=== PATIENT | female | born 1960 | race Caucasian/White ===

== ENCOUNTER 2016-07-03 13:55 | Emergency (ER) | payer MEDICARE, MEDICAID ==
--- NOTE | 2016-07-03 14:46 | ED Physician Documentation ---
History of Present Illness - Stated complaint Stated Complaint: WEAKNESS/EXHAUSTED - Chief complaint Chief Complaint: General - History obtained from History obtained from: Patient - History of Present Illness Timing: Other (This is a 55-year-old woman who for the last 2 weeks has had unexplained fatigue. She is sleeping 7 or half hours a night and wakes up tired with slight heaviness. She has associated nausea but that is a chronic issue. She has nocturia but that is also not new. She denies pedal edema, chest pain, shortness of breath, abdominal pain, or headache. She doesn't know if she snores. She is not taking any prescription medication. She has a history of alcohol abuse but has been sober for 18 months or so.) Review of Systems Constitutional: reports: Fatigue. 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 - Present Medications Home Medications: Ambulatory Orders Medication Instructions Recorded Confirmed Promethazine [Phenergan] 25 mg PO Q6H PRN 12/27/12 07/03/16 - Allergies Allergies/Adverse Reactions: Allergies Allergy/AdvReac Type Severity Reaction Status Date / Time aspirin Allergy Nausea Verified 07/03/16 14:12 doxycycline Allergy unknown Verified 07/03/16 14:12 hydrocodone bitartrate * Allergy unknown Verified 07/03/16 14:12 [From Vicodin] oxycodone Allergy Hives Verified 07/03/16 14:12 - Social History Does the pt smoke?: Yes Smoking Status: Current every day smoker Does the pt drink ETOH?: Yes Does the pt have substance abuse?: No - Immunizations Immunizations are current?: Yes - POLST Patient has POLST: No PD ED PE NORMAL - Vitals Vital signs reviewed: Yes - General General: Alert and oriented X 3, No acute distress - HEENT HEENT: PERRL, EOMI, Ears normal, Moist mucous membranes - Neck Neck: Supple, no meningeal sign, No bony TTP - Cardiac Cardiac: RRR, No murmur - Respiratory Respiratory: No respiratory distress, Clear bilaterally - Abdomen Abdomen: Soft, Non tender - Extremities Extremities: No deformity, No tenderness to palpate, No edema, Other (nl patellar reflexes) - Neuro Neuro: Alert and oriented X 3, Normal speech - Psych Psych: Normal mood, Normal affect Results - Vitals Vitals: Vital Signs - 24 hr 07/03/16 07/03/16 14:08 15:42 Temperature 36 C L 36.5 C Heart Rate 74 60 Respiratory 14 18 Rate Blood Pressure 143/85 H 137/73 H O2 Saturation 100 99 Oxygen O2 Source Room air - EKG (time done) 1456 Rate: Rate (enter#) (59) Rhythm: NSR [place]: Normal Intervals: Normal NV QRS: Normal Ischemia: Normal ST segments Computer interpretation: Agree with computer - Labs Labs: Laboratory Tests 07/03/16 07/03/16 07/03/16 14:47 15:50 15:50 WBC 7.5 RBC 4.37 Hgb 13.7 Hct 41.2 MCV 94.1 MCH 31.4 H MCHC 33.3 RDW 13.5 Plt Count 292 MPV 8.5 Neut # 3.9 Lymph # 3.0 [place] # 0.4 Eos # 0.1 Baso # 0.1 Absolute Nucleated RBC 0.00 Nucleated RBCs 0.0 Sodium 140 Potassium 4.1 Chloride 105 Carbon Dioxide 27 Anion Gap 8.0 BUN 15 Creatinine 0.5 Estimated GFR (MDRD) 129 Glucose 93 Calcium 9.5 Total Bilirubin 0.4 AST 19 ALT 20 Alkaline Phosphatase 91 Total Protein 7.7 Albumin 4.4 Globulin 3.3 Albumin/Globulin Ratio 1.3 Lipase 24 TSH Urine Color YELLOW Urine Clarity CLEAR Urine pH 6.0 Ur Specific [place] 1.020 Urine Protein NEGATIVE Urine Glucose (UA) NEGATIVE Urine Ketones NEGATIVE Urine Occult Blood MODERATE H Urine Nitrite NEGATIVE Urine Bilirubin NEGATIVE Urine Urobilinogen 0.2 (NORMAL) Ur Leukocyte Esterase NEGATIVE Urine RBC 0-5 Urine WBC 0-3 Ur Squamous Epith Cells FEW Squamous Urine Bacteria Rare Ur Microscopic Review INDICATED Urine Culture Comments NOT INDICATED Urine HCG, Qual NEGATIVE 07/03/16 15:50 WBC RBC Hgb Hct MCV MCH MCHC RDW Plt Count MPV Neut # Lymph # [place] # Eos # Baso # Absolute Nucleated RBC Nucleated RBCs Sodium Potassium Chloride Carbon Dioxide Anion Gap BUN Creatinine Estimated GFR (MDRD) Glucose Calcium Total Bilirubin AST ALT Alkaline Phosphatase Total Protein Albumin Globulin Albumin/Globulin Ratio Lipase TSH 1.74 Urine Color Urine Clarity Urine pH Ur Specific [place] Urine Protein Urine Glucose (UA) Urine Ketones Urine Occult Blood Urine Nitrite Urine Bilirubin Urine Urobilinogen Ur Leukocyte Esterase Urine RBC Urine WBC Ur Squamous Epith Cells Urine Bacteria Ur Microscopic Review Urine Culture Comments Urine HCG, Qual PD MEDICAL DECISION MAKING - ED course ED course: 2 weeks of fatigue, may be related to stress at work. No medical emergency identified. Departure - Departure Disposition: Home, Self Care Clinical Impression: Fatigue Qualifiers: Fatigue type: unspecified Qualified Code(s): R53.83 - Other fatigue Condition: Good Record reviewed to determine appropriate education?: Yes Comments: Call your doctor to arrange a follow up appointment. Make the next available appointment. In the interim return anytime if worse or if new symptoms develop. Your blood pressure was elevated today on check in to the emergency department. This does not mean that you have hypertension, it is a common phenomenon to check into the emergency department and have elevated blood pressure. I recommend that you see your primary care physician within the week to have it rechecked when you're feeling better. Discharge Date/Time: 07/03/16 16:26
[2016-07-03 14:55] LABS: BILIRUBIN,URINE NEGATIVE (NEGATIVE)
[2016-07-03 14:59] LABS: HCG UR QUAL NEGATIVE; UA w/ MICROSCOPIC CHARGE YES
[2016-07-03 15:07] LABS: UR CULTURE IF IND NOT INDICATED; WBC,URINE 0-3 /HPF (0-5)
[2016-07-03 15:43] VITALS: BP 137/73
[2016-07-03 15:56] LABS: BASOPHILS # (AUTO) 0.1 10^3/uL (0.0-0.1); BASOPHILS % (AUTO) 1.1 %; EOSINOPHILS # (AUTO) 0.1 10^3/uL (0.0-0.7); HCT - HEMATOCRIT 41.2 % (37.0-47.0); HGB - HEMOGLOBIN 13.7 g/dL (12.0-16.0); LYMPHOCYTES % (AUTO) 40.4 %; MEAN CORPUSCULAR HEMOGLOBIN 31.4 pg (27.0-31.0); MEAN CORPUSCULAR HGB CONC 33.3 g/dL (32.0-36.0); MEAN CORPUSCULAR VOLUME 94.1 fL (81.0-99.0); MEAN PLATELET VOLUME 8.5 fL (7.9-10.8); MONOCYTES # (AUTO) 0.4 10^3/uL (0.0-1.0); MONOCYTES % (AUTO) 5.1 %; NEUTROPHILS # (AUTO) 3.9 10^3/uL (1.5-6.6); NEUTROPHILS % (AUTO) 52.4 %; RED BLOOD COUNT 4.37 10^6/uL (4.20-5.40); RED CELL DISTRIBUTION WIDTH 13.5 % (12.0-15.0); UNCORRECTED WHITE BLOOD COUNT 7.5 x10^3/uL; WHITE BLOOD COUNT 7.5 x10^3/uL (4.8-10.8)
[2016-07-03 16:12] LABS: ALBUMIN/GLOBULIN RATIO 1.3 (1.0-2.2); BILIRUBIN,TOTAL 0.4 mg/dL (0.2-1.0); CALCIUM 9.5 mg/dL (8.5-10.3); CREATININE 0.5 mg/dL (0.4-1.0); POTASSIUM 4.1 mmol/L (3.5-5.0); TOTAL PROTEIN 7.7 g/dL (6.7-8.2)
== END 2016-07-03 16:26 | disposition home or self-care (01) ==
LOC: ED 13:55
DX: R53.83 Other fatigue (principal); R03.0 Elevated blood-pressure reading, without diagnosis of hypertension; F17.200 Nicotine dependence, unspecified, uncomplicated
CPT/HCPCS: 36415; 80053; 81001; 81003; 81025; 83690; 84443; 85025; 87086; 93005; 93010; 99283

== ENCOUNTER 2016-08-16 14:59 | Outpatient (CLI) | payer MEDICARE, MEDICAID ==
--- NOTE | 2016-08-17 11:10 | XRAY Report ---
COMPLETE CERVICAL SPINE: 08/16/2016 CLINICAL INDICATION: Left arm numbness. FINDINGS: AP, lateral, oblique and odontoid views of the cervical spine demonstrate postoperative ch anges at C5-6 and C6-7. There is bilateral osseous neural foraminal narrowing at C5-6. There is no ev idence of acute fracture. No prevertebral soft tissue swelling is seen. IMPRESSION: BILATERAL OSSEOUS NEURAL FORAMINAL NARROWING AT C5-6. JOB #: [id number] EXT JOB #:[id number]
== END 2016-08-16 15:00 | disposition home or self-care (01) ==
LOC: DI 14:59
PROVIDERS: ATTEND Internal Medicine
DX: R20.0 Anesthesia of skin (principal)
CPT/HCPCS: 72050

== ENCOUNTER 2016-09-15 09:28 | Outpatient (CLI) | payer MEDICARE, MEDICAID ==
--- NOTE | 2016-09-15 11:07 | CT Report ---
CT OF THE CERVICAL SPINE WITHOUT CONTRAST: 09/15/2016 CLINICAL INDICATION: Radiculopathy. TECHNIQUE: Axial CT images of the cervical spine were obtained without contrast. Comparison is made to plain films of 08/16/2016. FINDINGS: The cervical vertebral bodies demonstrate normal height and alignment. There is metallic artifact from disk prostheses at C5-6 and C6-7, limiting evaluation at these levels. There is no evidence of acute fracture. The C2-3, C3-4, C4-5 disks appear unremarkable. At C5-6, changes of discectomy and disk prosthesis are noted. No spinal or foraminal narrowing is appreciated. At C6-7, changes of discectomy and disk prosthesis are noted. No spinal or foraminal narrowing is appreciated. The C7-T1 disk is unremarkable. Limited evaluation of the lung apices is unremarkable. The paraspinal soft tissues appear unremarkable. IMPRESSION: POSTOPERATIVE CHANGES AT C5-6 AND C6-7. NO EVIDENT SPINAL OR FORAMINAL STENOSIS. In accordance with CT protocol optimization, one or more of the following dose reduction techniques were utilized for this exam: automated exposure control, adjustment of mA and/or KV based on patient size, or use of iterative reconstructive technique. JOB #: [id number] EXT JOB #: [id number] LUCY
== END 2016-09-15 09:29 | disposition home or self-care (01) ==
LOC: DI 09:28
PROVIDERS: ATTEND Orthopaedic Surgery
DX: M54.12 Radiculopathy, cervical region (principal)
CPT/HCPCS: 72125

== ENCOUNTER 2016-10-19 16:35 | Outpatient (CLI) | payer MEDICARE, MEDICAID ==
[2016-10-20 15:56] LABS: HEPATITIS A AB TOTAL(IMMUNITY) NON-REACTIVE (NON-REACTIVE)
== END 2016-10-19 16:36 | disposition home or self-care (01) ==
LOC: LAB 16:35
PROVIDERS: ATTEND Internal Medicine
DX: Z20.5 Contact with and (suspected) exposure to viral hepatitis (principal)
CPT/HCPCS: 36415; 86708; 86709

== ENCOUNTER 2017-08-07 13:47 | Emergency (ER) | payer MEDICARE, MEDICAID ==
[2017-08-07 14:02] VITALS: BP 108/61
== END 2017-08-07 14:26 | disposition left against medical advice (07) ==
LOC: ED 13:47
DX: Z53.21 Procedure and treatment not carried out due to patient leaving prior to being seen by health care provider (principal)
CPT/HCPCS: 99281

== ENCOUNTER 2017-10-03 16:28 | Emergency (ER) | payer MEDICARE, MEDICAID ==
--- NOTE | 2017-10-03 17:25 | XRAY Report ---
Procedure Date: 10/03/2017 Accession Number: [id number] / [id number] Procedure: XR - Elbow 3 View LT CPT Code: FULL RESULT: EXAM: LEFT ELBOW RADIOGRAPHY EXAM DATE: 10/03/2017 05:12 PM. CLINICAL HISTORY: Ground-level fall. Left elbow pain and swelling. COMPARISON: None. TECHNIQUE: 3 views. FINDINGS: Bones: Normal. No fractures or bone lesions. Joints: Normal. No effusion. No subluxation. Soft Tissues: Normal. No soft tissue swelling. IMPRESSION: Normal elbow radiography. RADIA
--- NOTE | 2017-10-03 18:17 | ED Physician Documentation ---
PD HPI UPPER EXT INJURY - Stated complaint Stated Complaint: LT ARM INJURY/NECK PX - Chief complaint Chief Complaint: Ext Problem - History obtained from History obtained from: Patient - History of Present Illness Location: Left (57-year-old woman [place] the shopping [place] today and someone else dropped a jar of pickles and she kind of jumped backwards and then fell backwards hitting her elbow and she also has some neck pain. No other injuries. No head injury. No loss of consciousness. 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 - Present Medications Home Medications: Ambulatory Orders Medication Instructions Recorded Confirmed Promethazine [Phenergan] 25 mg PO Q6H PRN 12/27/12 07/03/16 - Allergies Allergies/Adverse Reactions: Allergies Allergy/AdvReac Type Severity Reaction Status Date / Time aspirin Allergy Nausea Verified 08/07/17 14:02 doxycycline Allergy unknown Verified 08/07/17 14:02 hydrocodone bitartrate * Allergy unknown Verified 08/07/17 14:02 [From Vicodin] oxycodone Allergy Hives Verified 08/07/17 14:02 - Social History Does the pt smoke?: Yes Smoking Status: Current every day smoker Does the pt drink ETOH?: Yes Does the pt have substance abuse?: No - Immunizations Immunizations are current?: Yes - POLST Patient has POLST: No PD ED PE NORMAL - Vitals Vital signs reviewed: Yes - General General: Alert and oriented X 3, No acute distress - HEENT HEENT: PERRL, EOMI - Neck Neck: Supple, no meningeal sign, No bony TTP (She is a little tender over the right low sternocleidomastoid but there is absolutely no midline tenderness or limited range of motion) - Extremities Extremities: Other (Mild tenderness over the medial epicondyle of the left elbow with full range of motion.) - Neuro Neuro: Alert and oriented X 3, 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 The nexus criteria were applied. The patient has no focal neurologic deficit on examination. The patient has no midline spinal tenderness. The patient has a normal level of consciousness. The patient has no evidence of intoxication. There is no distracting injury presents. Given that these were all negative, per the Nexus criteria the cervical spine was cleared without imaging. - Sepsis Event Vital Signs: Vital Signs - 24 hr 10/03/17 16:55 Temperature 36.5 C Heart Rate 79 Respiratory 18 Rate Blood Pressure 149/97 H O2 Saturation 95 Oxygen O2 Source Room air Departure - Departure Disposition: 01 Home, Self Care Clinical Impression: Fall from ground level Neck sprain Qualifiers: Encounter type: initial encounter Qualified Code(s): S13.9XXA - Sprain of joints and ligaments of unspecified parts of neck, initial encounter Left elbow contusion Qualifiers: Encounter type: initial encounter Qualified Code(s): S50.02XA - Contusion of left elbow, initial encounter Condition: Good Record reviewed to determine appropriate education?: Yes Instructions: ED Sprain Strain Neck Comments: Your blood pressure was elevated today on check into the emergency department. This does not mean that you have hypertension, it is a common phenomenon to come to the emergency department and have elevated blood pressure. I recommend that you see your primary care physician within the week to have it rechecked when you are feeling better.
[2017-10-03 18:32] VITALS: BP 138/88
== END 2017-10-03 18:31 | disposition home or self-care (01) ==
LOC: ED 16:28
DX: S13.9XXA Sprain of joints and ligaments of unspecified parts of neck, initial encounter (principal); S50.02XA Contusion of left elbow, initial encounter; F17.200 Nicotine dependence, unspecified, uncomplicated; W01.10XA Fall on same level from slipping, tripping and stumbling with subsequent striking against unspecified object, initial encounter; Y92.512 Supermarket, store or market as the place of occurrence of the external cause
CPT/HCPCS: 99283

== ENCOUNTER 2019-02-09 17:04 | Emergency (ER) | payer MEDICARE, MEDICAID ==
[2019-02-09] MEDS ORDERED: KETOROLAC 60 MG/2 ML VIAL IM STA (17:25)
[2019-02-09] MEDS ORDERED: DEXAMETHASONE 10 MG/ML VIAL PO STA (17:25)
[2019-02-09] MEDS ORDERED: CHERRY SYRUP 10 ML UDC PO ONE (17:25)
--- NOTE | 2019-02-09 17:30 | ED Physician Documentation ---
PD HPI BACK PAIN - Stated complaint Stated Complaint: BACK PX - Chief complaint Chief Complaint: Back Pain - History obtained from History obtained from: Patient - History of Present Illness Timing - onset: Enter time (399), Today Timing - duration: Hours Timing - details: Abrupt onset, Still present Location: Lower, Left Quality: Pain, Spasm, Sharp, Similar to prior episodes Associated symptoms: No: Fever, Weakness, Numbness, Incontinent of urine, Unable to urinate, Hematuria, Incontinent of stool Improves with: Rest, Position Worsened by: Movement Similar symptoms before: Diagnosis (sciatica) Recently seen: Clinic - Additional information Additional information: 58-year-old female with a history of degenerative disc disease in her neck and back has developed acute sciatic symptoms in the left side at 4:00 this morning. She states that she has been sick over the past week with diarrhea and that illness is improving. She states that she has been hydrating adequately.She denies any numbness or tingling to the perineum denies any trouble with her bladder she does have diarrhea she has not incontinent. Review of Systems Constitutional: denies: Fever Eyes: denies: Decreased vision Ears: denies: Ear pain Nose: reports: Congestion. denies: Rhinorrhea / runny nose Throat: denies: Sore throat Cardiac: denies: Chest pain / pressure, Palpitations Respiratory: denies: Dyspnea, Cough GI: reports: Diarrhea : denies: Dysuria, Frequency Skin: denies: Rash Musculoskeletal: reports: Back pain. 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 - Present Medications Home Medications: Ambulatory Orders Medication Instructions Recorded Confirmed Promethazine [Phenergan] 25 mg PO Q6H PRN 12/27/12 07/03/16 Cyclobenzaprine [Flexeril] 10 mg PO TID PRN #20 tablet 02/09/19 Hydrocodone/Acetaminophen 1 - 2 each PO Q6H PRN #14 tablet 02/09/19 [Hydrocodon-Acetaminophen 5-325] - Allergies Allergies/Adverse Reactions: Allergies Allergy/AdvReac Type Severity Reaction Status Date / Time aspirin Allergy Nausea Verified 02/09/19 17:10 doxycycline Allergy unknown Verified 02/09/19 17:10 hydrocodone bitartrate * Allergy unknown Verified 02/09/19 17:10 [From Vicodin] oxycodone Allergy Hives Verified 02/09/19 17:10 - Social History Does the pt smoke?: Yes Smoking Status: Current every day smoker Does the pt drink ETOH?: Yes Does the pt have substance abuse?: No - Immunizations Immunizations are current?: Yes - POLST Patient has POLST: No PD ED PE NORMAL - Vitals Vital signs reviewed: Yes (hypertensive ) - General General: Other (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 ) - HEENT HEENT: Atraumatic, PERRL, EOMI - Respiratory Respiratory: No respiratory distress - Back Back: No CVA TTP, No spinal TTP, Other (There is tenderness to the lower lumbar paraspinous muscles extending into the sciatic notch on the left side.) - Derm Derm: Normal color, Warm and dry, No rash - Extremities Extremities: No deformity, No edema - Neuro Neuro: Alert and oriented X 3, building certifier 2-12 intact, No motor deficit, No sensory deficit, Normal speech Eye Opening: Spontaneous Motor: Obeys Commands Verbal: Oriented GCS Score: 15 - Psych Psych: Normal mood, Other (Affect is flattened) Results - Vitals Vitals: Vital Signs - 24 hr 02/09/19 17:10 Temperature 36.5 C Heart Rate 76 Respiratory 16 Rate Blood Pressure 181/94 H O2 Saturation 100 Oxygen O2 Source Room air PD MEDICAL DECISION MAKING - ED course Complexity details: reviewed old records, re-evaluated patient, considered differential, d/w patient, d/w family ED course: 58-year-old female with a history of sciatica is in pain with her lower back. She has been into see her primary care doctor this week and last week regarding other issues. She has had some diarrhea she claims that she feels she is well- hydrated as she has been drinking lots of fluids and she is in a broth diet. 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 Calabrese for this and is on a broth diet.Here in the emergency department the patient is administered dexamethasone 10 mg orally and Toradol 60 mg IM. The patient's chart is flagged for allergy to aspirin which the patient states his vomiting as well as doxycycline which patient states is hives and it is also flagged for hydrocodone and oxycodone. The patient states that she was at one time allergic to hydrocodone with hives and she has subsequently been given hydrocodone without difficulty. She states that she is okay with either hydrocodone oxycodone or tramadol. Departure - Departure Disposition: 01 Home, Self Care Clinical Impression: Sciatica Qualifiers: Laterality: left Qualified Code(s): M54.32 - Sciatica, left side Condition: Stable Instructions: ED Sciatica Follow-Up: Mackenzie Bloom MD [Primary Care Provider] - Prescriptions: Cyclobenzaprine [Flexeril] 10 mg PO TID PRN #20 tablet PRN Reason: Spasms Hydrocodone/Acetaminophen [Hydrocodon-Acetaminophen 5-325] 1 - 2 each PO Q6H PRN #14 tablet PRN Reason: pain
[2019-02-09] MEDS ORDERED: HYDROcod/ACET 5/325 Prepack 4 PO STA (17:36)
[2019-02-09] MEDS ORDERED: CYCLOBENZAPRINE 10 MG Prepack 2 PO PRN (17:36)
[2019-02-09] MEDS ORDERED: HYDROmorphone 1 MG/ML CARPUJECT IM STA (18:18)
[2019-02-09 18:48] VITALS: BP 150/78
== END 2019-02-09 18:48 | disposition home or self-care (01) ==
LOC: ED 17:04
DX: M54.42 Lumbago with sciatica, left side (principal); R19.7 Diarrhea, unspecified; M50.30 Other cervical disc degeneration, unspecified cervical region; F17.200 Nicotine dependence, unspecified, uncomplicated
CPT/HCPCS: 96374; 96375; 99283; 99284; A9270; J1170

== ENCOUNTER 2019-02-20 10:42 | Day surgery (SDC) | payer MEDICARE, MEDICAID ==
[~2019-02-20 10:42] MED LIST: SODIUM/POTASSIUM/MAG SULFATES 354 ML PREP KIT PO SCH
[2019-02-20] MEDS ORDERED: LACTATED RINGERS 1,000 ML IV ONE (10:46)
[2019-02-20] MEDS ORDERED: LIDO GARGLE 30 ML BOTTLE ONE (11:03)
[2019-02-20] MEDS ORDERED: fentaNYL 250 MCG/5 ML VIAL IVP ONE (11:15)
[2019-02-20] MEDS ORDERED: fentaNYL 100 MCG/2 ML VIAL IVP ONE (11:15)
[2019-02-20] MEDS ORDERED: MIDAZOLAM 2 MG/2 ML VIAL IVP ONE (11:15)
[2019-02-20] MEDS ORDERED: LIDO GARGLE 30 ML BOTTLE PO ONE (11:20)
[2019-02-20 13:05] VITALS: BP 123/54
== END 2019-02-20 10:43 | disposition home or self-care (01) ==
LOC: SDS 10:42
PROVIDERS: ATTEND Surgery
PROC: 0DB68ZX Excision of Stomach, Via Natural or Artificial Opening Endoscopic, Diagnostic (ICD-10-PCS; 2019-02-20)
PROC: 0DB48ZX Excision of Esophagogastric Junction, Via Natural or Artificial Opening Endoscopic, Diagnostic (ICD-10-PCS; 2019-02-20)
PROC: 0DJD8ZZ Inspection of Lower Intestinal Tract, Via Natural or Artificial Opening Endoscopic (ICD-10-PCS; principal; 2019-02-20 11:30)
PROC: 0DB98ZX Excision of Duodenum, Via Natural or Artificial Opening Endoscopic, Diagnostic (ICD-10-PCS; 2019-02-20 11:30)
DX: K29.70 Gastritis, unspecified, without bleeding (principal); K20.9 Esophagitis, unspecified; K31.9 Disease of stomach and duodenum, unspecified; K62.4 Stenosis of anus and rectum; R19.7 Diarrhea, unspecified; R10.11 Right upper quadrant pain; R11.2 Nausea with vomiting, unspecified; R15.9 Full incontinence of feces; K59.00 Constipation, unspecified; F17.210 Nicotine dependence, cigarettes, uncomplicated
CPT/HCPCS: 43239; 45378; A9270; J3010; J7120

== ENCOUNTER 2019-03-07 10:38 | Outpatient (CLI) | payer MEDICARE, MEDICAID ==
[2019-03-07] MEDS ORDERED: SINCALIDE 5 MCG VIAL ONE (11:50)
[2019-03-07] MEDS ORDERED: SODIUM CHLORIDE 0.9% IV ONE (13:36)
[2019-03-07] MEDS ORDERED: SINCALIDE IV ONE (13:36)
[2019-03-07] MEDS ORDERED: IOVERSOL 320 100 ML VIAL IVP ONE (13:41)
--- NOTE | 2019-03-09 09:14 | Nuclear Medicine Report ---
Reason: NAUSEA, DIARREHEA, ABD PAIN Procedure Date: 03/07/2019 Accession Number: [id number] / [id number] Procedure: NM - Hepatobiliary HIDA w/ Rx CPT Code: Final Report FULL RESULT: EXAM: HEPATOBILIARY SCAN WITH CCK/KINEVAC ADMINISTRATION EXAM DATE: 03/07/2019 01:33 PM. CLINICAL HISTORY: NAUSEA, DIARRHEA, ABD PAIN. COMPARISON: IVP 03/07/2019 1:35 PM. TECHNIQUE: Following the intravenous administration of 5.1 mCi of Tc99m Mebrofenin, a hepatobiliary scan was done centered on the liver and gallbladder in multiple sequential images and projections. Following the intravenous administration of 1.4 mcg of CCK/ Kinevac over the course of approximately 60 minutes, dynamic imaging was done and the gallbladder ejection fraction was calculated. FINDINGS: Normal extraction of tracer from the blood pool indicating normal hepatocellular function. The liver size and shape is grossly within normal limits. There is activity visualized within the bile ducts, gallbladder, and small bowel during the first hour. With CCK administration, the gallbladder demonstrates an effective contraction. The gallbladder ejection fraction is calculated to be 58%, well above the lower limit of normal of 38% for a 60-minute injection. The patient did report symptoms after CCK administration. No evidence of enteric reflux into the stomach. No significant collection of tracer remaining in the common bile duct by the end of the study. IMPRESSION: 1. Patent cystic duct. 2. Patent common bile duct. 3. Negative for acute or chronic cholecystitis. 4. No enterogastric bile reflux. 5. Gallbladder ejection fraction of 58%. RADIA
== END 2019-03-07 10:39 | disposition home or self-care (01) ==
LOC: DI 10:38
PROVIDERS: ATTEND Surgery
DX: R11.0 Nausea (principal); R19.7 Diarrhea, unspecified; R10.9 Unspecified abdominal pain; R31.21 Asymptomatic microscopic hematuria
CPT/HCPCS: 74178; 78227; J7040; Q9967

== ENCOUNTER 2019-03-07 13:17 | Outpatient (CLI) | payer MEDICARE, MEDICAID ==
--- NOTE | 2019-03-08 17:06 | CT Report ---
Reason: ASYMPTOMATIC MICROSCOPIC HEMATURIA Procedure Date: 03/07/2019 Accession Number: [id number] / [id number] Procedure: CT - IVP CPT Code: Final Report FULL RESULT: EXAM: CT ABDOMEN AND PELVIS WITHOUT AND WITH CONTRAST (CT IVP) EXAM DATE: 03/07/2019 01:35 PM. CLINICAL HISTORY: ASYMPTOMATIC MICROSCOPIC HEMATURIA. COMPARISONS: ABDOMEN/PELVIS W/ 06/10/2014 2:10 PM. TECHNIQUE: Routine helical imaging was performed through the kidneys, ureters and bladder in the precontrast, postcontrast and delayed phase with split bolus. IV Contrast: 100 mL Optiray 320. Reconstructions: Coronal and sagittal. In accordance with CT protocol optimization, one or more of the following dose reduction techniques were utilized for this exam: automated exposure control, adjustment of mA and/or KV based on patient size, or use of iterative reconstructive technique. FINDINGS: Lung Bases: Unremarkable. Liver: Normal. No masses. Gallbladder/Bile Ducts: Unremarkable. Spleen: Normal. Pancreas: Normal. Adrenal Glands: Normal. Kidneys/Bladder: Right Kidney/Ureter: No renal or ureteral stones. No hydronephrosis or hydroureter. No masses. Left Kidney/Ureter: No renal or ureteral stones. No hydronephrosis or hydroureter. No masses. Bladder: No stones. No wall thickening or mass. Peritoneal Cavity/Bowel: Normal. No free fluid, free air or adenopathy. No masses or acute inflammatory process. Pelvis: No lymphadenopathy. No free fluid. No mass lesions. Vasculature: No aneurysms or other significant abnormality. Bones: No significant abnormality. Other: None. IMPRESSION: 1. Normal CT IVP. No urinary tract masses, stones or obstruction. 2. Normal CT of the abdomen and pelvis. RAD[facility]
== END 2019-03-07 13:18 | disposition home or self-care (01) ==
LOC: DI 13:17
PROVIDERS: ATTEND Internal Medicine
DX: R31.21 Asymptomatic microscopic hematuria (principal)
CPT/HCPCS: 74178

== ENCOUNTER 2019-03-24 11:49 | Day surgery (SDC) | payer MEDICARE, MEDICAID ==
[~2019-03-24 11:49] MED LIST changes: +BUPIVACAINE 0.5% PF 30 ML VIAL ONE; +LIDOCAINE 1%-EPI 1:100000 20 ML MDV ONE; -SODIUM/POTASSIUM/MAG SULFATES 354 ML PREP KIT PO SCH
[2019-03-24] MEDS ORDERED: LACTATED RINGERS 1,000 ML IV ONE (11:57)
--- NOTE | 2019-03-24 12:31 | ANESTHESIA ---
Pre-Anesthesia VS, & Labs - Diagnosis cholecystitis - Procedure laparoscopic cholecystectomy Vital Signs: Temp Pulse Resp BP Pulse Ox 36.4 C L 82 15 146/84 H 100 03/24/19 12:08 03/24/19 12:08 03/24/19 12:08 03/24/19 12:08 03/24/19 12:08 Height 5 ft Weight (kg) 72 kg Body Mass Index 30.6 - NPO >8 hours - Is Patient ?: No Home Medications and Allergies Promethazine [Phenergan] 25 mg PO Q6H PRN 12/27/12 Allergies/Adverse Reactions: Allergies Allergy/AdvReac Type Severity Reaction Status Date / Time doxycycline Allergy Hives Verified 03/18/19 12:57 aspirin AdvReac Nausea Verified 03/18/19 12:57 Anes History & Medical History - Anesthetic History Anesthesia Complications: reports: No previous complications - Medical History Cardiovascular: reports: None Pulmonary: reports: None Gastrointestinal: reports: Chronic diarrhea, Other Urinary: reports: Other Musculoskeletal: reports: Osteoarthritis, Chronic back pain Endocrine/Autoimmune: reports: None Skin: reports: Rosacea Smoking Status: Current every day smoker - Surgical History General: Colonoscopy Gynecologic: section, 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, 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 Orthopedic: Spine surgery Exam General: Alert Dental: WNL Mouth Opening: Greater than 4 Fingerbreadths Neck Mobility: Reduced Mallampati classification: II Thyromental Distance: greater than 6 cm Respiratory: Lungs clear Cardiovascular: Regular rate, Normal S1, Normal S2 Plan Anesthesia Type: General Consent for Procedure(s) Verified and Reviewed: Yes Code Status: Attempt Resuscitation ASA classification: 2-Mild systemic disease Is this case an emergency?: No
[2019-03-24] MEDS ORDERED: SCOPOLAMINE PATCH TOP ONE (12:48)
[2019-03-24] MEDS ORDERED: DEXAMETHASONE 4 MG/ML VIAL IVP ONE (13:22)
[2019-03-24] MEDS ORDERED: ROCURONIUM 50 MG/5 ML VIAL IVP ONE (13:22)
[2019-03-24] MEDS ORDERED: MIDAZOLAM 2 MG/2 ML VIAL IVP ONE (13:22)
[2019-03-24] MEDS ORDERED: ACETAMINOPHEN 1,000 MG/100 ML 100 ML IV ONE (13:22)
[2019-03-24] MEDS ORDERED: METOCLOPRAMIDE 10 MG/2 ML VIAL IVP ONE (13:22)
[2019-03-24] MEDS ORDERED: fentaNYL 100 MCG/2 ML VIAL IVP ONE (13:22)
[2019-03-24] MEDS ORDERED: SUGAMMADEX 200 MG/2 ML VIAL IVP ONE ×2 (13:22→14:00)
[2019-03-24] MEDS ORDERED: PROPOFOL 200 MG/20 ML VIAL IVP ONE (13:22)
[2019-03-24] MEDS ORDERED: ONDANSETRON 4 MG/2 ML VIAL IVP ONE (13:22)
[2019-03-24] MEDS ORDERED: LIDOCAINE-MPF 2% 5 ML VIAL IM ONE (13:22)
[2019-03-24] MEDS ORDERED: LIDOCAINE 1%-EPI 1:100000 20 ML MDV SUBQ ONE (13:41)
[2019-03-24] MEDS ORDERED: BUPIVACAINE 0.5% PF 30 ML VIAL INFIL ONE (13:42)
[2019-03-24] MEDS ORDERED: oxyCODONE 5 MG TABLET PO PRN (14:12)
[2019-03-24] MEDS ORDERED: ACETAMINOPHEN 325 MG TABLET PO PRN (14:12)
[2019-03-24] MEDS ORDERED: ONDANSETRON 4 MG/2 ML VIAL IVP PRN (14:12)
[2019-03-24] MEDS ORDERED: IBUPROFEN 600 MG TABLET PO PRN (14:12)
--- NOTE | 2019-03-24 14:17 | OPERATIVE REPORT ---
Operative Report - General Procedure Date: 03/24/19 Planned Procedure: Laparoscopic cholecystectomy Pre-Op Diagnosis: Chronic abdominal pain and biliary dyskinesia Procedure Performed: Laparoscopic cholecystectomy Post Op Diagnosis: Same - Procedure Note Primary Surgeon: Bharati Anesthesia Provider: HOSEA Ly Anesthesia Technique: General ET tube, Local Pathology: Gall bladder in formalin to pathology Findings: 1. Dense intra-abdominal adhesions. 2. Thickened and contracted gall bladder with circumferential adhesions to surrounding structures. Complications: None apparent - Other Other Information/Narrative: After obtaining informed consent the patient is brought to the operating room and placed in the supine position on the operating table. Following successful induction of general endotracheal anesthesia, appropriate padding of all bony prominences, and placement of appropriate monitors, the abdomen was prepped and draped in the standard surgical fashion. A timeout was held per scope protocol. All elements of the surgical safety checklist were followed before, during, and after the procedure. Following infiltration with local anesthetic to create a field block, an incision was created inferior to the umbilicus and carried down through the skin and subcutaneous tissue to reveal the fascia below. 2-0 Vicryl retention sutures were placed on either side of the midline and the abdomen was entered under direct vision using a 15 blade scalpel. A 10 mm blunt Contreras balloon trocar was placed in the abdominal cavity and it was insufflated to 15 mmHg pressure. The patient was placed in reverse Trendelenburg position with the left side rotated toward the floor. A second trocar, 5 mm, was placed in the midepigastrium under direct vision and after anesthetization of the surrounding skin.A third trocar, also 5 mm was placed in the right upper quadrant for retraction of the gallbladder and a fourth 1 just medial to that as a working port as well. The gallbladder was examined. It was adherent to the surrounding structures including the omentum and the right colon. These structures were carefully dissected free from the surface of the gallbladder using a mixture of blunt and sharp dissection. The fundus of the gallbladder was then grasped and elevated up over the liver revealing the cholecysto hepatoduodenal ligament. The neck of the gallbladder was retracted laterally and the cystic duct and artery were carefully identified. The common duct was visualized but not skeletonized. The cystic duct was clipped 3 times proximally and once distally and divided, the cystic artery was clipped twice proximally, once distally, and divided. The gallbladder was then liberated from its bed in the liver using cautery. It was placed in an Endo Catch bag and removed via the umbilical port with a camera in the epigastric position. The camera was replaced in the umbilical position and the abdomen was checked for hemostasis. It was irrigated with warm saline solution and aspirated free of all fluid and particulate matter. The trochars were then removed under direct vision and the abdomen desufflated. The umbilical incision was closed with interrupted Vicryl suture and Monocryl was placed in all of the skin incisions. All sponge, needle, and instrument counts were correct at the conclusion of the case. The patient was allowed awaken from anesthesia without difficulty and taken to the postanesthesia care unit in good condition.
[2019-03-24] MEDS: HYDROmorphone 1 MG/ML CARPUJECT ONE ×2 (14:31→14:40)
[2019-03-24 16:01] VITALS: BP 138/72
== END 2019-03-24 11:50 | disposition home or self-care (01) ==
LOC: SDS 11:49
PROVIDERS: ATTEND Surgery
PROC: 0FT44ZZ Resection of Gallbladder, Percutaneous Endoscopic Approach (ICD-10-PCS; principal; 2019-03-24 13:30)
DX: K81.1 Chronic cholecystitis (principal); K82.8 Other specified diseases of gallbladder; K52.9 Noninfective gastroenteritis and colitis, unspecified; F17.200 Nicotine dependence, unspecified, uncomplicated; F41.9 Anxiety disorder, unspecified; M79.7 Fibromyalgia; G89.29 Other chronic pain; M54.9 Dorsalgia, unspecified
CPT/HCPCS: 47562; A9270; J0131; J1170; J2765; J3490; J7120

== ENCOUNTER 2019-08-29 12:35 | Outpatient (CLI) | payer MEDICARE, MEDICAID | END 2019-08-29 12:36 | disposition home or self-care (01) | LOC: LAB 12:35 | PROVIDERS: ATTEND Internal Medicine | DX: B34.9 Viral infection, unspecified (principal); Z20.828 Contact with and (suspected) exposure to other viral communicable diseases ==

== ENCOUNTER 2019-12-16 12:24 | Emergency (ER) | payer MEDICARE, MEDICAID ==
[2019-12-16] MEDS ORDERED: KETOROLAC 60 MG/2 ML VIAL IM STA (13:08)
--- NOTE | 2019-12-16 13:23 | ED Physician Documentation ---
History of Present Illness - Stated complaint Stated Complaint: BACK PX - Chief complaint Chief Complaint: Back Pain - Additonal information Additional information: 59-year-old female presents to the emergency department with 3 to 4 days of left sided back pain that radiates all the way down the leg. She reports to me prior history of sciatica. Over the last 3 days she reports that the pain has been constant. She is applied BenGay without relief. She has not taken any [id number] oral medications. She denies any falls or trauma. She has no saddle anesthesia. She denies any dysuria. 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 She did recently have a Choley in April of this last year. Review of Systems Constitutional: reports: Reviewed and negative Nose: reports: Reviewed and negative Throat: reports: Dental pain / toothache Cardiac: reports: Reviewed and negative Respiratory: reports: Reviewed and negative GI: reports: Reviewed and negative Skin: reports: Reviewed and negative Musculoskeletal: reports: Back pain Neurologic: reports: Reviewed and negative Psychiatric: reports: Reviewed and negative Endocrine: reports: Reviewed and negative PD PAST MEDICAL HISTORY - Past Medical History Cardiovascular: None Respiratory: None Endocrine/Autoimmune: None GI: Chronic diarrhea, Other : Other HEENT: Chronic vision loss Psych: Depression, Anxiety Musculoskeletal: Osteoarthritis, Chronic back pain Derm: Rosacea - Past Surgical History Past Surgical History: Yes General: Colonoscopy 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, 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, 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 - Present Medications Home Medications: Ambulatory Orders Medication Instructions Recorded Confirmed Promethazine [Phenergan] 25 mg PO Q6H PRN 12/27/12 03/24/19 Ondansetron Odt [Zofran] 4 mg TL Q6H PRN #10 tablet 03/24/19 oxyCODONE [Roxicodone] 5 mg PO Q4-6H PRN #30 tablet 03/24/19 Ibuprofen [Motrin] 600 mg PO Q6H PRN #30 tab 12/16/19 Methocarbamol [Robaxin-750] 750 mg PO TID PRN #30 tablet 12/16/19 - Allergies Allergies/Adverse Reactions: Allergies Allergy/AdvReac Type Severity Reaction Status Date / Time doxycycline Allergy Hives Verified 12/16/19 12:40 aspirin AdvReac Nausea Verified 12/16/19 12:40 - Social History Does the pt smoke?: Yes Smoking Status: Current every day smoker Does the pt drink ETOH?: Yes ETOH Use: Liquor Does the pt have substance abuse?: No - Immunizations Immunizations are current?: Yes - POLST Patient has POLST: No PD ED PE EXPANDED - General General: Alert, In Pain - Cardiac Cardiac: Regular Rate, Regular Rhythm, Radial strong equal, Cap refill < 2 sec - Respiratory Respiratory: Clear to ausultation loree. No: Distress, Labored - Abdomen Abdomen: Normal Bowel sounds. No: Tender to palpation - Back Back: Soft tissue tenderness, Straight leg raise + L (Left lower paraspinous tenderness to palpation. No midline pain elicited. Patient does have a positive straight leg exam on the left. Motor strength 5 of 5 without paresthesias bilateral lower extremities) Results - Vitals Vitals: Vital Signs - 24 hr 12/16/19 12/16/19 12:30 14:18 Temperature 36.9 C 36.9 C Heart Rate 88 62 Respiratory 20 18 Rate Blood Pressure 142/76 H 127/76 O2 Saturation 99 99 Oxygen O2 Source Room air PD MEDICAL DECISION MAKING - ED course Complexity details: reviewed results, re-evaluated patient, considered differential, d/w patient ED course: 59-year-old female presents the emergency department for evaluation of 3 days left low sided back pain that radiates down the left leg. She does report a history of sciatica and this episode is similar to others in the past. no red flags. Here in the emergency department she was given 60 mg of Toradol injection and then reevaluated. After about 45 minutes she had a nearly normal gait and was nearly pain-free. At this time I will plan to discharge her with a short course of NSAID medication plus a muscle relaxer. I have encouraged her to have very close follow-up with her primary care provider. Emergent return precautions were discussed. Departure - Departure Disposition: 01 Home, Self Care Clinical Impression: Low back pain Qualifiers: Chronicity: acute Back pain laterality: left Sciatica presence: with sciatica Sciatica laterality: sciatica of left side Qualified Code(s): M54.42 - Lumbago with sciatica, left side Condition: Stable Record reviewed to determine appropriate education?: Yes Instructions: ED Sciatica Follow-Up: Mackenzie Bloom MD [Primary Care Provider] - Prescriptions: Ibuprofen [Motrin] 600 mg PO Q6H PRN #30 tab PRN Reason: Pain Methocarbamol [Robaxin-750] 750 mg PO TID PRN #30 tablet PRN Reason: Spasms Comments: It looks like you are having an exacerbation of your sciatica. Please continue with warm compresses and walking as often as possible. Walking will help reduce back spasm. I would like you to take the ibuprofen with food 2-3 times a day for the next 4 to 5 days. I have also prescribed a muscle relaxer. Please use caution when taking a muscle relaxer. They may make you sleepy and unsafe to drive. Please schedule a follow-up appointment with your primary care provider as soon as possible.
[2019-12-16 14:19] VITALS: BP 127/76
== END 2019-12-16 14:34 | disposition home or self-care (01) ==
LOC: ED 12:24
DX: M54.42 Lumbago with sciatica, left side (principal); F17.200 Nicotine dependence, unspecified, uncomplicated
CPT/HCPCS: 96372; 99283; 99284

== ENCOUNTER 2020-08-24 19:30 | Emergency (ER) | payer MEDICARE, MEDICAID ==
[2020-08-24 22:12] LABS: GLUCOSE, URINE (UA) NEGATIVE (NEGATIVE); KETONES,URINE (UA) >=80 mg/dL (NEGATIVE); LEUKOCYTE ESTERASE, URINE NEGATIVE (NEGATIVE); NITRITE,URINE NEGATIVE (NEGATIVE); OCCULT BLOOD,URINE MODERATE (NEGATIVE); PROTEIN,URINE 30 mg/dL (NEGATIVE); UROBILINOGEN,URINE 1 (NORMAL) E.U./dL (NORMAL)
[2020-08-24 22:15] LABS: BILIRUBIN,URINE NEGATIVE (NEGATIVE); CLARITY,URINE HAZY (CLEAR); ICTOTEST,URINE NEGATIVE
[2020-08-24 22:28] LABS: BACTERIA,URINE Moderate /HPF (None Seen); MUCUS,URINE Marked Strands; SQUAMOUS EPITHELIAL CELL,UR MOD Squamous (<= Few)
--- NOTE | 2020-08-24 22:58 | ED Physician Documentation ---
PD HPI NVD - Stated complaint Stated Complaint: VOMITING - Chief complaint Chief Complaint: Abd Pain - History obtained from History obtained from: Patient - History of Present Illness Timing - onset: Last night Timing - details: Abrupt onset Pain level max: 8 Pain level now: 1 Associated symptoms: Abdominal pain. No: Fever Improved by: Other (no ameliorating factors, although symptoms have improved while awaiting evaluation) Worsened by: Eating Similar symptoms before: Has not had sx before Recently seen: Not recently seen - Additonal information Additional information: c/o sudden onset nausea, vomiting, diarrhea and generalized abdominal cramping immediately after eating a burrito from a local restaurant. she has promethazine previously prescribed but no improvement, came to ED tonight when she was no longer able to tolerate any PO. Symptoms have improved while awaiting ED evaluation Review of Systems Constitutional: denies: Fever, Chills, Sweats Cardiac: reports: Reviewed and negative Respiratory: reports: Reviewed and negative GI: reports: Abdominal Pain, Nausea, Vomiting, Diarrhea. 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, 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 - Present Medications Home Medications: Ambulatory Orders Medication Instructions Recorded Confirmed Promethazine [Phenergan] 25 mg PO Q6H PRN 12/27/12 03/24/19 Ondansetron Odt [Zofran] 4 mg TL Q6H PRN #10 tablet 03/24/19 oxyCODONE [Roxicodone] 5 mg PO Q4-6H PRN #30 tablet 03/24/19 Ibuprofen [Motrin] 600 mg PO Q6H PRN #30 tab 12/16/19 methocarbamoL [Robaxin-750] 750 mg PO TID PRN #30 tablet 12/16/19 Diphenoxylate/Atropine [Lomotil] 1 tab PO QID PRN #10 tablet 08/25/20 - Allergies Allergies/Adverse Reactions: Allergies Allergy/AdvReac Type Severity Reaction Status Date / Time doxycycline Allergy Hives Verified 08/24/20 19:50 aspirin AdvReac Nausea Verified 08/24/20 19:50 - Social History Does the pt smoke?: Yes Smoking Status: Current every day smoker Does the pt drink ETOH?: Yes Does the pt have substance abuse?: No - Immunizations Immunizations are current?: Yes - POLST Patient has POLST: No PD ED PE NORMAL - Vitals Vital signs reviewed: Yes - General General: Alert and oriented X 3, No acute distress, Well developed/nourished - HEENT HEENT: Moist mucous membranes - Neck Neck: Supple, no meningeal sign - Cardiac Cardiac: RRR, No murmur - Respiratory Respiratory: No respiratory distress, Clear bilaterally - Abdomen Abdomen: Normal bowel sounds, Soft, Non tender, Non distended - Back Back: No CVA TTP Results - Vitals Vitals: Oxygen O2 Source Room air - Labs Labs: Laboratory Tests 08/24/20 08/24/20 08/24/20 19:55 23:02 23:02 WBC 13.0 H RBC 4.42 Hgb 15.2 Hct 43.9 MCV 99.3 H MCH 34.4 H MCHC 34.6 RDW 12.7 Plt Count 290 MPV 10.0 Neut # (Auto) 11.3 H Lymph # (Auto) 1.2 L [place] # (Auto) 0.4 Eos # (Auto) 0.0 Baso # (Auto) 0.0 Absolute Nucleated RBC 0.00 Nucleated RBC % 0.0 Sodium 137 Potassium 3.1 L Chloride 101 Carbon Dioxide 24 Anion Gap 12.0 BUN 16 Creatinine 0.6 Estimated GFR (MDRD) 103 Glucose 128 H Calcium 9.2 Total Bilirubin 1.0 AST 21 ALT 29 Alkaline Phosphatase 72 Total Protein 7.3 Albumin 4.0 Globulin 3.3 Albumin/Globulin Ratio 1.2 Lipase 20 L Urine Color DARK YELLOW Urine Clarity HAZY Urine pH 6.0 Ur Specific [place] >=1.030 H Urine Protein 30 H Urine Glucose (UA) NEGATIVE Urine Ketones >=80 H Urine Occult Blood MODERATE H Urine Nitrite NEGATIVE Urine Bilirubin NEGATIVE Urine Urobilinogen 1 (NORMAL) Ur Leukocyte Esterase NEGATIVE Urine RBC 6-10 H Urine WBC 4-5 Ur Squamous Epith Cells MOD Squamous H Urine Crystals 3-5 Calcium Oxalate Urine Bacteria Moderate H Urine Mucus Marked Strands Ur Microscopic Review INDICATED Urine Culture Comments NOT INDICATED PD MEDICAL DECISION MAKING - ED course Complexity details: reviewed results, re-evaluated patient, considered differential, d/w patient ED course: mild leukocytosis, hypokalemia, but otherwise unremarkable blood tests. she is nontender on abdominal exam and says she was already experiencing significant improvement while awaiting ED evaluation. She reports further improvement after IV phenergan and 1 liter NS IV, is able to tolerate PO medications (lomotil, potassium), and is discharged. Gastroenteritis, possibly food-borne illness, is suspected Departure - Departure Disposition: 01 Home, Self Care Clinical Impression: Nausea vomiting and diarrhea, Hypokalemia Condition: Good Instructions: ED Diet Vomiting Diarrhea, ED Potassium Deficiency, ED Vomiting Diarrhea Nonspecific Ad Follow-Up: Mackenzie Bloom MD [Primary Care Provider] - Within 1 week Prescriptions: Diphenoxylate/Atropine [Lomotil] 1 tab PO QID PRN #10 tablet PRN Reason: Diarrhea Discharge Date/Time: 08/25/20 01:00
[2020-08-24 23:11] LABS: BASOPHILS % (AUTO) 0.2 %; HCT - HEMATOCRIT 43.9 % (37.0-47.0); HGB - HEMOGLOBIN 15.2 g/dL (12.0-16.0); LYMPHOCYTES # (AUTO) 1.2 10^3/uL (1.5-3.5); LYMPHOCYTES % (AUTO) 9.1 %; MEAN CORPUSCULAR HEMOGLOBIN 34.4 pg (27.0-31.0); MEAN CORPUSCULAR HGB CONC 34.6 g/dL (32.0-36.0); MEAN CORPUSCULAR VOLUME 99.3 fL (81.0-99.0); MONOCYTES # (AUTO) 0.4 10^3/uL (0.0-1.0); MONOCYTES % (AUTO) 3.3 %; NEUTROPHILS # (AUTO) 11.3 10^3/uL (1.5-6.6); NEUTROPHILS % (AUTO) 87.1 %; PLT - PLATELET COUNT 290 10^3/uL (130-450); RED BLOOD COUNT 4.42 10^6/uL (4.20-5.40); RED CELL DISTRIBUTION WIDTH 12.7 % (12.0-15.0)
[2020-08-24] MEDS ORDERED: PROMETHAZINE INJ 25 MG in SODIUM CHLORIDE 0.9% 50 ML IV STA (23:19)
[2020-08-24] MEDS ORDERED: SODIUM CHLORIDE 0.9% 1,000 ML IV STA (23:19)
[2020-08-24 23:26] LABS: ALBUMIN/GLOBULIN RATIO 1.2 (1.0-2.2); CALCIUM 9.2 mg/dL (8.5-10.3); CREATININE 0.6 mg/dL (0.4-1.0); POTASSIUM 3.1 mmol/L (3.5-5.0); TOTAL PROTEIN 7.3 g/dL (6.7-8.2)
[2020-08-24] MEDS ORDERED: PROMETHAZINE 25 MG/1 ML VIAL ONE (23:33)
[2020-08-25] MEDS ORDERED: POTASSIUM CHLORIDE 20 MEQ TABLET PO STA (00:42)
[2020-08-25] MEDS ORDERED: DIPHENOX/ATROPINE 2.5/0.025 MG TABLET PO STA (00:42)
[2020-08-25 00:55] VITALS: BP 143/71
== END 2020-08-25 01:00 | disposition home or self-care (01) ==
LOC: ED 19:30
DX: R11.2 Nausea with vomiting, unspecified (principal); R19.7 Diarrhea, unspecified; E87.6 Hypokalemia; F17.200 Nicotine dependence, unspecified, uncomplicated
CPT/HCPCS: 36415; 80053; 81001; 83690; 85025; 96374; 99283; 99284; A9270; J7040; 81003; 87086

== ENCOUNTER 2020-11-15 11:43 | Outpatient (CLI) | payer MEDICARE, MEDICAID ==
[2020-11-15 17:11] LABS: B. PARAPERTUSSIS- RESP PCR PAN NOT DETECTED; B. PERTUSSIS- RESP PCR PANEL NOT DETECTED; C. PNEUMONIAE- RESP PCR PANEL NOT DETECTED; CORONAVIRUS 229E-RESP PCR NOT DETECTED; CORONAVIRUS HKU1-RESP PCR NOT DETECTED; CORONAVIRUS NL63-RESP PCR NOT DETECTED; CORONAVIRUS OC43-RESP PCR NOT DETECTED; HUMAN METAPNEUMOVIRUS NOT DETECTED; INFLUENZA A- RESP PCR PANEL NOT DETECTED; INFLUENZA B - RESP PCR PANEL NOT DETECTED; M. PNEUMONIAE- RESP PCR PANEL NOT DETECTED; PARAINFLUENZA VIRUS 1 NOT DETECTED; PARAINFLUENZA VIRUS 2 NOT DETECTED; PARAINFLUENZA VIRUS 3 NOT DETECTED; PARAINFLUENZA VIRUS 4 NOT DETECTED; RHINOVIRUS/ENTEROVIRUS NOT DETECTED; RSV- RESP PCR PANEL NOT DETECTED; SARS-CoV-2 -RESP PCR PANEL NOT DETECTED
== END 2020-11-15 23:59 | disposition home or self-care (01) ==
LOC: LAB.R 11:43
PROVIDERS: ATTEND Internal Medicine
DX: B34.9 Viral infection, unspecified (principal); Z20.822 Contact with and (suspected) exposure to COVID-19
CPT/HCPCS: 0202U

== ENCOUNTER 2020-11-16 21:00 | Observation (INO) | payer MEDICARE, MEDICAID ==
[2020-11-16 21:23] LABS: BASOPHILS # (AUTO) 0.1 10^3/uL (0.0-0.1); BASOPHILS % (AUTO) 0.3 %; EOSINOPHILS # (AUTO) 0.1 10^3/uL (0.0-0.7); EOSINOPHILS % (AUTO) 0.6 %; HCT - HEMATOCRIT 46.8 % (37.0-47.0); HGB - HEMOGLOBIN 16.2 g/dL (12.0-16.0); LYMPHOCYTES # (AUTO) 3.3 10^3/uL (1.5-3.5); MEAN CORPUSCULAR HEMOGLOBIN 34.5 pg (27.0-31.0); MEAN CORPUSCULAR HGB CONC 34.6 g/dL (32.0-36.0); MEAN CORPUSCULAR VOLUME 99.6 fL (81.0-99.0); MEAN PLATELET VOLUME 10.2 fL (7.9-10.8); MONOCYTES # (AUTO) 0.7 10^3/uL (0.0-1.0); MONOCYTES % (AUTO) 4.3 %; NEUTROPHILS # (AUTO) 11.7 10^3/uL (1.5-6.6); NEUTROPHILS % (AUTO) 73.4 %; PLT - PLATELET COUNT 311 10^3/uL (130-450); RED CELL DISTRIBUTION WIDTH 12.6 % (12.0-15.0); WHITE BLOOD COUNT 15.9 x10^3/uL (4.8-10.8)
[2020-11-16] MEDS ORDERED: FAMOTIDINE 20 MG/2 ML VIAL IVP STA (21:28)
[2020-11-16] MEDS ORDERED: PROMETHAZINE INJ 25 MG in SODIUM CHLORIDE 0.9% 50 ML IV STA (21:28)
[2020-11-16] MEDS ORDERED: LORazepam 2 MG/ML VIAL IVP STA (21:29)
[2020-11-16] MEDS ORDERED: SODIUM CHLORIDE 0.9% 1,000 ML IV STA (21:32)
--- NOTE | 2020-11-16 21:34 | ED Physician Documentation ---
History of Present Illness - Stated complaint Stated Complaint: ABD CRAMPING,VOMITING - Chief complaint Chief Complaint: Abd Pain - History obtained from History obtained from: Patient - Additonal information Additional information: 60-year-old woman with history of chronic vomiting and diarrhea of unknown origin, status post endoscopy and colonoscopy a year and a half ago that was unremarkable, primary Dr. Bloom, presents with nausea, vomiting, and diarrhea is all nonbloody X 3 days. Endorses subjective chills but no fever. Denies urinary symptoms. Abdominal pain is epigastric, worse after eating a cheeseburger today. Contraction-like, constant but intermittently getting worse, associated with nonbloody nonbilious nausea and vomiting X 5 today. note she also had sore throat and ear pain that has been improving. had covid and strep testing done yesterday. Review of Systems Ten Systems: 10 systems reviewed and negative Constitutional: reports: Chills. 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, 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, 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 - Present Medications Home Medications: Ambulatory Orders Medication Instructions Recorded Confirmed Promethazine [Phenergan] 25 mg PO Q6H PRN 12/27/12 11/16/20 Ondansetron Odt [Zofran] 4 mg TL Q6H PRN #10 tablet 03/24/19 11/16/20 oxyCODONE [Roxicodone] 5 mg PO Q4-6H PRN #30 tablet 03/24/19 Ibuprofen [Motrin] 600 mg PO Q6H PRN #30 tab 12/16/19 11/16/20 methocarbamoL [Robaxin-750] 750 mg PO TID PRN #30 tablet 12/16/19 11/16/20 Diphenoxylate/Atropine [Lomotil] 1 tab PO QID PRN #10 tablet 08/25/20 11/16/20 - Allergies Allergies/Adverse Reactions: Allergies Allergy/AdvReac Type Severity Reaction Status Date / Time doxycycline Allergy Hives Verified 11/16/20 21:03 aspirin AdvReac Nausea Verified 11/16/20 21:03 - Social History Does the pt smoke?: Yes Smoking Status: Current every day smoker Does the pt drink ETOH?: Yes Does the pt have substance abuse?: No - Immunizations Immunizations are current?: Yes - POLST Patient has POLST: No PD ED PE NORMAL - Vitals Vital signs reviewed: Yes - General General: Alert and oriented X 3, Other (moaning, leaning over the bed, spitting into emesis bag) - HEENT HEENT: Atraumatic, PERRL, EOMI, Ears normal - Neck Neck: Supple, no meningeal sign, Other (R anterior cervical tender LAD) - Cardiac Cardiac: RRR - Respiratory Respiratory: No respiratory distress, Clear bilaterally - Abdomen Abdomen: Non tender, Non distended, Other (discomfort to epigastric palpation) - Back Back: No CVA TTP - Derm Derm: Normal color, Warm and dry - Extremities Extremities: No deformity - Neuro Neuro: Alert and oriented X 3 - Psych Psych: Other (agitated, uncomfortable appearing on initial evaluation with anxious affect) Results - Vitals Vitals: Vital Signs - 24 hr 11/16/20 11/16/20 11/16/20 21:03 21:04 23:01 Temperature 36 C L 36.2 C L 36.3 C L Heart Rate 86 86 72 Respiratory 24 24 17 Rate Blood Pressure 148/78 H 148/78 H 150/71 H O2 Saturation 100 100 99 11/17/20 00:24 Temperature Heart Rate 67 Respiratory 15 Rate Blood Pressure 155/75 H O2 Saturation 95 Oxygen O2 Source Room air - Labs Labs: Laboratory Tests 11/16/20 11/16/20 11/16/20 21:18 21:18 23:02 WBC 15.9 H RBC 4.70 Hgb 16.2 H Hct 46.8 MCV 99.6 H MCH 34.5 H MCHC 34.6 RDW 12.6 Plt Count 311 MPV 10.2 Neut # (Auto) 11.7 H Lymph # (Auto) 3.3 [place] # (Auto) 0.7 Eos # (Auto) 0.1 Baso # (Auto) 0.1 Absolute Nucleated RBC 0.00 Nucleated RBC % 0.0 Sodium 136 Potassium 3.9 Chloride 98 L Carbon Dioxide 24 Anion Gap 14.0 H BUN 16 Creatinine 0.6 Estimated GFR (MDRD) 103 Glucose 130 H Calcium 9.9 Total Bilirubin 0.8 AST 25 ALT 25 Alkaline Phosphatase 87 Total Protein 8.8 H Albumin 4.6 Globulin 4.2 Albumin/Globulin Ratio 1.1 Lipase 31 Urine Color YELLOW Urine Clarity CLEAR Urine pH 6.0 Ur Specific [place] 1.010 Urine Protein NEGATIVE Urine Glucose (UA) NEGATIVE Urine Ketones TRACE Urine Occult Blood SMALL H Urine Nitrite NEGATIVE Urine Bilirubin NEGATIVE Urine Urobilinogen 0.2 (NORMAL) Ur Leukocyte Esterase NEGATIVE Urine RBC 0-5 Urine WBC 0-3 Ur Squamous Epith Cells FEW Squamous Urine Bacteria Rare Ur Microscopic Review INDICATED Urine Culture Comments NOT INDICATED PD MEDICAL DECISION MAKING - ED course ED course: 60yF with hx of chronic vomiting and diarrhea presents with worsening symptoms over the past three days. patient was seen here in August for similar symptoms with improvement with fluids and phenergan therefore we will administer again today along with ativan for agitation/anxiety. Upon reevaluation of the patient she is feeling better with only mild nausea s/p phenergan. abd pain reduced but then came back upon reexamination of abdomen. given significant leukocytosis, will obtain ct ap to eval for emergent pathology. Patient still feeling significant pain s/p CT, which shows enteritis, periappendiceal stranding with normal appearance of appendix. also with persistent nausea. diffuse discomfort to palpation, more prominent in epigastric region, not localized to RLQ. d/w Dr. Calabrese in regards to periappendiceal stranding and she recommends trial medical therapy/antibiotics. will d/w our hospitalist. Departure - Departure Clinical Impression: Nausea and vomiting, Diarrhea, Abdominal pain
[2020-11-16 21:37] LABS: ALBUMIN 4.6 g/dL (3.2-5.5); ALBUMIN/GLOBULIN RATIO 1.1 (1.0-2.2); BILIRUBIN,TOTAL 0.8 mg/dL (0.2-1.0); CALCIUM 9.9 mg/dL (8.5-10.3); CREATININE 0.6 mg/dL (0.4-1.0); POTASSIUM 3.9 mmol/L (3.5-5.0); TOTAL PROTEIN 8.8 g/dL (6.7-8.2)
[2020-11-16] MEDS ORDERED: PROMETHAZINE 25 MG/1 ML VIAL ONE (21:37)
[2020-11-16] MEDS ORDERED: MORPHINE 2 MG/ML CARPUJECT IVP STA (22:22)
[2020-11-16] MEDS ORDERED: ONDANSETRON 4 MG/2 ML VIAL IVP STA (22:23)
[2020-11-16] MEDS ORDERED: IOVERSOL 320 100 ML VIAL IVP ONE ×2 (22:42→23:02)
[2020-11-16 23:08] LABS: BILIRUBIN,URINE NEGATIVE (NEGATIVE); GLUCOSE, URINE (UA) NEGATIVE (NEGATIVE); KETONES,URINE (UA) TRACE mg/dL (NEGATIVE); LEUKOCYTE ESTERASE, URINE NEGATIVE (NEGATIVE); NITRITE,URINE NEGATIVE (NEGATIVE); OCCULT BLOOD,URINE SMALL (NEGATIVE); PROTEIN,URINE NEGATIVE (NEGATIVE); UROBILINOGEN,URINE 0.2 (NORMAL) E.U./dL (NORMAL)
[2020-11-16 23:12] LABS: CLARITY,URINE CLEAR (CLEAR)
[2020-11-16 23:16] LABS: BACTERIA,URINE Rare /HPF (None Seen); RBC,URINE 0-5 /HPF (0-5); SQUAMOUS EPITHELIAL CELL,UR FEW Squamous (<= Few); WBC,URINE 0-3 /HPF (0-5)
--- NOTE | 2020-11-16 23:41 | CT Report ---
PROCEDURE: Abdomen/Pelvis W INDICATIONS: WBC 16, BL UQ pain, n/v/d CONTRAST: IV CONTRAST: Optiray 320 ml: 100 PO CONTRAST: *NO PO CONTRAST TECHNIQUE: After the administration of weight appropriate dose of intravenous contrast, 5 mm thick sections acqu ired from the diaphragms to the symphysis. 5 mm thick coronal and sagittal reformats were acquired. For radiation dose reduction, the following was used: automated exposure control, adjustment of mA and/or kV according to patient size. COMPARISON: 06/10/2014 FINDINGS: Image quality: Excellent. ABDOMEN: Lung bases: Lung bases are clear. Heart size is normal. Solid organs: Liver and spleen are normal in size and enhancement. Hepatic steatosis. Gallbladder is surgically absent. Biliary system is non dilated. Pancreas enhances normally. No adrenal nodules. Kidneys demonstrate normal size and enhancement, without hydronephrosis. Peritoneum and bowel: Stomach and colon appear unremarkable. Colon is decompressed. There is a long segment of fluid filled, minimally distended small bowel involving the upper and midabdomen with mild surrounding/adjacent inflammatory stranding. There is no wall thickening. No transition point. The d istal small bowel appears to be relatively decompressed with mild surrounding stranding. No free flui d or air. Nodes and vessels: No retroperitoneal or mesenteric adenopathy by size criteria. Aorta and inferior vena cava are normal in size. Miscellaneous: No ventral hernias. PELVIS: Genitourinary: Bladder wall thickness is normal. Miscellaneous: No inguinal hernias or adenopathy. Bones: No suspicious bony lesions. No vertebral body compression fractures. IMPRESSION: Long segment of fluid-filled, mildly distended small bowel with associated inflammatory stranding lik isac representing enteritis either inflammatory or infectious in etiology. No wall thickening. Partial small bowel obstruction is conceivable but thought much less likely. Recommend continued clinical baker rveillance with follow-up imaging as needed. Status post cholecystectomy. Appendix is normal in size but demonstrates mild surrounding stranding. This is thought to be seconda ry to adjacent inflammatory changes of the small bowel. Reviewed by: Jermaine Rosado MD on 11/16/2020 11:40 PM PDT Approved by: Jermaine Rosado MD on 11/16/2020 11:40 PM PDT Station ID: [id number]
[2020-11-17] MEDS ORDERED: ONDANSETRON 4 MG/2 ML VIAL IVP STA (00:14)
[2020-11-17] MEDS ORDERED: HYDROmorphone 1 MG/ML CARPUJECT IVP STA (00:14)
[2020-11-17] MEDS ORDERED: PIPERACILLIN/TAZOBACTAM 3.375 GM in SODIUM CHLORIDE 0.9% MINIBAG 100 ML IV STA (00:42)
[2020-11-17] MEDS ORDERED: KETOROLAC 30 MG/ML VIAL IVP STA (00:44)
[2020-11-17] MEDS ORDERED: DEXAMETHASONE 10 MG/ML VIAL IVP STA (00:45)
[2020-11-17] MEDS ORDERED: ONDANSETRON ODT 4 MG TABLET TL PRN (00:53)
[2020-11-17] MEDS ORDERED: SODIUM CHLORIDE FLUSH 0.9% 10 ML SYRINGE IVP PRN (00:53)
[2020-11-17] MEDS ORDERED: PROCHLORPERAZINE 10 MG/2 ML VIAL IVP PRN (00:53)
[2020-11-17] MEDS: LACTATED RINGERS 1,000 ML IV SCH ×3 (01:53→21:33)
[2020-11-17] MEDS: SODIUM CHLORIDE FLUSH 0.9% 10 ML SYRINGE IVP SCH ×3 (02:04→17:02)
[2020-11-17 02:14] LABS: B. PARAPERTUSSIS- RESP PCR PAN NOT DETECTED; B. PERTUSSIS- RESP PCR PANEL NOT DETECTED; C. PNEUMONIAE- RESP PCR PANEL NOT DETECTED; CORONAVIRUS 229E-RESP PCR NOT DETECTED; CORONAVIRUS HKU1-RESP PCR NOT DETECTED; CORONAVIRUS NL63-RESP PCR NOT DETECTED; CORONAVIRUS OC43-RESP PCR NOT DETECTED; HUMAN METAPNEUMOVIRUS NOT DETECTED; INFLUENZA A- RESP PCR PANEL NOT DETECTED; INFLUENZA B - RESP PCR PANEL NOT DETECTED; M. PNEUMONIAE- RESP PCR PANEL NOT DETECTED; PARAINFLUENZA VIRUS 1 NOT DETECTED; PARAINFLUENZA VIRUS 2 NOT DETECTED; PARAINFLUENZA VIRUS 3 NOT DETECTED; PARAINFLUENZA VIRUS 4 NOT DETECTED; RHINOVIRUS/ENTEROVIRUS NOT DETECTED; RSV- RESP PCR PANEL NOT DETECTED; SARS-CoV-2 -RESP PCR PANEL NOT DETECTED
--- NOTE | 2020-11-17 02:28 | HISTORY & PHYSICAL EXAMINATION ---
Chief Complaint - Chief Complaint Chief Complaint: Abd pain History of Present Illness - Admitted From Admitted From:: Emergency Department - History Obtained From Records Reviewed: [facility] History obtained from: Patient - History of Present Illness HPI Comment/Other: Coral Chung is a 60yo anxious female with a long standing hx of GI complaints and anorectal fistula who presented to ED abdominal pain accompanied by vomiting and non-bloody diarrhea for 3 days. She had her gallbladder out in 2015. She had an unremarkable colonoscopy and endoscopy a year ago. She was given phenergran and fluids along with ativan for anxiety/agitation. CT showed small bowel enteritis. Upon admission patient continues to have nausea and diffuse abdominal pain, but has improved since ED stay. Is not currently vomiting or having diarrhea. She wants sleep and has no additional needs at this time. RN at bedside. History - Past Medical History Cardiovascular: reports: None Respiratory: reports: None Neuro: reports: Peripheral neuropathy (Bilateral hand numbness, pain, and tingling. Worse on right. Nerve conduction study in 2014 showed findings consistent with bilateral median nerve lesions at the wrists.) Endocrine/Autoimmune: reports: None GI: reports: Chronic diarrhea, Other (Anal fistula that is resolved. Anal stenosis. ) : reports: Other HEENT: reports: Chronic vision loss Psych: reports: Depression (previous suicide attempt 1988.), Anxiety Musculoskeletal: reports: Osteoarthritis, Chronic back pain Derm: reports: Rosacea MRSA Hx?: No - Past Surgical History General: reports: Cholecystectomy, Colonoscopy, Other (EUA and [id number], I&D of randi-anal abcess 2002) Ortho: reports: Spine surgery /CHANGE MANAGEMENT LEAD: reports: section, 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, 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 - Family & Social History Family History: Mother: Alcoholism (sibling), Mental Illness, Father: Mental Illness Family History Comment/Other: Sibling with Thyroid disorder Living arrangement: At home Living Situation: Unknown - Substance History Use: Uses substance without health or social issues: Tobacco (Every day smoker since age 18) Abuse: Recurrent use of substance despite neg consequences: NONE - POLST Patient has POLST: No POLST Status: Full Code Meds/Allgy - Home Medications Home Medications: Ambulatory Orders Medication Instructions Recorded Confirmed Promethazine [Phenergan] 25 mg PO Q6H PRN 12/27/12 11/16/20 Ondansetron Odt [Zofran] 4 mg TL Q6H PRN #10 tablet 03/24/19 11/16/20 oxyCODONE [Roxicodone] 5 mg PO Q4-6H PRN #30 tablet 03/24/19 Ibuprofen [Motrin] 600 mg PO Q6H PRN #30 tab 12/16/19 11/16/20 methocarbamoL [Robaxin-750] 750 mg PO TID PRN #30 tablet 12/16/19 11/16/20 Diphenoxylate/Atropine [Lomotil] 1 tab PO QID PRN #10 tablet 08/25/20 11/16/20 - Allergies Allergies/Adverse Reactions: Allergies Allergy/AdvReac Type Severity Reaction Status Date / Time doxycycline Allergy Hives Verified 11/16/20 21:03 aspirin AdvReac Nausea Verified 11/16/20 21:03 Review of Systems - Constitutional Constitutional: reports: Fatigue, Chills. denies: Fever, Weakness - Ears, Nose & Throat Ears, Nose & Throat: reports: Ear pain (Seen by PCP and is improving), Sore thr oat (Seen by PCP and is improving) - Cardiovascular Cariovascular: denies: Irregular heart rate, Palpitations, Chest pain, Edema, Lightheadedness, Syncope - Respiratory Respiratory: denies: Cough, Wheezing - Gastrointestinal Gastrointestinal: reports: Abdominal pain (Diffuse abdominal pain more localized in epigastric region and umbilicus. Worse with eating.), Abdominal distention, Diarrhea (Non bloody. Getting better since this afternoon.), Nausea, Vomiting (Reports approximately 7 episodes today.). denies: Rectal bleeding, Bloody stools, Jayden blood emesis, Coffee grounds emesis - Genitourinary Genitourinary: reports: Hematuria (Reports blood in urine for "a long time.") - Musculoskeletal Musculoskeletal: reports: Muscle pain (Wrist pain.), Back pain (Intermittent) - Neurological Neurological: reports: Numbness (Primarily right wrist). denies: General weakness, Focal weakness, Headache, Dizziness - Psychiatric Psychiatric: reports: Depression, Anxiety Prior Level of Functionality: Lives at home, feeds self, relatively independent Exam - Vital Signs Vital Signs: Vital Signs x48h Temp Pulse Pulse Resp BP BP Pulse Ox 11/17/20 01:50 36.6 C 66 16 101/49 L 100 11/17/20 00:24 67 15 120/75 95 11/16/20 23:01 36.3 C L 72 17 150/71 H 99 11/16/20 21:04 36.2 C L 86 24 148/78 H 100 11/16/20 21:03 36 C L 86 24 148/78 H 100 - Physical Exam General Appearance: positive: Alert, Mild distress (Anxious and uncomfortable.), Anxious Eyes Bilateral: positive: PERRL, EOMI Neck: positive: No JVD, Trachea midline, Lymphadenopathy (R) (Mildy swollen.) Respiratory: positive: Chest non-tender, Breath sounds nml Cardiovascular: positive: Regular rate & rhythm, No murmur, No gallop Peripheral Pulses: positive: 1+ Abdomen: positive: Nml bowel sounds, Tenderness (Diffuse. Primarily epigastric and umbilical.). negative: Guarding, Rebound, Mass Skin: positive: Color nml, Warm, Dry Extremities: positive: Non-tender, Nml appearance, No pedal edema Neurologic/Psychiatric: positive: Oriented x3, CN's nml (2-12), Motor nml, Sensation nml Conclusion/Plan - Problem List (1) Regional enteritis Conclusion/Plan: CT scan confirmed small bowel enteritis. Pt currently getting IV fluids, odansetron for nausea, and morphine for pain. She is feeling relief from this treatment. While her WBC is elevated, this is probably due to demargination from vomiting. Will await stool cultures before resuming any abx therapy.Will continue therapy and reevaluate in the morning. Qualifiers: Gastrointestinal tract location: small intestine (2) Nausea and vomiting Conclusion/Plan: Patient currently not vomiting, but still feeling a bit nauseas. Currently receiving Odansetron and IV fluids. Will continue this management. Qualifiers: Vomiting Intractability: intractable (3) Anxiety Conclusion/Plan: Pt appeared agitated and anxious during ED stay. She received ativan which he lped ease her symptoms. Will continue implement ativan as needed. Pt is currently resting in bed. Evaluation and continued treatment of anxiety by PCP is indicated. (4) Hematuria Conclusion/Plan: Pt reports having hematuria for many years. She has been seen for this in primary care with no clear cause. Her urinalysis showed slight occult blood with no RBCs. Do to her age and hx of smoking will refer to urology for follow. Qualifiers: Hematuria type: unspecified type Qualified Code(s): R31.9 - Hematuria, unspecified - Lab Results Lab results reviewed: Yes Fish Bones: 11/16/20 21:18 11/16/20 21:18 Other Lab Results: WBC 15.9 x10^3/uL (4.8-10.8) H 11/16/20 21:18 RBC 4.70 10^6/uL (4.20-5.40) 11/16/20 21:18 Hgb 16.2 g/dL (12.0-16.0) H 11/16/20 21:18 Hct 46.8 % (37.0-47.0) 11/16/20 21:18 MCV 99.6 fL (81.0-99.0) H 11/16/20 21:18 MCH 34.5 pg (27.0-31.0) H 11/16/20 21:18 MCHC 34.6 g/dL (32.0-36.0) 11/16/20 21:18 RDW 12.6 % (12.0-15.0) 11/16/20 21:18 Plt Count 311 10^3/uL (130-450) 11/16/20 21:18 MPV 10.2 fL (7.9-10.8) 11/16/20 21:18 Neut # (Auto) 11.7 10^3/uL (1.5-6.6) H 11/16/20 21:18 Lymph # (Auto) 3.3 10^3/uL (1.5-3.5) 11/16/20 21:18 [place] # (Auto) 0.7 10^3/uL (0.0-1.0) 11/16/20 21:18 Eos # (Auto) 0.1 10^3/uL (0.0-0.7) 11/16/20 21:18 Baso # (Auto) 0.1 10^3/uL (0.0-0.1) 11/16/20 21:18 Absolute Nucleated RBC 0.00 x10^3/uL 11/16/20 21:18 Nucleated RBC % 0.0 /100WBC 11/16/20 21:18 Sodium 136 mmol/L (135-145) 11/16/20 21:18 Potassium 3.9 mmol/L (3.5-5.0) 11/16/20 21:18 Chloride 98 mmol/L (101-111) L 11/16/20 21:18 Carbon Dioxide 24 mmol/L (21-32) 11/16/20 21:18 Anion Gap 14.0 (6-13) H 11/16/20 21:18 BUN 16 mg/dL (6-20) 11/16/20 21:18 Creatinine 0.6 mg/dL (0.4-1.0) 11/16/20 21:18 Estimated GFR (MDRD) 103 (>89) 11/16/20 21:18 Glucose 130 mg/dL (70-100) H 11/16/20 21:18 Calcium 9.9 mg/dL (8.5-10.3) 11/16/20 21:18 Total Bilirubin 0.8 mg/dL (0.2-1.0) 11/16/20 21:18 AST 25 IU/L (10-42) 11/16/20 21:18 ALT 25 IU/L (10-60) 11/16/20 21:18 Alkaline Phosphatase 87 IU/L (42-121) 11/16/20 21:18 Total Protein 8.8 g/dL (6.7-8.2) H 11/16/20 21:18 Albumin 4.6 g/dL (3.2-5.5) 11/16/20 21:18 Globulin 4.2 g/dL (2.1-4.2) 11/16/20 21:18 Albumin/Globulin Ratio 1.1 (1.0-2.2) 11/16/20 21:18 Lipase 31 U/L (22-51) 11/16/20 21:18 Urine Color YELLOW 11/16/20 23:02 Urine Clarity CLEAR (CLEAR) 11/16/20 23:02 Urine pH 6.0 PH (5.0-7.5) 11/16/20 23:02 Ur Specific [place] 1.010 (1.002-1.030) 11/16/20 23:02 Urine Protein NEGATIVE mg/dL (NEGATIVE) 11/16/20 23:02 Urine Glucose (UA) NEGATIVE mg/dL (NEGATIVE) 11/16/20 23:02 Urine Ketones TRACE mg/dL (NEGATIVE) 11/16/20 23:02 Urine Occult Blood SMALL (NEGATIVE) H 11/16/20 23:02 Urine Nitrite NEGATIVE (NEGATIVE) 11/16/20 23:02 Urine Bilirubin NEGATIVE (NEGATIVE) 11/16/20 23:02 Urine Urobilinogen 0.2 (NORMAL) E.U./dL (NORMAL) 11/16/20 23:02 Ur Leukocyte Esterase NEGATIVE (NEGATIVE) 11/16/20 23:02 Urine RBC 0-5 /HPF (0-5) 11/16/20 23:02 Urine WBC 0-3 /HPF (0-5) 11/16/20 23:02 Ur Squamous Epith Cells FEW Squamous (<= Few) 11/16/20 23:02 Urine Bacteria Rare /HPF (None Seen) 11/16/20 23:02 Ur Microscopic Review INDICATED 11/16/20 23:02 Urine Culture Comments NOT INDICATED 11/16/20 23:02 Nasal Adenovirus (PCR) NOT DETECTED 11/17/20 01:05 Nasal B. parapertussis DNA (PCR) NOT DETECTED 11/17/20 01:05 Nasal Coronavir 229E PCR NOT DETECTED 11/17/20 01:05 Nasal Coronavir HKU1 PCR NOT DETECTED 11/17/20 01:05 Nasal Coronavir NL63 PCR NOT DETECTED 11/17/20 01:05 Nasal Coronavir OC43 PCR NOT DETECTED 11/17/20 01:05 Nasal Enterovir/Rhinovir PCR NOT DETECTED 11/17/20 01:05 Nasal Influenza B PCR NOT DETECTED 11/17/20 01:05 Nasal Influenza A PCR NOT DETECTED 11/17/20 01:05 Nasal Parainfluen 1 PCR NOT DETECTED 11/17/20 01:05 Nasal Parainfluen 2 PCR NOT DETECTED 11/17/20 01:05 Nasal Parainfluen 3 PCR NOT DETECTED 11/17/20 01:05 Nasal Parainfluen 4 PCR NOT DETECTED 11/17/20 01:05 Nasal RSV (PCR) NOT DETECTED 11/17/20 01:05 Nasal B.pertussis DNA PCR NOT DETECTED 11/17/20 01:05 Nasal C.pneumoniae (PCR) NOT DETECTED 11/17/20 01:05 Sameer Human Metapneumo PCR NOT DETECTED 11/17/20 01:05 Nasal M.pneumoniae (PCR) NOT DETECTED 11/17/20 01:05 Nasal SARS-CoV-2 (PCR) NOT DETECTED 11/17/20 01:05 - Diagnostic Imaging Results Diagnostic Imaging Results: positive: Final report reviewed Core Measures - Anticipated LOS I expect patient to be DC'd or transferred within 96 hours.: Yes - DVT/VTE - Prophylaxis VTE/DVT Device ordered at admit?: Yes VTE/DVT Prophylaxis med ordered at admit?: Yes
[2020-11-17] MEDS: MORPHINE 2 MG/ML CARPUJECT IVP PRN ×5 (03:01→17:21)
[2020-11-17] MEDS: ONDANSETRON 4 MG/2 ML VIAL IVP PRN ×3 (05:34→17:16)
[2020-11-17 07:08] LABS: CREATININE 0.7 mg/dL (0.4-1.0); MAGNESIUM 1.9 mg/dL (1.7-2.8)
[2020-11-17 07:14] LABS: BASOPHILS % (AUTO) 0.2 %; HCT - HEMATOCRIT 42.9 % (37.0-47.0); HGB - HEMOGLOBIN 14.8 g/dL (12.0-16.0); LYMPHOCYTES % (AUTO) 5.2 %; MEAN CORPUSCULAR HEMOGLOBIN 35.6 pg (27.0-31.0); MEAN CORPUSCULAR HGB CONC 34.5 g/dL (32.0-36.0); MEAN CORPUSCULAR VOLUME 103.1 fL (81.0-99.0); MEAN PLATELET VOLUME 11.8 fL (7.9-10.8); MONOCYTES % (AUTO) 0.7 %; NEUTROPHILS % (AUTO) 93.5 %; PLT - PLATELET COUNT 260 10^3/uL (130-450); RED BLOOD COUNT 4.16 10^6/uL (4.20-5.40); RED CELL DISTRIBUTION WIDTH 12.6 % (12.0-15.0); WHITE BLOOD COUNT 13.4 x10^3/uL (4.8-10.8)
[2020-11-17 07:16] LABS: SLIDE REVIEW? Indicated
[2020-11-17 07:18] LABS: ABNORMAL LYMPHS % (MANUAL) 0 %
[2020-11-17 07:46] LABS: BAND NEUTROPHILS % (MANUAL) 1 %; DIFFERENTIAL COMMENT MANUAL DIFFERENTIAL; LYMPHOCYTES # (MANUAL) 1.5 10^3/uL (1.5-3.5); LYMPHOCYTES % (MANUAL) 8 %; NEUTROPHILS # (MANUAL) 11.9 10^3/uL (1.5-6.6); REACTIVE LYMPHS % (MANUAL) 3 %
[2020-11-17] MEDS: FAMOTIDINE 20 MG/2 ML VIAL IVP SCH ×2 (08:58→20:27)
[2020-11-17] MEDS: ENOXAPARIN 40 MG/0.4 ML SYRINGE SUBQ SCH (08:58)
--- NOTE | 2020-11-17 10:05 | PHARMACY PROGRESS NOTE ---
- Best Possible Medication History Admit Date and Time: 11/17/20 0053 Processed by: Nursing Medication History completed: Yes (MED REC COMPLETED BY NURSING) As the person ultimately responsible for medication therapy, providers are able to order a medication from an existing home medication list in [facility] via the "Reconcile Routine" prior to Confirmation of that medication by cryptologic support specialist. Such practice is discouraged except when the physician, in their clinical judgment, deems that a medical need exists for a medication without regard to previous use.
[2020-11-17] MEDS: oxyCODONE 5 MG TABLET PO PRN ×2 (13:43→21:39)
[2020-11-17] MEDS: PROMETHAZINE 25 MG/1 ML VIAL IM PRN (20:26)
[2020-11-18] MEDS: MORPHINE 2 MG/ML CARPUJECT IVP PRN ×2 (01:51→06:36)
[2020-11-18] MEDS: SODIUM CHLORIDE FLUSH 0.9% 10 ML SYRINGE IVP SCH ×2 (01:55→08:30)
[2020-11-18] MEDS: PROMETHAZINE 25 MG/1 ML VIAL IM PRN (02:18)
[2020-11-18 06:20] LABS: BASOPHILS % (AUTO) 0.4 %; EOSINOPHILS # (AUTO) 0.1 10^3/uL (0.0-0.7); EOSINOPHILS % (AUTO) 0.6 %; HCT - HEMATOCRIT 38.1 % (37.0-47.0); HGB - HEMOGLOBIN 12.9 g/dL (12.0-16.0); LYMPHOCYTES # (AUTO) 3.4 10^3/uL (1.5-3.5); LYMPHOCYTES % (AUTO) 31.5 %; MEAN CORPUSCULAR HEMOGLOBIN 34.1 pg (27.0-31.0); MEAN CORPUSCULAR HGB CONC 33.9 g/dL (32.0-36.0); MEAN CORPUSCULAR VOLUME 100.8 fL (81.0-99.0); MEAN PLATELET VOLUME 10.8 fL (7.9-10.8); MONOCYTES # (AUTO) 0.7 10^3/uL (0.0-1.0); MONOCYTES % (AUTO) 6.1 %; NEUTROPHILS # (AUTO) 6.5 10^3/uL (1.5-6.6); NEUTROPHILS % (AUTO) 61.2 %; PLT - PLATELET COUNT 253 10^3/uL (130-450); RED BLOOD COUNT 3.78 10^6/uL (4.20-5.40); RED CELL DISTRIBUTION WIDTH 12.6 % (12.0-15.0); WHITE BLOOD COUNT 10.7 x10^3/uL (4.8-10.8)
[2020-11-18 06:32] LABS: CALCIUM 8.6 mg/dL (8.5-10.3); CREATININE 0.6 mg/dL (0.4-1.0); MAGNESIUM 1.7 mg/dL (1.7-2.8); POTASSIUM 3.3 mmol/L (3.5-5.0)
[2020-11-18] MEDS: ONDANSETRON 4 MG/2 ML VIAL IVP PRN (06:36)
[2020-11-18 07:41] VITALS: BP 134/63
[2020-11-18] MEDS: LACTATED RINGERS 1,000 ML IV SCH (07:46)
[2020-11-18] MEDS ORDERED: ACETAMINOPHEN 325 MG TABLET PO PRN (07:46)
[2020-11-18] MEDS ORDERED: POTASSIUM CHLORIDE 20 MEQ/15 ML UDC PO ONE (08:00)
[2020-11-18] MEDS: ENOXAPARIN 40 MG/0.4 ML SYRINGE SUBQ SCH (08:30)
[2020-11-18] MEDS: FAMOTIDINE 20 MG/2 ML VIAL IVP SCH (08:30)
--- NOTE | 2020-11-18 08:45 | DISCHARGE SUMMARY ---
Discharge Summary Admit Date: 11/17/20 Discharge Date: 11/18/20 Discharging Provider: Guilherme Shaw Primary Care Provider: Mackenzie Bloom Code Status: Attempt Resuscitation Condition at Discharge: Stable Discharge Disposition: 01 Home, Self Care - DIAGNOSES Admission Diagnoses: Regional enteritis of small bowel Nausea vomiting Anxiety Hematuria Discharge Diagnoses with Status of Each Condition: Small bowel enteritis - improved. Nausea/vomiting - resolved. Anxiety - stable. Hematuria - stable. - HPI History of Present Illness: Coral Chung is a 60yo anxious female with a long standing hx of GI complaints and anorectal fistula who presented to ED abdominal pain accompanied by vomiting and non-bloody diarrhea for 3 days. She had her gallbladder out in 2014. She had an unremarkable colonoscopy and endoscopy a year ago. She was given phenergran and fluids along with ativan for anxiety/agitation. CT showed small bowel enteritis. Upon admission patient continues to have nausea and diffuse abdominal pain, but has improved since ED stay. Is not currently vomiting or having diarrhea. She wants sleep and has no additional needs at this time. RN at bedside. - HOSPITAL COURSE Hospital Course: She was placed in observation for nausea and vomitings with abdominal pain secondary to small bowel enteritis. It was felt this was likely viral in natur e. We did order stool cultures but her diarrhea had resolved and we were unable to obtain a stool sample. She treated with IV morphine and IV hydration as well as Phenergan and Zofran for her nausea. She had improvement over 24 hours and was able tolerate a diet. She was discharged home with a prescription for Zofran as well as 8 tablets of oxycodone for pain. COMMERCIAL LOAN MANAGER was checked. She was asked to follow-up with her primary care physician. - ALLERGIES Allergies/Adverse Reactions: Allergies Allergy/AdvReac Type Severity Reaction Status Date / Time doxycycline Allergy Hives Verified 11/16/20 21:03 aspirin AdvReac Nausea Verified 11/16/20 21:03 - MEDICATIONS Home Medications: Ambulatory Orders Medication Instructions Recorded Confirmed Promethazine [Phenergan] 25 mg PO Q6H PRN 12/27/12 11/16/20 Ibuprofen [Motrin] 600 mg PO Q6H PRN #30 tab 12/16/19 11/16/20 methocarbamoL [Robaxin-750] 750 mg PO TID PRN #30 tablet 12/16/19 11/16/20 Diphenoxylate/Atropine [Lomotil] 1 tab PO QID PRN #10 tablet 08/25/20 11/16/20 Ondansetron Odt [Zofran Odt] 4 mg TL Q6HR PRN #12 tablet 11/18/20 oxyCODONE [Roxicodone] 5 mg PO Q8HR PRN #8 tablet 11/18/20 - PHYSICAL EXAM AT DISCHARGE General Appearance: positive: No acute distress, Alert Eyes Bilateral: positive: Conjunctivae nml ENT: positive: ENT inspection nml Neck: positive: Nml inspection Respiratory: positive: No respiratory distress. negative: Wheezes, Rales Cardiovascular: positive: Regular rate & rhythm, No murmur. negative: Tachycardia Abdomen: positive: No distention, Tenderness (Mild diffuse tenderness.). negative: Non-tender, Guarding, Rebound Skin: positive: Warm, Dry Extremities: positive: No pedal edema Neurologic/Psychiatric: positive: Oriented x3. negative: Disoriented to person, Disoriented to place, Disoriented to time Physical Exam Other/Comments: Vital Signs - 24 hr 11/17/20 11/18/20 11/18/20 20:19 00:29 06:14 Temperature 36.7 C 36.7 C 36.6 C Heart Rate [ 59 L 53 L 52 L Brachial] Respiratory 16 16 18 Rate Blood Pressure 172/65 H 119/50 L [Left Brachial artery] Blood Pressure 141/68 H [Right Brachial artery] O2 Saturation 99 97 99 11/18/20 07:39 Temperature 36.7 C Heart Rate [ 51 L Brachial] Respiratory 18 Rate Blood Pressure [Left Brachial artery] Blood Pressure 134/63 H [Right Brachial artery] O2 Saturation 99 Oxygen O2 Source Room air - LABS Result Diagrams: 11/18/20 05:54 11/18/20 05:54 - FOLLOW UP Follow Up: She was asked to follow-up with her primary care physician in 1 week. It is recommended that she have follow-up for hematuria such as urology referral. - TIME SPENT Time Spent in Discharge (Minutes): 31
--- NOTE | 2020-11-18 08:45 | Discharge Plan ---
Discharge Plan Problem Reviewed?: Yes Disposition: Home, Self Care Condition: Stable Prescriptions: Ondansetron Odt [Zofran Odt] 4 mg TL Q6HR PRN #12 tablet PRN Reason: Nausea / Vomiting oxyCODONE [Roxicodone] 5 mg PO Q8HR PRN #8 tablet PRN Reason: Pain Diet: Regular Activity Restrictions: Activity as Tolerated Shower Restrictions: No Driving Restrictions: Yes (Please do not drive while taking narcotics such as oxycodone.) Health Concerns: You were seen in the hospital because of abdominal pain which was likely due to a viral gastroenteritis. A CT scan of your abdomen showed some mild edema which is not specific for anything. He has improved with IV hydration and nausea medications. You are now stable for discharge home. Plan of Treatment: I have sent you a prescription for Zofran and a few tablets of oxycodone to take as needed for pain. You may continue taking your prior medications as prescribed. Assessment: Patient expressed understanding of the treatment plan. Additional Instructions or Follow Up instructions: Please follow-up with your primary care physician in 1 week. No Smoking: If you smoke, Please STOP! Call for help. Follow-up with: Mackenzie Bloom MD [Primary Care Provider] -
[2020-11-18] MEDS: oxyCODONE 5 MG TABLET PO PRN (09:27)
== END 2020-11-18 13:37 | disposition home or self-care (01) ==
LOC: ED 21:00 → MS2 11-17 00:53
PROVIDERS: ADMIT Specialist; ATTEND Internal Medicine
DX: K52.9 Noninfective gastroenteritis and colitis, unspecified (principal); F41.9 Anxiety disorder, unspecified; R45.1 Restlessness and agitation; R31.9 Hematuria, unspecified; G62.9 Polyneuropathy, unspecified; G89.29 Other chronic pain; M54.9 Dorsalgia, unspecified; F17.200 Nicotine dependence, unspecified, uncomplicated; F32.9 Major depressive disorder, single episode, unspecified; Z91.5 Personal history of self-harm; H54.7 Unspecified visual loss; Z20.822 Contact with and (suspected) exposure to COVID-19; Z87.19 Personal history of other diseases of the digestive system; Z79.899 Other long term (current) drug therapy
CPT/HCPCS: 36415; 74177; 80048; 80053; 81001; 83690; 83735; 85025; 87040; 87631; 96365; 96367; 96372; 96375; 96376; 99285; A9270; G0378; J1170; J1650; J2060; J7040; J7120; Q9967; 0202U; 81003; 87086

== ENCOUNTER 2021-02-10 18:58 | Emergency (ER) | payer MEDICARE, MEDICAID ==
[2021-02-10] MEDS ORDERED: SODIUM CHLORIDE 0.9% 1,000 ML IV STA (19:17)
[2021-02-10] MEDS ORDERED: KETOROLAC 30 MG/ML VIAL IVP STA (19:17)
[2021-02-10] MEDS ORDERED: ONDANSETRON 4 MG/2 ML VIAL IVP STA (19:17)
--- NOTE | 2021-02-10 19:18 | ED Physician Documentation ---
PD HPI ABD PAIN - Stated complaint Stated Complaint: ABD PX,NAUSEA - Chief complaint Chief Complaint: Abd Pain - History obtained from History obtained from: Patient - Additional information Additional information: Couple of months ago she had C. difficile and completed treatment. Last week she had a UTI and was on a 3-day course of an antibiotic that was twice a day, so I presume ciprofloxacin. Over last couple days she has had a progressive illness marked by abdominal cramps nausea and diarrhea without blood. Feels like prior C. difficile. She denies urinary complaints or fevers. She tried taking Phenergan at home which was not too effective. She has no other health problems other than frequent UTIs. Review of Systems Constitutional: reports: Chills, Myalgias Cardiac: denies: Chest pain / pressure, Palpitations Respiratory: denies: Dyspnea, Cough GI: reports: Abdominal Pain, Nausea, Diarrhea. 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: section, 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, 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 - Present Medications Home Medications: Ambulatory Orders Medication Instructions Recorded Confirmed Promethazine [Phenergan] 25 mg PO Q6H PRN 12/27/12 02/10/21 - Allergies Allergies/Adverse Reactions: Allergies Allergy/AdvReac Type Severity Reaction Status Date / Time doxycycline Allergy Hives Verified 02/10/21 19:04 aspirin AdvReac Nausea Verified 02/10/21 19:04 - Social History Does the pt smoke?: Yes Smoking Status: Current every day smoker Does the pt drink ETOH?: Yes Does the pt have substance abuse?: No - Immunizations Immunizations are current?: Yes - POLST Patient has POLST: No POLST Status: Full Code PD ED PE NORMAL - Vitals Vital signs reviewed: Yes - General General: Alert and oriented X 3 (She appears uncomfortable) - Cardiac Cardiac: RRR, No murmur - Respiratory Respiratory: No respiratory distress, Clear bilaterally - Abdomen Abdomen: Normal bowel sounds, Soft, Non tender - Neuro Neuro: Alert and oriented X 3, Normal speech Results - Vitals Vitals: Vital Signs - 24 hr 02/10/21 02/10/21 19:04 19:44 Temperature 36.5 C Heart Rate 77 61 Respiratory 18 16 Rate Blood Pressure 150/88 H 162/73 H O2 Saturation 99 99 Oxygen O2 Source Room air - Labs Labs: Laboratory Tests 02/10/21 02/10/21 19:30 19:30 WBC 10.7 RBC 4.24 Hgb 14.5 Hct 42.5 MCV 100.2 H MCH 34.2 H MCHC 34.1 RDW 12.7 Plt Count 275 MPV 10.7 Neut # (Auto) 7.4 H Lymph # (Auto) 2.5 King # (Auto) 0.8 Eos # (Auto) 0.0 Baso # (Auto) 0.1 Absolute Nucleated RBC 0.00 Nucleated RBC % 0.0 Sodium 134 L Potassium 3.3 L Chloride 97 L Carbon Dioxide 28 Anion Gap 9.0 BUN 20 Creatinine 0.6 Estimated GFR (MDRD) 103 Glucose 119 H Calcium 9.2 Total Bilirubin 0.4 AST 18 ALT 20 Alkaline Phosphatase 80 Total Protein 7.8 Albumin 4.4 Globulin 3.4 Albumin/Globulin Ratio 1.3 Lipase 34 PD MEDICAL DECISION MAKING - ED course ED course: 60-year-old woman presents for what she thinks is probably a recurrence of C. difficile colitis after a course of antibiotics last week for UTI. She is a very benign examination and blood work is relatively unremarkable except for borderline leukocytosis. She was feeling better here after Toradol and IV fluids. She was unable to produce a stool sample. She does have an order in a collection kit for C. difficile at home and plans to return it to the lab tomorrow. Departure - Departure Disposition: Home, Self Care Clinical Impression: Stomach cramps Diarrhea Qualifiers: Diarrhea type: presumed infectious Qualified Code(s): R19.7 - Diarrhea, unspecified Condition: Good Record reviewed to determine appropriate education?: Yes Instructions: ED Diarrhea Viral Comments: You were seen here tonight for diarrhea and stomach cramps, clearly there is a concern for recurrent C. difficile colitis given your history of same. You are unable to produce a stool sample tonight, but that is okay as long as you can produce one tomorrow and bring it to the lab with the order that Dr. Bloom gave you. Return for new or worsening symptoms.
[2021-02-10 19:58] LABS: BASOPHILS # (AUTO) 0.1 10^3/uL (0.0-0.1); BASOPHILS % (AUTO) 0.5 %; EOSINOPHILS % (AUTO) 0.2 %; HCT - HEMATOCRIT 42.5 % (37.0-47.0); HGB - HEMOGLOBIN 14.5 g/dL (12.0-16.0); LYMPHOCYTES # (AUTO) 2.5 10^3/uL (1.5-3.5); LYMPHOCYTES % (AUTO) 22.8 %; MEAN CORPUSCULAR HEMOGLOBIN 34.2 pg (27.0-31.0); MEAN CORPUSCULAR HGB CONC 34.1 g/dL (32.0-36.0); MEAN CORPUSCULAR VOLUME 100.2 fL (81.0-99.0); MEAN PLATELET VOLUME 10.7 fL (7.9-10.8); MONOCYTES # (AUTO) 0.8 10^3/uL (0.0-1.0); MONOCYTES % (AUTO) 7.2 %; NEUTROPHILS # (AUTO) 7.4 10^3/uL (1.5-6.6); PLT - PLATELET COUNT 275 10^3/uL (130-450); RED BLOOD COUNT 4.24 10^6/uL (4.20-5.40); RED CELL DISTRIBUTION WIDTH 12.7 % (12.0-15.0); WHITE BLOOD COUNT 10.7 x10^3/uL (4.8-10.8)
[2021-02-10 20:11] LABS: ALBUMIN 4.4 g/dL (3.2-5.5); ALBUMIN/GLOBULIN RATIO 1.3 (1.0-2.2); BILIRUBIN,TOTAL 0.4 mg/dL (0.2-1.0); CALCIUM 9.2 mg/dL (8.5-10.3); CREATININE 0.6 mg/dL (0.4-1.0); POTASSIUM 3.3 mmol/L (3.5-5.0); TOTAL PROTEIN 7.8 g/dL (6.7-8.2)
[2021-02-10] MEDS ORDERED: HYDROcod/ACET 5/325 Prepack 4 PO STA (20:22)
[2021-02-10 20:41] VITALS: BP 150/80
== END 2021-02-10 20:37 | disposition home or self-care (01) ==
LOC: ED 18:58
DX: R10.9 Unspecified abdominal pain (principal); R19.7 Diarrhea, unspecified; F17.200 Nicotine dependence, unspecified, uncomplicated
CPT/HCPCS: 36415; 80053; 83690; 85025; 96361; 96374; 96375; 99283

== ENCOUNTER 2021-02-11 06:58 | Outpatient (CLI) | payer MEDICARE, MEDICAID | END 2021-02-11 06:59 | disposition critical access hospital (66) | LOC: EMS 06:58 | DX: R10.9 Unspecified abdominal pain (principal); R11.2 Nausea with vomiting, unspecified; R19.7 Diarrhea, unspecified | CPT/HCPCS: A0425; A0429 ==

== ENCOUNTER 2021-02-11 07:15 | Inpatient (IN) | payer MEDICARE, MEDICAID ==
[2021-02-11] MEDS ORDERED: PROMETHAZINE INJ 25 MG in SODIUM CHLORIDE 0.9% 50 ML IV STA ×2 (07:45→11:28)
[2021-02-11] MEDS ORDERED: HYDROmorphone 1 MG/ML CARPUJECT IVP STA ×2 (07:45→11:28)
[2021-02-11] MEDS ORDERED: SODIUM CHLORIDE 0.9% 1,000 ML IV STA (07:45)
--- NOTE | 2021-02-11 07:50 | ED Physician Documentation ---
PD HPI ABD PAIN - Stated complaint Stated Complaint: N/V/D - Chief complaint Chief Complaint: Abd Pain - History obtained from History obtained from: Patient - History of Present Illness Timing - onset: Enter time (0200), Today Timing - duration: Hours Timing - details: Gradual onset, Still present Quality: Cramping, Sharp, Fullness/distended, Pain Location: All over / everywhere Improved by: Laying still, Vomiting Worsened by: Moving, Breathing, Position, Palpation Associated symptoms: Nausea, Vomiting, Other (had diarrhea yesterday and no output since) Similar symptoms before: Diagnosis (C. Diff) Recently seen: Emergency Dept - Additional information Additional information: 60 y/o female with a recent history of C. Diff that was treated more than a month ago has had another UTI another course of antibiotic(9th course this year for UTI) and has developed symptoms again of diarrhea, vomiting and abdominal pain. She has had her gallbladder out previously. She reports that she had illness begin 4 days ago and was seen in the ED yesterday with relief with toradal & phenergan and she was able to go home and get to sleep only to awaken at 2am with severe pain and cramping, nausea and vomiting. She has had no stool output since yesterday. She feels bloated, nauseated and has severe cramping in a cyclical fashion. Review of Systems Constitutional: denies: Fever Eyes: denies: Decreased vision Ears: denies: Ear pain Nose: denies: Congestion Throat: denies: Sore throat Cardiac: denies: Chest pain / pressure, Palpitations Respiratory: denies: Dyspnea, Cough GI: reports: Abdominal Pain, Abdominal Swelling, Nausea, Vomiting, Diarrhea : denies: Dysuria, Frequency Skin: denies: Rash Musculoskeletal: denies: Neck pain, Back pain, Extremity pain Neurologic: denies: Generalized weakness, Focal weakness, Numbness PD PAST MEDICAL HISTORY - Past Medical History Cardiovascular: None Respiratory: None Neuro: Peripheral neuropathy Endocrine/Autoimmune: None GI: C.difficile, Chronic diarrhea, Other : Other HEENT: Chronic vision loss Psych: Depression, Anxiety Musculoskeletal: Osteoarthritis, Chronic back pain Derm: Rosacea - Past Surgical History Past Surgical History: Yes General: Cholecystectomy, Colonoscopy, Other Ortho: 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, 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, 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 - Present Medications Home Medications: Ambulatory Orders Medication Instructions Recorded Confirmed Meloxicam [Mobic] 7.5 mg PO BID 02/11/21 02/11/21 Promethazine [Phenergan] 25 mg PO BID PRN 02/11/21 02/11/21 - Allergies Allergies/Adverse Reactions: Allergies Allergy/AdvReac Type Severity Reaction Status Date / Time doxycycline Allergy Hives Verified 02/11/21 07:44 aspirin AdvReac Nausea Verified 02/11/21 07:44 - Social History Does the pt smoke?: Yes Smoking Status: Current every day smoker Does the pt drink ETOH?: Yes Does the pt have substance abuse?: No - Immunizations Immunizations are current?: Yes - POLST Patient has POLST: No POLST Status: Full Code PD ED PE NORMAL - Vitals Vital signs reviewed: Yes (hypertension) - General General: Alert and oriented X 3, Well developed/nourished, Other (laying in the position with abdomen clutched and an emesis bag with vomiting acutely. The patient appears miserable. ) - HEENT HEENT: Atraumatic, PERRL, EOMI - Neck Neck: Supple, no meningeal sign, No bony TTP - Cardiac Cardiac: RRR, No murmur - Respiratory Respiratory: No respiratory distress, Clear bilaterally - Abdomen Abdomen: Soft, Other (mild distention with generalized tenderness. 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 2-12 intact, No motor deficit, No sensory deficit, Normal speech Eye Opening: Spontaneous Motor: Obeys Commands Verbal: Oriented GCS Score: 15 - Psych Psych: Other (mood is misery and the affect is sour) Results - Vitals Vitals: Vital Signs - 24 hr 02/11/21 02/11/21 02/11/21 07:16 08:03 08:21 Temperature 36.7 C Heart Rate 67 82 59 L Respiratory 16 20 16 Rate Blood Pressure 155/89 H 155/70 H 128/69 O2 Saturation 99 92 97 02/11/21 10:00 Temperature Heart Rate 62 Respiratory 17 Rate Blood Pressure 121/66 O2 Saturation 97 Oxygen O2 Source Room air - Labs Labs: Laboratory Tests 02/11/21 02/11/21 02/11/21 07:33 07:33 09:25 WBC 17.2 H RBC 4.70 Hgb 16.2 H Hct 46.3 MCV 98.5 MCH 34.5 H MCHC 35.0 RDW 12.5 Plt Count 308 MPV 10.7 Neut # (Auto) 15.3 H Lymph # (Auto) 1.1 L [place] # (Auto) 0.6 Eos # (Auto) 0.2 Baso # (Auto) 0.1 Absolute Nucleated RBC 0.00 Nucleated RBC % 0.0 Sodium 134 L Potassium 3.5 Chloride 97 L Carbon Dioxide 22 Anion Gap 15.0 H BUN 21 H Creatinine 0.7 Estimated GFR (MDRD) 86 L Glucose 169 H Calcium 9.6 Total Bilirubin 1.1 H AST 22 ALT 20 Alkaline Phosphatase 76 Total Protein 8.2 Albumin 4.4 Globulin 3.8 Albumin/Globulin Ratio 1.2 Lipase 31 Urine Color Urine Clarity Urine pH Ur Specific [place] Urine Protein Urine Glucose (UA) Urine Ketones Urine Occult Blood Urine Nitrite Urine Bilirubin Urine Urobilinogen Ur Leukocyte Esterase Urine RBC Urine WBC Ur Squamous Epith Cells Urine Bacteria Ur Microscopic Review Urine Culture Comments Nasal Adenovirus (PCR) NOT DETECTED Nasal B. parapertussis DNA (PCR) NOT DETECTED Nasal Coronavir 229E PCR NOT DETECTED Nasal Coronavir HKU1 PCR NOT DETECTED Nasal Coronavir NL63 PCR NOT DETECTED Nasal Coronavir OC43 PCR NOT DETECTED Nasal Enterovir/Rhinovir PCR NOT DETECTED Nasal Influenza B PCR NOT DETECTED Nasal Influenza A PCR NOT DETECTED Nasal Parainfluen 1 PCR NOT DETECTED Nasal Parainfluen 2 PCR NOT DETECTED Nasal Parainfluen 3 PCR NOT DETECTED Nasal Parainfluen 4 PCR NOT DETECTED Nasal RSV (PCR) NOT DETECTED Nasal B.pertussis DNA PCR NOT DETECTED Nasal C.pneumoniae (PCR) NOT DETECTED Sameer Human Metapneumo PCR NOT DETECTED Nasal M.pneumoniae (PCR) NOT DETECTED Nasal SARS-CoV-2 (PCR) NOT DETECTED Urine Opiates Screen Ur Oxycodone Screen Urine Methadone Screen Ur Propoxyphene Screen Ur Barbiturates Screen Ur Tricyclics Screen Ur Phencyclidine Scrn Ur Amphetamine Screen U Methamphetamines Scrn U Benzodiazepines Scrn Urine Cocaine Screen U Cannabinoids Screen 02/11/21 09:32 WBC RBC Hgb Hct MCV MCH MCHC RDW Plt Count MPV Neut # (Auto) Lymph # (Auto) [place] # (Auto) Eos # (Auto) Baso # (Auto) Absolute Nucleated RBC Nucleated RBC % Sodium Potassium Chloride Carbon Dioxide Anion Gap BUN Creatinine Estimated GFR (MDRD) Glucose Calcium Total Bilirubin AST ALT Alkaline Phosphatase Total Protein Albumin Globulin Albumin/Globulin Ratio Lipase Urine Color YELLOW Urine Clarity CLEAR Urine pH 6.5 Ur Specific [place] 1.025 Urine Protein NEGATIVE Urine Glucose (UA) NEGATIVE Urine Ketones 40 H Urine Occult Blood MODERATE H Urine Nitrite NEGATIVE Urine Bilirubin NEGATIVE Urine Urobilinogen 0.2 (NORMAL) Ur Leukocyte Esterase NEGATIVE Urine RBC 0-5 Urine WBC 0-3 Ur Squamous Epith Cells RARE Squamous Urine Bacteria Rare Ur Microscopic Review INDICATED Urine Culture Comments NOT INDICATED Nasal Adenovirus (PCR) Nasal B. parapertussis DNA (PCR) Nasal Coronavir 229E PCR Nasal Coronavir HKU1 PCR Nasal Coronavir NL63 PCR Nasal Coronavir OC43 PCR Nasal Enterovir/Rhinovir PCR Nasal Influenza B PCR Nasal Influenza A PCR Nasal Parainfluen 1 PCR Nasal Parainfluen 2 PCR Nasal Parainfluen 3 PCR Nasal Parainfluen 4 PCR Nasal RSV (PCR) Nasal B.pertussis DNA PCR Nasal C.pneumoniae (PCR) Sameer Human Metapneumo PCR Nasal M.pneumoniae (PCR) Nasal SARS-CoV-2 (PCR) Urine Opiates Screen POSITIVE H Ur Oxycodone Screen NEGATIVE Urine Methadone Screen NEGATIVE Ur Propoxyphene Screen NEGATIVE Ur Barbiturates Screen NEGATIVE Ur Tricyclics Screen NEGATIVE Ur Phencyclidine Scrn NEGATIVE Ur Amphetamine Screen NEGATIVE U Methamphetamines Scrn NEGATIVE U Benzodiazepines Scrn NEGATIVE Urine Cocaine Screen NEGATIVE U Cannabinoids Screen NEGATIVE - Rads (name of study) CT ab/pel without Radiology: Prelim report reviewed (Impression: 1. Small bowel obstruction with a transition point in the mid to distal small bowel 2.8 mm nodule in the right lower lobe is new compared to remote imaging. Recommend nonemergent CT of the chest for complete evaluation.), EMP read indepedently, See rad report PD MEDICAL DECISION MAKING - ED course Complexity details: reviewed old records, reviewed results, re-evaluated patient, considered differential, d/w patient, d/w senior microsoft consultant ([place], surgery here recommends addmission to medicine with NG. He will consult ) ED course: 60-year-old female with a history of recurrent nausea vomiting and diarrhea has had exacerbation of her symptoms again and this started with some vomiting and diarrhea and she subsequently has had no stool output and has a picture consistent with small bowel obstruction today on CAT scan. She has had prior surgery to the abdomen including a cholecystectomy hysterectomy and tubal ligation. Adhesions are described in the operative report from the patient's cholecystectomy. No evidence of cannabis hyperemesis. Here in the emerge department an IV is begun the patient is administered Dilaudid and Zofran with marked improvement in her pain. She has had similar incident in October of this year was admitted to the hospital for 4 days. Tod ay her imaging looks like a bowel obstruction and she recalls eating an excess of a single food prior to onset. Something about the shrimp. Departure - Departure Disposition: [facility] DC/Leta Clinical Impression: Small bowel obstruction Discharge Date/Time: 02/11/21 12:46
[2021-02-11 07:54] LABS: BASOPHILS # (AUTO) 0.1 10^3/uL (0.0-0.1); BASOPHILS % (AUTO) 0.3 %; EOSINOPHILS # (AUTO) 0.2 10^3/uL (0.0-0.7); HCT - HEMATOCRIT 46.3 % (37.0-47.0); HGB - HEMOGLOBIN 16.2 g/dL (12.0-16.0); LYMPHOCYTES # (AUTO) 1.1 10^3/uL (1.5-3.5); LYMPHOCYTES % (AUTO) 6.1 %; MEAN CORPUSCULAR HEMOGLOBIN 34.5 pg (27.0-31.0); MEAN CORPUSCULAR VOLUME 98.5 fL (81.0-99.0); MEAN PLATELET VOLUME 10.7 fL (7.9-10.8); MONOCYTES # (AUTO) 0.6 10^3/uL (0.0-1.0); MONOCYTES % (AUTO) 3.7 %; NEUTROPHILS # (AUTO) 15.3 10^3/uL (1.5-6.6); NEUTROPHILS % (AUTO) 88.6 %; PLT - PLATELET COUNT 308 10^3/uL (130-450); RED CELL DISTRIBUTION WIDTH 12.5 % (12.0-15.0); WHITE BLOOD COUNT 17.2 x10^3/uL (4.8-10.8)
[2021-02-11 08:00] LABS: ALBUMIN 4.4 g/dL (3.2-5.5); ALBUMIN/GLOBULIN RATIO 1.2 (1.0-2.2); BILIRUBIN,TOTAL 1.1 mg/dL (0.2-1.0); CALCIUM 9.6 mg/dL (8.5-10.3); CREATININE 0.7 mg/dL (0.4-1.0); POTASSIUM 3.5 mmol/L (3.5-5.0); TOTAL PROTEIN 8.2 g/dL (6.7-8.2)
[2021-02-11 09:40] LABS: MUDS CUTOFF CONCENTRATIONS CUTOFF CONC BELOW:
[2021-02-11 09:43] LABS: BILIRUBIN,URINE NEGATIVE (NEGATIVE); GLUCOSE, URINE (UA) NEGATIVE (NEGATIVE); KETONES,URINE (UA) 40 mg/dL (NEGATIVE); LEUKOCYTE ESTERASE, URINE NEGATIVE (NEGATIVE); NITRITE,URINE NEGATIVE (NEGATIVE); OCCULT BLOOD,URINE MODERATE (NEGATIVE); PH,URINE 6.5 PH (5.0-7.5); PROTEIN,URINE NEGATIVE (NEGATIVE); UROBILINOGEN,URINE 0.2 (NORMAL) E.U./dL (NORMAL)
[2021-02-11 10:05] LABS: CLARITY,URINE CLEAR (CLEAR); RBC,URINE 0-5 /HPF (0-5); SQUAMOUS EPITHELIAL CELL,UR RARE Squamous (<= Few); WBC,URINE 0-3 /HPF (0-5)
[2021-02-11 10:06] LABS: BACTERIA,URINE Rare /HPF (None Seen)
[2021-02-11 10:07] LABS: AMPHETAMINE SCREEN,URINE NEGATIVE (NEGATIVE); BARBITURATE SCREEN,UR NEGATIVE (NEGATIVE); BENZODIAZEPINES SCREEN, URINE NEGATIVE (NEGATIVE); COCAINE SCREEN URINE NEGATIVE (NEGATIVE); METHADONE SCREEN, URINE NEGATIVE (NEGATIVE); METHAMPHETAMINES SCREEN, URINE NEGATIVE (NEGATIVE); OPIATE SCREEN, URINE POSITIVE (NEGATIVE); OXYCODONE SCREEN, URINE NEGATIVE (NEGATIVE); PROPOXYPHENE SCREEN, URINE NEGATIVE (NEGATIVE); THC CANNABINOID SCREEN, URINE NEGATIVE (NEGATIVE); TRICYCLIC ANTIDEPRESSANT,URINE NEGATIVE (NEGATIVE)
--- NOTE | 2021-02-11 10:14 | CT Report ---
PROCEDURE: Abdomen/Pelvis WO INDICATIONS: pain vomiting ?obstruction TECHNIQUE: Noncontrast 5 mm thick sections acquired from the diaphragms to the symphysis. 5 mm coronal and sagi ttal reformats were then performed. For radiation dose reduction, the following was used: automated exposure control, adjustment of mA and/or kV according to patient size. COMPARISON: 11/16/2020 FINDINGS: Image quality: Excellent. ABDOMEN: Lung bases: Lung bases are clear. Heart size is normal. The right lower lobe has a 8 mm nodule whi ch is unchanged compared to the prior CT on 11/16/2020 Solid organs: Liver and spleen are normal in size. Gallbladder is normal Pancreas is normal in con tours. No adrenal nodules. Kidneys are normal in size, without hydronephrosis or nephrolithiasis. Peritoneum and bowel: The distal esophagus and stomach are normal. There is fluid distention of the s mall bowel measuring up to 3 cm in diameter with multiple air-fluid levels. Transition point is in th e distal small bowel with normal caliber small bowel and the terminal ileum. Nodes and vessels: No retroperitoneal or mesenteric adenopathy by size criteria. Aorta and inferior vena cava are normal in caliber. Miscellaneous: No ventral hernias. PELVIS: Genitourinary: Bladder wall thickness is normal. Miscellaneous: No inguinal hernias or adenopathy. Bones: No suspicious bony lesions. No vertebral body compression fractures. IMPRESSION: 1. Small bowel obstruction with a transition point in the mid to distal small bowel. 2. 8 mm nodule in the right lower lobe is new compared to remote imaging. Recommend nonemergent CT of the chest for complete evaluation. Reviewed by: Cheko Wu on 02/11/2021 9:13 AM [facility] Approved by: Cheko Wu on 02/11/2021 9:13 AM [facility] Station ID: [id number]
[2021-02-11 10:32] LABS: B. PARAPERTUSSIS- RESP PCR PAN NOT DETECTED; B. PERTUSSIS- RESP PCR PANEL NOT DETECTED; C. PNEUMONIAE- RESP PCR PANEL NOT DETECTED; CORONAVIRUS 229E-RESP PCR NOT DETECTED; CORONAVIRUS HKU1-RESP PCR NOT DETECTED; CORONAVIRUS NL63-RESP PCR NOT DETECTED; CORONAVIRUS OC43-RESP PCR NOT DETECTED; HUMAN METAPNEUMOVIRUS NOT DETECTED; INFLUENZA A- RESP PCR PANEL NOT DETECTED; INFLUENZA B - RESP PCR PANEL NOT DETECTED; M. PNEUMONIAE- RESP PCR PANEL NOT DETECTED; PARAINFLUENZA VIRUS 1 NOT DETECTED; PARAINFLUENZA VIRUS 2 NOT DETECTED; PARAINFLUENZA VIRUS 3 NOT DETECTED; PARAINFLUENZA VIRUS 4 NOT DETECTED; RHINOVIRUS/ENTEROVIRUS NOT DETECTED; RSV- RESP PCR PANEL NOT DETECTED; SARS-CoV-2 -RESP PCR PANEL NOT DETECTED
--- NOTE | 2021-02-11 11:19 | CONSULTATION NOTE ---
Referring Provider Name of Referring Provider:: Marcie Consult Date: 02/11/21 Chief Complaint - Chief Complaint Chief Complaint: abdominal pain History of Present Illness - Admitted From Admitted From:: ER - History Obtained From Records Reviewed: Yes History obtained from: Patient - History of Present Illness HPI Comment/Other: 60 yo female with complicated history of episodes of N/V/D and abdominal pain over the past few months. She had C diff diagnosed during this period. Currently denies diarrhea, unable to give sample for C diff testing. She has had multiple episodes of UTI over the past year. She has also had multiple complaints of N/V, seen eyaterday in the Er and sent out on compazine. Nausea is persistent and also c/o abdominal pain and bloating so she returned to the ER. CT scan of the abdomen done which shows probable SBO with transition point in distal small bowel. WBC also elevated to 17. Patient has past history of hysterectomy and cholecystectomy. Colonoscopy done last year was unremarkable. 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, 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 - Family & Social History Family History: Mother: Alcoholism, Mental Illness, Father: Mental Illness Family History Comment/Other: Sibling with Thyroid disorder Living Situation: Unknown - Substance History Use: Uses substance without health or social issues: Tobacco - POLST Patient has POLST: No POLST Status: Full Code Meds/Allgy - Home Medications Home Medications: Ambulatory Orders Medication Instructions Recorded Confirmed Promethazine [Phenergan] 25 mg PO Q6H PRN 12/27/12 02/10/21 - Allergies Allergies/Adverse Reactions: Allergies Allergy/AdvReac Type Severity Reaction Status Date / Time doxycycline Allergy Hives Verified 02/11/21 07:44 aspirin AdvReac Nausea Verified 02/11/21 07:44 Review of Systems - Constitutional Constitutional: denies: Fever - Gastrointestinal Gastrointestinal: reports: Abdominal pain, Abdominal distention, Nausea, V omiting. denies: Diarrhea, Rectal bleeding, Coffee grounds emesis Exam - Vital Signs Reviewed Vital Signs: Yes Vital Signs: Vital Signs x48h Temp Pulse Resp BP Pulse Ox 02/11/21 10:00 62 17 121/66 97 02/11/21 08:21 59 L 16 128/69 97 02/11/21 08:03 82 20 155/70 H 92 02/11/21 07:16 36.7 C 67 16 155/89 H 99 - Physical Exam General Appearance: positive: Mild distress Eyes Bilateral: positive: Normal inspection ENT: positive: ENT inspection nml Neck: positive: Nml inspection Respiratory: positive: No respiratory distress Cardiovascular: positive: Regular rate & rhythm Abdomen: positive: Non-tender. negative: No distention (Mild distention) Conclusion/Plan - Problem List (1) Small bowel obstruction Conclusion/Plan: Abdominal exam is benign, but CT abdomen shows dilated loops of SB with probable transition point in distal small bowel. Stomach is distended with fluid. I advised the patient to have an NG tube placed to relieve the obstruction, but she was very reluctant, asking for general anesthesia for placement. I informed her this was not possible. The emergency room staff will try to convince her to have NG placed. Patient should be admitted and kept NPO with NG to low intermittent suction. Repeat CBC and electrolytes tomorrow. Check C diff if patient has diarrhea. Plain flat and upright abdominal films tomorrow morning. - Lab Results Fish Bones: 02/11/21 07:33 02/11/21 07:33
[2021-02-11] MEDS ORDERED: ACETAMINOPHEN 325 MG TABLET PO PRN (11:47)
--- NOTE | 2021-02-11 11:56 | HISTORY & PHYSICAL EXAMINATION ---
Chief Complaint - Chief Complaint Chief Complaint: N/V/D and abdominal pain History of Present Illness - Admitted From Admitted From:: ER - History Obtained From Records Reviewed: [facility], ER notes History obtained from: pt and [facility] Exam Limitations: no - History of Present Illness HPI Comment/Other: This is a 60 y/o female with a medical history significant for recently C. Diff with chronic diarrhea, recurrent UTI, Chronic vision loss, chronic pain pain, osteoarthritis, Who presented ER complaining nausea, vomiting, abdominal pain and diarrhea. Pt was seen at ER with similar complaints. after she Was treated in the ER, his symptoms was released and patient was discharged to home. She reports at around today morning 2am she had severe abdominal pain and cramping again with nausea and vomiting. She had no bowel movement since yesterday. Her drug screening was negative for marijuana. Patient denies fever, chill, chest pain, shortness breathing. CT scan on abdomen on today show small bowel obstruction with a transition point in the middle to distal small bowel. Routine laboratory tests that show elevated WBC 17, slight elevated BUN and anion gap. GI surgeon was called by the ER and consulted for patient. Medical team was consulted for admission this patient for small bowel obstruction. Discussed care goal with the patient, patient hope to have full code. 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 Patient was unknow her father medical history, patient reported her mother was , and had colonostomy bag with similar medical problems of small bowel obstruction Living Situation: Unknown Social History Notes: Patient report he smoke half of a pack cigarettes per day, No alcohol or drug issue. - Substance History Use: Uses substance without health or social issues: Tobacco - POLST Patient has POLST: No POLST Status: Full Code Meds/Allgy - Home Medications Home Medications: Ambulatory Orders Medication Instructions Recorded Confirmed Meloxicam [Mobic] 7.5 mg PO BID 02/11/21 02/11/21 Promethazine [Phenergan] 25 mg PO BID PRN 02/11/21 02/11/21 - Allergies Allergies/Adverse Reactions: Allergies Allergy/AdvReac Type Severity Reaction Status Date / Time doxycycline Allergy Hives Verified 02/11/21 07:44 aspirin AdvReac Nausea Verified 02/11/21 07:44 Review of Systems - Constitutional Constitutional: denies: Fever, Chills - Eyes Eyes: denies: Pain - Ears, Nose & Throat Ears, Nose & Throat: denies: Ear pain - Cardiovascular Cariovascular: denies: Palpitations, Chest pain, Exertional dyspnea, Decr. exercise tolerance - Respiratory Respiratory: denies: Cough, Wheezing, SOB at rest, SOB with exertion - Gastrointestinal Gastrointestinal: reports: Abdominal pain, Diarrhea, Nausea, Vomiting. denies: Constipation - Genitourinary Genitourinary: denies: Dysuria - Musculoskeletal Musculoskeletal: denies: Muscle pain - Neurological Neurological: denies: General weakness, Headache, Dizziness, Numbness, Abnormal gait, Seizures, Incoordination, Slurred speech Exam - Vital Signs Vital Signs: Vital Signs x48h Temp Pulse Resp BP Pulse Ox 02/11/21 10:00 62 17 121/66 97 02/11/21 08:21 59 L 16 128/69 97 02/11/21 08:03 82 20 155/70 H 92 02/11/21 07:16 36.7 C 67 16 155/89 H 99 - Physical Exam General Appearance: positive: No acute distress, Alert. negative: Lethargic Eyes Bilateral: positive: Normal inspection, No lid inflammation ENT: positive: ENT inspection nml, No signs of dehydration. negative: Purulent nasal drainage, Dry mucous membranes Neck: positive: Nml inspection, Trachea midline. negative: Tracheal deviation Respiratory: positive: Chest non-tender, No respiratory distress, Breath sounds nml. negative: Wheezes Cardiovascular: positive: Regular rate & rhythm, No murmur. negative: Tachycardia, Bradycardia, Systolic murmur, Diastolic murmur Peripheral Pulses: positive: 2+ Abdomen: positive: Non-tender, No distention, Abnml bowel sounds (hyperactive bowel sound). negative: Tenderness Back: positive: Nml inspection Skin: positive: Color nml, Warm, Dry. negative: Cyanosis Extremities: positive: Non-tender, Full ROM, Nml appearance Neurologic/Psychiatric: positive: Oriented x3, Motor nml, Sensation nml. negative: Weakness, Sensory loss, Facial droop, Slurred/abnml speech, Depressed mood/affect Sepsis Event Note (H) - Evaluation Current Stage of Sepsis: Ruled out Conclusion/Plan - Problem List (1) Small bowel obstruction Conclusion/Plan: Patient had nausea, vomiting, abdominal pain, patient had no bowel movement since today morning. CT scan show small bowel obstruction at middle to distal small bowel. plan: Consult with GI surgeon, n.p.o. with IV fluids, NG tube, pain control, encourage patient safely ambulate. Antiemesis as needed, continue vital signs and clinical laboratory scientist. (2) Dehydration Conclusion/Plan: Laboratory tests that show patient had slightly elevated BUN, anion Gap, Clin ically patient present dry mouth. We will continue for patient intravenous IV fluids, continue clinical laboratory scientist. (3) Pulmonary nodule Conclusion/Plan: His CT scan of the abdomen show patient right lower lobe has a 8 mm nodule which is unchanged compared to previous CT on November 16, 2020, No lymphadenopathy reported in the CAT scan. Patient is a cigarette smoker, He still smoke half of a pack per day. Patient may need follow-up imaging study to monitor as out pt, Quit cigarette smoking. - Lab Results Fish Bones: 02/11/21 07:33 02/11/21 07:33 Core Measures - Anticipated LOS I expect patient to be DC'd or transferred within 96 hours.: Yes - DVT/VTE - Prophylaxis VTE/DVT Device ordered at admit?: Yes VTE/DVT Prophylaxis med ordered at admit?: Yes
[2021-02-11 12:17] LABS: PT - PROTHROMBIN TIME 11.2 secs (9.9-12.6)
[2021-02-11] MEDS: SODIUM CHLORIDE 0.9% 1,000 ML IV SCH (13:17)
[2021-02-11] MEDS: PROCHLORPERAZINE 10 MG/2 ML VIAL IVP PRN (15:50)
[2021-02-11] MEDS: HYDROmorphone 1 MG/ML CARPUJECT IVP PRN ×2 (15:51→20:23)
[2021-02-11] MEDS: SODIUM CHLORIDE FLUSH 0.9% 10 ML SYRINGE IVP SCH (15:52)
--- NOTE | 2021-02-11 18:01 | PROVIDER PROGRESS NOTE ---
Assessment/Plan - Problem List (1) Small bowel obstruction Assessment/Plan: Patient admitted to floor and feels slightly improved. She continues to refuse NG placement, saying she will consider NG tomorrow if not better. Plan: NPO, recheck abdominal films in AM tomorrow. - Current Meds Current Meds: Current Medications Generic Name Dose Route Start Last Admin Trade Name Freq PRN Reason Stop Dose Admin Hydromorphone HCl 1 mg 02/11/21 12:24 02/11/21 15:51 Hydromorphone 1 Mg/Ml Carpuject IVP 1 mg Q4H PRN Administration Pain 8 to 10 Sodium Chloride 1,000 mls @ 100 mls/hr 02/11/21 12:00 02/11/21 13:17 Normal Saline 0.9% IV 100 mls/hr .Q10H ALONDRA Administration Prochlorperazine Edisylate 10 mg 02/11/21 11:47 02/11/21 15:50 Prochlorperazine 10 Mg/2 Ml Vial IVP 10 mg Q6HR PRN Administration Nausea / Vomiting Sodium Chloride 10 ml 02/11/21 17:00 02/11/21 15:52 Sodium Chloride Flush 0.9% 10 Ml Syringe IVP 10 ml 0100,0900,1700 ALONDRA Administration - Lab Result Fish Bone Diagrams: 02/11/21 07:33 02/11/21 07:33 - Additional Planning My Orders: My Active Orders 02/12/21 09:00 Abdomen 2 View X-Ray [XR] DAILY Subjective - Subjective Patient Reports: Resting Comfortably Objective Vital Signs: Vital Signs - 24 hr 02/11/21 02/11/21 02/11/21 07:16 08:03 08:21 Temperature 36.7 C Heart Rate 67 82 59 L Heart Rate [ Radial] Respiratory 16 20 16 Rate Blood Pressure 155/89 H 155/70 H 128/69 Blood Pressure [Left Brachial artery] O2 Saturation 99 92 97 02/11/21 02/11/21 02/11/21 10:00 12:00 13:10 Temperature 36.4 C L Heart Rate 62 60 Heart Rate [ 89 Radial] Respiratory 17 19 18 Rate Blood Pressure 121/66 132/68 H Blood Pressure 135/80 H [Left Brachial artery] O2 Saturation 97 98 99 02/11/21 15:32 Temperature 36.7 C Heart Rate Heart Rate [ 72 Radial] Respiratory 20 Rate Blood Pressure Blood Pressure 154/72 H [Left Brachial artery] O2 Saturation 98 Oxygen O2 Source Room air I&O (Last 24 Hrs): Intake and Output Totals x24h 02/09/21 02/10/21 02/11/21 23:59 23:59 23:59 Intake Total 1102 Balance 1102 Abdomen: No tenderness - Results Results: Laboratory Results WBC 17.2 x10^3/uL (4.8-10.8) H 02/11/21 07:33 RBC 4.70 10^6/uL (4.20-5.40) 02/11/21 07:33 Hgb 16.2 g/dL (12.0-16.0) H 02/11/21 07:33 Hct 46.3 % (37.0-47.0) 02/11/21 07:33 MCV 98.5 fL (81.0-99.0) 02/11/21 07:33 MCH 34.5 pg (27.0-31.0) H 02/11/21 07:33 MCHC 35.0 g/dL (32.0-36.0) 02/11/21 07:33 RDW 12.5 % (12.0-15.0) 02/11/21 07:33 Plt Count 308 10^3/uL (130-450) 02/11/21 07:33 MPV 10.7 fL (7.9-10.8) 02/11/21 07:33 Neut # (Auto) 15.3 10^3/uL (1.5-6.6) H 02/11/21 07:33 Lymph # (Auto) 1.1 10^3/uL (1.5-3.5) L 02/11/21 07:33 [place] # (Auto) 0.6 10^3/uL (0.0-1.0) 02/11/21 07:33 Eos # (Auto) 0.2 10^3/uL (0.0-0.7) 02/11/21 07:33 Baso # (Auto) 0.1 10^3/uL (0.0-0.1) 02/11/21 07:33 Absolute Nucleated RBC 0.00 x10^3/uL 02/11/21 07:33 Nucleated RBC % 0.0 /100WBC 02/11/21 07:33 PT 11.2 secs (9.9-12.6) 02/11/21 12:04 INR 1.0 (0.8-1.2) 02/11/21 12:04 Sodium 134 mmol/L (135-145) L 02/11/21 07:33 Potassium 3.5 mmol/L (3.5-5.0) 02/11/21 07:33 Chloride 97 mmol/L (101-111) L 02/11/21 07:33 Carbon Dioxide 22 mmol/L (21-32) 02/11/21 07:33 Anion Gap 15.0 (6-13) H 02/11/21 07:33 BUN 21 mg/dL (6-20) H 02/11/21 07:33 Creatinine 0.7 mg/dL (0.4-1.0) 02/11/21 07:33 Estimated GFR (MDRD) 86 (>89) L 02/11/21 07:33 Glucose 169 mg/dL (70-100) H 02/11/21 07:33 Calcium 9.6 mg/dL (8.5-10.3) 02/11/21 07:33 Total Bilirubin 1.1 mg/dL (0.2-1.0) H 02/11/21 07:33 AST 22 IU/L (10-42) 02/11/21 07:33 ALT 20 IU/L (10-60) 02/11/21 07:33 Alkaline Phosphatase 76 IU/L (42-121) 02/11/21 07:33 Total Protein 8.2 g/dL (6.7-8.2) 02/11/21 07:33 Albumin 4.4 g/dL (3.2-5.5) 02/11/21 07:33 Globulin 3.8 g/dL (2.1-4.2) 02/11/21 07:33 Albumin/Globulin Ratio 1.2 (1.0-2.2) 02/11/21 07:33 Lipase 31 U/L (22-51) 02/11/21 07:33 Urine Color YELLOW 02/11/21 09:32 Urine Clarity CLEAR (CLEAR) 02/11/21 09:32 Urine pH 6.5 PH (5.0-7.5) 02/11/21 09:32 Ur Specific [place] 1.025 (1.002-1.030) 02/11/21 09:32 Urine Protein NEGATIVE mg/dL (NEGATIVE) 02/11/21 09:32 Urine Glucose (UA) NEGATIVE mg/dL (NEGATIVE) 02/11/21 09:32 Urine Ketones 40 mg/dL (NEGATIVE) H 02/11/21 09:32 Urine Occult Blood MODERATE (NEGATIVE) H 02/11/21 09:32 Urine Nitrite NEGATIVE (NEGATIVE) 02/11/21 09:32 Urine Bilirubin NEGATIVE (NEGATIVE) 02/11/21 09:32 Urine Urobilinogen 0.2 (NORMAL) E.U./dL (NORMAL) 02/11/21 09:32 Ur Leukocyte Esterase NEGATIVE (NEGATIVE) 02/11/21 09:32 Urine RBC 0-5 /HPF (0-5) 02/11/21 09:32 Urine WBC 0-3 /HPF (0-5) 02/11/21 09:32 Ur Squamous Epith Cells RARE Squamous (<= Few) 02/11/21 09:32 Urine Bacteria Rare /HPF (None Seen) 02/11/21 09:32 Ur Microscopic Review INDICATED 02/11/21 09:32 Urine Culture Comments NOT INDICATED 02/11/21 09:32 Nasal Adenovirus (PCR) NOT DETECTED 02/11/21 09:25 Nasal B. parapertussis DNA (PCR) NOT DETECTED 02/11/21 09:25 Nasal Coronavir 229E PCR NOT DETECTED 02/11/21 09:25 Nasal Coronavir HKU1 PCR NOT DETECTED 02/11/21 09:25 Nasal Coronavir NL63 PCR NOT DETECTED 02/11/21 09:25 Nasal Coronavir OC43 PCR NOT DETECTED 02/11/21 09:25 Nasal Enterovir/Rhinovir PCR NOT DETECTED 02/11/21 09:25 Nasal Influenza B PCR NOT DETECTED 02/11/21 09:25 Nasal Influenza A PCR NOT DETECTED 02/11/21 09:25 Nasal Parainfluen 1 PCR NOT DETECTED 02/11/21 09:25 Nasal Parainfluen 2 PCR NOT DETECTED 02/11/21 09:25 Nasal Parainfluen 3 PCR NOT DETECTED 02/11/21 09:25 Nasal Parainfluen 4 PCR NOT DETECTED 02/11/21 09:25 Nasal RSV (PCR) NOT DETECTED 02/11/21 09:25 Nasal B.pertussis DNA PCR NOT DETECTED 02/11/21 09:25 Nasal C.pneumoniae (PCR) NOT DETECTED 02/11/21 09:25 Sameer Human Metapneumo PCR NOT DETECTED 02/11/21 09:25 Nasal M.pneumoniae (PCR) NOT DETECTED 02/11/21 09:25 Nasal SARS-CoV-2 (PCR) NOT DETECTED 02/11/21 09:25 Urine Opiates Screen POSITIVE (NEGATIVE) H 02/11/21 09:32 Ur Oxycodone Screen NEGATIVE (NEGATIVE) 02/11/21 09:32 Urine Methadone Screen NEGATIVE (NEGATIVE) 02/11/21 09:32 Ur Propoxyphene Screen NEGATIVE (NEGATIVE) 02/11/21 09:32 Ur Barbiturates Screen NEGATIVE (NEGATIVE) 02/11/21 09:32 Ur Tricyclics Screen NEGATIVE (NEGATIVE) 02/11/21 09:32 Ur Phencyclidine Scrn NEGATIVE (NEGATIVE) 02/11/21 09:32 Ur Amphetamine Screen NEGATIVE (NEGATIVE) 02/11/21 09:32 U Methamphetamines Scrn NEGATIVE (NEGATIVE) 02/11/21 09:32 U Benzodiazepines Scrn NEGATIVE (NEGATIVE) 02/11/21 09:32 Urine Cocaine Screen NEGATIVE (NEGATIVE) 02/11/21 09:32 U Cannabinoids Screen NEGATIVE (NEGATIVE) 02/11/21 09:32 - Procedures Procedures: Procedures EXCISION OF DUODENUM, ENDO, DIAGN (02/20/19) EXCISION OF ESOPHAGOGASTRIC JUNCTION, ENDO, DIAGN (02/20/19) EXCISION OF STOMACH, ENDO, DIAGN (02/20/19) INSPECTION OF LOWER INTESTINAL TRACT, ENDO (02/20/19) RESECTION OF GALLBLADDER, PERCUTANEOUS ENDOSCOPIC APPROACH (03/24/19) Sepsis Event Note (H) - Evaluation Current Stage of Sepsis: Ruled out ABX Reporting Has patient been on IV antibiotics over the past 48 hours?: No
[2021-02-11] MEDS: ONDANSETRON 4 MG/2 ML VIAL IVP PRN (20:24)
[2021-02-12] MEDS: SODIUM CHLORIDE 0.9% 1,000 ML IV SCH ×2 (00:24→11:00)
[2021-02-12] MEDS: PROCHLORPERAZINE 10 MG/2 ML VIAL IVP PRN ×2 (00:25→10:15)
[2021-02-12] MEDS: HYDROmorphone 1 MG/ML CARPUJECT IVP PRN ×6 (00:25→22:03)
[2021-02-12] MEDS: SODIUM CHLORIDE FLUSH 0.9% 10 ML SYRINGE IVP SCH ×4 (00:25→20:59)
[2021-02-12] MEDS: ONDANSETRON 4 MG/2 ML VIAL IVP PRN ×2 (05:03→20:59)
[2021-02-12 05:05] LABS: BASOPHILS % (AUTO) 0.6 %; EOSINOPHILS % (AUTO) 0.6 %; HCT - HEMATOCRIT 36.7 % (37.0-47.0); HGB - HEMOGLOBIN 12.3 g/dL (12.0-16.0); LYMPHOCYTES # (AUTO) 2.1 10^3/uL (1.5-3.5); MEAN CORPUSCULAR HGB CONC 33.5 g/dL (32.0-36.0); MEAN CORPUSCULAR VOLUME 101.4 fL (81.0-99.0); MEAN PLATELET VOLUME 10.6 fL (7.9-10.8); MONOCYTES # (AUTO) 0.7 10^3/uL (0.0-1.0); MONOCYTES % (AUTO) 13.6 %; NEUTROPHILS # (AUTO) 2.3 10^3/uL (1.5-6.6); PLT - PLATELET COUNT 209 10^3/uL (130-450); RED BLOOD COUNT 3.62 10^6/uL (4.20-5.40); RED CELL DISTRIBUTION WIDTH 12.9 % (12.0-15.0); WHITE BLOOD COUNT 5.2 x10^3/uL (4.8-10.8)
[2021-02-12 05:08] LABS: CALCIUM 7.9 mg/dL (8.5-10.3); CREATININE 0.5 mg/dL (0.4-1.0); POTASSIUM 3.4 mmol/L (3.5-5.0)
--- NOTE | 2021-02-12 08:53 | XRAY Report ---
PROCEDURE: Abdomen 2 View X-Ray INDICATIONS: follow up SBO TECHNIQUE: 2 views of the abdomen were acquired. COMPARISON: CT dated 02/11/2021 FINDINGS: Surgical changes and devices: None. Bowel: Air-filled loops of small bowel are unchanged compared to CT yesterday, however there is now a ir within the large bowel. No free air, pneumatosis, or portal venous gas. Soft tissues: No masses; visualized solid organ contours appear normal in size. No suspicious abdom inal calcifications. Bones: No suspicious bony abnormalities. IMPRESSION: Persistent air-filled loops of distended small bowel with air now seen in the large kam l consistent with interval improvement. Reviewed by: Cheko Wu on 02/12/2021 7:51 AM PIETER Approved by: Cheko Wu on 02/12/2021 7:51 AM PA Station ID: [id number]
--- NOTE | 2021-02-12 09:09 | PROVIDER PROGRESS NOTE ---
Assessment/Plan - Problem List (1) Small bowel obstruction Assessment/Plan: Patient reports feeling better, passed flatus. Abdomen soft without peritoneal signs. WBC normal. Additional history from the patient is that she ate a large amount of shrimp (including the tails) a few days ago. Plan: Continue NPO with IV fluids. Patient still refuses NG tube, saying that she is scared. Repeat abdominal films tomorrow. - Current Meds Current Meds: Current Medications Generic Name Dose Route Start Last Admin Trade Name Freq PRN Reason Stop Dose Admin Hydromorphone HCl 1 mg 02/11/21 12:24 02/12/21 05:03 Hydromorphone 1 Mg/Ml Carpuject IVP 1 mg Q4H PRN Administration Pain 8 to 10 Sodium Chloride 1,000 mls @ 100 mls/hr 02/11/21 12:00 02/12/21 00:24 Normal Saline 0.9% IV 100 mls/hr .Q10H ALONDRA Administration Ondansetron HCl 4 mg 02/11/21 11:47 02/12/21 05:03 Ondansetron 4 Mg/2 Ml Vial IVP 4 mg Q6HR PRN Administration Nausea / Vomiting Prochlorperazine Edisylate 10 mg 02/11/21 11:47 02/12/21 00:25 Prochlorperazine 10 Mg/2 Ml Vial IVP 10 mg Q6HR PRN Administration Nausea / Vomiting Sodium Chloride 10 ml 02/11/21 17:00 02/12/21 00:25 Sodium Chloride Flush 0.9% 10 Ml Syringe IVP 10 ml 0100,0900,1700 ALONDRA Administration - Lab Result Fish Bone Diagrams: 02/12/21 04:47 02/12/21 04:47 Subjective - Subjective Patient Reports: Feeling Better Objective Vital Signs: Vital Signs - 24 hr 02/11/21 02/11/21 02/11/21 10:00 12:00 13:10 Temperature 36.4 C L Heart Rate 62 60 Heart Rate [ Brachial] Heart Rate [ 89 Radial] Respiratory 17 19 18 Rate Blood Pressure 121/66 132/68 H Blood Pressure 135/80 H [Left Brachial artery] O2 Saturation 97 98 99 02/11/21 02/11/21 02/12/21 15:32 23:48 07:43 Temperature 36.7 C 36.7 C 36.7 C Heart Rate Heart Rate [ 62 Brachial] Heart Rate [ 72 65 Radial] Respiratory 20 18 16 Rate Blood Pressure Blood Pressure 154/72 H 120/63 111/60 [Left Brachial artery] O2 Saturation 98 97 96 Oxygen O2 Source Room air I&O (Last 24 Hrs): Intake and Output Totals x24h 02/10/21 02/11/21 02/12/21 23:59 23:59 23:59 Intake Total 2101 Output Total 10 Balance 2091 Abdomen: Soft, No tenderness - Results Results: Laboratory Results WBC 5.2 x10^3/uL (4.8-10.8) 02/12/21 04:47 RBC 3.62 10^6/uL (4.20-5.40) L 02/12/21 04:47 Hgb 12.3 g/dL (12.0-16.0) 02/12/21 04:47 Hct 36.7 % (37.0-47.0) L 02/12/21 04:47 MCV 101.4 fL (81.0-99.0) H 02/12/21 04:47 MCH 34.0 pg (27.0-31.0) H 02/12/21 04:47 MCHC 33.5 g/dL (32.0-36.0) 02/12/21 04:47 RDW 12.9 % (12.0-15.0) 02/12/21 04:47 Plt Count 209 10^3/uL (130-450) 02/12/21 04:47 MPV 10.6 fL (7.9-10.8) 02/12/21 04:47 Neut # (Auto) 2.3 10^3/uL (1.5-6.6) 02/12/21 04:47 Lymph # (Auto) 2.1 10^3/uL (1.5-3.5) 02/12/21 04:47 [place] # (Auto) 0.7 10^3/uL (0.0-1.0) 02/12/21 04:47 Eos # (Auto) 0.0 10^3/uL (0.0-0.7) 02/12/21 04:47 Baso # (Auto) 0.0 10^3/uL (0.0-0.1) 02/12/21 04:47 Absolute Nucleated RBC 0.00 x10^3/uL 02/12/21 04:47 Nucleated RBC % 0.0 /100WBC 02/12/21 04:47 PT 11.2 secs (9.9-12.6) 02/11/21 12:04 INR 1.0 (0.8-1.2) 02/11/21 12:04 Sodium 134 mmol/L (135-145) L 02/12/21 04:47 Potassium 3.4 mmol/L (3.5-5.0) L 02/12/21 04:47 Chloride 102 mmol/L (101-111) 02/12/21 04:47 Carbon Dioxide 25 mmol/L (21-32) 02/12/21 04:47 Anion Gap 7.0 (6-13) 02/12/21 04:47 BUN 17 mg/dL (6-20) 02/12/21 04:47 Creatinine 0.5 mg/dL (0.4-1.0) 02/12/21 04:47 Estimated GFR (MDRD) 127 (>89) 02/12/21 04:47 Glucose 94 mg/dL (70-100) 02/12/21 04:47 Calcium 7.9 mg/dL (8.5-10.3) L 02/12/21 04:47 Total Bilirubin 1.1 mg/dL (0.2-1.0) H 02/11/21 07:33 AST 22 IU/L (10-42) 02/11/21 07:33 ALT 20 IU/L (10-60) 02/11/21 07:33 Alkaline Phosphatase 76 IU/L (42-121) 02/11/21 07:33 Total Protein 8.2 g/dL (6.7-8.2) 02/11/21 07:33 Albumin 4.4 g/dL (3.2-5.5) 02/11/21 07:33 Globulin 3.8 g/dL (2.1-4.2) 02/11/21 07:33 Albumin/Globulin Ratio 1.2 (1.0-2.2) 02/11/21 07:33 Lipase 31 U/L (22-51) 02/11/21 07:33 Urine Color YELLOW 02/11/21 09:32 Urine Clarity CLEAR (CLEAR) 02/11/21 09:32 Urine pH 6.5 PH (5.0-7.5) 02/11/21 09:32 Ur Specific [place] 1.025 (1.002-1.030) 02/11/21 09:32 Urine Protein NEGATIVE mg/dL (NEGATIVE) 02/11/21 09:32 Urine Glucose (UA) NEGATIVE mg/dL (NEGATIVE) 02/11/21 09:32 Urine Ketones 40 mg/dL (NEGATIVE) H 02/11/21 09:32 Urine Occult Blood MODERATE (NEGATIVE) H 02/11/21 09:32 Urine Nitrite NEGATIVE (NEGATIVE) 02/11/21 09:32 Urine Bilirubin NEGATIVE (NEGATIVE) 02/11/21 09:32 Urine Urobilinogen 0.2 (NORMAL) E.U./dL (NORMAL) 02/11/21 09:32 Ur Leukocyte Esterase NEGATIVE (NEGATIVE) 02/11/21 09:32 Urine RBC 0-5 /HPF (0-5) 02/11/21 09:32 Urine WBC 0-3 /HPF (0-5) 02/11/21 09:32 Ur Squamous Epith Cells RARE Squamous (<= Few) 02/11/21 09:32 Urine Bacteria Rare /HPF (None Seen) 02/11/21 09:32 Ur Microscopic Review INDICATED 02/11/21 09:32 Urine Culture Comments NOT INDICATED 02/11/21 09:32 Nasal Adenovirus (PCR) NOT DETECTED 02/11/21 09:25 Nasal B. parapertussis DNA (PCR) NOT DETECTED 02/11/21 09:25 Nasal Coronavir 229E PCR NOT DETECTED 02/11/21 09:25 Nasal Coronavir HKU1 PCR NOT DETECTED 02/11/21 09:25 Nasal Coronavir NL63 PCR NOT DETECTED 02/11/21 09:25 Nasal Coronavir OC43 PCR NOT DETECTED 02/11/21 09:25 Nasal Enterovir/Rhinovir PCR NOT DETECTED 02/11/21 09:25 Nasal Influenza B PCR NOT DETECTED 02/11/21 09:25 Nasal Influenza A PCR NOT DETECTED 02/11/21 09:25 Nasal Parainfluen 1 PCR NOT DETECTED 02/11/21 09:25 Nasal Parainfluen 2 PCR NOT DETECTED 02/11/21 09:25 Nasal Parainfluen 3 PCR NOT DETECTED 02/11/21 09:25 Nasal Parainfluen 4 PCR NOT DETECTED 02/11/21 09:25 Nasal RSV (PCR) NOT DETECTED 02/11/21 09:25 Nasal B.pertussis DNA PCR NOT DETECTED 02/11/21 09:25 Nasal C.pneumoniae (PCR) NOT DETECTED 02/11/21 09:25 Sameer Human Metapneumo PCR NOT DETECTED 02/11/21 09:25 Nasal M.pneumoniae (PCR) NOT DETECTED 02/11/21 09:25 Nasal SARS-CoV-2 (PCR) NOT DETECTED 02/11/21 09:25 Urine Opiates Screen POSITIVE (NEGATIVE) H 02/11/21 09:32 Ur Oxycodone Screen NEGATIVE (NEGATIVE) 02/11/21 09:32 Urine Methadone Screen NEGATIVE (NEGATIVE) 02/11/21 09:32 Ur Propoxyphene Screen NEGATIVE (NEGATIVE) 02/11/21 09:32 Ur Barbiturates Screen NEGATIVE (NEGATIVE) 02/11/21 09:32 Ur Tricyclics Screen NEGATIVE (NEGATIVE) 02/11/21 09:32 Ur Phencyclidine Scrn NEGATIVE (NEGATIVE) 02/11/21 09:32 Ur Amphetamine Screen NEGATIVE (NEGATIVE) 02/11/21 09:32 U Methamphetamines Scrn NEGATIVE (NEGATIVE) 02/11/21 09:32 U Benzodiazepines Scrn NEGATIVE (NEGATIVE) 02/11/21 09:32 Urine Cocaine Screen NEGATIVE (NEGATIVE) 02/11/21 09:32 U Cannabinoids Screen NEGATIVE (NEGATIVE) 02/11/21 09:32 - Procedures Procedures: Procedures EXCISION OF DUODENUM, ENDO, DIAGN (02/20/19) EXCISION OF ESOPHAGOGASTRIC JUNCTION, ENDO, DIAGN (02/20/19) EXCISION OF STOMACH, ENDO, DIAGN (02/20/19) INSPECTION OF LOWER INTESTINAL TRACT, ENDO (02/20/19) RESECTION OF GALLBLADDER, PERCUTANEOUS ENDOSCOPIC APPROACH (03/24/19) Sepsis Event Note (H) - Evaluation Current Stage of Sepsis: Ruled out ABX Reporting Has patient been on IV antibiotics over the past 48 hours?: No
--- NOTE | 2021-02-12 09:52 | PHARMACY PROGRESS NOTE ---
- Best Possible Medication History Admit Date and Time: 02/11/21 1147 As the person ultimately responsible for medication therapy, providers are able to order a medication from an existing home medication list in [facility] via the "Reconcile Routine" prior to Confirmation of that medication by call center support consultant. Such practice is discouraged except when the physician, in their clinical judgment, deems that a medical need exists for a medication without regard to previous use.
[2021-02-12] MEDS: ENOXAPARIN 40 MG/0.4 ML SYRINGE SUBQ SCH (10:16)
--- NOTE | 2021-02-12 10:34 | PROVIDER PROGRESS NOTE ---
Subjective - Prog Note Date Prog Note Date: 02/12/21 - Subjective Subjective: She feels a little better but still nauseous. No vomiting. She is passing flatus but has not had a bowel movement. She still feels distended. Current Medications - Current Medications Current Medications: Active Medications Acetaminophen (Acetaminophen 325 Mg Tablet) 650 mg PO Q4HR PRN PRN Reason: Pain 1 to 4 Enoxaparin Sodium (Enoxaparin 40 Mg/0.4 Ml Syringe) 40 mg SUBQ DAILY [facility] Last Admin: 02/12/21 10:16 Dose: 40 mg Documented by: Hydromorphone HCl (Hydromorphone 1 Mg/Ml Carpuject) 1 mg IVP Q4H PRN PRN Reason: Pain 8 to 10 Last Admin: 02/12/21 10:16 Dose: 1 mg Documented by: Sodium Chloride (Normal Saline 0.9%) 1,000 mls @ 100 mls/hr IV .Q10H [facility] Last Admin: 02/12/21 00:24 Dose: 100 mls/hr Documented by: Ondansetron HCl (Ondansetron 4 Mg/2 Ml Vial) 4 mg IVP Q6HR PRN PRN Reason: Nausea / Vomiting Last Admin: 02/12/21 05:03 Dose: 4 mg Documented by: Prochlorperazine Edisylate (Prochlorperazine 10 Mg/2 Ml Vial) 10 mg IVP Q6HR PRN PRN Reason: Nausea / Vomiting Last Admin: 02/12/21 10:15 Dose: 10 mg Documented by: Sodium Chloride (Sodium Chloride Flush 0.9% 10 Ml Syringe) 10 ml IVP PRN PRN PRN Reason: NEEDED PER PROVIDER ORDERS Sodium Chloride (Sodium Chloride Flush 0.9% 10 Ml Syringe) 10 ml IVP 0100,0900,1700 [facility] Last Admin: 02/12/21 10:16 Dose: 10 ml Documented by: Meloxicam [Mobic] 7.5 mg PO BID 02/11/21 Promethazine [Phenergan] 25 mg PO BID PRN 02/11/21 Objective - Vital Signs/Intake & Output Reviewed Vital Signs: Yes Vital Signs: Vital Signs x48h Temp Pulse Resp BP Pulse Ox 02/12/21 07:43 36.7 C 62 16 111/60 96 Intake & Output: Intake & Output 02/09/21 02/10/21 02/11/21 02/12/21 23:59 23:59 23:59 23:59 Intake Total 2101 Output Total Balance 2091 - Objective General Appearance: positive: No acute distress, Alert Eyes Bilateral: positive: Normal inspection, Conjunctivae nml ENT: positive: ENT inspection nml Neck: positive: Nml inspection Respiratory: positive: No respiratory distress. negative: Wheezes, Rales Cardiovascular: positive: Regular rate & rhythm. negative: Tachycardia Abdomen: positive: Tenderness (Mild diffuse tenderness), Abnml bowel sounds (Hypoactive). negative: Non-tender, No distention, Guarding, Rebound Skin: positive: Warm, Dry Neurologic/Psychiatric: positive: Motor nml. negative: Disoriented to person, Disoriented to place, Disoriented to time - Lab Results Fish Bones: 02/12/21 04:47 02/12/21 04:47 Other Labs: Lab Results x24hrs 02/12/21 02/12/21 02/11/21 Range/Units 04:47 04:47 12:04 WBC 5.2 (4.8-10.8) x10^3/uL RBC 3.62 L (4.20-5.40) 10^6/uL Hgb 12.3 (12.0-16.0) g/dL Hct 36.7 L (37.0-47.0) % MCV 101.4 H (81.0-99.0) fL MCH 34.0 H (27.0-31.0) pg MCHC 33.5 (32.0-36.0) g/dL RDW 12.9 (12.0-15.0) % Plt Count 209 (130-450) 10^3/uL MPV 10.6 (7.9-10.8) fL Neut # (Auto) 2.3 (1.5-6.6) 10^3/uL Lymph # (Auto) 2.1 (1.5-3.5) 10^3/uL [place] # (Auto) 0.7 (0.0-1.0) 10^3/uL Eos # (Auto) 0.0 (0.0-0.7) 10^3/uL Baso # (Auto) 0.0 (0.0-0.1) 10^3/uL Absolute Nucleated RBC 0.00 x10^3/uL Nucleated RBC % 0.0 /100WBC PT 11.2 (9.9-12.6) secs INR 1.0 (0.8-1.2) Sodium 134 L (135-145) mmol/L Potassium 3.4 L (3.5-5.0) mmol/L Chloride 102 (101-111) mmol/L Carbon Dioxide 25 (21-32) mmol/L Anion Gap 7.0 (6-13) BUN 17 (6-20) mg/dL Creatinine 0.5 (0.4-1.0) mg/dL Estimated GFR (MDRD) 127 (>89) Glucose 94 (70-100) mg/dL Calcium 7.9 L (8.5-10.3) mg/dL Nasal Adenovirus (PCR) Nasal B. parapertussis DNA (PCR) Nasal Coronavir 229E PCR Nasal Coronavir HKU1 PCR Nasal Coronavir NL63 PCR Nasal Coronavir OC43 PCR Nasal Enterovir/Rhinovir PCR Nasal Influenza B PCR Nasal Influenza A PCR Nasal Parainfluen 1 PCR Nasal Parainfluen 2 PCR Nasal Parainfluen 3 PCR Nasal Parainfluen 4 PCR Nasal RSV (PCR) Nasal B.pertussis DNA PCR Nasal C.pneumoniae (PCR) Sameer Human Metapneumo PCR Nasal M.pneumoniae (PCR) Nasal SARS-CoV-2 (PCR) 02/11/21 Range/Units 09:25 WBC (4.8-10.8) x10^3/uL RBC (4.20-5.40) 10^6/uL Hgb (12.0-16.0) g/dL Hct (37.0-47.0) % MCV (81.0-99.0) fL MCH (27.0-31.0) pg MCHC (32.0-36.0) g/dL RDW (12.0-15.0) % Plt Count (130-450) 10^3/uL MPV (7.9-10.8) fL Neut # (Auto) (1.5-6.6) 10^3/uL Lymph # (Auto) (1.5-3.5) 10^3/uL [place] # (Auto) (0.0-1.0) 10^3/uL Eos # (Auto) (0.0-0.7) 10^3/uL Baso # (Auto) (0.0-0.1) 10^3/uL Absolute Nucleated RBC x10^3/uL Nucleated RBC % /100WBC PT (9.9-12.6) secs INR (0.8-1.2) Sodium (135-145) mmol/L Potassium (3.5-5.0) mmol/L Chloride (101-111) mmol/L Carbon Dioxide (21-32) mmol/L Anion Gap (6-13) BUN (6-20) mg/dL Creatinine (0.4-1.0) mg/dL Estimated GFR (MDRD) (>89) Glucose (70-100) mg/dL Calcium (8.5-10.3) mg/dL Nasal Adenovirus (PCR) NOT DETECTED Nasal B. parapertussis DNA (PCR) NOT DETECTED Nasal Coronavir 229E PCR NOT DETECTED Nasal Coronavir HKU1 PCR NOT DETECTED Nasal Coronavir NL63 PCR NOT DETECTED Nasal Coronavir OC43 PCR NOT DETECTED Nasal Enterovir/Rhinovir PCR NOT DETECTED Nasal Influenza B PCR NOT DETECTED Nasal Influenza A PCR NOT DETECTED Nasal Parainfluen 1 PCR NOT DETECTED Nasal Parainfluen 2 PCR NOT DETECTED Nasal Parainfluen 3 PCR NOT DETECTED Nasal Parainfluen 4 PCR NOT DETECTED Nasal RSV (PCR) NOT DETECTED Nasal B.pertussis DNA PCR NOT DETECTED Nasal C.pneumoniae (PCR) NOT DETECTED Sameer Human Metapneumo PCR NOT DETECTED Nasal M.pneumoniae (PCR) NOT DETECTED Nasal SARS-CoV-2 (PCR) NOT DETECTED Sepsis Event Note (H) - Evaluation Current Stage of Sepsis: Ruled out Assessment/Plan - Problem List (1) Small bowel obstruction Impression: Ongoing but she is improved. Abdominal x-ray still reveals distended small bowel although there is air in the large bowel that is now present. She not had a bowel movement but did have flatus. She continues to decline NG tube. We will continue with n.p.o. status and IV hydration. Pain control with Dilaudid and Zofran as needed for nausea. We will repeat abdominal film the morning as recommended by general surgery. We can also consider a Gastrografin challenge if there is no improvement. Appreciated no surgery input. (2) Pulmonary nodule Impression: CT revealed an 8 mm nodule in the right lower lobe which is new compared to prior imaging. She will need a CT of the chest once she is improved from a bowel obstruction perspective. This can be done while she is hospitalized or on outpatient basis.
[2021-02-12] MEDS: SODIUM CHLORIDE FLUSH 0.9% 10 ML SYRINGE IVP PRN (22:03)
[2021-02-13] MEDS: SODIUM CHLORIDE 0.9% 1,000 ML IV SCH ×3 (00:13→22:24)
[2021-02-13] MEDS: SODIUM CHLORIDE FLUSH 0.9% 10 ML SYRINGE IVP SCH ×2 (00:22→07:24)
[2021-02-13] MEDS: PROCHLORPERAZINE 10 MG/2 ML VIAL IVP PRN ×4 (00:22→22:25)
[2021-02-13] MEDS: SODIUM CHLORIDE FLUSH 0.9% 10 ML SYRINGE IVP PRN ×3 (02:31→20:18)
[2021-02-13] MEDS: HYDROmorphone 1 MG/ML CARPUJECT IVP PRN ×4 (02:31→20:18)
[2021-02-13] MEDS: ONDANSETRON 4 MG/2 ML VIAL IVP PRN (02:54)
[2021-02-13 05:09] LABS: BASOPHILS % (AUTO) 0.5 %; EOSINOPHILS # (AUTO) 0.1 10^3/uL (0.0-0.7); HCT - HEMATOCRIT 35.2 % (37.0-47.0); LYMPHOCYTES % (AUTO) 33.4 %; MEAN CORPUSCULAR HEMOGLOBIN 34.3 pg (27.0-31.0); MEAN CORPUSCULAR HGB CONC 34.1 g/dL (32.0-36.0); MEAN CORPUSCULAR VOLUME 100.6 fL (81.0-99.0); MEAN PLATELET VOLUME 11.5 fL (7.9-10.8); MONOCYTES # (AUTO) 0.6 10^3/uL (0.0-1.0); MONOCYTES % (AUTO) 10.1 %; NEUTROPHILS # (AUTO) 3.4 10^3/uL (1.5-6.6); NEUTROPHILS % (AUTO) 54.8 %; PLT - PLATELET COUNT 187 10^3/uL (130-450); RED CELL DISTRIBUTION WIDTH 12.4 % (12.0-15.0); WHITE BLOOD COUNT 6.1 x10^3/uL (4.8-10.8)
[2021-02-13 05:11] LABS: CALCIUM 7.8 mg/dL (8.5-10.3); CREATININE 0.5 mg/dL (0.4-1.0)
[2021-02-13] MEDS ORDERED: POTASSIUM CHLORIDE 20 MEQ TABLET PO ONE (07:41)
--- NOTE | 2021-02-13 07:42 | PROVIDER PROGRESS NOTE ---
Subjective - Prog Note Date Prog Note Date: 02/13/21 - Subjective Subjective: She feels better. She had 4 or 5 bowel movements since yesterday. Still feels nauseous but no vomiting. She still feels distended. She would like some crackers. Current Medications - Current Medications Current Medications: Active Medications Acetaminophen (Acetaminophen 325 Mg Tablet) 650 mg PO Q4HR PRN PRN Reason: Pain 1 to 4 Enoxaparin Sodium (Enoxaparin 40 Mg/0.4 Ml Syringe) 40 mg SUBQ DAILY [facility] Last Admin: 02/13/21 08:23 Dose: 40 mg Documented by: Hydromorphone HCl (Hydromorphone 1 Mg/Ml Carpuject) 1 mg IVP Q4H PRN PRN Reason: Pain 8 to 10 Last Admin: 02/13/21 07:24 Dose: 1 mg Documented by: Sodium Chloride (Normal Saline 0.9%) 1,000 mls @ 100 mls/hr IV .Q10H [facility] Last Admin: 02/13/21 11:11 Dose: 100 mls/hr Documented by: Ondansetron HCl (Ondansetron 4 Mg/2 Ml Vial) 4 mg IVP Q6HR PRN PRN Reason: Nausea / Vomiting Last Admin: 02/13/21 02:54 Dose: 4 mg Documented by: Prochlorperazine Edisylate (Prochlorperazine 10 Mg/2 Ml Vial) 10 mg IVP Q6HR PRN PRN Reason: Nausea / Vomiting Last Admin: 02/13/21 08:23 Dose: 10 mg Documented by: Sodium Chloride (Sodium Chloride Flush 0.9% 10 Ml Syringe) 10 ml IVP PRN PRN PRN Reason: NEEDED PER PROVIDER ORDERS Last Admin: 02/13/21 02:54 Dose: 10 ml Documented by: Sodium Chloride (Sodium Chloride Flush 0.9% 10 Ml Syringe) 10 ml IVP 0100,0900,1700 [facility] Last Admin: 02/13/21 07:24 Dose: 10 ml Documented by: Meloxicam [Mobic] 7.5 mg PO BID 02/11/21 Promethazine [Phenergan] 25 mg PO BID PRN 02/11/21 Objective - Vital Signs/Intake & Output Reviewed Vital Signs: Yes Intake & Output: Intake & Output 02/10/21 02/11/21 02/12/21 02/13/21 23:59 23:59 23:59 23:59 Intake Total 2101 2499 Output Total 10 999 Balance 2091 2500 -1000 - Objective General Appearance: positive: No acute distress, Alert Eyes Bilateral: positive: Normal inspection, Conjunctivae nml ENT: positive: ENT inspection nml Neck: positive: Nml inspection Respiratory: positive: No respiratory distress. negative: Wheezes, Rales Cardiovascular: positive: Regular rate & rhythm, No murmur. negative: Tachycardia Abdomen: positive: Nml bowel sounds, No distention, Tenderness (Diffuse tenderness). negative: Non-tender, Guarding, Rebound - Lab Results Fish Bones: 02/13/21 04:27 02/13/21 04:27 Other Labs: Lab Results x24hrs 02/13/21 02/13/21 Range/Units 04:27 04:27 WBC 6.1 (4.8-10.8) x10^3/uL RBC 3.50 L (4.20-5.40) 10^6/uL Hgb 12.0 (12.0-16.0) g/dL Hct 35.2 L (37.0-47.0) % MCV 100.6 H (81.0-99.0) fL MCH 34.3 H (27.0-31.0) pg MCHC 34.1 (32.0-36.0) g/dL RDW 12.4 (12.0-15.0) % Plt Count 187 (130-450) 10^3/uL MPV 11.5 H (7.9-10.8) fL Neut # (Auto) 3.4 (1.5-6.6) 10^3/uL Lymph # (Auto) 2.0 (1.5-3.5) 10^3/uL [place] # (Auto) 0.6 (0.0-1.0) 10^3/uL Eos # (Auto) 0.1 (0.0-0.7) 10^3/uL Baso # (Auto) 0.0 (0.0-0.1) 10^3/uL Absolute Nucleated RBC 0.00 x10^3/uL Nucleated RBC % 0.0 /100WBC Sodium 136 (135-145) mmol/L Potassium 3.0 L (3.5-5.0) mmol/L Chloride 103 (101-111) mmol/L Carbon Dioxide 24 (21-32) mmol/L Anion Gap 9.0 (6-13) BUN 9 (6-20) mg/dL Creatinine 0.5 (0.4-1.0) mg/dL Estimated GFR (MDRD) 127 (>89) Glucose 69 L (70-100) mg/dL Calcium 7.8 L (8.5-10.3) mg/dL Sepsis Event Note (H) - Evaluation Current Stage of Sepsis: Ruled out Assessment/Plan - Problem List (1) Small bowel obstruction Impression: She is improved. She is now having bowel movements and so we will advance her diet to a full liquid. Continue Zofran as needed. Continue with current pain control. Abdominal film today looks much improved so we will hold off on furt her imaging. If she has significant diarrhea we will check for C. difficile. (2) Pulmonary nodule Impression: We will obtain a CT of the chest during his hospitalization to better evaluate the pulmonary nodule.
[2021-02-13] MEDS: ENOXAPARIN 40 MG/0.4 ML SYRINGE SUBQ SCH (08:23)
--- NOTE | 2021-02-13 10:04 | XRAY Report ---
PROCEDURE: Abdomen 1 View X-Ray INDICATIONS: Follow up SBO. TECHNIQUE: 1 view of the abdomen were acquired. COMPARISON: Abdominal radiographs 02/12/2021. CT abdomen/pelvis 02/11/2021 FINDINGS: Surgical changes and devices: None. Bowel: No pneumoperitoneum. A few minimally dilated loops of small bowel are seen, which have decrea sed when compared to the prior exam. Air is again seen throughout the colon. Soft tissues: No masses; visualized solid organ contours appear normal in size. No suspicious abdom inal calcifications. Surgical clips are seen in the right upper quadrant. Bones: No suspicious bony abnormalities. IMPRESSION: Improving small bowel obstruction. Reviewed by: Estevan Vega MD on 02/13/2021 10:03 AM [facility] Approved by: Estevan Vega MD on 02/13/2021 10:03 AM [facility] Station ID: [id number]
--- NOTE | 2021-02-13 10:34 | PROVIDER PROGRESS NOTE ---
Assessment/Plan - Problem List (1) Small bowel obstruction Assessment/Plan: Started clears this morning and tolerated well. Has had 3 small BMs. No c/o abd pain. K+ 3.0. Abdomen soft. Abdominal xrays OK. Plan: Check stool for C diff if diarrhea recurs Replace K+ - Current Meds Current Meds: Current Medications Generic Name Dose Route Start Last Admin Trade Name Freq PRN Reason Stop Dose Admin Enoxaparin Sodium 40 mg 02/12/21 09:00 02/13/21 08:23 Enoxaparin 40 Mg/0.4 Ml Syringe SUBQ 40 mg DAILY [facility] Administration Hydromorphone HCl 1 mg 02/11/21 12:24 02/13/21 07:24 Hydromorphone 1 Mg/Ml Carpuject IVP 1 mg Q4H PRN Administration Pain 8 to 10 Sodium Chloride 1,000 mls @ 100 mls/hr 02/11/21 12:00 02/13/21 00:13 Normal Saline 0.9% IV 100 mls/hr .Q10H [facility] Administration Ondansetron HCl 4 mg 02/11/21 11:47 02/13/21 02:54 Ondansetron 4 Mg/2 Ml Vial IVP 4 mg Q6HR PRN Administration Nausea / Vomiting Prochlorperazine Edisylate 10 mg 02/11/21 11:47 02/13/21 08:23 Prochlorperazine 10 Mg/2 Ml Vial IVP 10 mg Q6HR PRN Administration Nausea / Vomiting Sodium Chloride 10 ml 02/11/21 11:47 02/13/21 02:54 Sodium Chloride Flush 0.9% 10 Ml Syringe IVP 10 ml PRN PRN Administration NEEDED PER PROVIDER ORDERS Sodium Chloride 10 ml 02/11/21 17:00 02/13/21 07:24 Sodium Chloride Flush 0.9% 10 Ml Syringe IVP 10 ml 0100,0900,1700 [facility] Administration - Lab Result Fish Bone Diagrams: 02/13/21 04:27 02/13/21 04:27 Objective Vital Signs: Vital Signs - 24 hr 02/12/21 02/12/21 02/13/21 16:00 23:40 08:00 Temperature 36.7 C 36.9 C 36.7 C Heart Rate [ 64 88 67 Brachial] Respiratory 98 H 20 18 Rate Blood Pressure 120/58 L 124/67 132/62 H [Left Brachial artery] O2 Saturation 99 95 95 Oxygen O2 Source Room air I&O (Last 24 Hrs): Intake and Output Totals x24h 02/11/21 02/12/21 02/13/21 23:59 23:59 23:59 Intake Total 2101 2500 Output Total 10 1000 Balance 2091 2500 -1000 - Results Results: Laboratory Results WBC 6.1 x10^3/uL (4.8-10.8) 02/13/21 04:27 RBC 3.50 10^6/uL (4.20-5.40) L 02/13/21 04:27 Hgb 12.0 g/dL (12.0-16.0) 02/13/21 04:27 Hct 35.2 % (37.0-47.0) L 02/13/21 04:27 MCV 100.6 fL (81.0-99.0) H 02/13/21 04:27 MCH 34.3 pg (27.0-31.0) H 02/13/21 04:27 MCHC 34.1 g/dL (32.0-36.0) 02/13/21 04:27 RDW 12.4 % (12.0-15.0) 02/13/21 04:27 Plt Count 187 10^3/uL (130-450) 02/13/21 04:27 MPV 11.5 fL (7.9-10.8) H 02/13/21 04:27 Neut # (Auto) 3.4 10^3/uL (1.5-6.6) 02/13/21 04:27 Lymph # (Auto) 2.0 10^3/uL (1.5-3.5) 02/13/21 04:27 [place] # (Auto) 0.6 10^3/uL (0.0-1.0) 02/13/21 04:27 Eos # (Auto) 0.1 10^3/uL (0.0-0.7) 02/13/21 04:27 Baso # (Auto) 0.0 10^3/uL (0.0-0.1) 02/13/21 04:27 Absolute Nucleated RBC 0.00 x10^3/uL 02/13/21 04:27 Nucleated RBC % 0.0 /100WBC 02/13/21 04:27 PT 11.2 secs (9.9-12.6) 02/11/21 12:04 INR 1.0 (0.8-1.2) 02/11/21 12:04 Sodium 136 mmol/L (135-145) 02/13/21 04:27 Potassium 3.0 mmol/L (3.5-5.0) L 02/13/21 04:27 Chloride 103 mmol/L (101-111) 02/13/21 04:27 Carbon Dioxide 24 mmol/L (21-32) 02/13/21 04:27 Anion Gap 9.0 (6-13) 02/13/21 04:27 BUN 9 mg/dL (6-20) 02/13/21 04:27 Creatinine 0.5 mg/dL (0.4-1.0) 02/13/21 04:27 Estimated GFR (MDRD) 127 (>89) 02/13/21 04:27 Glucose 69 mg/dL (70-100) L 02/13/21 04:27 Calcium 7.8 mg/dL (8.5-10.3) L 02/13/21 04:27 Magnesium 1.8 mg/dL (1.7-2.8) 02/13/21 04:27 Total Bilirubin 1.1 mg/dL (0.2-1.0) H 02/11/21 07:33 AST 22 IU/L (10-42) 02/11/21 07:33 ALT 20 IU/L (10-60) 02/11/21 07:33 Alkaline Phosphatase 76 IU/L (42-121) 02/11/21 07:33 Total Protein 8.2 g/dL (6.7-8.2) 02/11/21 07:33 Albumin 4.4 g/dL (3.2-5.5) 02/11/21 07:33 Globulin 3.8 g/dL (2.1-4.2) 02/11/21 07:33 Albumin/Globulin Ratio 1.2 (1.0-2.2) 02/11/21 07:33 Lipase 31 U/L (22-51) 02/11/21 07:33 Urine Color YELLOW 02/11/21 09:32 Urine Clarity CLEAR (CLEAR) 02/11/21 09:32 Urine pH 6.5 PH (5.0-7.5) 02/11/21 09:32 Ur Specific [place] 1.025 (1.002-1.030) 02/11/21 09:32 Urine Protein NEGATIVE mg/dL (NEGATIVE) 02/11/21 09:32 Urine Glucose (UA) NEGATIVE mg/dL (NEGATIVE) 02/11/21 09:32 Urine Ketones 40 mg/dL (NEGATIVE) H 02/11/21 09:32 Urine Occult Blood MODERATE (NEGATIVE) H 02/11/21 09:32 Urine Nitrite NEGATIVE (NEGATIVE) 02/11/21 09:32 Urine Bilirubin NEGATIVE (NEGATIVE) 02/11/21 09:32 Urine Urobilinogen 0.2 (NORMAL) E.U./dL (NORMAL) 02/11/21 09:32 Ur Leukocyte Esterase NEGATIVE (NEGATIVE) 02/11/21 09:32 Urine RBC 0-5 /HPF (0-5) 02/11/21 09:32 Urine WBC 0-3 /HPF (0-5) 02/11/21 09:32 Ur Squamous Epith Cells RARE Squamous (<= Few) 02/11/21 09:32 Urine Bacteria Rare /HPF (None Seen) 02/11/21 09:32 Ur Microscopic Review INDICATED 02/11/21 09:32 Urine Culture Comments NOT INDICATED 02/11/21 09:32 Nasal Adenovirus (PCR) NOT DETECTED 02/11/21 09:25 Nasal B. parapertussis DNA (PCR) NOT DETECTED 02/11/21 09:25 Nasal Coronavir 229E PCR NOT DETECTED 02/11/21 09:25 Nasal Coronavir HKU1 PCR NOT DETECTED 02/11/21 09:25 Nasal Coronavir NL63 PCR NOT DETECTED 02/11/21 09:25 Nasal Coronavir OC43 PCR NOT DETECTED 02/11/21 09:25 Nasal Enterovir/Rhinovir PCR NOT DETECTED 02/11/21 09:25 Nasal Influenza B PCR NOT DETECTED 02/11/21 09:25 Nasal Influenza A PCR NOT DETECTED 02/11/21 09:25 Nasal Parainfluen 1 PCR NOT DETECTED 02/11/21 09:25 Nasal Parainfluen 2 PCR NOT DETECTED 02/11/21 09:25 Nasal Parainfluen 3 PCR NOT DETECTED 02/11/21 09:25 Nasal Parainfluen 4 PCR NOT DETECTED 02/11/21 09:25 Nasal RSV (PCR) NOT DETECTED 02/11/21 09:25 Nasal B.pertussis DNA PCR NOT DETECTED 02/11/21 09:25 Nasal C.pneumoniae (PCR) NOT DETECTED 02/11/21 09:25 [place]er Human Metapneumo PCR NOT DETECTED 02/11/21 09:25 Nasal M.pneumoniae (PCR) NOT DETECTED 02/11/21 09:25 Nasal SARS-CoV-2 (PCR) NOT DETECTED 02/11/21 09:25 Urine Opiates Screen POSITIVE (NEGATIVE) H 02/11/21 09:32 Ur Oxycodone Screen NEGATIVE (NEGATIVE) 02/11/21 09:32 Urine Methadone Screen NEGATIVE (NEGATIVE) 02/11/21 09:32 Ur Propoxyphene Screen NEGATIVE (NEGATIVE) 02/11/21 09:32 Ur Barbiturates Screen NEGATIVE (NEGATIVE) 02/11/21 09:32 Ur Tricyclics Screen NEGATIVE (NEGATIVE) 02/11/21 09:32 Ur Phencyclidine Scrn NEGATIVE (NEGATIVE) 02/11/21 09:32 Ur Amphetamine Screen NEGATIVE (NEGATIVE) 02/11/21 09:32 U Methamphetamines Scrn NEGATIVE (NEGATIVE) 02/11/21 09:32 U Benzodiazepines Scrn NEGATIVE (NEGATIVE) 02/11/21 09:32 Urine Cocaine Screen NEGATIVE (NEGATIVE) 02/11/21 09:32 U Cannabinoids Screen NEGATIVE (NEGATIVE) 02/11/21 09:32 - Procedures Procedures: Procedures EXCISION OF DUODENUM, ENDO, DIAGN (02/20/19) EXCISION OF ESOPHAGOGASTRIC JUNCTION, ENDO, DIAGN (02/20/19) EXCISION OF STOMACH, ENDO, DIAGN (02/20/19) INSPECTION OF LOWER INTESTINAL TRACT, ENDO (02/20/19) RESECTION OF GALLBLADDER, PERCUTANEOUS ENDOSCOPIC APPROACH (03/24/19) Sepsis Event Note (H) - Evaluation Current Stage of Sepsis: Ruled out
[2021-02-13] MEDS ORDERED: ZINC OXIDE 20% OINT 30 GM TUBE TOP PRN (13:41)
[2021-02-14] MEDS: SODIUM CHLORIDE FLUSH 0.9% 10 ML SYRINGE IVP SCH ×2 (01:00→08:37)
[2021-02-14] MEDS: SODIUM CHLORIDE 0.9% 1,000 ML IV SCH ×2 (02:43→08:36)
[2021-02-14] MEDS: ONDANSETRON 4 MG/2 ML VIAL IVP PRN ×2 (02:44→08:38)
[2021-02-14] MEDS: HYDROmorphone 1 MG/ML CARPUJECT IVP PRN ×2 (02:44→08:38)
[2021-02-14] MEDS: PROCHLORPERAZINE 10 MG/2 ML VIAL IVP PRN (05:30)
[2021-02-14 05:31] LABS: BASOPHILS % (AUTO) 0.4 %; EOSINOPHILS # (AUTO) 0.1 10^3/uL (0.0-0.7); EOSINOPHILS % (AUTO) 1.4 %; HCT - HEMATOCRIT 35.9 % (37.0-47.0); HGB - HEMOGLOBIN 12.6 g/dL (12.0-16.0); LYMPHOCYTES # (AUTO) 1.9 10^3/uL (1.5-3.5); LYMPHOCYTES % (AUTO) 24.3 %; MEAN CORPUSCULAR HGB CONC 35.1 g/dL (32.0-36.0); MEAN CORPUSCULAR VOLUME 99.7 fL (81.0-99.0); MEAN PLATELET VOLUME 10.5 fL (7.9-10.8); MONOCYTES # (AUTO) 0.7 10^3/uL (0.0-1.0); MONOCYTES % (AUTO) 8.5 %; NEUTROPHILS # (AUTO) 5.1 10^3/uL (1.5-6.6); NEUTROPHILS % (AUTO) 65.1 %; PLT - PLATELET COUNT 235 10^3/uL (130-450); WHITE BLOOD COUNT 7.8 x10^3/uL (4.8-10.8)
[2021-02-14 05:41] LABS: CREATININE 0.4 mg/dL (0.4-1.0); POTASSIUM 3.1 mmol/L (3.5-5.0)
[2021-02-14] MEDS ORDERED: POTASSIUM CHLORIDE 20 MEQ TABLET PO ONE (07:39)
[2021-02-14] MEDS ORDERED: POTASSIUM CHLORIDE 20 MEQ TABLET PO SCH (08:00)
[2021-02-14 08:11] VITALS: BP 127/57
[2021-02-14] MEDS ORDERED: oxyCODONE 5 MG TABLET PO PRN (08:35)
[2021-02-14] MEDS: ENOXAPARIN 40 MG/0.4 ML SYRINGE SUBQ SCH (08:36)
--- NOTE | 2021-02-14 10:30 | DISCHARGE SUMMARY ---
"Discharge Summary Admit Date: 02/11/21 Discharge Date: 02/14/21 Discharging Provider: Guilherme Shaw Primary Care Provider: Mackenzie Bloom Code Status: Attempt Resuscitation Condition at Discharge: Stable Discharge Disposition: 01 Home, Self Care - DIAGNOSES Admission Diagnoses: Small bowel obstruction Dehydration Pulmonary nodule Discharge Diagnoses with Status of Each Condition: Small bowel obstruction Pulmonary nodule - HPI History of Present Illness: H&P per Ja Dangelo MARINE REPORTER: This is a 60 y/o female with a medical history significant for recently C. Diff with chronic diarrhea, recurrent UTI, Chronic vision loss, chronic pain pain, osteoarthritis, Who presented ER complaining nausea, vomiting, abdominal pain and diarrhea. Pt was seen at ER with similar complaints. after she Was treated in the ER, his symptoms was released and patient was discharged to home. She reports at around today morning 2am she had severe abdominal pain and cramping again with nausea and vomiting. She had no bowel movement since yesterday. Her drug screening was negative for marijuana. Patient denies fever, chill, chest pain, shortness breathing. CT scan on abdomen on today show small bowel obstruction with a transition point in the middle to distal small bowel. Routine laboratory tests that show elevated WBC 17, slight elevated BUN and anion gap. GI surgeon was called by the ER and consulted for patient. Medical team was consulted for admission this patient for small bowel obstruction. Discussed care goal with the patient, patient hope to have full code. - CONSULTS | PROCEDURES Consultations: General Surgery - HOSPITAL COURSE Hospital Course: She was admitted for small bowel obstruction. She was treated with IV fluids, pain control with Dilaudid, antiemetics. General surgery was consulted and recommended NG tube which the patient adamantly declined. Fortunately she improved with supportive measures. Repeat abdominal film revealed improvement of the obstruction. She is advanced on a clear liquid diet was able to have bowel movements again. Her diet was advanced to a low residue diet which she tolerated well. She was discharged home with Zofran as needed as well as 8 tablets of oxycodone. BREAKER BOSS was checked prior to prescription being sent. She is also prescribed potassium as she was hypokalemic during her stay. She was informed of a pulmonary nodule and of this will need a dedicated CT of the chest. - ALLERGIES Allergies/Adverse Reactions: Allergies Allergy/AdvReac Type Severity Reaction Status Date / Time doxycycline Allergy Hives Verified 02/11/21 07:44 aspirin AdvReac Nausea Verified 02/11/21 07:44 - MEDICATIONS Home Medications: Ambulatory Orders Medication Instructions Recorded Confirmed Meloxicam [Mobic] 7.5 mg PO BID 02/11/21 02/11/21 Ondansetron Odt [Zofran Odt] 4 mg TL Q6H PRN #10 tablet 02/14/21 Potassium Chloride [K-Dur] 20 meq PO DAILYWM #30 tablet 02/14/21 oxyCODONE [Roxicodone] 5 mg PO Q6HR PRN #8 tablet 02/14/21 - PHYSICAL EXAM AT DISCHARGE General Appearance: positive: No acute distress, Alert Eyes Bilateral: positive: Normal inspection, Conjunctivae nml ENT: positive: ENT inspection nml Neck: positive: Nml inspection Respiratory: positive: No respiratory distress. negative: Wheezes, Rales Cardiovascular: positive: Regular rate & rhythm, No murmur. negative: Tachycardia Abdomen: positive: Non-tender, No distention. negative: Tenderness Skin: positive: Warm, Dry Extremities: positive: No pedal edema Neurologic/Psychiatric: positive: Motor nml. negative: Disoriented to person, Disoriented to place, Disoriented to time Physical Exam Other/Comments: Vital Signs - 24 hr 02/14/21 02/14/21 00:00 08:00 Temperature 36.6 C 36.7 C Heart Rate [ 58 L Brachial] Heart Rate [ 61 Radial] Respiratory 18 18 Rate Blood Pressure 125/65 127/57 L [Left Brachial artery] O2 Saturation 99 97 Oxygen O2 Source Room air - LABS Result Diagrams: 02/14/21 05:00 02/14/21 05:00 - DIAGNOSTIC IMAGING Diagnostic Imaging Results: Final report reviewed - SEPSIS Current Stage of Sepsis: Ruled out - FOLLOW UP Follow Up: She was instructed to follow-up with her primary care physician and to have a CT of the chest to better evaluate the pulmonary nodule that was found on the CT of the abdomen and pelvis. - TIME SPENT Time Spent in Discharge (Minutes): 32"
--- NOTE | 2021-02-14 10:30 | Discharge Plan ---
Discharge Plan Problem Reviewed?: Yes Disposition: Home, Self Care Condition: Stable Prescriptions: oxyCODONE [Roxicodone] 5 mg PO Q6HR PRN #8 tablet PRN Reason: Pain Potassium Chloride [K-Dur] 20 meq PO DAILYWM #30 tablet Ondansetron Odt [Zofran Odt] 4 mg TL Q6H PRN #10 tablet PRN Reason: Nausea / Vomiting Diet: Regular (Low residue diet) Activity Restrictions: Activity as Tolerated Shower Restrictions: No Driving Restrictions: No Instruction Topics: Diet Low Residue Health Concerns: You were seen in the hospital because of a small bowel obstruction. We treated you with IV fluids, pain medication and nausea medications. The obstruction resolved on its own. You are now stable for discharge home. Plan of Treatment: Please be compliant with a low residue diet for the next 1 to 2 weeks. I have sent a prescription for Zofran which you can take as needed for nausea. I have also sent a few tablets of oxycodone for pain. Your potassium was also noted to be low and absent a prescription for potassium tablets to take daily. Assessment: Patient expressed understanding of the treatment plan. Additional Instructions or Follow Up instructions: Please follow-up with your primary care physician in 1 to 2 weeks. No Smoking: If you smoke, Please STOP! Call for help. Follow-up with: Mackenzie Bloom MD [Primary Care Provider] -
== END 2021-02-14 12:30 | disposition home or self-care (01) | DRG 390 ==
LOC: EDUNIT# → ED 07:15 → MS3 11:47
PROVIDERS: ADMIT Nurse Practitioner Gerontology; ATTEND Internal Medicine
DX: K56.609 Unspecified intestinal obstruction, unspecified as to partial versus complete obstruction (principal); I10 Essential (primary) hypertension; F17.200 Nicotine dependence, unspecified, uncomplicated; Z20.822 Contact with and (suspected) exposure to COVID-19; E86.0 Dehydration; E87.6 Hypokalemia; K52.9 Noninfective gastroenteritis and colitis, unspecified; F17.210 Nicotine dependence, cigarettes, uncomplicated; G89.29 Other chronic pain; M54.9 Dorsalgia, unspecified; R91.1 Solitary pulmonary nodule; Z53.29 Procedure and treatment not carried out because of patient's decision for other reasons; Z83.79 Family history of other diseases of the digestive system; Z86.19 Personal history of other infectious and parasitic diseases; Z87.440 Personal history of urinary (tract) infections; Z90.49 Acquired absence of other specified parts of digestive tract; Z90.710 Acquired absence of both cervix and uterus; Z98.51 Tubal ligation status
CPT/HCPCS: 36415; 74018; 74019; 74176; 80048; 80053; 80306; 81001; 83690; 83735; 85025; 85610; 87631; 96365; 96375; 99284; 99285; A9270; J1170; J1650; J7040; 0202U; 81003; 87086

== ENCOUNTER 2021-04-15 13:04 | Outpatient (CLI) | payer MEDICARE, MEDICAID ==
[2021-04-15 13:29] LABS: CREATININE 0.5 mg/dL (0.4-1.0)
[2021-04-15] MEDS ORDERED: IOVERSOL 320 100 ML VIAL IVP ONE (14:08)
--- NOTE | 2021-04-15 16:17 | CT Report ---
PROCEDURE: CHEST W INDICATIONS: PULMONARY NODULE CONTRAST: IV CONTRAST: Optiray 320 ml: 100 PO CONTRAST: *NO PO CONTRAST TECHNIQUE: After the administration of intravenous contrast, 1 mm axial images were acquired from the pulmonary apices through the posterior costophrenic angles. Axial 5 mm soft tissue kernel reconstructions were performed as well as 8 mm axial MIP and coronal and sagittal 5 mm reformations. For radiation dose reduction, the following was used: automated exposure control, adjustment of mA and/or kV according to patient size. COMPARISON: Reference is made to the CT abdomen dated January 22, 2021 FINDINGS: CT CHEST: Thyroid: Homogeneous. Vasculature: The thoracic aorta and arch vasculature have a normal contrasted appearance and are norm al size and contour. No evidence for dissection. Heart: No cardiomegaly or significant pericardial effusion. Mediastinum: No pathologic lymph node enlargement by size criteria. Lung/pleura: No pleural effusion, consolidation, or pneumothorax. 8.8 mm noncalcified nodule in the right lower lobe (4-167). Tracheobronchial tree: Patent. Upper abdomen: No significant abnormality. Hepatic steatosis. Cholecystectomy change. Bones: No significant abnormality. Chest wall: The chest wall and axilla are within normal limits. IMPRESSION: 1.8.8 mm noncalcified nodule in the right lower lobe. Consider PET/CT or biopsy. Reviewed by: Anupam Forrest MD on 04/15/2021 4:15 PM PST Approved by: Anupam Forrest MD on 04/15/2021 4:15 PM PST Station ID: [id number]
== END 2021-04-15 13:05 | disposition home or self-care (01) ==
LOC: DI 13:04
PROVIDERS: ATTEND Internal Medicine
DX: R91.1 Solitary pulmonary nodule (principal); Z79.899 Other long term (current) drug therapy
CPT/HCPCS: 36415; 71260; 82565; Q9967

== ENCOUNTER 2021-07-08 15:30 | Outpatient (CLI) | payer MEDICARE, MEDICAID ==
[2021-07-08] MEDS ORDERED: IOVERSOL 320 100 ML VIAL IVP ONE ×2 (15:52→16:35)
[2021-07-08 16:01] LABS: CREATININE 0.6 mg/dL (0.4-1.0)
--- NOTE | 2021-07-08 16:55 | CT Report ---
PROCEDURE: CHEST W INDICATIONS: PULMONARY NODULE CONTRAST: IV CONTRAST: Optiray 320 ml: 100 PO CONTRAST: *NO PO CONTRAST TECHNIQUE: After the administration of intravenous contrast, 1 mm axial images were acquired from the pulmonary apices through the posterior costophrenic angles. Axial 5 mm soft tissue kernel reconstructions were performed as well as 8 mm axial MIP and coronal and sagittal 5 mm reformations. For radiation dose reduction, the following was used: automated exposure control, adjustment of mA and/or kV according to patient size. COMPARISON: CT chest 04/15/2021, 06/11/2013. CT abdomen and pelvis 02/11/2021. FINDINGS: Image quality: Excellent. Lungs and pleura: Right lower lobe pulmonary nodule measuring 0.9 x 0.8 cm, (), previously 0.9 x 0.7 cm on 04/15/2021, more remotely 0.9 x 0.8 cm on 02/11/2021. This may be partially visualized in retrospect on CT IVP 03/07/2019. This is not present on the CT chest from 2013. No acute air space opa cities. No pleural effusions or pneumothorax. Central and peripheral airways are patent and normal in caliber. Mediastinum: Heart size is normal. No pericardial effusion. No mediastinal or hilar adenopathy by size criteria. Thoracic aorta and central pulmonary arteries are normal in size. Esophagus is quinn l in caliber. No hiatal hernia. Bones and chest wall: No suspicious bony lesions. No vertebral body compression fractures. No axil abena or supraclavicular adenopathy by size criteria. The thyroid is normal in size and there are no incidental findings. Abdomen: Visualized upper abdominal solid organs appear normal. Upper abdominal bowel loops are nor mal in caliber. Postcholecystectomy. No adrenal nodule. Hepatic steatosis. IMPRESSION: 1. Right lower lobe pulmonary nodule measuring 0.9 cm is not significantly changed compared to [facility] 2020. Recommend follow-up CT chest in 6-12 months. Consider further evaluation with PET/CT. 2. No adenopathy. 3. Hepatic steatosis. Reviewed by: Gordon Morgan MD on 07/08/2021 4:53 PM PDT Approved by: Gordon Morgan MD on 07/08/2021 4:53 PM PDT Station ID: [id number]
== END 2021-07-08 15:31 | disposition home or self-care (01) ==
LOC: DI 15:30
PROVIDERS: ATTEND Internal Medicine
DX: R91.1 Solitary pulmonary nodule (principal); Z79.899 Other long term (current) drug therapy; K76.0 Fatty (change of) liver, not elsewhere classified
CPT/HCPCS: 36415; 71260; 82565; Q9967

== ENCOUNTER 2021-12-12 08:00 | Outpatient (CLI) | payer MEDICARE, MEDICAID ==
[2021-12-12 18:16] LABS: BILIRUBIN,URINE NEGATIVE (NEGATIVE); GLUCOSE, URINE (UA) NEGATIVE (NEGATIVE); KETONES,URINE (UA) NEGATIVE (NEGATIVE); LEUKOCYTE ESTERASE, URINE NEGATIVE (NEGATIVE); NITRITE,URINE NEGATIVE (NEGATIVE); OCCULT BLOOD,URINE MODERATE (NEGATIVE); PH,URINE 7.5 PH (5.0-7.5); PROTEIN,URINE NEGATIVE (NEGATIVE); UROBILINOGEN,URINE 0.2 (NORMAL) E.U./dL (NORMAL)
[2021-12-12 18:22] LABS: BACTERIA,URINE Rare /HPF (None Seen); CLARITY,URINE CLEAR (CLEAR); SQUAMOUS EPITHELIAL CELL,UR FEW Squamous (<= Few)
== END 2021-12-12 23:59 | disposition home or self-care (01) ==
LOC: LAB.R 08:00
PROVIDERS: ATTEND Internal Medicine
DX: R39.9 Unspecified symptoms and signs involving the genitourinary system (principal)
CPT/HCPCS: 81001; 87086; 87181

== ENCOUNTER 2021-12-17 16:12 | Emergency (ER) | payer MEDICARE, MEDICAID ==
[2021-12-17 16:25] VITALS: BP 164/77
[2021-12-17 16:42] LABS: BILIRUBIN,URINE NEGATIVE (NEGATIVE); GLUCOSE, URINE (UA) NEGATIVE (NEGATIVE); KETONES,URINE (UA) NEGATIVE (NEGATIVE); LEUKOCYTE ESTERASE, URINE SMALL (NEGATIVE); NITRITE,URINE NEGATIVE (NEGATIVE); OCCULT BLOOD,URINE MODERATE (NEGATIVE); PROTEIN,URINE NEGATIVE (NEGATIVE); UROBILINOGEN,URINE 0.2 (NORMAL) E.U./dL (NORMAL)
--- NOTE | 2021-12-17 16:44 | ED Physician Documentation ---
History of Present Illness - Stated complaint Stated Complaint: FEMALE /ABD PX - Chief complaint Chief Complaint: Abd Pain - Additonal information Additional information: 61-year-old female presents emergency department for evaluation of dysuria urgency and frequency. The symptoms began 5 days ago. She did go to her primary care provider the same day symptoms started but because patient has a history of C. difficile she was told that they wanted to wait on antibiotics. Despite increased hydration her symptoms persist. Urine culture 4 days ago grew a pansensitive E. coli She also reports that about 4 days ago she developed a red rash in the skin folds under her pannus and has since developed some burning and some surrounding erythema. No history of similar. She states though that she has gained about 10 pounds over the last few months. Due to this she has excessive sweating and redness under many of her skin folds. Review of Systems Constitutional: reports: Fever. denies: Myalgias Eyes: reports: Reviewed and negative Nose: reports: Reviewed and negative Throat: reports: Reviewed and negative Cardiac: reports: Reviewed and negative Respiratory: reports: Reviewed and negative GI: reports: Reviewed and negative : reports: Dysuria, Frequency, Hesitancy Skin: reports: Rash Musculoskeletal: reports: Reviewed and negative Neurologic: reports: Reviewed and negative PD PAST MEDICAL HISTORY - Past Medical History Cardiovascular: None Respiratory: None Neuro: Peripheral neuropathy Endocrine/Autoimmune: None GI: C.difficile, Chronic diarrhea, Other : Other HEENT: Chronic vision loss Psych: Depression, Anxiety Musculoskeletal: Osteoarthritis, Chronic back pain Derm: Rosacea - Past Surgical History Past Surgical History: Yes General: Cholecystectomy, Colonoscopy, Other Ortho: 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, 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, 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 - Present Medications Home Medications: Ambulatory Orders Medication Instructions Recorded Confirmed Cefpodoxime Proxetil [Vantin] 100 mg PO Q12H #14 tablet 12/17/21 Nystatin [Nystop] 1 applic TOP BID #15 gm 12/17/21 Promethazine [Phenergan] 25 mg PO HS 12/17/21 12/17/21 - Allergies Allergies/Adverse Reactions: Allergies Allergy/AdvReac Type Severity Reaction Status Date / Time doxycycline Allergy Hives Verified 12/17/21 16:25 aspirin AdvReac Nausea Verified 12/17/21 16:25 - Social History Does the pt smoke?: Yes Smoking Status: Current every day smoker Does the pt drink ETOH?: Yes Does the pt have substance abuse?: No - Immunizations Immunizations are current?: Yes - POLST Patient has POLST: No POLST Status: Full Code PD ED PE NORMAL - General General: Alert and oriented X 3, No acute distress, Well developed/nourished - HEENT HEENT: Atraumatic, Moist mucous membranes - Neck Neck: Supple, no meningeal sign, No adenopathy - Cardiac Cardiac: RRR, No murmur - Respiratory Respiratory: No respiratory distress, Clear bilaterally - Abdomen Abdomen: Normal bowel sounds, Soft, Non tender (Tenderness in the suprapubic region. No flank or CVA tenderness.) - Derm Derm: Normal color, Warm and dry. 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9 Chloride 103 Carbon Dioxide 27 Anion Gap 9.0 BUN 12 Creatinine 0.6 Estimated GFR (MDRD) 102 Glucose 103 H Calcium 9.1 Total Bilirubin 0.4 AST 22 ALT 21 Alkaline Phosphatase 82 Total Protein 7.7 Albumin 4.3 Globulin 3.4 Albumin/Globulin Ratio 1.3 Lipase 40 Urine Color YELLOW Urine Clarity CLOUDY Urine pH 6.0 Ur Specific [place] 1.025 Urine Protein NEGATIVE Urine Glucose (UA) NEGATIVE Urine Ketones NEGATIVE Urine Occult Blood MODERATE H Urine Nitrite NEGATIVE Urine Bilirubin NEGATIVE Urine Urobilinogen 0.2 (NORMAL) Ur Leukocyte Esterase SMALL H Urine RBC 6-10 H Urine WBC >25 H Ur Squamous Epith Cells FEW Squamous Urine Bacteria Moderate H Ur Microscopic Review INDICATED Urine Culture Comments INDICATED PD MEDICAL DECISION MAKING - ED course Complexity details: reviewed old records, reviewed results, re-evaluated patient, considered differential, d/w patient ED course: 61-year-old female presents emergency department for evaluation of dysuria that began about 1 week ago. Culture obtained at primary care office on the grew a pansensitive E. coli. However as the patient has a history of C. difficile they elected to delay antibiotics. Patient's had persistent dysuria urgency and frequency. Urine today is consistent with acute cystitis and she will be started on cefpodoxime. Patient has no fevers here or leukocytosis. No CVA tenderness was elicited. I have lower suspicion for acute pyelonephritis. patient had also reported that she developed some redness under her pannicular fold. She has subsequently developed a secondary cellulitis associated with this. I would expect the cefpodoxime to adequately treat this associated skin and structure infection. I am advising the patient to gently wash with warm soap and water below her pannus pat dry and then apply Nystatin Powder. Patient will follow closely with Dr. Bloom. Emergent return precautions were discussed for signs of worsening infection. Departure - Departure Disposition: Home, Self Care Clinical Impression: Abdominal wall cellulitis Acute cystitis Qualifiers: Hematuria presence: without hematuria Qualified Code(s): N30.00 - Acute cystitis without hematuria Condition: Stable Record reviewed to determine appropriate education?: Yes Prescriptions: Nystatin [Nystop] 1 applic TOP BID #15 gm Cefpodoxime Proxetil [Vantin] 100 mg PO Q12H #14 tablet Comments: Fany you are seen today in the emergency department for symptoms of urinary tract infection. Your urine is consistent with infection. I have sent a pre scription for cefpodoxime also known as Vantin to the [facility] in [place]. You take this twice daily for the next week. Any antibiotic can put you at risk to develop C. difficile. I do recommend that you take lactobacillus or eat a cup of yogurt each day to help replenish healthy bacteria. You also reported some redness under the skin fold on your lower abdomen. You did develop what is called pannicular dermatitis. You have subsequently developed a secondary bacterial infection called cellulitis. I would expect that the cefpodoxime would also adequately treat this. Important that you gently wash this area with warm soap and water and dry thoroughly. Then apply the nystatin powder. This will help her check from any yeast infection on the oral antibiotics will help treat the skin infection. Return to the emergency department for fevers, uncontrolled pain, any vomiting or other worrisome symptoms. Follow closely with Dr. Bloom.
[2021-12-17 16:49] LABS: BACTERIA,URINE Moderate /HPF (None Seen); CLARITY,URINE CLOUDY (CLEAR); SQUAMOUS EPITHELIAL CELL,UR FEW Squamous (<= Few); WBC,URINE >25 /HPF (0-5)
[2021-12-17 17:04] LABS: BASOPHILS # (AUTO) 0.1 10^3/uL (0.0-0.1); BASOPHILS % (AUTO) 0.7 %; EOSINOPHILS # (AUTO) 0.1 10^3/uL (0.0-0.7); EOSINOPHILS % (AUTO) 0.5 %; HCT - HEMATOCRIT 42.4 % (37.0-47.0); HGB - HEMOGLOBIN 14.1 g/dL (12.0-16.0); LYMPHOCYTES # (AUTO) 2.7 10^3/uL (1.5-3.5); LYMPHOCYTES % (AUTO) 26.9 %; MEAN CORPUSCULAR HEMOGLOBIN 33.1 pg (27.0-31.0); MEAN CORPUSCULAR HGB CONC 33.3 g/dL (32.0-36.0); MEAN CORPUSCULAR VOLUME 99.5 fL (81.0-99.0); MEAN PLATELET VOLUME 9.7 fL (7.9-10.8); MONOCYTES # (AUTO) 0.7 10^3/uL (0.0-1.0); MONOCYTES % (AUTO) 7.3 %; NEUTROPHILS # (AUTO) 6.6 10^3/uL (1.5-6.6); NEUTROPHILS % (AUTO) 64.4 %; PLT - PLATELET COUNT 305 10^3/uL (130-450); RED BLOOD COUNT 4.26 10^6/uL (4.20-5.40); RED CELL DISTRIBUTION WIDTH 12.4 % (12.0-15.0); WHITE BLOOD COUNT 10.2 x10^3/uL (4.8-10.8)
[2021-12-17 17:17] LABS: ALBUMIN 4.3 g/dL (3.2-5.5); ALBUMIN/GLOBULIN RATIO 1.3 (1.0-2.2); BILIRUBIN,TOTAL 0.4 mg/dL (0.2-1.0); CALCIUM 9.1 mg/dL (8.5-10.3); CREATININE 0.6 mg/dL (0.4-1.0); POTASSIUM 3.9 mmol/L (3.5-5.0); TOTAL PROTEIN 7.7 g/dL (6.7-8.2)
[2021-12-17] MEDS ORDERED: CEFPODOXIME PROXETIL 100 MG TABLET PO STA (17:55)
[2021-12-17] MEDS ORDERED: CEFPODOXIME PROXETIL 100 MG TABLET PO SCH (18:00)
== END 2021-12-17 18:05 | disposition home or self-care (01) ==
LOC: ED 16:12
DX: L03.311 Cellulitis of abdominal wall (principal); N30.00 Acute cystitis without hematuria; F17.200 Nicotine dependence, unspecified, uncomplicated; Z86.19 Personal history of other infectious and parasitic diseases
CPT/HCPCS: 36415; 80053; 81001; 83690; 85025; 87086; 87181; 99283; 99284; A9270; 81003

== ENCOUNTER 2022-02-03 08:00 | Outpatient (CLI) | payer MEDICARE, MEDICAID ==
[2022-02-03 18:13] LABS: ALBUMIN/GLOBULIN RATIO 1.1 (1.0-2.2); BASOPHILS % (AUTO) 0.2 %; BILIRUBIN,TOTAL 0.5 mg/dL (0.2-1.0); CREATININE 0.6 mg/dL (0.4-1.0); EOSINOPHILS % (AUTO) 0.9 %; HCT - HEMATOCRIT 44.3 % (37.0-47.0); HGB - HEMOGLOBIN 15.2 g/dL (12.0-16.0); LYMPHOCYTES % (AUTO) 44.2 %; MEAN CORPUSCULAR HEMOGLOBIN 33.7 pg (27.0-31.0); MEAN CORPUSCULAR HGB CONC 34.3 g/dL (32.0-36.0); MEAN CORPUSCULAR VOLUME 98.2 fL (81.0-99.0); MEAN PLATELET VOLUME 12.3 fL (7.9-10.8); MONOCYTES # (AUTO) 0.5 10^3/uL (0.0-1.0); MONOCYTES % (AUTO) 11.8 %; NEUTROPHILS # (AUTO) 1.9 10^3/uL (1.5-6.6); NEUTROPHILS % (AUTO) 42.7 %; PLT - PLATELET COUNT 228 10^3/uL (130-450); POTASSIUM 3.8 mmol/L (3.5-5.0); RED BLOOD COUNT 4.51 10^6/uL (4.20-5.40); RED CELL DISTRIBUTION WIDTH 12.3 % (12.0-15.0); TOTAL PROTEIN 7.8 g/dL (6.7-8.2); WHITE BLOOD COUNT 4.5 x10^3/uL (4.8-10.8)
== END 2022-02-03 23:59 | disposition home or self-care (01) ==
LOC: LAB.N 08:00
PROVIDERS: ATTEND Nurse Practitioner
DX: R19.7 Diarrhea, unspecified (principal)
CPT/HCPCS: 36415; 80053; 82150; 83690; 85025

== ENCOUNTER 2022-10-29 12:41 | Emergency (ER) | payer MEDICARE, MEDICAID ==
[2022-10-29 12:51] VITALS: BP 140/88; O2SAT 99
[2022-10-29 13:11] LABS: BILIRUBIN,URINE NEGATIVE (NEGATIVE); CLARITY,URINE CLEAR (CLEAR); GLUCOSE, URINE (UA) NEGATIVE (NEGATIVE); KETONES,URINE (UA) NEGATIVE (NEGATIVE); LEUKOCYTE ESTERASE, URINE SMALL (NEGATIVE); NITRITE,URINE NEGATIVE (NEGATIVE); OCCULT BLOOD,URINE MODERATE (NEGATIVE); PROTEIN,URINE NEGATIVE (NEGATIVE); UROBILINOGEN,URINE 0.2 (NORMAL) E.U./dL (NORMAL)
--- NOTE | 2022-10-29 13:12 | ED Physician Documentation ---
History of Present Illness - Stated complaint Stated Complaint: FEMALE - Chief complaint Chief Complaint: General - History obtained from History obtained from: Patient - History of Present Illness Timing: How many days ago (3) Pain level max: 4 Pain level now: 3 - Additonal information Additional information: 62-year-old female presents to the emergency department with dysuria, urinary frequency and burning for the past 3 days. She thought it may "go away, but did not, so came in for evaluation. Worse with urination, nothing makes it better. Review of Systems Constitutional: denies: Fever, Chills Respiratory: denies: Cough GI: denies: Abdominal Pain, Nausea, Vomiting : reports: Dysuria, Frequency, Hesitancy. denies: Incontinent, Hematuria Skin: denies: Rash Musculoskeletal: reports: Back pain (mild low back pain). 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, 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, 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 - Present Medications Home Medications: Ambulatory Orders Medication Instructions Recorded Confirmed Cefpodoxime Proxetil [Vantin] 100 mg PO Q12H #14 tablet 12/17/21 Nystatin [Nystop] 1 applic TOP BID #15 gm 12/17/21 Promethazine [Phenergan] 25 mg PO HS 12/17/21 12/17/21 Nitrofurantoin [Macrobid] 100 mg PO BID #10 cap 10/29/22 Phenazopyridine HCl [Pyridium] 200 mg PO TID PRN #6 tablet 10/29/22 - Allergies Allergies/Adverse Reactions: Allergies Allergy/AdvReac Type Severity Reaction Status Date / Time doxycycline Allergy Hives Verified 10/29/22 12:48 aspirin AdvReac Nausea Verified 10/29/22 12:48 - Social History Does the pt smoke?: Yes Smoking Status: Current every day smoker Does the pt drink ETOH?: Yes Does the pt have substance abuse?: No - Immunizations Immunizations are current?: Yes - POLST Patient has POLST: No POLST Status: Full Code PD ED PE NORMAL - Vitals Vital signs reviewed: Yes - General General: Alert and oriented X 3, No acute distress - HEENT HEENT: Moist mucous membranes - Neck Neck: Supple, no meningeal sign - Cardiac Cardiac: RRR - Respiratory Respiratory: No respiratory distress, Clear bilaterally - Abdomen Abdomen: Soft, Non tender, Non distended - Back Back: No CVA TTP, No spinal TTP - Derm Derm: Warm and dry - Neuro Neuro: Alert and oriented X 3 Results - Vitals Vitals: Vital Signs - 24 hr 10/29/22 12:48 Temperature 36.8 C Heart Rate 80 Respiratory 16 Rate Blood Pressure 140/88 H O2 Saturation 99 Oxygen O2 Source Room air PD Medical Decision Making - ED course Complexity details: reviewed results, re-evaluated patient, considered differential, d/w patient ED course: 62-year-old female with signs and symptoms consistent with UTI. Her urinalysis is consistent with UTI as well. Will place on Macrobid and Pyridium. No evidence of pyelonephritis or sepsis. Patient counseled regarding signs and symptoms for which I believe and urgent re-evaluation would be necessary. Patient with good understanding of and agreement to plan and is comfortable going home at this time This document was made in part using voice recognition software. While efforts are made to proofread this document, sound alike and grammatical errors may occur. Departure - Departure Disposition: 01 Home, Self Care Clinical Impression: UTI (urinary tract infection) Qualifiers: Urinary tract infection type: acute cystitis Hematuria presence: without hematuria Qualified Code(s): N30.00 - Acute cystitis without hematuria Condition: Good Instructions: ED UTI Cystitis Female Follow-Up: your,doctor in 1 week [Other] Prescriptions: Nitrofurantoin [Macrobid] 100 mg PO BID #10 cap Phenazopyridine HCl [Pyridium] 200 mg PO TID PRN #6 tablet PRN Reason: dysuria Comments: Your prescriptions were sent to [facility] in [place]. Please take all antibiotics until gone. Please return if you worsen, if an antibiotic change is needed, we will call you when your urine culture returns in approximately 2 days.
[2022-10-29] MEDS: NITROFURANTOIN MACRO 100 MG CAPSULE PO STA (13:14)
[2022-10-29] MEDS: PHENAZOPYRIDINE 100 MG TABLET PO STA (13:14)
[2022-10-29 13:24] LABS: BACTERIA,URINE Few /HPF (None Seen); SQUAMOUS EPITHELIAL CELL,UR MOD Squamous (<= Few)
== END 2022-10-29 13:17 | disposition home or self-care (01) ==
LOC: ED 12:41
DX: N30.00 Acute cystitis without hematuria (principal); F17.200 Nicotine dependence, unspecified, uncomplicated
CPT/HCPCS: 81001; 81003; 87086; 99282; 99283

== ENCOUNTER 2023-07-17 18:31 | Emergency (ER) | payer MEDICARE, MEDICAID ==
[2023-07-17 18:47] VITALS: O2SAT 98
--- NOTE | 2023-07-17 19:19 | XRAY Report ---
PROCEDURE: Chest 2V INDICATIONS: cough x2 weeks TECHNIQUE: 2 views of the chest were acquired. COMPARISON: CT chest 07/08/2021. FINDINGS: Surgical changes and devices: Cervical spinal hardware is present. Lungs and pleura: No pleural effusions or pneumothorax. No acute consolidation. 13 mm nodule is seen projecting over the right lower lobe, corresponding in location to the area previously seen 9 mm nod ule on CT from 07/08/2021. Mediastinum: Mediastinal contours appear normal. Heart size is normal. Bones and chest wall: No suspicious bony lesions. Overlying soft tissues appear unremarkable. IMPRESSION: No acute cardiopulmonary abnormality. Right lower lobe nodule may have increased in size compared to CT from 07/08/2021. Consider follow-up outpatient chest CT for further evaluation. Reviewed by: Estevan Vega MD on 07/17/2023 7:17 PM PDT Approved by: Estevan Vega MD on 07/17/2023 7:17 PM PDT Station ID: [id number]
[2023-07-17 19:41] LABS: B. PARAPERTUSSIS- RESP PCR PAN NOT DETECTED; B. PERTUSSIS- RESP PCR PANEL NOT DETECTED; C. PNEUMONIAE- RESP PCR PANEL NOT DETECTED; CORONAVIRUS 229E-RESP PCR NOT DETECTED; CORONAVIRUS HKU1-RESP PCR NOT DETECTED; CORONAVIRUS NL63-RESP PCR NOT DETECTED; CORONAVIRUS OC43-RESP PCR NOT DETECTED; HUMAN METAPNEUMOVIRUS NOT DETECTED; INFLUENZA A- RESP PCR PANEL NOT DETECTED; INFLUENZA B - RESP PCR PANEL NOT DETECTED; M. PNEUMONIAE- RESP PCR PANEL NOT DETECTED; PARAINFLUENZA VIRUS 1 NOT DETECTED; PARAINFLUENZA VIRUS 2 NOT DETECTED; PARAINFLUENZA VIRUS 3 NOT DETECTED; PARAINFLUENZA VIRUS 4 NOT DETECTED; RHINOVIRUS/ENTEROVIRUS NOT DETECTED; RSV- RESP PCR PANEL NOT DETECTED; SARS-CoV-2 -RESP PCR PANEL NOT DETECTED
--- NOTE | 2023-07-17 20:19 | ED Physician Documentation ---
History of Present Illness - Stated complaint Stated Complaint: COUGH/R EAR PX - Chief complaint Chief Complaint: General - Additonal information Additional information: 63-year-old female with history of peripheral neuropathy, C. difficile, endometriosis, depression, anxiety, osteoarthritis presents emergency department for generalized malaise and unwell feeling. Patient says that she has been feeling unwell since Mother's Day has been coming and going she has been having on and off right ear pain but given that she feels like she has enlarged lymph nodes along her right neck now as well as some pain to her ear with opening closing her jaw she wanted to come into the emergency department for further evaluation. She is unsure if she has had any recent fevers or chills. 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, 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 - Present Medications Home Medications: Ambulatory Orders Medication Instructions Recorded Confirmed Promethazine [Phenergan] 25 mg PO HS 12/17/21 07/17/23 Amox/Clav 875/125 [Augmentin 1 tablet PO Q12H 7 Days #14 tablet 07/17/23 875/125 Tab] - Allergies Allergies/Adverse Reactions: Allergies Allergy/AdvReac Type Severity Reaction Status Date / Time doxycycline Allergy Hives Verified 07/17/23 18:35 aspirin AdvReac Nausea Verified 07/17/23 18:35 - Social History Does the pt smoke?: Yes Smoking Status: Current every day smoker Does the pt drink ETOH?: Yes Does the pt have substance abuse?: No - Immunizations Immunizations are current?: Yes - POLST Patient has POLST: No POLST Status: Full Code PD ED PE NORMAL - Vitals Vital signs reviewed: Yes - General General: Alert and oriented X 3, No acute distress, Well developed/nourished - HEENT HEENT: Moist mucous membranes, Other (right TM dull, bulging, erythema, TM intact, no drainage, normal external ear canal, no mastoid tenderness no trismus) - Neck Neck: Other (right neck adenopothy) - Cardiac Cardiac: RRR - Respiratory Respiratory: No respiratory distress, Clear bilaterally - Abdomen Abdomen: Normal bowel sounds Results - Vitals Vitals: Vital Signs - 24 hr 07/17/23 07/17/23 18:35 21:41 Temperature 36.4 C L 36.9 C Heart Rate 78 80 Respiratory 20 16 Rate Blood Pressure 187/95 H 131/100 H O2 Saturation 98 98 Oxygen O2 Source Room air - Labs Labs: Laboratory Tests 07/17/23 18:45 Nasal Adenovirus (PCR) NOT DETECTED Nasal B. parapertussis DNA (PCR) NOT DETECTED Nasal Coronavir 229E PCR NOT DETECTED Nasal Coronavir HKU1 PCR NOT DETECTED Nasal Coronavir NL63 PCR NOT DETECTED Nasal Coronavir OC43 PCR NOT DETECTED Nasal Enterovir/Rhinovir PCR NOT DETECTED Nasal Influenza B PCR NOT DETECTED Nasal Influenza A PCR NOT DETECTED Nasal Parainfluen 1 PCR NOT DETECTED Nasal Parainfluen 2 PCR NOT DETECTED Nasal Parainfluen 3 PCR NOT DETECTED Nasal Parainfluen 4 PCR NOT DETECTED Nasal RSV (PCR) NOT DETECTED Nasal B.pertussis DNA PCR NOT DETECTED Nasal C.pneumoniae (PCR) NOT DETECTED Sameer Human Metapneumo PCR NOT DETECTED Nasal M.pneumoniae (PCR) NOT DETECTED Nasal SARS-CoV-2 (PCR) NOT DETECTED PD Medical Decision Making - ED course ED course: Exam and history most consistent with AOM. I have a low suspicion at this time for mastoiditis, malignant otitis externa, herpes or thacker gonsalves syndrome, or retained foreign body. Given how long pt has been feeling will I went ahead and started pt on Augmentin. If symptoms worsen or persist after being on antibiotics she was told to come back to ER. All questions answered. Pt safe for discharge and told to follow up with PCP about growing lung nodules. No signs of penumonia or acute cardiopulmonary abnomalities on X-rays. Departure - Departure Disposition: 01 Home, Self Care Clinical Impression: Acute otitis media Instructions: ED Otitis Media Acute Adult Prescriptions: Amox/Clav 875/125 [Augmentin 875/125 Tab] 1 tablet PO Q12H 7 Days #14 tablet Comments: Thank you for trusting us with your care. Your chest x-ray does not show any acute cardiopulmonary abnormalities no pneumonia. Just you know that chest x-ray does show right lower lobe nodule may have increased in size and so they are recommending you follow-up to do a CT outpatient with your primary care provider. You do appear to have an ear infection on your right ear so we will go ahead and alternate between Tylenol ibuprofen for pain continue with warm compresses and I have started you on an antibiotic called Augmentin you will take this twice a day for the next 7 days. If after 2 days your pain has not improved or as gotten worse please come back to the emergency department for further evaluation. EXAM: [id number] ([id number]) PROCEDURE: Chest 2V INDICATIONS: cough x2 weeks TECHNIQUE: 2 views of the chest were acquired. COMPARISON: CT chest 07/08/2021. FINDINGS: Surgical changes and devices: Cervical spinal hardware is present. Lungs and pleura: No pleural effusions or pneumothorax. No acute consolidation. 13 mm nodule is seen projecting over the right lower lobe, corresponding in location to the area previously seen [address] from 07/08/2021. Mediastinum: Mediastinal contours appear normal. Heart size is normal. Bones and chest wall: No suspicious bony lesions. Overlying soft tissues appear unremarkable. IMPRESSION: No acute cardiopulmonary abnormality. Right lower lobe nodule may have increased in size compared to CT from 07/08/2021. Consider follow-up outpatient chest CT for further evaluation. Reviewed by: Estevan Vega MD on 07/17/2023 7:17 PM PDT Approved by: Estevan Vega MD on 07/17/2023 7:17 PM PDT Forms: PCP List Discharge Date/Time: 07/17/23 21:42
[2023-07-17] MEDS: AMOX/CLAV 875 MG/125 MG TABLET PO STA (21:33)
[2023-07-17] MEDS: ACETAMINOPHEN 325 MG TABLET PO STA (21:33)
[2023-07-17 21:45] VITALS: BP 131/100
== END 2023-07-17 21:42 | disposition home or self-care (01) ==
LOC: ED 18:31
DX: H66.91 Otitis media, unspecified, right ear (principal); R05.9 Cough, unspecified; R91.1 Solitary pulmonary nodule; F17.200 Nicotine dependence, unspecified, uncomplicated; Z20.822 Contact with and (suspected) exposure to COVID-19
CPT/HCPCS: 71046; 87633; 99283; 99284; A9270

== ENCOUNTER 2023-08-29 13:51 | Outpatient (CLI) | payer MEDICARE, MEDICAID ==
[2023-08-29 14:09] LABS: BASOPHILS # (AUTO) 0.1 10^3/uL (0.0-0.1); BASOPHILS % (AUTO) 0.6 %; EOSINOPHILS # (AUTO) 0.1 10^3/uL (0.0-0.7); EOSINOPHILS % (AUTO) 0.7 %; HCT - HEMATOCRIT 40.3 % (37.0-47.0); HGB - HEMOGLOBIN 13.6 g/dL (12.0-16.0); LYMPHOCYTES # (AUTO) 2.6 10^3/uL (1.5-3.5); LYMPHOCYTES % (AUTO) 30.7 %; MEAN CORPUSCULAR HEMOGLOBIN 33.2 pg (27.0-31.0); MEAN CORPUSCULAR HGB CONC 33.7 g/dL (32.0-36.0); MEAN CORPUSCULAR VOLUME 98.3 fL (81.0-99.0); MEAN PLATELET VOLUME 9.9 fL (7.9-10.8); MONOCYTES # (AUTO) 0.5 10^3/uL (0.0-1.0); MONOCYTES % (AUTO) 5.2 %; NEUTROPHILS # (AUTO) 5.4 10^3/uL (1.5-6.6); NEUTROPHILS % (AUTO) 62.6 %; PLT - PLATELET COUNT 280 10^3/uL (130-450); RED CELL DISTRIBUTION WIDTH 12.7 % (12.0-15.0); WHITE BLOOD COUNT 8.6 x10^3/uL (4.8-10.8)
[2023-08-29 14:24] LABS: ALBUMIN 4.3 g/dL (3.2-5.5); ALBUMIN/GLOBULIN RATIO 1.3 (1.0-2.2); ALKALINE PHOSPHATASE 87 IU/L (42-121); ALT ALANINE AMINOTRANSFERASE 29 IU/L (10-60); AST ASPARTATE AMINOTRANSFERASE 22 IU/L (10-42); BILIRUBIN,TOTAL 0.5 mg/dL (0.2-1.0); BUN - BLOOD UREA NITROGEN 21 mg/dL (6-20); CALCIUM 9.6 mg/dL (8.5-10.3); CARBON DIOXIDE - CO2 27 mmol/L (21-32); CHLORIDE 106 mmol/L (101-111); CHOL/HDL RATIO 3.6 (<4.4); CHOLESTEROL 247 mg/dL; CREATININE 0.6 mg/dL (0.6-1.3); GFR - MDRD 102 (>89); GLUCOSE 133 mg/dL (74-104); HDL CHOLESTEROL 68 mg/dL; LDL CHOLESTEROL,CALCULATED 137 mg/dL; POTASSIUM 3.5 mmol/L (3.5-4.5); SODIUM 141 mmol/L (135-145); TOTAL PROTEIN 7.6 g/dL (6.4-8.9); TRIGLYCERIDES 209 mg/dL; VLDL CHOLESTEROL 42 mg/dL
[2023-08-29 14:37] LABS: THYROID STIMULATING HORMONE 3.62 uIU/mL (0.34-5.60)
[2023-08-29 22:51] LABS: ESTIMATED AVERAGE GLUCOSE 114 mg/dL (70-100); HEMOGLOBIN A1c% 5.6 % (4.27-6.07)
== END 2023-08-29 13:52 | disposition home or self-care (01) ==
LOC: LAB 13:51
PROVIDERS: ATTEND Internal Medicine
DX: R05.1 Acute cough (principal); R06.00 Dyspnea, unspecified; R49.8 Other voice and resonance disorders; R21 Rash and other nonspecific skin eruption; R91.1 Solitary pulmonary nodule; Z11.59 Encounter for screening for other viral diseases; Z79.899 Other long term (current) drug therapy; R63.5 Abnormal weight gain
CPT/HCPCS: 36415; 80053; 80061; 83036; 83721; 84443; 85025; 86803

== ENCOUNTER 2023-08-29 14:15 | Outpatient (CLI) | payer MEDICARE, MEDICAID ==
[2023-08-29] MEDS ORDERED: iohexoL-300 100 ML VIAL ONE (14:33)
[2023-08-29] MEDS: iohexoL-300 100 ML VIAL IVP ONE (16:40)
--- NOTE | 2023-08-30 16:02 | CT Report ---
PROCEDURE: Chest W INDICATIONS: PULMONARY NODULE, DYSPNEA CONTRAST: Omni 300 100ml TECHNIQUE: After the administration of intravenous contrast, a CT scan of the chest was performed. Images were recorded and evaluated at appropriate window settings. Reformats: axial MIP of the chest, coronal and sagittal. For radiation dose reduction, the following was used: automated exposure control, adjustme nt of mA and/or kV according to patient size. COMPARISON: CT chest on July 08, 2021 and April 15, 2021. FINDINGS: Image quality: Diagnostic. Chest wall and lower neck: No thyroid nodule which requires sonographic follow up. No breast mass. No axillary or supraclavicular adenopathy by size. Lungs and pleura: No consolidation. No pleural effusions. No pneumothorax. Compared to CT chest date d July 08, 2021, right lower lobe solid, noncalcified pulmonary nodule has increased in size measuring 2.1 x 1.6 cm, previously 0.9 x 0.8 cm. No new pulmonary nodules. Patent central airways. Mediastinum: Heart size is normal. No pericardial effusion. No large vessel abnormality. No mediastin al adenopathy by size criteria. No coronary vessel calcifications. Bones: No aggressive osseous abnormality. Upper Abdomen: Diffuse hypoattenuation of the liver. Cholecystectomy. IMPRESSION: 1.Compared to CT chest dated July 08, 2021, right lower lobe solid, noncalcified pulmonary nodule has increased in size measuring 2.1 x 1.6 cm, previously 0.9 x 0.8 cm. Findings are suspicious for malign lazara. Consider a PET/CT and/or tissue sampling for further evaluation. 2.No new pulmonary nodule. 3.No adenopathy by size criteria. 4.Diffuse hypoattenuation of the liver which may be seen in the setting of parenchymal disease such a s steatosis. Reviewed by: Leonard Zambrano MD on 08/30/2023 4:01 PM PDT Approved by: Leonard Zambrano MD on 08/30/2023 4:01 PM PDT Station ID: [id number]
== END 2023-08-29 14:16 | disposition home or self-care (01) ==
LOC: DI 14:15
PROVIDERS: ATTEND Internal Medicine
DX: R91.1 Solitary pulmonary nodule (principal)
CPT/HCPCS: 71260; Q9967; 36415; 80053; 80061; 83036; 83721; 84443; 85025; 86803

== ENCOUNTER 2023-10-24 11:30 | Outpatient (CLI) | payer MEDICARE, MEDICAID ==
--- NOTE | 2023-10-24 13:30 | XRAY Report ---
PROCEDURE: Ribs w/PA Chest 3+V RT INDICATIONS: UPPER BACK PAIN TECHNIQUE: 2 views of the ribs were acquired, along with a single view chest. COMPARISON: CT chest 08/29/2023 FINDINGS: Surgical changes and devices: Partially visualized cervical prosthetic disc. Bones and chest wall: No fractures or dislocations. No suspicious bony lesions. Overlying soft tis sues appear unremarkable. Lungs and pleura: No pleural effusions or pneumothorax. Right lower lobe nodular opacity is present corresponding to CT abnormality. Mediastinum: Mediastinal contours appear normal. Heart size is normal. IMPRESSION: No visualized acute fracture or dislocation. However, occult injury cannot be excluded. Recommend tabitha rt interval imaging follow-up in 7-10 days as clinically indicated for additional evaluation. Right lower lobe pulmonary opacities corresponding to nodular mass identified on CT. Reviewed by: Mary Aguilar MD on 10/24/2023 1:29 PM PDT Approved by: Mary Aguilar MD on 10/24/2023 1:29 PM PDT Station ID: [id number]
== END 2023-10-24 11:45 | disposition home or self-care (01) ==
LOC: DI.N 11:30
PROVIDERS: ATTEND Nurse Practitioner
DX: M54.6 Pain in thoracic spine (principal); R91.8 Other nonspecific abnormal finding of lung field

== ENCOUNTER 2025-01-23 13:09 | Observation (INO) ==
--- NOTE | 2025-01-23 13:10 | ED Physician Documentation ---
PD HPI MHE Stated complaint Stated Complaint: ANXIETY/MED REFILL History obtained from History obtained from: Patient and EMS Meds/Allgy Home Medications Ambulatory Orders Medication Instructions Recorded Confirmed nebulizers (Aeroneb Go Nebulizer) #1 ea 08/16/2412/08 polyethylene glycol 3350 17 17 g PO QDAY PRN constipat ion 10/27/24 01/12/25 gram/dose oral powder sennosides 8.6 mg tablet (Senna 17.2 mg PO QDAY PRN co nstipation 10/27/24 01/12/25 Laxative) albuterol sulfate 90 mcg/actuation 2 puff inhalation Q 6H PRN 12/05/24 01/12/25 aerosol inhaler (Ventolin HFA) shortness of breath or wheezing #8.5 grams calcium citrate 250 mg PO TID 01/09/2501/09 ergocalciferol (vitamin D2) 1,250 1,250 mcg PO QWEEK 1 03/11/24 01/12/25 mcg (50,000 unit) capsule acyclovir 400 mg tablet 400 mg PO TID PRN herpes #30 tabs 01/12/25 01/12/25 arformoterol 15 mcg/2 mL solution 2 ml inhalation BID COPD #60 mL 01/12/25 01/12/25 for nebulization budesonide 0.5 mg/2 mL suspension 0.5 mg (2 mL) inhala tion BID #60 mL 01/12/25 01/12/25 for nebulization budesonide 180 mcg/actuation 1 inh inhalation BID [employer] jose 01/12/25 01/12/25 breath activated powder inhaler cough, Bronchitis #1 e a fluticasone 232 mcg-salmeterol 14 1 inh inhalation BID COPD #1 ea 01/12/25 01/12/25 mcg/actuation breath activated powdr inhalational spacing device (Migel #1 ea 01/12/25 Aerosol Trinity Enhancer spacer) ipratropium 0.5 mg-albuterol 3 mg 3 ml inhalation QID PRN shortness 01/12/25 01/12/25 (2.5 mg base)/3 mL nebulization of breath or wheezing, excessive soln cough #90 mL ketoconazole 2 % topical cream 1 applic topical BID Sk in 01/12/25 01/12/25 infection-fungal #15 grams lorazepam 0.5 mg tablet 0.5 mg PO TID PRN anxiety #3 0 tabs 01/12/25 01/12/25 losartan 25 mg tablet 25 mg PO BID HIGH BLOOD PRES SURE 01/12/25 01/12/25 #180 tabs magnesium 200 mg tablet 200 mg PO DAILY #30 tabs 01/12/25 montelukast 10 mg tablet 10 mg PO QDAY Allergy #90 ta bs 01/12/25 01/12/25 olanzapine 5 mg tablet 5 mg PO QPM PSY #30 tabs 01/12/25 promethazine 25 mg tablet 25 mg PO BID PRN nausea and 01/12/25 01/12/25 vomiting #60 tabs tramadol 50 mg tablet 50 mg PO TID PRN pain #30 ta bs 01/12/25 01/12/25 Allergies Allergies Allergy/AdvReac Type Severity Reaction Status Date / Time doxycycline Allergy Severe Hives Verified 01/12/25 11:23 acetaminophen (From [facility]) Allergy Mild Hives Verified 01/12/25 11:23 aspirin AdvReac Severe Nausea Verified 01/12/25 12:17 PFS Active Problems All Active Problems (Updated 01/20/25 @ 07:54 by Irene Ferrell, LITHOGRAPHIC STRIPPER, MSN, PLATING DEPARTMENT HELPER) Chronic pain after cancer treatment (Acute) Shortness of breath at rest (Acute) Oral candidiasis (Acute) Mood changes (Acute) COPD (chronic obstructive pulmonary disease) (Chronic) Anxiety about treatment (Acute) Hypomagnesemia (Acute) Fatigue (Acute) Weakness (Acute) Nausea & vomiting (Acute) Lung cancer (Acute) Dyspnea (Acute) Pleural effusion (Acute) Pleural effusion on right (Acute) Adenocarcinoma of lower lobe of right lung (Acute) Cough (Chronic) Nasal congestion (Acute) Fever (Acute) Pleural effusion (Acute) Elevated heart rate with elevated blood pressure without diagnosis of hypertension (Acute) SOB (shortness of breath) on exertion (Acute) Metastatic adenocarcinoma involving right lung with unknown primary site (Acute) Lung mass (Acute) Acute cough (Acute) Acute bronchitis (Acute) Right lower lobe pulmonary nodule (Acute) Tear of meniscus of left knee (Acute) Dental infection (Acute) Impaired weight bearing (Acute) Instability of left knee joint (Acute) Left knee pain (Acute) Alcohol dependence (Acute) Tobacco dependence (Acute) Genital herpes (Acute) Colon cancer screening (Acute) Tabby infection of flexural skin (Acute) Carpal tunnel syndrome, bilateral (Acute) Carpal tunnel syndrome, left upper limb (Acute) Chronic abdominal pain (Acute) Nausea (Acute) Acute UTI (Chronic) High blood pressure (Acute) Elevated blood pressure reading (Acute) Upper back pain (Acute) Medication refill (Acute) Coccygeal pain, acute (Acute) Knee pain (Acute) Elbow pain (Acute) Fall (Acute) Pulmonary nodule (Acute) Dehydration (Acute) Small bowel obstruction (Acute) Hematuria (Acute) Regional enteritis (Acute) Enteritis (Acute) Leukocytosis (Acute) Abdominal pain (Acute) Diarrhea (Acute) Nausea and vomiting (Acute) Low back pain (Acute) Left elbow contusion (Acute) Neck sprain (Acute) Fall from ground level (Acute) Fatigue (Acute) Sinus infection (Acute) URI (upper respiratory infection) (Acute) Back pain (Acute) Sciatica (Acute) Depression (Acute) Anxiety (Acute) Chest wall contusion (Acute) Sebaceous cyst (Acute) Blurred vision, right eye (Acute) Rib pain on right side (Acute) Medical History Medical History (Updated 01/20/25 @ 07:54 by MARTHA Stone, MSN, PLATING DEPARTMENT HELPER) Hx of pleural effusion Anal fistula, complex, persistent Social History Social History (Updated 01/12/25 @ 11:30 by Rachele Carter RN) Smoking Status: Former smoker If you are a former smoker, when did you quit? (Date/Year): 09/2024 Number of Years Smoked: 30 How many cigarettes a day do you smoke? (20 cigarettes=1 Pk): 10 Do you dip or chew tobacco?: No Do you vape?: No Patient requests smoking cessation consult: No Initiate information on smoking cessation: No Living arrangement: At home Marital Status: Single Living Condition: With spouse/s.o. Support Person: Yes Physical Activity: Walking Level: Independent Do you feel safe in your home environment?: Yes (having problems with her landlord ) History of physical, verbal, emotional, or financial abuse?: No ETOH Use: None and Liquor Frequency: Weekly Substance Use: denies use Are you sexually active?: No POLST Patient has POLST: No POLST on file?: Yes POLST CPR Status: Do Not Attempt Resuscitation (DNAR) / Allow Natural Level of Medical Intervention: Comfort Focused Treatment Results Vitals Vitals: Oxygen O2 Source Room air Discharge Plan Discharge Print Language: Scottish
--- OUTSIDE RECORDS SUMMARY | 2025-01-23 13:16 | EXTERNAL MEDICAL SUMMARY RPT | Continuity of Care Document ---
Author Organization [facility] Address [address] [place] [id number] Phone Problems date description facility 2024-10-29 00:04 Dysuria [facility] 2024-10-29 15:18 Dysuria [facility] 2024-11-25 13:37 Otalgia, right ear [facility] 2024-11-25 13:37 Pneumonia, unspecified organism [facility] 2024-11-25 13:37 Periapical abscess without sinu s [facility] 2024-11-25 13:37 Other specified diso rders of teeth and supporting structures [facility] 2024-11-25 13:37 Cough, unspecified [facility] 2024-11-25 13:37 Dyspnea, unspecified [facility] 2024-11-25 13:37 Shortness of breath [facility] 2024-11-25 13:37 Chest pain, unspecified [facility] 2024-11-25 13:37 Dysuria [facility] 2024-11-26 17:28 Malignant neoplasm o f unspecified part of unspecified bronchus or lung [facility] 2024-11-28 09:12 Malignant neoplasm o f unspecified part of unspecified bronchus or lung [facility] 2024-11-28 09:12 Dorsalgia, unspecified [facility] 2024-11-28 09:12 Nausea with vomiting, unspecifi ed [facility] 2024-12-01 18:14 Nausea with vomiting, unspecifi ed [facility] 2024-12-01 18:18 Hypomagnesemia [facility] 2024-12-01 18:18 Nausea with vomiting, unspecifi ed [facility] 2024-12-03 10:11 Hypomagnesemia [facility] 2024-12-03 10:11 [facility]ness of breath [facility] 2024-12-03 10:11 Nausea with vomiting, unspecifi ed [facility] 2024-12-03 10:11 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, implants and grafts, initial encounter [facility] 2024-12-05 17:37 Cough, unspecified [facility] 2024-12-05 17:37 Shortness of breath [facility] 2024-12-08 13:38 Acute pharyngitis, unspecified [facility] 2025-01-12 12:28 Herpesviral infectio n of urogenital system, unspecified [facility] 2025-01-12 12:28 [facility]asis [facility] 2025-01-12 12:28 Malignant neoplasm o f unspecified part of unspecified bronchus or lung [facility] 2025-01-12 12:28 Malignant neoplasm o f unspecified part of right bronchus or lung [facility] 2025-01-12 12:28 Hypomagnesemia [facility] 2025-01-12 12:28 Anxiety disorder, unspecified [facility] 2025-01-12 12:28 Essential (primary) hypertensio n [facility] 2025-01-12 12:28 Pneumonia, unspecified organism [facility] 2025-01-12 12:28 Acute bronchitis, unspecified [facility] 2025-01-12 12:28 Chronic obstructive pulmonary d isease, unspecified [facility] 2025-01-12 12:28 Cough, unspecified [facility] 2025-01-12 12:28 Shortness of breath [facility] 2025-01-12 12:28 Nausea [facility] 2025-01-12 12:28 Emotional lability [facility] Results/Labs test date facility value unit notes Result panel 1 CUL, URINE 2024-10-28 15:00 [facility] CXPCULTUR E IN PROGRESS. RESULTS TO FOLLOW. (missing) (missing) CUL, URINE 2024-10-28 15:00 [facility] LPOLYLESS THAN 10,000 COLONIES/ML polymicrobial growth including (missing) (missing) CUL, URINE 2024-10-28 15:00 [facility] LPOLYcontaminatio n. (missing) (missing) CUL, URINE 2024-10-28 15:00 [facility] LPOLYpote ntial pathogens. This is suggestive of skin or other (missing) (missing) Result panel 2 LIPASE 2024-11-26 14:23 [facility] < 10 u/l As of August 2022 testing method has changed, this may include reference ranges. NUCLEATED RED BLOOD CELLS AUTO 2024-11-26 14:23 [facility] 0.0 /100wbc (missing) BASOPHILS # (AUTO) 2024-11-26 14:23 [facility] 0.0 10 3/ul (missing) NRBC ABSOLUTE COUNT (AUTO) 2024-11-26 14:23 [facility] 0.00 x10 3/ul (missing) BILIRUBIN,TOTAL 2024-11-26 14:23 [facility] 0.2 mg /dl As of August 2022 testing method has changed, this may include reference ranges. EOSINOPHILS # (AUTO) 2024-11-26 14:23 [facility] 0.3 10 3/ul (missing) ALBUMIN/GLOBULIN RATIO 2024-11-26 14:23 [facility] 0.7 (missing) (missing) CREATININE 2024-11-26 14:23 [facility] 0.9 mg/dl As of August 2022 testing method has changed, this may include reference ranges. MONOCYTES # (AUTO) 2024-11-26 14:23 [facility] 1.2 10 3/ul (missing) MAGNESIUM 2024-11-26 14:23 [facility] 1.3 mg/dl As of August 2022 testing method has changed, this may include reference ranges. BUN - BLOOD UREA NITROGEN 2024-11-26 14:23 [facility] 10 mg/dl As of Aug testing method has changed, this may include reference ranges. CHLORIDE 2024-11-26 14:23 [facility] 101 mmol/l As of August 2022 testing method has changed, this may include reference ranges. RED CELL DISTRIBUTION WIDTH 2024-11-26 14:23 [facility] 13.7 % (missing) SODIUM 2024-11-26 14:23 [facility] 137 mmol/l (missing) AST ASPARTATE AMINOTRANSFERASE 2024-11-26 14:23 [facility] 16 iu/l As of August 2022 testing method has changed, this may include reference ranges. ALT ALANINE AMINOTRANSFERASE 2024-11-26 14:23 [facility] 18 iu/l As of August 2022 testing method has changed, this may include reference ranges. RED BLOOD COUNT 2024-11-26 14: [facility] 2.79 10 6/ul (missing) LYMPHOCYTES # (AUTO) 2024-11-26 14:23 [facility] 2.9 10 3/ul (missing) HCT - HEMATOCRIT 2024-11-26: [facility] 27.8 % (missing) CARBON DIOXIDE - CO2 2024-11-26:23 [facility] 29 mmol/l As of August 2022 testing method has changed, this may include reference ranges. ALBUMIN 2024-11-26: [facility] 3.2 g/dl As of August 2022 testing method has changed, this may include reference ranges. POTASSIUM 2024-11-26: [facility] 3.6 mmol/l As of August 2022 testing method has changed, this may include reference ranges. MEAN CORPUSCULAR HEMOGLOBIN 2024-11-26 14:23 [facility] 31.9 pg (missing) MEAN CORPUSCULAR HGB CONC 2024-11-26 14:23 [facility] 32.0 g/dl (missing) NEUTROPHILS # (AUTO) 2024-11-26:23 [facility] 4.3 10 3/ul (missing) GLOBULIN 2024-11-26 14:23 [facility] 4.6 g/dl (missing) PLT - PLATELET COUNT 2024-11-26: [facility] 585 10 3/ul (missing) GFR - MDRD 2024-11-26: [facility] 63 (missin g) The IDMS-traceable MDRD Study Equation has been validated extensively in and populations between the ages of 18 and 70 with impaired kidney function (eGFR < 60 mL/min/1.73m2) and has shown good performance for patients with all common causes of kidney disease. Although this equation has not been validated for patients older than 70, an MDRD-derived eGFR may still be a useful tool for providers caring for patients older than 70. References: http://www.nkdep. nih.gov/lab-evalu ation/gfr/creatin ine-stand ardization, last updated April 2011. ANION GAP 2024-11-26 14:23 [facility] 7.0 (missing ) (missing) TOTAL PROTEIN 2024-11-26 14:23 [facility] 7.8 g/dl As of August 2022 testing method has changed, this may include reference ranges. ALKALINE PHOSPHATASE 2024-11-26 14:23 [facility] 78 iu/l As of August 2022 testing method has changed, this may include reference ranges. CALCIUM 2024-11-26 14: [facility] 8.1 mg/dl As of August 2022 testing method has changed, this may include reference ranges. MEAN PLATELET VOLUME 2024-11-26 14:23 [facility] 8.7 fl (missing) WHITE BLOOD COUNT 2024-11-26 14:23 [facility] 8.8 x10 3/ul (missing) HGB - HEMOGLOBIN 2024-11-26 14:23 [facility] 8.9 g /dl (missing) GLUCOSE 2024-11-26 14:23 [facility] 87 mg/dl As of August 2022 testing method has changed, this may include reference ranges. MEAN CORPUSCULAR VOLUME 2024-11-26 14:23 [facility] 99.6 fl (missing) Result panel 3 LIPASE 2024-12-01 11:55 [facility] < 10 u/l As of August 2022 testing method has changed, this may include reference ranges. NUCLEATED RED BLOOD CELLS AUTO 2024-12-01 11:55 [facility] 0.0 /100wbc (missing) EOSINOPHILS # (AUTO) 2024-12-01 11:55 [facility] 0.0 10 3/ul (missing) NRBC ABSOLUTE COUNT (AUTO) 2024-12-01 11:55 [facility] 0.00 x10 3/ul (missing) BASOPHILS # (AUTO) 2024-12-01 11:55 [facility] 0.1 10 3/ul (missing) BILIRUBIN,TOTAL 2024-12-01 11:55 [facility] 0.4 mg /dl As of August 2022 testing method has changed, this may include reference ranges. ALBUMIN/GLOBULIN RATIO 2024-12-01 11:55 [facility] 0.7 (missing) (missing) CREATININE 2024-12-01 11:55 [facility] 0.9 mg/dl As of August 2022 testing method has changed, this may include reference ranges. MONOCYTES # (AUTO) 2024-12-01 11:55 [facility] 1.1 10 3/ul (missing) MAGNESIUM 2024-12-01 11:55 [facility] 1.2 mg/dl As of August 2022 testing method has changed, this may include reference ranges. HGB - HEMOGLOBIN 2024-12-01 11:55 [facility] 10.2 g /dl (missing) CHLORIDE 2024-12-01 11:55 [facility] 103 mmol/l As of August 2022 testing method has changed, this may include reference ranges. ANION GAP 2024-12-01 11:55 [facility] 11.0 (missing ) (missing) GLUCOSE 2024-12-01 11:55 [facility] 112 mg/dl As of August 2022 testing method has changed, this may include reference ranges. BUN - BLOOD UREA NITROGEN 2024-12-01 11:55 [facility] 12 mg/dl As of Aug testing method has changed, this may include reference ranges. WHITE BLOOD COUNT 2024-12-01 11:55 [facility] 12.5 x10 3/ul (missing) RED CELL DISTRIBUTION WIDTH 2024-12-01 11:55 [facility] 14.4 % (missing) SODIUM 2024-12-01 11:55 [facility] 141 mmol/l (missing) LYMPHOCYTES # (AUTO) 2024-12-01 11:55 [facility] 2.5 10 3/ul (missing) AST ASPARTATE AMINOTRANSFERASE 2024-12-01 11:55 [facility] 26 iu/l As of August 2022 testing method has changed, this may include reference ranges. ALT ALANINE AMINOTRANSFERASE 2024-12-01 11:55 [facility] 26 iu/l As of August 2022 testing method has changed, this may include reference ranges. CARBON DIOXIDE - CO2 2024-12-01 11:55 [facility] 27 mmol/l As of August 2022 testing method has changed, this may include reference ranges. RED BLOOD COUNT 2024-12-01 11:55 [facility] 3.22 10 6/ul (missing) POTASSIUM 2024-12-01 11:55 [facility] 3.3 mmol/l As of August 2022 testing method has changed, this may include reference ranges. ALBUMIN 2024-12-01 11:55 [facility] 3.4 g/dl As of August 2022 testing method has changed, this may include reference ranges. MEAN CORPUSCULAR HEMOGLOBIN 2024-12-01 11:55 [facility] 31.7 pg (missing) HCT - HEMATOCRIT 2024-12-01 11:55 [facility] 31.8 % (missing) MEAN CORPUSCULAR HGB CONC 2024-12-01 11:55 [facility] 32.1 g/dl (missing) GLOBULIN 2024-12-01 11:55 [facility] 4.8 g/dl (missing) PLT - PLATELET COUNT 2024-12-01 11:55 [facility] 623 10 3/ul (missing) GFR - MDRD 2024-12-01 11:55 [facility] 63 (in g) The IDMS-traceable MDRD Study Equation has been validated extensively in and populations between the ages of 18 and 70 with impaired kidney function (eGFR < 60 mL/min/1.73m2) and has shown good performance for patients with all common causes of kidney disease. Although this equation has not been validated for patients older than 70, an MDRD-derived eGFR may still be a useful tool for providers caring for patients older than 70. References: http://www.nkdep. nih.gov/lab-evalu ation/gfr/creatin ine-stand ardization, last updated April 2011. TOTAL PROTEIN 2024-12-01 11:55 [facility] 8.2 g/dl As of August 2022 testing method has changed, this may include reference ranges. NEUTROPHILS # (AUTO) 2024-12-01 11:55 [facility] 8.7 10 3/ul (missing) MEAN PLATELET VOLUME 2024-12-01 11:55 [facility] 8.8 fl (missing) CALCIUM 2024-12-01 11:55 [facility] 8.8 mg/dl As of August 2022 testing method has changed, this may include reference ranges. ALKALINE PHOSPHATASE 2024-12-01 11:55 [facility] 88 iu/l As of August 2022 testing method has changed, this may include reference ranges. MEAN CORPUSCULAR VOLUME 2024-12-01 11:55 [facility] 98.8 fl (missing) Result panel 4 WBC,URINE 2024-12-01 12:10 [facility] 0-3 /hpf (missing) RBC,URINE 2024-12-01 12:10 [facility] 0-5 /hpf (missing) UROBILINOGEN,URI NE 2024-12-01 12:10 [facility] 0.2 (NORMAL) e.u./dl (missing) SPECIFIC GRAVITY,URINE 2024-12-01 12:10 [facility] 1.005 (missing ) (missing) PH,URINE 2024-12-01 12:10 [facility] 6.5 ph (missing) CLARITY,URINE 2024-12-01 12:10 [facility] CLEAR (missing ) (missing) SQUAMOUS EPITHELIAL CELL,UR 2024-12-01 12:10 [facility] FEW Squamous (missing ) (missing) BACTERIA,URINE 2024-12-01 12:10 [facility] Few /hpf (missing) UR CULTURE IF IND 2024-12-01 12:10 [facility] INDICATED (missing ) (missing) URINE MICROSCOPIC INDICATED? 2024-12-01 12:10 [facility] INDICATED (missing ) (missing) CUL, URINE 2024-12-01 12:10 [facility] LPOLYLESS THAN 10,000 COLONIES/ML polymicrobial growth including (missing ) (missing) CUL, URINE 2024-12-01 12:10 [facility] LPOLYcontamination . (missing ) (missing) CUL, URINE 2024-12-01 12:10 [facility] LPOLYpotential pathogens. This is suggestive of skin or other (missing ) (missing) COLOR,URINE 2024-12-01 12:10 [facility] LT. YELLOW (missing ) URINE CLEAN CATCH OCCULT BLOOD,URINE 2024-12-01 12:10 [facility] MODERATE (missing ) (missing) NITRITE,URINE 2024-12-01 12:10 [facility] NEGATIVE (missing ) (missing) BILIRUBIN,URINE 2024-12-01 12:10 [facility] NEGATIVE (missing ) Bilirubin can be influenced by color interference. Please correlate positive results with clinical presentation GLUCOSE, URINE (UA) 2024-12-01 12:10 [facility] NEGATIVE mg/dl (missing) KETONES,URINE (UA) 2024-12-01 12:10 [facility] NEGATIVE mg/dl (missing) LEUKOCYTE ESTERASE, URINE 2024-12-01 12:10 [facility] TRACE (missing ) (missing) PROTEIN,URINE 2024-12-01 12:10 [facility] TRACE mg/dl (missing) Result panel 5 LACTIC ACID, VENOUS 2024-12-01 13:39 [facility] 0.8 mmol/l N As of August 2022 testing method has changed, this may include reference ranges. Result panel 6 TROPONIN I HIGH SENSITIVITY 2024-12-01 17:06 [facility] 5.2 ng/l A HIGH SE NSITIVITY TROPONIN result of >= 14.9 ng/L for females is considered POSITIVE. A HIGH SENSITIVITY TROPONIN result of >= 19.8 ng/L for males is considered POSITIVE. A HIGH SENSITIVITY TROPONIN result of >= 17.9 ng/L for unspecified is considered POSITIVE. Social History date description facility
--- NOTE | 2025-01-23 13:31 | ED Physician Documentation ---
PD HPI NVD Stated complaint Stated Complaint: ANXIETY/MED REFILL Chief complaint Chief Complaint: Resp History obtained from History obtained from: Patient, Family and EMS History of Present Illness Timing - onset: Yesterday (she states onset of nausea and vomiting with watery stools as well, which continued overnight and has her feeling weak. Feeling anxious as well with recent Rx for Ativan TID 12 days ago, #30 tabs. ) Recently seen: Clinic (seen for chemo 3 weeks ago for her lung CA (initial chemo was in september) and had blood trasnfusion 2 weeks ago, per pt. Gets Chemo at [facility].) Meds/Allgy Home Medications Ambulatory Orders Medication Instructions Recorded Confirmed nebulizers (AerTongtechb Go Nebulizer) #1 ea 08/16/2401/23 albuterol sulfate 90 mcg/actuation 2 puff inhalation Q 6H PRN 12/05/24 01/23/25 aerosol inhaler (Ventolin HFA) shortness of breath or wheezing #8.5 grams calcium citrate 250 mg PO TID 01/09/2501/23 ergocalciferol (vitamin D2) 1,250 1,250 mcg PO MO 12/2101/23/25 mcg (50,000 unit) capsule acyclovir 400 mg tablet 400 mg PO TID PRN herpes #30 tabs 01/12/25 01/23/25 arformoterol 15 mcg/2 mL solution 2 ml inhalation BID COPD #60 mL 01/12/25 01/23/25 for nebulization budesonide 0.5 mg/2 mL suspension 0.5 mg (2 mL) inhala tion BID #60 mL 01/12/25 01/23/25 for nebulization inhalational spacing device (Migel #1 ea 01/12/25 Aerosol Ziebach Enhancer spacer) ipratropium 0.5 mg-albuterol 3 mg 3 ml inhalation QID PRN shortness 01/12/25 01/23/25 (2.5 mg base)/3 mL nebulization of breath or wheezing, excessive soln cough #90 mL lorazepam 0.5 mg tablet 0.5 mg PO TID PRN anxiety #3 0 tabs 01/12/25 01/23/25 losartan 25 mg tablet 25 mg PO BID HIGH BLOOD PRES SURE 01/12/25 01/23/25 #180 tabs magnesium 200 mg tablet 200 mg PO DAILY #30 tabs 01/23/25 montelukast 10 mg tablet 10 mg PO QDAY Allergy #90 ta bs 01/12/25 01/23/25 olanzapine 5 mg tablet 5 mg PO QPM PSY #30 tabs 01/23/25 promethazine 25 mg tablet 25 mg PO BID PRN nausea and 01/12/25 01/23/25 vomiting #60 tabs tramadol 50 mg tablet 50 mg PO TID PRN pain #30 ta bs 01/12/25 01/23/25 ketoconazole 2 % topical cream 1 applic topical BID AR N Skin 01/23/25 01/23/25 infection-fungal Allergies Allergies Allergy/AdvReac Type Severity Reaction Status Date / Time doxycycline Allergy Severe Hives Verified 01/23/25 13:21 aspirin AdvReac Severe Nausea Verified 01/23/25 13:21 PFSH Active Problems All Active Problems (Updated 01/23/25 @ 23:15 by Gregorio Davis MD) Anxiety (Chronic) Lung cancer (Acute) Acute dehydration (Acute) Anemia (Chronic) Hypokalemia (Acute) Hypomagnesemia (Acute) Nausea vomiting and diarrhea (Acute) Chronic pain after cancer treatment (Acute) Shortness of breath at rest (Acute) Oral candidiasis (Acute) Mood changes (Acute) COPD (chronic obstructive pulmonary disease) (Chronic) Anxiety about treatment (Acute) Hypomagnesemia (Acute) Fatigue (Acute) Weakness (Acute) Nausea & vomiting (Acute) Lung cancer (Acute) Dyspnea (Acute) Pleural effusion (Acute) Pleural effusion on right (Acute) Adenocarcinoma of lower lobe of right lung (Acute) Cough (Chronic) Nasal congestion (Acute) Fever (Acute) Pleural effusion (Acute) Elevated heart rate with elevated blood pressure without diagnosis of hypertens ion (Acute) SOB (shortness of breath) on exertion (Acute) Metastatic adenocarcinoma involving right lung with unknown primary site (Acute) Lung mass (Acute) Acute cough (Acute) Acute bronchitis (Acute) Right lower lobe pulmonary nodule (Acute) Tear of meniscus of left knee (Acute) Dental infection (Acute) Impaired weight bearing (Acute) Instability of left knee joint (Acute) Left knee pain (Acute) Alcohol dependence (Acute) Tobacco dependence (Acute) Genital herpes (Acute) Colon cancer screening (Acute) Tabby infection of flexural skin (Acute) Carpal tunnel syndrome, bilateral (Acute) Carpal tunnel syndrome, left upper limb (Acute) Chronic abdominal pain (Acute) Nausea (Acute) Acute UTI (Chronic) High blood pressure (Acute) Elevated blood pressure reading (Acute) Upper back pain (Acute) Medication refill (Acute) Coccygeal pain, acute (Acute) Knee pain (Acute) Elbow pain (Acute) Fall (Acute) Pulmonary nodule (Acute) Dehydration (Acute) Small bowel obstruction (Acute) Hematuria (Acute) Regional enteritis (Acute) Enteritis (Acute) Leukocytosis (Acute) Abdominal pain (Acute) Diarrhea (Acute) Nausea and vomiting (Acute) Low back pain (Acute) Left elbow contusion (Acute) Neck sprain (Acute) Fall from ground level (Acute) Fatigue (Acute) Sinus infection (Acute) URI (upper respiratory infection) (Acute) Back pain (Acute) Sciatica (Acute) Depression (Acute) Anxiety (Acute) Chest wall contusion (Acute) Sebaceous cyst (Acute) Blurred vision, right eye (Acute) Rib pain on right side (Acute) Medical History Medical History (Updated 01/23/25 @ 23:15 by Gregorio Davis MD) Hx of pleural effusion Anal fistula, complex, persistent Social History Social History Smoking Status: Former smoker If you are a former smoker, when did you quit? (Date/Year): 09/2024 Number of Years Smoked: 30 How many cigarettes a day do you smoke? (20 cigarettes=1 Pk): 10 Second hand tobacco smoke exposure: No Do you dip or chew tobacco?: No Do you vape?: No Patient requests smoking cessation consult: No Initiate information on smoking cessation: No Living arrangement: At home Marital Status: Single Living Condition: With spouse/s.o. Support Person: Yes Physical Activity: Walking Level: Independent Do you feel safe in your home environment?: Yes History of physical, verbal, emotional, or financial abuse?: No ETOH Use: None and Liquor Frequency: Weekly Substance Use: denies use Are you sexually active?: No POLST Patient has POLST: No POLST on file?: Yes POLST CPR Status: Do Not Attempt Resuscitation (DNAR) / Allow Natural Exam Exam Vital Signs: Vital Signs x48h Pulse Resp BP Pulse Ox 01/23/25 15:01 99 18 138/74 H 94 Constitutional normal general appearance, distress noted (moderate) (holding emesis bag and with some dry heaving. ) and average body habitus HENMT oral mucous membranes abnormal (dry) Neck/C-Spine supple Lymph no lymphadenopathy noted Chest inspection of chest abnormal (port noted on chest without signs of infection. ) Respiratory normal respiratory effort and clear to auscultation bilaterally Cardiovascular normal heart rate noted and regular rhythm noted Gastrointestinal abdomen soft to palpation, tender to palpation (moderate) and (epigastric), nontender to percussion and abnormal bowel sounds noted (hypoactive bowel sounds) Genitourinary no CVA tenderness Results Vitals Vitals: Vital Signs - 24 hr 01/23/25 13:10 01/23/25 13:55 01/23/25 14:58 Temperature 37.4 C Temperature Source Temporal Artery Scan Pulse Rate 104 H Respiratory Rate 18 Blood Pressure 143/98 H O2 Saturation 100 O2 Source Room air Pain Intensity 9 8 7 01/23/25 15:01 Temperature Temperature Source Pulse Rate 99 Respiratory Rate 18 Blood Pressure 138/74 H O2 Saturation 94 O2 Source Room air Pain Intensity 7 Oxygen O2 Source Room air Labs Labs: Microbiology 01/23/25 14:23 Occult Blood - Final Stool Laboratory Tests 01/23/25 01/23/25 01/23/25 13:42 14:15 14:23 WBC 9.0 RBC 1.98 L Hgb 6.5 L* Hct 19.7 L* MCV 99.5 H MCH 32.8 H MCHC 33.0 RDW 18.1 H Plt Count 429 MPV 9.0 Neut # (Auto) 5.5 Lymph # (Auto) 1.9 Converse # (Auto) 1.4 H Eos # (Auto) 0.0 Baso # (Auto) 0.0 Absolute Nucleated RBC 0.00 Nucleated RBC % 0.0 Sodium 139 Potassium 2.9 L Chloride 100 L Carbon Dioxide 26 Anion Gap 13.0 BUN 5 L Creatinine 0.7 Estimated GFR (MDRD) 85 L Glucose 116 H Calcium 7.0 L Magnesium 0.6 L* Total Bilirubin 0.4 AST 15 ALT 11 Alkaline Phosphatase 85 Total Protein 7.0 Albumin 3.3 Globulin 3.7 Albumin/Globulin Ratio 0.9 L Lipase < 10 L Stl C. diff Tox B Gene NEGATIVE Blood Type O POSITIVE Blood Type Recheck O POSITIVE Antibody Screen NEGATIVE Crossmatch IS Only See Detail Rads (name of study) abd/pelvic CT: Relevant Findings:: Final report received Interpretation: EXAM: [id number] CT/ABPEW ([id number]) PROCEDURE: CT Abdomen/Pelvis W INDICATIONS: NV, upper abd pain CONTRAST: Omni 300 100mL TECHNIQUE: After the administration of intravenous contrast, a CT scan of the abdomen and pelvis was performed. Images were recorded and evaluated at appropriate window s ettings. Reformats: coronal and sagittal. For radiation dose reduction, the following was used: automated exposure control, adjustment of mA and/or kV according to patient size. COMPARISON: 12/01/2024 FINDINGS: Image quality: Diagnostic. Lower chest: Patient with known hilar/infrahilar mass. There is postobstructive consolidation in the right lung base. There is moderate loculated pleural fluid on the right. Left lung base and pleural space are unremarkable. Heart size is within normal limits. Liver: No solid mass. Gallbladder: Surgically absent. Biliary tree: No intrahepatic or extrahepatic dilation, accounting for age. Spleen: No splenomegaly. Pancreas: No pancreatic ductal dilation. Adrenals: No adrenal nodule. Kidneys and ureters: No hydronephrosis. No renal cystic lesion which requires follow up. No solid mass. Stomach, bowel and peritoneum: No gastric or small bowel dilation. No abnormal wall thickening. No pathologic free fluid. Lymph nodes: No central or retroperitoneal adenopathy. Vessels: No infrarenal aortic aneurysm. Patent portal vein. PELVIS Reproductive organs: Uterus is surgically absent. No adnexal masses. Bladder: No abnormal wall thickening. Pelvic lymph nodes: No pelvic adenopathy by size criteria. Bones: No aggressive osseous abnormality. Other: No significant ventral or inguinal hernia. IMPRESSION: Known right hilar/infrahilar mass with postobstructive drowned right lower lobe and moderate loculated pleural fluid. No acute process in the abdomen and pelvis. No evidence of metastatic disease in the abdomen and pelvis. Reviewed by: Anthony Nguyen MD on 01/23/2025 3:12 PD Medical Decision Making ED course Complexity details: reviewed results (consdierable abnormalities on labs with anemia Hgb down to 6.4, potassium and Mag levels at 0.6.Ordered 1 unit RBCs and also IV fluids wiht electrolytes. ), considered differential (having anxiety about health and was to get chemotherapy today, with Rx for Ativan recently 12 days ago. Out of meds as of yesterday. Now with abrupt N/V/D which seems most likely viral GE. ), d/w patient, d/w family (spouse) and d/w seo consultant (Hospitalist.) ED course: Onset yesterday of nausea vomiting and watery diarrhea associated with abdominal cramping mostly upper abdomen. Feeling generally weak and lightheaded. She is cancer patient for lung cancer on the right apparent adenocarcinoma. She has received chemotherapy and most recent was I believe she said 3 weeks ago. She has had low blood count and received a transfusion 2 weeks ago. No apparent GI bleeding. Her blood count today is 6.4. She does not have a history of CHF or heart disease. Stool was collected from the patient and sent for guaiac which was negative and C. difficile is still pending. She has multiple problems currently with the anemia presumed from chemotherapy along with current gastroenteritis that sounds norovirus and quality and is still nauseous with diarrhea after 2 rounds of antiemetics along with some pain medicine and Lomotil here. We are giving her more medicines and fluids. She was given a magnesium rider 2 g for her low magnesium level which resulted initially. Subsequently the potassium resulted showing low as well at 2.9. The magnesium was 0.6. We will give a potassium rider as well. Given the multiple factors and the significant electrolyte problems, I did talk with the hospitalist who is in agreement with seeing the patient and jose l loza. Discharge Plan Discharge Patient Disposition: ED Place in Observation Condition: Fair Clinical Impression: Nausea vomiting and diarrhea, Hypomagnesemia, Hypokalemia, Acute dehydration, Lung cancer, Anxiety Anemia Qualifiers: Anemia type: bone marrow failure Bone marrow failure anemia type: pancytopenia, antineoplastic chemotherapy-induced Qualified Code(s): D61.810 - Antineoplastic chemotherapy induced pancytopenia Interventions: ED Admission Assessment Last Done: 01/23/25 17:28
[2025-01-23 13:49] LABS: MEAN PLATELET VOLUME 9.0 fL (7.9-10.8); NRBC ABSOLUTE COUNT (AUTO) 0.00 x10^3/uL; NUCLEATED RED BLOOD CELLS AUTO 0.0 /100WBC; PLT - PLATELET COUNT 429 10^3/uL (130-450); RED CELL DISTRIBUTION WIDTH 18.1 % (12.0-15.0)
[2025-01-23 13:52] LABS: HGB - HEMOGLOBIN 6.5 g/dL (12.0-16.0)
[2025-01-23] MEDS: DROPERIDOL 5 MG/2 ML VIAL IVP STA (13:52)
[2025-01-23] MEDS: FAMOTIDINE 20 MG/2 ML VIAL IVP STA (13:53)
[2025-01-23] MEDS: HYDROmorphone 1 MG/ML CARPUJECT IVP STA (13:55)
[2025-01-23] MEDS: DIPHENOX/ATROPINE 2.5/0.025 MG TABLET PO STA (13:57)
[2025-01-23] MEDS: SODIUM CHLORIDE 0.9% 1,000 ML IV STA (13:57)
[2025-01-23] MEDS: HEPARIN FLUSH 500 UNITS/5 ML SYRINGE IVP STA (14:02)
[2025-01-23 14:04] LABS: CARBON DIOXIDE - CO2 26 mmol/L (21-32)
[2025-01-23 14:08] LABS: ALT ALANINE AMINOTRANSFERASE 11 IU/L (10-60); AST ASPARTATE AMINOTRANSFERASE 15 IU/L (10-42); BUN - BLOOD UREA NITROGEN 5 mg/dL (6-20); CREATININE 0.7 mg/dL (0.6-1.3); GFR - MDRD 85 (>89)
[2025-01-23 14:49] LABS: HCT - HEMATOCRIT 19.7 % (37.0-47.0)
[2025-01-23] MEDS: MAGNESIUM SULFATE 2 GRAM 2 GM/50 ML BAG IV ONE ×2 (14:58→17:22)
--- NOTE | 2025-01-23 15:14 | XRAY Report ---
PROCEDURE: XR Chest 1V INDICATIONS: dyspnea, h/o lung CA and effusion TECHNIQUE: One view of the chest was acquired. COMPARISON: Chest x-ray dated 12/01/2024, CT abdomen and pelvis from today, CT angiogram of the chest dated 10/13/2024 FINDINGS: Surgical changes and devices: Port-A-Cath Lungs and pleura: Known right hilar/infrahilar mass obstruction with postobstructive pneumonia involving the right lower lobe. Moderate right pleural effusion. Left lung is grossly clear. Mediastinum: Mediastinal contours appear normal. Heart size is normal. Bones and chest wall: No suspicious bony lesions. Overlying soft tissues appear unremarkable. IMPRESSION: Known right hilar/infrahilar mass, postobstructive pneumonia of the right lower lobe, moderate right pleural effusion., Left lung grossly clear. Reviewed by: Anthony Nguyen MD on 01/23/2025 3:11 PM PST Approved by: Anthony Nguyen MD on 01/23/2025 3:11 PM PST Station ID: [id number]
--- NOTE | 2025-01-23 15:15 | CT Report ---
PROCEDURE: CT Abdomen/Pelvis W INDICATIONS: NV, upper abd pain CONTRAST: Omni 300 100mL TECHNIQUE: After the administration of intravenous contrast, a CT scan of the abdomen and pelvis was performed. Images were recorded and evaluated at appropriate window settings. Reformats: coronal and sagittal. For radiation dose reduction, the following was used: automated exposure control, adjustment of mA and/or kV according to patient size. COMPARISON: 12/01/2024 FINDINGS: Image quality: Diagnostic. Lower chest: Patient with known hilar/infrahilar mass. There is postobstructive consolidation in the right lung base. There is moderate loculated pleural fluid on the right. Left lung base and pleural space are unremarkable. Heart size is within normal limits. Liver: No solid mass. Gallbladder: Surgically absent. Biliary tree: No intrahepatic or extrahepatic dilation, accounting for age. Spleen: No splenomegaly. Pancreas: No pancreatic ductal dilation. Adrenals: No adrenal nodule. Kidneys and ureters: No hydronephrosis. No renal cystic lesion which requires follow up. No solid mass. Stomach, bowel and peritoneum: No gastric or small bowel dilation. No abnormal wall thickening. No pathologic free fluid. Lymph nodes: No central or retroperitoneal adenopathy. Vessels: No infrarenal aortic aneurysm. Patent portal vein. PELVIS Reproductive organs: Uterus is surgically absent. No adnexal masses. Bladder: No abnormal wall thickening. Pelvic lymph nodes: No pelvic adenopathy by size criteria. Bones: No aggressive osseous abnormality. Other: No significant ventral or inguinal hernia. IMPRESSION: Known right hilar/infrahilar mass with postobstructive drowned right lower lobe and moderate loculated pleural fluid. No acute process in the abdomen and pelvis. No evidence of metastatic disease in the abdomen and pelvis. Reviewed by: Anthony Nguyen MD on 01/23/2025 3:12 PM PST Approved by: Anthony Nguyen MD on 01/23/2025 3:12 PM PST Station ID: [id number]
[2025-01-23] MEDS: LORazepam 2 MG/ML VIAL IVP STA (16:29)
[2025-01-23] MEDS: ONDANSETRON 4 MG/2 ML VIAL IVP STA (16:29)
--- NOTE | 2025-01-23 16:37 | HISTORY & PHYSICAL EXAMINATION ---
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 She reports that she recently finished her fourth course of Keytruda, and that she always has the symptoms when it is almost time for the next dose. She reports she has not been able to keep anything down for 2 days. She reports the last thing she got down was a grape soda, and shortly thereafter she had a grape colored bowel movement. She reports subjective fevers yesterday, but none today. She reports progressive weakness due to this inability to keep down any food. In the ER, she was noted to have hemoglobin of 6.5. Chemistry panel revealed potassium 2.9, magnesium 0.6. She was noted to be grossly dehydrated. ED provider ordered 1 unit PRBC transfusion as well as 1 L NS and magnesium repletion and hospitalist was contacted for observation for multiple electrolyte abnormalities as well as intractable nausea and vomiting secondary to her Keytruda regimen Meds/Allgy Home Medications Ambulatory Orders Medication Instructions Recorded Confirmed nebulizers (Aeroneb Go Nebulizer) #1 ea 08/16/2401/23 polyethylene glycol 3350 17 17 g PO QDAY PRN constipat ion 10/27/24 01/23/25 gram/dose oral powder sennosides 8.6 mg tablet (Senna 17.2 mg PO QDAY PRN co nstipation 10/27/24 01/23/25 Laxative) albuterol sulfate 90 mcg/actuation 2 puff inhalation Q 6H PRN 12/05/24 01/23/25 aerosol inhaler (Ventolin HFA) shortness of breath or wheezing #8.5 grams calcium citrate 250 mg PO TID 01/09/2501/09 ergocalciferol (vitamin D2) 1,250 1,250 mcg PO QWEEK 1 03/11/24 01/23/25 mcg (50,000 unit) capsule acyclovir 400 mg tablet 400 mg PO TID PRN herpes #30 tabs 01/12/25 01/23/25 arformoterol 15 mcg/2 mL solution 2 ml inhalation BID COPD #60 mL 01/12/25 01/23/25 for nebulization budesonide 0.5 mg/2 mL suspension 0.5 mg (2 mL) inhala tion BID #60 mL 01/12/25 01/23/25 for nebulization fluticasone 232 mcg-salmeterol 14 1 inh inhalation BID COPD #1 ea 01/12/25 01/12/25 mcg/actuation breath activated powdr inhalational spacing device (Migel #1 ea 01/12/25 Aerosol [place] Enhancer spacer) ipratropium 0.5 mg-albuterol 3 mg 3 ml inhalation QID PRN shortness 01/12/25 01/23/25 (2.5 mg base)/3 mL nebulization of breath or wheezing, excessive soln cough #90 mL ketoconazole 2 % topical cream 1 applic topical BID Sk in 01/12/25 01/23/25 infection-fungal #15 grams lorazepam 0.5 mg tablet 0.5 mg PO TID PRN anxiety #3 0 tabs 01/12/25 01/23/25 losartan 25 mg tablet 25 mg PO BID HIGH BLOOD PRES SURE 01/12/25 01/23/25 #180 tabs magnesium 200 mg tablet 200 mg PO DAILY #30 tabs 01/23/25 montelukast 10 mg tablet 10 mg PO QDAY Allergy #90 ta bs 01/12/25 01/23/25 olanzapine 5 mg tablet 5 mg PO QPM PSY #30 tabs 01/23/25 promethazine 25 mg tablet 25 mg PO BID PRN nausea and 01/12/25 01/23/25 vomiting #60 tabs tramadol 50 mg tablet 50 mg PO TID PRN pain #30 ta bs 01/12/25 01/23/25 Allergies Allergies Allergy/AdvReac Type Severity Reaction Status Date / Time doxycycline Allergy Severe Hives Verified 01/23/25 13:21 aspirin AdvReac Severe Nausea Verified 01/23/25 13:21 PFSH Active Problems All Active Problems (Updated 01/23/25 @ 15:57 by Gregorio Davis MD) Lung cancer (Acute) Acute dehydration (Acute) Anemia (Chronic) Hypokalemia (Acute) Hypomagnesemia (Acute) Nausea vomiting and diarrhea (Acute) Chronic pain after cancer treatment (Acute) Shortness of breath at rest (Acute) Oral candidiasis (Acute) Mood changes (Acute) COPD (chronic obstructive pulmonary disease) (Chronic) Anxiety about treatment (Acute) Hypomagnesemia (Acute) Fatigue (Acute) Weakness (Acute) Nausea & vomiting (Acute) Lung cancer (Acute) Dyspnea (Acute) Pleural effusion (Acute) Pleural effusion on right (Acute) Adenocarcinoma of lower lobe of right lung (Acute) Cough (Chronic) Nasal congestion (Acute) Fever (Acute) Pleural effusion (Acute) Elevated heart rate with elevated blood pressure without diagnosis of hypertension (Acute) SOB (shortness of breath) on exertion (Acute) Metastatic adenocarcinoma involving right lung with unknown primary site (Acute) Lung mass (Acute) Acute cough (Acute) Acute bronchitis (Acute) Right lower lobe pulmonary nodule (Acute) Tear of meniscus of left knee (Acute) Dental infection (Acute) Impaired weight bearing (Acute) Instability of left knee joint (Acute) Left knee pain (Acute) Alcohol dependence (Acute) Tobacco dependence (Acute) Genital herpes (Acute) Colon cancer screening (Acute) Tabby infection of flexural skin (Acute) Carpal tunnel syndrome, bilateral (Acute) Carpal tunnel syndrome, left upper limb (Acute) Chronic abdominal pain (Acute) Nausea (Acute) Acute UTI (Chronic) High blood pressure (Acute) Elevated blood pressure reading (Acute) Upper back pain (Acute) Medication refill (Acute) Coccygeal pain, acute (Acute) Knee pain (Acute) Elbow pain (Acute) Fall (Acute) Pulmonary nodule (Acute) Dehydration (Acute) Small bowel obstruction (Acute) Hematuria (Acute) Regional enteritis (Acute) Enteritis (Acute) Leukocytosis (Acute) Abdominal pain (Acute) Diarrhea (Acute) Nausea and vomiting (Acute) Low back pain (Acute) Left elbow contusion (Acute) Neck sprain (Acute) Fall from ground level (Acute) Fatigue (Acute) Sinus infection (Acute) URI (upper respiratory infection) (Acute) Back pain (Acute) Sciatica (Acute) Depression (Acute) Anxiety (Acute) Chest wall contusion (Acute) Sebaceous cyst (Acute) Blurred vision, right eye (Acute) Rib pain on right side (Acute) Medical History Medical History (Updated 01/23/25 @ 15:57 by Gregorio Davis MD) Hx of pleural effusion Anal fistula, complex, persistent Social History Social History Smoking Status: Former smoker If you are a former smoker, when did you quit? (Date/Year): 09/2024 Number of Years Smoked: 30 How many cigarettes a day do you smoke? (20 cigarettes=1 Pk): 10 Do you dip or chew tobacco?: No Do you vape?: No Patient requests smoking cessation consult: No Initiate information on smoking cessation: No Living arrangement: At home Marital Status: Single Living Condition: With spouse/s.o. Support Person: Yes Physical Activity: Walking Level: Independent Do you feel safe in your home environment?: Yes History of physical, verbal, emotional, or financial abuse?: No ETOH Use: None and Liquor Frequency: Weekly Substance Use: denies use Are you sexually active?: No POLST Patient has POLST: No POLST on file?: Yes POLST CPR Status: Do Not Attempt Resuscitation (DNAR) / Allow Natural Review of Systems Status of ROS: 10 or more systems reviewed and unremarkable except as noted in history and below Exam Exam Vital Signs: Vital Signs x48h Temp Pulse Pulse Resp BP BP Pulse Ox 01/23/25 16:53 98.2 F 98 18 114/97 H 99 01/23/25 16:37 98.1 F 103 H 18 147/76 H 97 01/23/25 15:01 99 18 138/74 H 94 01/23/25 13:10 99.3 F 104 H 18 143/98 H 100 Constitutional normal general appearance and no apparent distress Tearful HENMT normocephalic and head/scalp atraumatic Eyes PERRL Chest inspection of chest normal Respiratory breath sounds equal bilaterally and normal respiratory effort Cardiovascular normal heart rate noted and regular rhythm noted Gastrointestinal abdomen normal to inspection and abdomen soft to palpation Extremities normal to inspection Neurology GCS 15 Psychiatry oriented x3 Skin skin color normal Conclusion/Plan Problem List (1) Anemia: Plan: This anemia is likely secondary to her chemo regimen Hemoglobin 6.5 on presentation ED provider ordered 1 unit PRBC, recheck H&H after transfusion Qualifiers: Anemia type: bone marrow failure Bone marrow failure anemia type: p ancytopenia, antineoplastic chemotherapy-induced Qualified Code(s): D61.810 - Antineoplastic chemotherapy induced pancytopenia; T45.1X5A - Adverse effect of antineoplastic and immunosuppressive drugs, initial encounter (2) Nausea vomiting and diarrhea: (3) Acute dehydration: (4) Hypokalemia: (5) Hypomagnesemia: Plan: Nausea/vomiting/diarrhea, As well as resultant electrolyte derangements are secondary to chemotherapy regimen ED provider ordered 4 g total mag repletion She also received 1 L NS and 10 mEq potassium IV I have ordered D5 NS with 20 of potassium to run at 200 x 3 bags BMP, mag in a.m. Zofran as needed (6) Lung cancer: Plan: Adenocarcinoma of the right lower lobe, poorly differentiated, extensive right hilar and mediastinal lymphadenopathy, right lower neck lymph node involvement. Has had thoracentesis for malignant pleural effusion. She has received 4 cycles of chemo and immunotherapy at [facility]. According to their notes, next step would be to obtain PET scan to evaluate response. Patient does not know at this point if the chemo is intended to be curative or only palliative. Patient needs follow-up with oncology for further management of this Patient likely would benefit from outpatient referral to palliative care Plan Place in observation DNR Her son is her surrogate decision maker Lab Results 01/23/25 13:42 01/23/25 13:42 Core Measures Anticipated LOS I expect patient to be DC'd or transferred within 96 hours.: Yes DVT/VTE - Prophylaxis VTE/DVT Prophylaxis med ordered at admit?: Yes
[2025-01-23] MEDS ORDERED: SODIUM CHLORIDE FLUSH 0.9% 10 ML SYRINGE IVP PRN (17:39)
[2025-01-23] MEDS ORDERED: ONDANSETRON ODT 4 MG TABLET TL PRN (17:39)
[2025-01-23] MEDS ORDERED: ACETAMINOPHEN 325 MG TABLET PO PRN (17:39)
--- NOTE | 2025-01-23 18:02 | PHARMACY PROGRESS NOTE ---
Best Possible Medication History Admit Date and Time: 01/23/25 1618 Home Medications Medication Instructions Recorded Confirmed Type nebulizers (Aeroneb Go Nebulizer) #1 ea 08/16/2401/23 Rx albuterol sulfate 90 mcg/actuation 2 puff inhalation Q 6H PRN 12/05/24 01/23/25 Rx aerosol inhaler (Ventolin HFA) shortness of breath or wheezing #8.5 grams calcium citrate 250 mg PO TID 01/09/2501/23 History ergocalciferol (vitamin D2) 1,250 1,250 mcg PO MO 12/2101/23/25 History mcg (50,000 unit) capsule acyclovir 400 mg tablet 400 mg PO TID PRN herpes #30 tabs 01/12/25 01/23/25 Rx arformoterol 15 mcg/2 mL solution 2 ml inhalation BID COPD #60 mL 01/12/25 01/23/25 Rx for nebulization budesonide 0.5 mg/2 mL suspension 0.5 mg (2 mL) inhala tion BID #60 mL 01/12/25 01/23/25 Rx for nebulization inhalational spacing device (Migel #1 ea 01/12/25 Rx Aerosol [place] Enhancer spacer) ipratropium 0.5 mg-albuterol 3 mg 3 ml inhalation QID PRN shortness 01/12/25 01/23/25 Rx (2.5 mg base)/3 mL nebulization of breath or wheezing, excessive soln cough #90 mL lorazepam 0.5 mg tablet 0.5 mg PO TID PRN anxiety #3 0 tabs 01/12/25 01/23/25 Rx losartan 25 mg tablet 25 mg PO BID HIGH BLOOD PRES SURE 01/12/25 01/23/25 Rx #180 tabs magnesium 200 mg tablet 200 mg PO DAILY #30 tabs 01/23/25 Rx montelukast 10 mg tablet 10 mg PO QDAY Allergy #90 ta bs 01/12/25 01/23/25 Rx olanzapine 5 mg tablet 5 mg PO QPM PSY #30 tabs 01/23/25 Rx promethazine 25 mg tablet 25 mg PO BID PRN nausea and 01/12/25 01/23/25 Rx vomiting #60 tabs tramadol 50 mg tablet 50 mg PO TID PRN pain #30 ta bs 01/12/25 01/23/25 Rx ketoconazole 2 % topical cream 1 applic topical BID MT N Skin 01/23/25 01/23/25 History infection-fungal Processed by: Pharmacy Medications reviewed in ED?: Yes Medication History completed: Yes Patient Interview: Completed Secondary Source(s): Pharmacy records and Insurance records [facility] Statement: As the person ultimately responsible for medication therapy, providers are able to order a medication from an existing home medication list in [facility] via the "Reconcile Routine" prior to Confirmation of that medication by retail support manager. Such practice is discouraged except when the physician, in their clinical judgment, deems that a medical need exists for a medication without regard to previous use.
[2025-01-23] MEDS: PROMETHAZINE 25 MG TABLET PO PRN (18:28)
[2025-01-23] MEDS: oxyCODONE 5 MG TABLET PO PRN (18:29)
[2025-01-23] MEDS: SODIUM CHLORIDE FLUSH 0.9% 10 ML SYRINGE IVP SCH (18:30)
[2025-01-23] MEDS: DEXTROSE-SOD CHLOR W/20 MEQ K 1,000 ML IV SCH (19:35)
[2025-01-23] MEDS: POTASSIUM CHLOR 10 MEQ/100 ML 10 MEQ/100 ML BAG IV ONE (19:55)
[2025-01-23] MEDS: HYDROmorphone 0.5 MG/0.5 ML SYRINGE IVP PRN (21:16)
[2025-01-23] MEDS: ONDANSETRON 4 MG/2 ML VIAL IVP PRN (21:35)
[2025-01-23 22:05] LABS: HCT - HEMATOCRIT 24.6 % (37.0-47.0); HGB - HEMOGLOBIN 8.1 g/dL (12.0-16.0)
[2025-01-23] MEDS: IPRATROPIUM/ALBUTEROL 3 ML NEB INH PRN (23:19)
[2025-01-24 05:59] LABS: HCT - HEMATOCRIT 21.8 % (37.0-47.0); HGB - HEMOGLOBIN 7.1 g/dL (12.0-16.0); MEAN PLATELET VOLUME 9.4 fL (7.9-10.8); NRBC ABSOLUTE COUNT (AUTO) 0.00 x10^3/uL; NUCLEATED RED BLOOD CELLS AUTO 0.0 /100WBC; PLT - PLATELET COUNT 371 10^3/uL (130-450); RED CELL DISTRIBUTION WIDTH 18.4 % (12.0-15.0)
[2025-01-24 06:27] LABS: BUN - BLOOD UREA NITROGEN 3.0 mg/dL (6-20); CARBON DIOXIDE - CO2 24.0 mmol/L (21-32); CREATININE 0.6 mg/dL (0.6-1.3); GFR - MDRD 101.0 (>89)
[2025-01-24] MEDS ORDERED: MAGNESIUM SULFATE 1 GM/2 ML VIAL IVP STA (07:28)
[2025-01-24] MEDS ORDERED: CALCIUM GLUC 1,000MG/50ML-NACL 1,000 MG/50 ML BAG IV ONE ×2 (07:29→10:28)
[2025-01-24] MEDS: CALCIUM GLUC 1,000MG/50ML-NACL 1,000 MG/50 ML BAG IV ONE ×2 (07:48→13:03)
[2025-01-24] MEDS: POTASSIUM CHLORIDE 20 MEQ TABLET PO ONE (07:57)
[2025-01-24] MEDS: MAGNESIUM SULFATE 1 GM in SODIUM CHLORIDE 0.9% 50 ML IV ONE (09:29)
[2025-01-24] MEDS: ENOXAPARIN 40 MG/0.4 ML SYRINGE SUBQ SCH (09:36)
[2025-01-24] MEDS: CALCIUM CARBONATE CHEW 500 MG TABLET PO SCH (09:36)
[2025-01-24] MEDS ORDERED: MAGNESIUM SULFATE 2 GRAM 2 GM/50 ML BAG IV ONE (10:28)
[2025-01-24] MEDS ORDERED: PROCHLORPERAZINE 10 MG/2 ML VIAL IVP PRN (11:08)
[2025-01-24 11:45] LABS: BUN - BLOOD UREA NITROGEN 2 mg/dL (6-20); CARBON DIOXIDE - CO2 24 mmol/L (21-32); CREATININE 0.6 mg/dL (0.6-1.3); GFR - MDRD 101 (>89); IONIZED CALCIUM IF INDICATED YES; PHOSPHORUS 2.8 mg/dL (2.5-5.0)
[2025-01-24] MEDS: LACTATED RINGERS 1,000 ML IV SCH (12:09)
[2025-01-24] MEDS: MAGNESIUM SULFATE 2 GRAM 2 GM/50 ML BAG IV ONE (12:09)
[2025-01-24] MEDS: POTASSIUM CHLOR 10 MEQ/100 ML 10 MEQ/100 ML BAG IV SCH (12:09)
[2025-01-24 12:18] LABS: VBG PH 7.439 (7.31-7.41)
[2025-01-24] MEDS: DEXAMETHASONE 10 MG/ML VIAL IVP ONE (13:03)
[2025-01-24] MEDS: MAGNESIUM OXIDE 400 MG TABLET PO SCH (16:16)
[2025-01-24 17:19] VITALS: TEMP 97.9; O2SAT 95
[2025-01-24 18:17] LABS: BUN - BLOOD UREA NITROGEN 3 mg/dL (6-20); CARBON DIOXIDE - CO2 22 mmol/L (21-32); CREATININE 0.7 mg/dL (0.6-1.3); GFR - MDRD 85 (>89); IONIZED CALCIUM IF INDICATED YES
[2025-01-24 18:24] LABS: VBG PH 7.517 (7.31-7.41)
--- NOTE | 2025-01-24 18:57 | ADVANCE CARE PLANNING NOTE ---
Advance Care Planning Planning Encounter Date: 01/24/25 Purpose: Determine goals of care, establish recommendations for planning after discharge Parties in Attendance: Patient Decisional Capacity of the Patient: Full Diagnosis for Encounter (1) Lung cancer: Summary: She reports to me that she had a nodule that she had been following in the outpatient setting, when she lost her PCP. By the time she established herself with a new PCP, this nodule had progressed to stage IV adenocarcinoma. She was referred to oncology at [facility], did not even know that [facility] offers oncology services. She has received 4 courses of carbo/Pem/Pembro. Original plan was for her to start another round of chemo this past week and undergo PET scan to determine how well the cancer is responding to chemo. She tells me today that she was originally given a 6-month prognosis, but surprisingly she has done fairly well with her chemo longer (2) Nausea vomiting and diarrhea: Summary: Nausea vomiting and diarrhea was secondary to her cancer treatment, she was admitted into the hospital with low potassium, magnesium, calcium. 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 She was working up until she could not anymore about a year ago. She says that she no longer has a life because of cancer, that she no longer has any hobbies. She has 1 son that lives on the [place], and 1 that works security in [place] Objective/Medical Story: Lung cancer originally presented as a nodule that only required routine surveillance. She lost her PCP and unfortunately fell through the cracks and by the time she establish a new PCP had already spread to lymph. She receives her oncology care at [facility], but is interested in transitioning care to [facility] [place] Goals of Care: We briefly discussed goals of care. Patient is unsure how much longer she wants to keep going with this, but is afraid that if she tells her children that she is no longer pursuing treatment she will receive judgment for them for not trying hard enough. She says that it has been months since she has woken up without either having shortness of breath or significant pain or nausea/vomiting Plan: I strongly encouraged the patient to have discussion with her family regarding her goals of care in relation to her prognosis. I also recommended that she request palliative care referral from her PCP. She is already planning to follow-up with PCP and with oncology. I strongly suggested that she go ahead and establish a DURABLE POWER OF TRACK AND FIELD COACH to help reduce her decision burden Code Status: Do Not Attempt Resuscitation Time spent on advance care plannin
--- NOTE | 2025-01-24 19:01 | Discharge Summary ---
Discharge Summary Admit Date: 01/23/25 Discharge Date: 01/24/25 Discharging Provider: Nate Steinberg Primary Care Provider: Irene Ferrell Code Status: Do Not Attempt Resuscitation DIAGNOSES Discharge Diagnoses with Status of Each Condition: Anemiasecondary to chemotherapy, received 1 unit PRBC Nausea/vomiting/diarrheasecondary to chemo, resolved Acute dehydrationresolved Hypokalemiarepleted and resolved Hypomagnesemiarepleted resolved Lung canceralready established with oncology HPI History of Present Illness: 64-year-old female with history of COPD, hypertension, and stage IV adenocarcinoma of the lung, 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 She reports that she recently finished her fourth course of Keytruda, and that she always has the symptoms when it is almost time for the next dose. She reports she has not been able to keep anything down for 2 days. She reports the last thing she got down was a grape soda, and shortly thereafter she had a grape colored bowel movement. She reports subjective fevers yesterday, but none today. She reports progressive weakness due to this inability to keep down any food. In the ER, she was noted to have hemoglobin of 6.5. Chemistry panel revealed potassium 2.9, magnesium 0.6. She was noted to be grossly dehydrated. ED provider ordered 1 unit PRBC transfusion as well as 1 L NS and magnesium repletion and hospitalist was contacted for observation for multiple electrolyte abnormalities as well as intractable nausea and vomiting secondary to her Keytruda regimen HOSPITAL COURSE Hospital Course: Patient was placed in observation and started on aggressive IV fluid and electrolyte repletion. She continued to have some nausea, so I started her on Decadron and Zyprexa to see if this would help. Her potassium corrected to 4, calcium 7.6, magnesium to 1.8. She is ambulatory and able to tolerate diet. I am discharging her home to follow-up with PCP and with oncology I have recommended to her to establish DURABLE POWER OF RECORDS TECHNICIAN. I also highly recommend palliative care referral. She tells me she has PET scan coming up to determine the effectiveness of her chemo regimen ALLERGIES Allergies Allergy/AdvReac Type Severity Reaction Status Date / Time doxycycline Allergy Severe Hives Verified 01/23/25 13:21 aspirin AdvReac Severe Nausea Verified 01/23/25 13:21 MEDICATIONS Ambulatory Orders Medication Instructions Recorded Confirmed nebulizers (Aeroneb Go Nebulizer) #1 ea 08/16/2401/23 albuterol sulfate 90 mcg/actuation 2 puff inhalation Q 6H PRN 12/05/24 01/23/25 aerosol inhaler (Ventolin HFA) shortness of breath or wheezing #8.5 grams calcium citrate 250 mg PO TID 01/09/2501/23 ergocalciferol (vitamin D2) 1,250 1,250 mcg PO MO 12/2101/23/25 mcg (50,000 unit) capsule acyclovir 400 mg tablet 400 mg PO TID PRN herpes #30 tabs 01/12/25 01/23/25 arformoterol 15 mcg/2 mL solution 2 ml inhalation BID COPD #60 mL 01/12/25 01/23/25 for nebulization budesonide 0.5 mg/2 mL suspension 0.5 mg (2 mL) inhala tion BID #60 mL 01/12/25 01/23/25 for nebulization inhalational spacing device (Migel #1 ea 01/12/25 Aerosol [place] Enhancer spacer) ipratropium 0.5 mg-albuterol 3 mg 3 ml inhalation QID PRN shortness 01/12/25 01/23/25 (2.5 mg base)/3 mL nebulization of breath or wheezing, excessive soln cough #90 mL lorazepam 0.5 mg tablet 0.5 mg PO TID PRN anxiety #3 0 tabs 01/12/25 01/23/25 losartan 25 mg tablet 25 mg PO BID HIGH BLOOD PRES SURE 01/12/25 01/23/25 #180 tabs magnesium 200 mg tablet 200 mg PO DAILY #30 tabs 01/23/25 montelukast 10 mg tablet 10 mg PO QDAY Allergy #90 ta bs 01/12/25 01/23/25 olanzapine 5 mg tablet 5 mg PO QPM PSY #30 tabs 01/23/25 promethazine 25 mg tablet 25 mg PO BID PRN nausea and 01/12/25 01/23/25 vomiting #60 tabs ketoconazole 2 % topical cream 1 applic topical BID [place] N Skin 01/23/25 01/23/25 infection-fungal dexamethasone 6 mg tablet 6 mg PO DAILY 3 days #3 tabs 01/24/25 olanzapine 5 mg disintegrating 5 mg translingual DAILY 3 days #3 01/24/25 tablet tabs prochlorperazine maleate 5 mg 5 mg PO QID PRN nausea a nd 01/24/25 tablet (Compazine) vomiting #30 tabs tramadol 50 mg tablet 50 mg PO TID PRN pain #9 tab s 01/24/25 PHYSICAL EXAM AT DISCHARGE Vital Signs: Vital Signs x48h Temp Pulse Resp BP Pulse Ox 01/24/25 16:00 97.9 F 94 20 151/73 H 95 01/24/25 12:12 97.5 F L 86 18 160/77 H 97 Physical Exam Other/Comments: Constitutional normal general appearance and no apparent distress Tearful HENMT normocephalic and head/scalp atraumatic Eyes PERRL Chest inspection of chest normal Respiratory breath sounds equal bilaterally and normal respiratory effort Cardiovascular normal heart rate noted and regular rhythm noted Gastrointestinal abdomen normal to inspection and abdomen soft to palpation Extremities normal to inspection Neurology GCS 15 Psychiatry oriented x3 Skin skin color normal LABS 01/24/25 05:46 01/24/25 17:53 FOLLOW UP Follow Up: With PCP, oncology. Needs palliative care referral TIME SPENT Time Spent in Discharge (Minutes): 39 Discharge Plan Discharge Patient Disposition: 01 Home, Self Care Condition: Fair Prescriptions: New olanzapine 5 mg Tablet,Disintegrating 5 mg translingual DAILY 3 Days Qty: 3 0RF dexamethasone 6 mg tablet 6 mg PO DAILY 3 Days Qty: 3 0RF prochlorperazine maleate [Compazine] 5 mg tablet 5 mg PO QID PRN (Reason: nausea and vomiting) Qty: 30 0RF tramadol 50 mg Tablet 50 mg PO TID PRN (Reason: pain) Qty: 9 0RF Continued ketoconazole 2 % cream 1 applic topical BID PRN (Reason: Skin infection-fungal) (DME) nebulizers [Aeroneb Go Nebulizer] Misc See Rx Instructions .Route Qty: 1 0RF Rx Instructions: As directed albuterol sulfate [Ventolin HFA] 90 mcg/actuation HFA aerosol inhaler 2 puff inhalation Q6H PRN (Reason: shortness of breath or wheezing) Qty: 8.5 3RF ergocalciferol (vitamin D2) 1,250 mcg (50,000 unit) capsule 1,250 mcg PO MO calcium citrate 250 mg calcium tablet 250 mg PO TID acyclovir 400 mg tablet 400 mg PO TID PRN (Reason: herpes) Qty: 30 3RF arformoterol 15 mcg/2 mL solution for nebulization 2 ml inhalation BID Qty: 60 3RF budesonide 0.5 mg/2 mL suspension for nebulization 0.5 mg inhalation BID Qty: 60 6RF (DME) Migel Aerosol [place] Enhancer Spacer See Rx Instructions .Route Qty: 1 3RF Rx Instructions: As directed ipratropium-albuterol 0.5 mg-3 mg(2.5 mg base)/3 mL solution for nebulization 3 ml inhalation QID PRN (Reason: shortness of breath or wheezing, excessive cough) Qty: 90 3RF lorazepam 0.5 mg tablet 0.5 mg PO TID PRN (Reason: anxiety) Qty: 30 0RF losartan 25 mg tablet 25 mg PO BID Qty: 180 0RF magnesium 200 mg tablet 200 mg PO DAILY Qty: 30 0RF montelukast 10 mg tablet 10 mg PO QDAY Qty: 90 0RF olanzapine 5 mg tablet 5 mg PO QPM Qty: 30 0RF promethazine 25 mg tablet 25 mg PO BID PRN (Reason: nausea and vomiting) Qty: 60 0RF Discontinued tramadol 50 mg tablet 50 mg PO TID PRN (Reason: pain) Qty: 30 0RF Diet: Regular Interventions: Belongings Inventory Last Done: 01/23/25 23:15 Discharge Last Done: 01/24/25 21:53 Discharge Checklist - Nursing Last Done: 01/24/25 21:53 Discharge Vital Signs (30 Minutes) Last Done: 01/24/25 19:20 Health Concerns: You came into the hospital with generalized weakness as well as nausea, vomiting, diarrhea secondary to your chemotherapy regimen. You were admitted into the hospital because of some pretty severe electrolyte abnormalities. We have corrected your potassium, magnesium, calcium levels enough that you are safe to go home. Your nausea is much improved. While I believe your nausea will get better on its own over the next few days to a week, I am also sending you home with Compazine for you to take as needed for nausea. I am also writing you for 3 days of Decadron and Zyprexa, as these have been shown to help nausea and vomiting secondary to the chemo that you are on. Please follow-up with your oncologist, as well as her primary care provider We briefly discussed a few things that I would like for you to address after leaving. I would like for you to have a conversation with your children regarding your prognosis, and long-term plans regarding who you will stay with, who will make decisions for you, and your goals for management of your cancer. I would highly recommend that you establish a DURABLE POWER OF RECORDS TECHNICIAN for healthcare and for finances as this will make it easier for your children to make decisions on your behalf I want you to follow-up with your primary care provider, and ask for a palliative care referral. If you decide that aggressively treating this cancer is no longer in line with your goals of care, I would seek information regarding hospice care Print Language: Slovak Patient Instructions: Prochlorperazine tablets Stand Alone Forms: PCP List Follow-up Care: Irene Ferrell ARNP, MSN, FARM MACHINE OPERATOR [Primary Care Provider, Family Practice] Vitals documented within 30 minutes of discharge?: Yes
[2025-01-24] MEDS: HEPARIN FLUSH 500 UNITS/5 ML SYRINGE IVP PRN (19:47)
[2025-01-24] MEDS: METOCLOPRAMIDE 10 MG/2 ML VIAL IVP PRN (19:47)
[2025-01-24 21:52] VITALS: BP 162/81
--- OUTSIDE RECORDS SUMMARY | 2025-01-25 12:42 | EXTERNAL MEDICAL SUMMARY RPT | Encounter Summary ---
Author Organization [facility] Address [address] [place] [address] Care Team Providers Care Toolman Name Role Phone Irene Ferrell MARTHA Primary Care Provider [phone]- [phone] Encounter Details Date Type Department Care Team (Late st Contact Info) Description 12/17/2024 Orders Only [facility] Oncology [address], [address] [place] [phone] Barbara Villaseñor [address] [place] [phone] Anxiety (Primary Dx) Social History Tobacco Use Types Packs/Day Years Used Date Smoking Tobacco: Every Day Cigarettes 0.5 41.9 Started: 02/19/1983 Passive Smoke Exposure: Past Smokeless Tobacco: Never Comments:26 yr smoker 1ppd a t most Passive Exposure Comments:35 yrs Alcohol Use Standard Drinks/Week Comments Yes 6 (1 standard drink = 0.6 oz pure alcohol) 6 shots per week, none since august [facility] Utilities Answer Date Recorded In the past 12 months has e electric, gas, oil, or water company threatened to shut off services in your home? No 10/14/2024 Humiliation, Afraid, Rape, and Kick questionnair e Answer Date Recorded Within the last year, have y ou been afraid of your partner or ex-partner? No 10/14/2024 Within the last year, have y ou been humiliated or emotionally abused in other ways by your partner or ex-partner? No Within the last year, have y ou been kicked, hit, slapped, or otherwise physically hurt by your partner or ex-partner? No 10/14/2024 Within the last year, have y ou been raped or forced to have any kind of sexual activity by your partner or ex-partner? No 10/14/2024 AUDIT-C Answer Date Recorded Q1: How often do you have a drink containing alc ohol? 2-3 times a week 10/14/2024 Q2: How many drinks containi ng alcohol do you have on a typical day when you are drinking? 3 or 4 10/14/2024 Q3: How often do you have si x or more drinks on one occasion? Never 10/14/2024 Hunger Vital Sign Answer Date Recorded Within the past 12 months, y ou worried that your food would run out before you got the money to buy more. Never true 10/15/19 25 Within the past 12 months, t he food you bought just didn't last and you didn't have money to get more. Never true 10/14/2024 PRAPARE - Transportation Answer Date Re corded In the past 12 months, has l ack of transportation kept you from medical appointments or from getting medications? No 09/20 In the past 12 months, has l ack of transportation kept you from meetings, work, or from getting things needed for daily living? No 10/14/2024 Housing Stability Vital Sign Answer Arun e Recorded In the last 12 months, was t here a time when you were not able to pay the mortgage or rent on time? No 10/14/2024 In the past 12 months, how m any times have you moved where you were living? 0 10/14/2024 At any time in the past 12 m [facility], were you homeless or living in a [place] health care facility (including now)? No 10/14/2024 Comments No Sex and Gender Information Value Date Recorded Sex Assigned at Female 08/28/2024 1:24 AM PDT Legal Sex Female 7:31 PM PDT Gender Identity Female 08/28/2024 1:24 AM PDT Sexual Orientation Straight 08/28/2024 1: 24 AM PDT documented as of this encounter Plan of Treatment Upcoming Encounters Date Type Department Care Team (Late st Contact Info) Description 02/13/2025 10:30 AM PST Lab [facility] [address] [place] [address], [address] [phone] 02/13/2025 11:30 AM PST Office Visit [facility] Oncology [address], [address] [phone] Kimmy Dangelo MD [address] [place] [phone] Radha Lawrence ARNP [address] [place] [phone] 02/13/2025 12:00 PM PST Infusion [facility] Infusion [address], [address] [address] Kimmy Dangelo MD [address] [place] [phone] documented as of this encounter Visit Diagnoses Diagnosis Anxiety- Primary Anxiety state, unspecified documented in this encounter Additional Health Concerns Infection Onset Date Last Indicated Resolved Time R/O Gastroenteritis 12/25/2024 12/25/2024 12/29/19 3:03 PM PST documented as of this encounter Care Teams Toolman Relationship Specialty Start Date End Date Irene Ferrell ARNP [address], [facility] [address] [place] [address] PCP - General Nurse Practitioner 08/26/24 documented as of this encounter
--- OUTSIDE RECORDS SUMMARY | 2025-01-25 12:42 | EXTERNAL MEDICAL SUMMARY RPT | Encounter Summary ---
Author Organization [facility] Address [address] [place] [address] Care Team Providers Care Transitional Nurse Name Role Phone Irene Ferrell Primary Care Provider [phone]- [phone] Reason for Visit * Reason Onset Date Comments Med Refill 12/05/2024 Encounter Details Date Type Department Care Team (Late st Contact Info) Description 12/05/2024 Refill [facility] [place] [facility] [address], [address] [place] [address] Kimmy Dangelo MD [address] [place] [phone] Adenocarcinoma of lower lobe of right lung (CMS/HCC); Thyroiditis, iatrogenic; Chemotherapy induced nausea and vomiting; Anxiety Social History Tobacco Use Types Packs/Day Years Used Date Smoking Tobacco: Every Day Cigarettes 0.5 41.9 Started: 02/19/1983 Passive Smoke Exposure: Past Smokeless Tobacco: Never Comments:26 yr smoker 1ppd a t most Passive Exposure Comments:35 yrs Alcohol Use Standard Drinks/Week Comments Yes 6 (1 standard drink = 0.6 oz pure alcohol) 6 shots per week, none since august [facility] Utilities Answer Date Recorded In the past 12 months has e [employer], gas, oil, or water [employer] threatened to shut off services in your [...] any time in the past 12 m [facility], were you homeless or living in a assisted (including now)? No 10/14/2024 Comments No Sex and Gender Information Value Date Recorded Sex Assigned at Female 08/28/2024 1:24 AM PDT Legal Sex Female 7:31 PM PDT Gender Identity Female 08/28/2024 1:24 AM PDT Sexual Orientation Straight 08/28/2024 1: 24 AM PDT documented as of this encounter Miscellaneous Notes * Telephone Encounter - Mary Kate Alcala RN - 12/05/2024 5:15 PM PDT Refill was sent to [facility] 12/04/24. documented in this encounter Plan of Treatment Upcoming Encounters Date Type Department Care Team (Late st Contact Info) Description 02/13/2025 10:30 AM PST Lab [facility] [address] [place] [phone] 02/13/2025 11:30 AM PST Office Visit [facility] [place] [facility] [address] [phone] Kimmy Dangelo MD [address] [place] [phone] Radha Lawrence ARNP [address] [place] [phone] 02/13/2025 12:00 PM PST Infusion [facility] [place] [facility] Infusion [address] [phone] Kimmy Dangelo MD [address] [place] [phone] documented as of this encounter Visit Diagnoses Diagnosis Adenocarcinoma of lower lobe of right lung (CMS/HCC) Thyroiditis, iatrogenic Iatrogenic thyroiditis Chemotherapy induced nausea and vomiting Anxiety Anxiety state, unspecified documented in this encounter Additional Health Concerns Infection Onset Date Last Indicated Resolved Time R/O Gastroenteritis 12/25/2024 12/25/2024 12/29/19 3:03 PM PST documented as of this encounter Care Teams Transitional Nurse Relationship Specialty Start Date End Date Irene Ferrell ARNP [address], [facility] [address] [place] [address] PCP - General Nurse Practitioner 08/26/24 documented as of this encounter
--- OUTSIDE RECORDS SUMMARY | 2025-01-25 12:42 | EXTERNAL MEDICAL SUMMARY RPT | Encounter Summary ---
Author Organization [facility] Address [address] [place] [address] Care Team Providers Care Nutrition Club Ambassador Name Role Phone Lucia Yao DDS Unavailable [phone] Encounter Details Date Type Department Care Team (Late st Contact Info) Description 05/05/2019 Abstract [facility] [address] [place] [phone] Conversion, [employer] Social History Tobacco Use Types Packs/Day Years Used Date Smoking Tobacco: Never Assessed Comments Unknown Sex and Gender Information Value Date Recorded Sex Assigned at Female 03/12/2019 11:09 AM PST Legal Sex Female 11:09 AM PST Gender Identity Female 03/12/2019 11:09 AM PST Sexual Orientation Straight 03/12/2019 11 :09 AM PST documented as of this encounter Plan of Treatment Not on file documented as of this encounter Procedures Procedure Name Priority Date/Time Associated Diagnosis Comments P INTRAORAL - PERIAPICAL FIRST RADIOGRAPHIC IMAGE Routine 01/12/2018 12:00 AM PST P LIMITED ORAL EVALUATION - PROBLEM FOCUSED Routine 01/12/2018 12:00 AM PST P BITEWING - SINGLE RADIOGRAPHIC IMAGE Routine 12/12/2017 12:00 AM PDT P INTRAORAL - PERIAPICAL FIRST RADIOGRAPHIC IMAGE Routine 12/12/2017 12:00 AM PDT P LIMITED ORAL EVALUATION - PROBLEM FOCUSED Routine 12/12/2017 12:00 AM PDT documented in this encounter Visit Diagnoses Not on filedocumented in this encounter Care Teams Nutrition Club Ambassador Relationship Specialty Start Date End Date Lucia Yao DDS [address] [place] [address] Dentistry 07/01/24 documented as of this encounter
--- OUTSIDE RECORDS SUMMARY | 2025-01-25 12:42 | EXTERNAL MEDICAL SUMMARY RPT | Encounter Summary ---
Author Organization [facility] Address [address] [place] [address] Care Team Providers Care Accounting Reconciliation Clerk Name Role Phone Irene FerrellP Primary Care Provider [phone]- [phone] Reason for Visit * Reason Onset Date Comments Med Refill 12/04/2024 Encounter Details Date Type Department Care Team (Late st Contact Info) Description 12/04/2024 Refill [facility] On[facility] [address], [address] [place] [address] Kimmy Dangelo MD [address] [place] [phone] Cancer associated pain; Chronic cough; Adenocarcinoma of lower lobe of right lung (CMS/HCC) Social History Tobacco Use Types Packs/Day Years Used Date Smoking Tobacco: Every Day Cigarettes 0.5 41.9 Started: 02/19/1983 Passive Smoke Exposure: Past Smokeless Tobacco: Never Comments:26 yr smoker 1ppd a t most Passive Exposure Comments:35 yrs Alcohol Use Standard Drinks/Week Comments Yes 6 (1 standard drink = 0.6 oz pure alcohol) 6 shots per week, none since august [facility] Utilities Answer Date Recorded In the past 12 months has th e [employer], gas, oil, or water [employer] threatened to shut off services in your [...] money to buy more. Never true 10/15/19 Within the past 12 months, t he [...] any time in the past 12 m [facility], were you homeless or living in a senior care (including now)? No 10/14/2024 Comments No Sex [...] AM PST Lab [facility] [address] [place] [address], [address] [phone] 02/13/2025 11:30 AM PST Office Visit [facility] Oncology [address] [phone] Kimmy Dangelo MD [address] [place] [phone] Radha Lawrence ARNP [address] [place] [phone] 02/13/2025 12:00 PM PST Infusion [facility] Infusion [address], [address] [address] Kimmy Dangelo MD [address] [place] [phone] documented as of this encounter Visit Diagnoses Diagnosis Cancer associated pain Neoplasm related pain (acute) (chronic) Chronic cough Cough Adenocarcinoma of lower lobe of right lung (CMS/HCC) documented in this encounter Additional Health Concerns Infection Onset Date Last Indicated Resolved Time R/O Gastroenteritis 12/25/2024 12/25/2024 12/29/19 3:03 PM PST documented as of this encounter Care Teams Accounting Reconciliation Clerk Relationship Specialty Start Date End Date Irene Ferrell ARNP [address], [facility] [address] [place] [address] PCP - General Nurse Practitioner 08/26/24 documented as of this encounter
--- OUTSIDE RECORDS SUMMARY | 2025-01-25 12:42 | EXTERNAL MEDICAL SUMMARY RPT | Encounter Summary ---
Author Organization [facility] Address [address] [place] [address] Care Team Providers Care Board Writer Name Role Phone Irene FerrellP Primary Care Provider [phone]- [phone] Encounter Details Date Type Department Care Team (Late st Contact Info) Description 12/25/2024 Orders Only [facility] On[facility] Infusion [address], [address] [place], [place] [phone] Mike Fields, RN Adenocarcinoma of lower lobe of right lung (CMS/HCC) (Primary Dx) Social History Tobacco Use Types Packs/Day Years Used Date Smoking Tobacco: Former Cigarettes 0.5 41.5 0 02/19/1983 - 08/2024 Passive Smoke Exposure: Past Smokeless Tobacco: Never Comments:26 yr smoker 1ppd a t most Passive Exposure Comments:35 yrs Alcohol Use Standard Drinks/Week Comments Not Currently 6 (1 standard drink = 0.6 oz pure alcohol) 6 shots per week, none since august 2024 [facility] Utilities Answer Date Recorded In the past 12 months has [facility] [employer], gas, oil, or water [employer] threatened to shut off services in your home? No 12/25/2024 Humiliation, Afraid, Rape, and Kick questionnair e Answer Date Recorded Within the last year, have y ou been afraid of your partner or ex-partner? No 12/25/2024 Within the last year, have y ou been humiliated or emotionally abused in other ways by your partner or ex-partner? No Within the last year, have y ou been kicked, hit, slapped, or otherwise physically hurt by your partner or ex-partner? No 12/25/2024 Within the last year, have y ou been raped or forced to have any kind of sexual activity by your partner or ex-partner? No 12/25/2024 AUDIT-C Answer Date Recorded Q1: How often do you have a drink containing alcohol? Never 12/25/2024 Q2: How many drinks containi ng alcohol do you have on a typical day when you are drinking? Patient does not drink Q3: How often do you have si x or more drinks on one occasion? Never 12/25/2024 Hunger Vital Sign Answer Date Recorded Within the past 12 months, y ou worried that your food would run out before you got the money to buy more. Often true 12/26/19 25 Within the past 12 months, t he food you bought just didn't last and you didn't have money to get more. Often true 12/25/2024 PRAPARE - Transportation Answer Date Re corded In the past 12 months, has l ack of transportation kept you from medical appointments or from getting medications? Yes 07/2024 In the past 12 months, has l ack of transportation kept you from meetings, work, or from getting things needed for daily living? Yes 12/25/2024 Housing Stability Vital Sign Answer Arun e Recorded In the last 12 months, was t here a time when you were not able to pay the mortgage or rent on time? Yes 12/25/2024 In the past 12 months, how m any times have you moved where you were living? 0 12/25/2024 At any time in the past [address] [facility], were you homeless or living in a long term (including now)? No 12/25/2024 Comments No Sex and Gender Information Value Date Recorded Sex Assigned at Female 08/28/2024 1:24 AM PDT Legal Sex Female 7:31 PM PDT Gender Identity Female 08/28/2024 1:24 AM PDT Sexual Orientation Straight 08/28/2024 1: 24 AM PDT documented as of this encounter Functional Status * Malnutrition Screening (If the score is 2 or more, initiate a dietitian consult) Question Answer Date of Assessment Author Have you recently lost weigh t without trying? Yes 12/25/2024 6:23 PM Cassie Mendez RN How much weight have you lost? 3 12/25/2024 6:23 PM Cassie Mendez RN Weight Loss Score 3 12/25/2024 6:23 PM Cassie Mendez RN Do you have a decreased appetite? (Score) 1 12/25/2024 6:23 PM Cassie Mendez RN MST Score 4 12/25/2024 6:23 PM Cassie Pak RN * Question Answer Date of Assessment Author History of Falling 0 12/28/2024 10:38 AM Marleen Haywood RN Secondary Diagnosis 15 12/28/2024 10:38 AM Marleen Cross RN Ambulatory Aids 0 12/28/2024 10:38 AM Marleen Baker RN Intravenous Therapy/Heparin/Saline Lock 20 12/28/2024 10:38 AM Marleen Fong RN Gait/Transferring 0 12/28/2024 10:38 AM Marleen Fong RN Mental Status 0 12/28/2024 10:38 AM Marleen Ochoa RN [place] Fall Risk Score 35 12/28/2024 10:38 AM Marleen Fong RN * Question Answer Date of Assessment Author Sensory Perceptions 3 12/28/2024 8:14 AM Marleen Haywood RN Moisture 4 12/28/2024 8:14 AM Marleen Hunter RN Activity 3 12/28/2024 8:14 AM Marleen Hunter RN Mobility 3 12/28/2024 8:14 AM Marleen Hunter RN Nutrition 3 12/28/2024 8:14 AM Marleen Hunter RN Friction and Shear 3 12/28/2024 8:14 AM Marleen oFng RN Wayne Scale Score 19 12/28/2024 8:14 AM Marleen Fong RN * Nutrition Screen Question Answer Date of Assessment Author Poor Oral Intake for Four or More Days Prior to Admission Yes (Comment) 12/25/2024 6:23 PM Cassie Mendez RN Difficulty Chewing or Swallowing Yes (Comment) 12/25/2024 6:23 PM Cassie Mendez RN Pressure Ulcer or Non-Healing Wound No 12/25/2024 6:23 PM Cassie Mendez RN Home Tube Feeding or Total Parenteral Nutrition (TPN) No 12/25/2024 6:23 PM Cassie Mendez RN * STOP-BANG Questionnaire - requires Ht & Wt for calculation Question Answer Date of Assessment Author Do you snore loudly? 1 12/25/2024 6:39 PM Cassie Cueto RN Do you often feel tired or fatigued after your sleep? 0 12/25/2024 6:39 PM Jermaine Mendez RN Has anyone ever observed you stop breathing in your sleep? 0 12/25/2024 6:39 PM Cassie Mendez RN Do you have or are you being treated for high blood pressure? 1 12/25/2024 6:39 PM Cassie Mendez RN Is BMI greater than 35 kg/m2? 0=No 12/25/2024 6:39 PM Cassie Mendez RN Age older than 50 years old? 1=Yes 12/25/2024 6 :39 PM Cassie Mendez RN Neck Circumference Greater T grant (17 inches Male) or (16 inches Female) 1 12/25/2024 6:39 PM Cassie Mendez RN Gender - Male 0=No 12/25/2024 6:39 PM Cassie Montesinos RN STOP-Bang Total Score 4 12/25/2024 6:39 PM Cassie Mendez RN Recent BMI (Calculated) 30 12/25/2024 6:39 P M Cassie Mednez RN * Question Answer Date of Assessment Author History of Pressure Injury No 12/25/2024 6:3 9 PM Cassie Mendez RN * Audit-C Score Answer Date of Assessment Author 2 12/25/2024 6:19 PM Adarsh Mendez RN * Question Answer Date of Assessment Author AUDIT-C Score 0 12/25/2024 6:19 PM Cassie Montesinos RN Q1: How often do you have a drink containing alcohol? Never 12/25/2024 6:19 PM Cassie Mendez RN Q2: How many drinks containing alcohol do you have on a typical day when you are drinking? Patient does not drink 12/25/2024 6:19 PM Cassie Mendez RN Q3: How often do you have six or more drinks on one occasion? Never 12/25/2024 6:19 PM Cassie Mendez RN * Question Answer Date of Assessment Author Have you used any substances (canabis, cocaine, heroin, hallucinogens, inhalants, etc.) in the past 12 months? No 12/25/2024 6:19 PM Vanessa Mendez RN Have you used any prescripti on drugs other than prescribed in the past 12 months? No 12/25/2024 6:19 PM Cassie Mendez RN * Hunger Screen - Admission Question Answer Date of Assessment Author Within the past 12 months the food we bought just didn't last and we didn't have money to get more. Often true 12/25/2024 6:23 PM Olena Mendez RN Within the past 12 months we worried whether our food would run out before we got money to buy more. Often true 12/25/2024 6:23 PM Cassie Mendez RN * Question Answer Date of Assessment Author R Eye Impaired vision 12/28/2024 8:14 AM Malreen Servin RN L Eye Impaired vision 12/28/2024 8:14 AM Marleen Servin RN * Suicide Risk Score Answer Date of Assessment Author 0 12/25/2024 12:22 PM Ra micah Nunez RN * Risk Level Answer Date of Assessment Author Low Suicidality 12/25/2024 12:22 PM Ra micah Nunez RN * Question Answer Date of Assessment Author Patient Disability Daily Living Limitations in any activities because of a physical, mental, or emotional condition 12/25/2024 6:17 PM Cassie Mendez RN Patient Disability or Condition Chronic medical condition 12/25/2024 6:17 PM Cassie Mendez RN * Question Answer Date of Assessment Author Patient's Vision Adequate to Safely Complete Daily Activities Yes 12/25/2024 6:24 PM Cassie Mendez RN Patient's Judgement Adequate to Safely Complete Daily Activities Yes 12/25/2024 6:24 PM Sharifa Mendez RN Patient's Memory Adequate to Safely Complete Daily Activities Yes 12/25/2024 6:24 PM Cassie Mendez RN Dressing Independent 12/25/2024 6:24 PM Cassie Pak RN Grooming Independent 12/25/2024 6:24 PM Cassie Pak RN Feeding Independent 12/25/2024 6:24 PM Cassie Pak RN Bathing Independent 12/25/2024 6:24 PM Cassie Pak RN Toileting Independent 12/25/2024 6:24 PM Cassie Pak RN In/Out Bed Independent 12/25/2024 6:24 PM Cassie Pak RN Walks in Home Independent 12/25/2024 6:24 PM Cassie Montesinos RN Weakness of Legs None 12/25/2024 6:24 PM Cassie Haque RN Weakness of Arms/Hands None 12/25/2024 6:24 PM Cassie Mendez RN Hearing - Right Ear Functional 12/25/2024 6:24 PM Cassie Brewster RN Hearing - Left Ear Functional 12/25/2024 6:24 PM Cassie Mendez RN * [place] Suicide Severity Rating Scale Question Answer Date of Assessment Author Is patient at risk for suicide? No 12:22 PM Essence Nunez RN 1. Wish to be No 12/25/2024 12:22 PM Essence Quiroga RN 2. Suicidal Thoughts No 12/25/2024 12:22 PM Essence Nunez RN 6. Suicide Intent with Prepa ratory Steps or Actions Taken No 12/25/2024 12:22 PM Essence Nunez RN documented as of this encounter Mental Status * [place] Coma Scale Question Answer Entry Date Author Eye Opening 4 12/28/2024 8:14 AM Marleen Hunter RN Best Motor Response 6 12/28/2024 8:14 AM PS Marleen Cordova RN Best Verbal Response 5 12/28/2024 8:14 AM Marleen Cross RN Osei Coma Scale Score 15 12/28/2024 8:14 AM Marleen Fong RN * Question Answer Entry Date Author Patient's Judgement Adequate to Safely Complete Daily Activities Yes 12/25/2024 6:24 PM Cassie Mendez RN Patient's Memory Adequate to Safely Complete Daily Activities Yes 12/25/2024 6:24 PM Cassie Mendez RN Patient Able to Express Needs/Desires Yes 12/25/2024 6:24 PM Cassie Mendez RN documented in this encounter Plan of Treatment Upcoming Encounters Date Type Department Care Team (Late st Contact Info) Description 02/13/2025 10:30 AM PST Lab [facility] [address] [place] [phone] 02/13/2025 11:30 AM PST Office Visit [facility] Oncology [address] [phone] Kimmy Dangelo MD [address] [place] [phone] Radha Lawrence ARNP [address] [place] [phone] 02/13/2025 12:00 PM PST Infusion [facility] Infusion [address] [phone] Kimmy Dangelo MD [address] [place] [address] [address] [place] [phone] Scheduled Orders Name Type Priority Associated Diagnoses Orde r Schedule Calcium Lab STAT Adenocarcinoma of lower lobe of right lung (CMS/HCC) Expected: 12/25/2024, Expires: 03/27/2026 documented as of this encounter Visit Diagnoses Diagnosis Adenocarcinoma of lower lobe of right lung (CMS/HCC)- Primary documented in this encounter Additional Health Concerns Infection Onset Date Last Indicated Resolved Time R/O Gastroenteritis 12/25/2024 12/25/2024 12/29/19 3:03 PM PST documented as of this encounter Care Teams Board Writer Relationship Specialty Start Date End Date Irene Ferrell ARNP [address], [facility] [address] [place] [address] PCP - General Nurse Practitioner 08/26/24 documented as of this encounter
--- OUTSIDE RECORDS SUMMARY | 2025-01-25 12:43 | EXTERNAL MEDICAL SUMMARY RPT | Encounter Summary ---
Author Organization [facility] tem Address [address] [place] [address] Care Team Providers Care Signal Intelligence/Electronic Warfare Name Role Phone Lucia Yao DDS Unavailable [phone] Reason for Visit * Reason Onset Date Comments Routine Care Coordination 01/23/2025 [facility]- Engagement Encounter Details Date Type Department Care Team (Late st Contact Info) Description 01/23/2025 Telephone [facility] [address] [place] [address] Mei Peña Routine Care Coordination ([facility]- Engagement ) Social History Tobacco Use Types Packs/Day Years Used Date Smoking Tobacco: Every Day Cigarettes Smokeless Tobacco: Former Alcohol Use Standard Drinks/Week Comments Not Currently 0 (1 standard drink = 0.6 oz pur e alcohol) Comments Unknown Sex and Gender Information Value Date Recorded Sex Assigned at Female 03/12/2019 11:09 AM PST Legal Sex Female 11:09 AM PST Gender Identity Female 03/12/2019 11:09 AM PST Sexual Orientation Straight 03/12/2019 11 :09 AM PST documented as of this encounter Miscellaneous Notes * Telephone Encounter - Mei Peña - 01/23/2025 3:39 PM PST 01/23/2025-Allied staff Mei Peña attempted to contacted client to enroll into the Health Home program. There was no answer; allied staff left voicemail with direct contact information. Alliedstaff mailed client the Outreach/Engagement unable to contact letter, Health Home program brochure,and business card to client's address [address], [place] [address]. Allied Staff Mei Peña documented in this encounter Plan of Treatment Not on file documented as of this encounter Visit Diagnoses Not on filedocumented in this encounter Care Teams Signal Intelligence/Electronic Warfare Relationship Specialty Start Date End Date Lucia Yao DDS [address] [place] [address] Dentistry 07/01/24 documented as of this encounter
--- OUTSIDE RECORDS SUMMARY | 2025-01-25 12:43 | EXTERNAL MEDICAL SUMMARY RPT | Encounter Summary ---
Author Organization [facility] Address [address] [place] [address] Care Team Providers Care Physician Assistant Certified Name Role Phone Irene Ferrell Primary Care Provider [phone] Encounter Details Date Type Department Care Team (Late Contact Info) Description 07/22/2024 [facility] [address] [place] [phone] Amor Akins MD PhD [address] [place] [phone] Social History Tobacco Use Types Packs/Day Years Used Date Smoking Tobacco: Every Day Cigarettes 0.5 41.9 Started: 02/19/1983 Smokeless Tobacco: Never Alcohol Use Standard Drinks/Week Comments Yes 2 (1 standard drink = 0.6 oz pur e alcohol) Comments Unknown Sex and Gender Information Value Date Recorded Sex Assigned at Female 08/28/2024 1:24 AM PDT Legal Sex Female 7:31 PM PDT Gender Identity Female 08/28/2024 1:24 AM PDT Sexual Orientation Straight 08/28/2024 1: 24 AM PDT documented as of this encounter Plan of Treatment Upcoming Encounters Date Type Department Care Team (Late Contact Info) Description 02/13/2025 10:30 AM PST Lab [facility] ONCOL[facility] [address] [place] [address], [address] [place] [phone] 02/13/2025 11:30 AM PST Office Visit [facility] Oncology [address], [address] [place] [phone] Kimmy Dangelo MD [facility] [address] [place] [address] [address] [place] [address] Radha Lawrence ARNP [address] [address] [place] [address] 02/13/2025 12:00 PM PST Infusion [facility] Oncology Infusion [place] [address] [address], [address] [place], [place] [phone] Kimmy Dangelo MD [address] [place] [address] [address] [place] [address] documented as of this encounter Visit Diagnoses Not on filedocumented in this encounter Additional Health Concerns Infection Onset Date Last Indicated Resolved Time R/O Gastroenteritis 10/21/2024 10/21/2024 10/22/19 5:14 PM PDT R/O Gastroenteritis 12/25/2024 12/25/2024 12/29/19 3:03 PM PST documented as of this encounter Care Teams Physician Assistant Certified Relationship Specialty Start Date End Date Irene Ferrell ARNP [address], [facility] [address] [place] [address] PCP - General Nurse Practitioner 08/26/24 documented as of this encounter
--- OUTSIDE RECORDS SUMMARY | 2025-01-25 12:43 | EXTERNAL MEDICAL SUMMARY RPT | Encounter Summary ---
Author Organization [facility] Address [address] [place] [address] Care Team Providers Care Recycling Sorter Name Role Phone Irene FerrellP Primary Care Provider +1- [phone] Reason for Visit * Reason Comments Med Refill Encounter Details Date Type Department Care Team (Late st Contact Info) Description 01/14/2025 Refill [facility] Oncology [address], [address] [place] [address] Kimmy Dangelo MD [address] [place] [phone] Cancer associated pain; Chronic cough; Adenocarcinoma [...] shots per week, none since august 2024 [facility] Utilities Answer Date Recorded In the past 12 months has th e [employer], gas, oil, or water [employer] threatened to shut off services in your [...] any time in the past 12 m [facility], were you homeless or living in a assisted (including now)? No 12/25/2024 Comments No Sex and Gender Information Value Date Recorded Sex Assigned at Female 08/28/2024 1:24 AM PDT Legal Sex Female 7:31 PM PDT Gender Identity Female 08/28/2024 1:24 AM PDT Sexual Orientation Straight 08/28/2024 1: 24 AM PDT documented as of this encounter Miscellaneous Notes * Telephone Encounter - Kimmy Dangelo MD - 01/17/2025 7:09 AM PST The patient is taking tramadol now documented in this encounter Plan of Treatment Upcoming Encounters Date Type Department Care Team (Late st Contact Info) Description 02/13/2025 10:30 AM PST Lab [facility] [address] [place] [phone] 02/13/2025 11:30 AM PST Office Visit [facility] Oncology [address] [phone] Kimmy Dangelo MD [address] [place] [phone] Radha Lawrence ARNP [address] [place] [phone] 02/13/2025 12:00 PM PST Infusion [facility] Oncology Infusion [address], [address] [address] Kimmy Dangelo MD [address] [place] [phone] documented as of this encounter Visit Diagnoses Diagnosis 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
--- OUTSIDE RECORDS SUMMARY | 2025-01-25 12:43 | EXTERNAL MEDICAL SUMMARY RPT | Encounter Summary ---
Author Organization [facility] Address [address] [place] [address] Care Team Providers Care Music Journalist Name Role Phone Irene FerrellP Primary Care Provider +1- [phone] Encounter Details Date Type Department Care Team (Late st Contact Info) Description 01/12/2025 Orders Only [facility] Oncology Infusion [address], [address] [place], [place] [phone] Mike Fields, RN Social History Tobacco Use Types Packs/Day Years [...] Recorded In the past 12 months has [facility] [employer] gas, oil, or water [employer] threatened to shut off services in your [...] any time in the past 12 m [facility], were you homeless or living in a longterm (including now)? No 12/25/2024 Comments No Sex and Gender Information Value Date Recorded Sex Assigned at Female 08/28/2024 1:24 AM PDT Legal Sex Female 7:31 PM PDT Gender Identity Female 08/28/2024 1:24 AM PDT Sexual Orientation Straight 08/28/2024 1: 24 AM PDT documented as of this encounter Plan of Treatment Upcoming Encounters Date Type Department Care Team (John gonzalez Contact Info) Description 02/13/2025 10:30 AM PST Lab [facility] ONCOL[facility]Y LAB [address] [place] [address], [address] [phone] 02/13/2025 11:30 AM PST Office Visit [facility] Oncology [address], [address] [place] [address] Kimmy Dangelo MD [address] [place] [address] [address] [place] [phone] Radha Lawrence ARNP [address] [place] [phone] 02/13/2025 12:00 PM PST Infusion [facility] Oncology Infusion [address], [address] [place] [address] Kimmy Dangelo MD [address] [place] [phone] documented as of this encounter Visit Diagnoses Not on filedocumented in this encounter Care Teams Music Journalist Relationship Specialty Start Date End Date Irene Ferrell ARNP [address], [facility] [address] [place] [address] PCP - General Nurse Practitioner 08/26/24 documented as of this encounter
--- OUTSIDE RECORDS SUMMARY | 2025-01-25 12:43 | EXTERNAL MEDICAL SUMMARY RPT | Encounter Summary ---
Author Organization [facility] Address [address] [place] [address] Care Team Providers Care Pan Devulcanizer Name Role Phone Irene Ferrell Primary Care Provider +1- [phone] Encounter Details Date Type Department Care Team (Late st Contact Info) Description 09/07/2024 Abstract [facility] Oncology [address], [address] [address] Kimmy Dangelo MD [address] [place] [phone] Social History Tobacco Use Types Packs/Day Years Used Date Smoking Tobacco: Every Day Cigarettes 0.5 41.9 Started: 02/19/1983 Smokeless Tobacco: Never Alcohol Use Standard Drinks/Week Comments Yes 2 (1 standard drink = 0.6 oz pur e alcohol) "2-3 drinks per week" [facility] Utilities Answer Date Recorded In the past 12 months has [facility] [employer], gas, oil, or water [employer] threatened to shut off services in your home? No 08/27/2024 Humiliation, Afraid, Rape, and Kick questionnair e Answer Date Recorded Within the last year, have y ou been afraid of your partner or ex-partner? No 08/27/2024 Emotionally Abused Not on file 08/27/2024 Physically Abused Not on file 08/27/2024 Sexually Abused Not on file 08/27/2024 Hunger Vital Sign Answer Date Recorded Within the past 12 months, y ou worried that your food would run out before you got the money to buy more. Never true 08/28/19 25 Ran Out of Food in the Last Year Not on file 08/27/2024 PRAPARE - Transportation Answer Date Re corded Lack of Transportation (Medical) Not on file 08/27/2024 In the past 12 months, has l ack of transportation kept you from meetings, work, or from getting things needed for daily living? No 08/27/2024 Housing Stability Vital Sign Answer Arun e Recorded Unable to Pay for Housing in the Last Year Not o n file 08/27/2024 Number of Times Moved in the Last Year Not on fi le 08/27/2024 At any time in the past 12 m [facility], were you homeless or living in a alf (including now)? No 08/27/2024 Comments No Sex and Gender Information Value Date Recorded Sex Assigned at Female 08/28/2024 1:24 AM PDT Legal Sex Female 7:31 PM PDT Gender Identity Female 08/28/2024 1:24 AM PDT Sexual Orientation Straight 08/28/2024 1: 24 AM PDT documented as of this encounter Functional Status * Physical Problems Question Answer Date of Assessment Author Bathing/Dressing Yes 09/08/2024 3:53 PM PDT H ellriegelFadia, [place] Breathing Yes 09/08/2024 3:53 PM PDT Hellr iegel, Angelina, [place] Diarrhea Yes 09/08/2024 3:53 PM PDT Hellr iegel, Angelina, [place] Fatigue Yes 09/08/2024 3:53 PM PDT Hellr iegel, Angelina, [place] Getting Around Yes 09/08/2024 3:53 PM PDT Hel lriegel, Angelina, [place] Tingling in hands/feet Yes 09/08/2024 3:53 PM PDT Hellriegel, Angelina, [place] Nausea Yes 09/08/2024 3:53 PM PDT Hellr iegel, Angelina, [place] Sleep Yes 09/08/2024 3:53 PM PDT Hellr iegel, Angelina, [place] * Distress Screening Thermometer Scale Question Answer Date of Assessment Author What is your level of distress today on a scale from 0-10. distress level 8 09/08/2024 3:53 PM PDT HellrchichigelFadia, [place] documented as of this encounter Plan of Treatment Upcoming Encounters Date Type Department Care Team (Late st Contact Info) Description 02/13/2025 10:30 AM PST Lab [facility] [address] [place] [address], [address] [phone] 02/13/2025 11:30 AM PST Office Visit [facility] Oncology [address], [address] [phone] Kimmy Dangelo MD [address] [place] [phone] Radha Lawrence ARNP [address] [place] [phone] 02/13/2025 12:00 PM PST Infusion [facility] Oncology Infusion [address] [phone] Kimmy Dangelo MD [address] [place] [phone] documented as of this encounter Visit Diagnoses Not on filedocumented in this encounter Additional Health Concerns Infection Onset Date Last Indicated Resolved Time R/O Gastroenteritis 10/21/2024 10/21/2024 10/22/19 5:14 PM PDT R/O Gastroenteritis 12/25/2024 12/25/2024 12/29/19 3:03 PM PST documented as of this encounter Care Teams Pan Devulcanizer Relationship Specialty Start Date End Date Irene Ferrell ARNP [address], [facility] [address] [place] [address] PCP - General Nurse Practitioner 08/26/24 documented as of this encounter
--- OUTSIDE RECORDS SUMMARY | 2025-01-25 12:43 | EXTERNAL MEDICAL SUMMARY RPT | Clinical Summary ---
Author Organization [facility] tem Address [address] [place], [place] [address] [place] [address] Care Team Providers Care Photo Mask Processor Name Role Phone Lucia Yao DDS Unavailable [phone] Allergies Active Allergy Reactions Criticality Noted Date Comments Aspirin Nausea/Vomiting High 07/01/2024 Doxycycline Hives High 03/10/2019 Medications promethazine (PHENERGAN) 25 MG Tab Take 1 Tablet by mouth twice daily as needed for nausea/vomiti ng. Active lisinopril 10 MG Tab take 1 tablet by mouth twice daily for high blood pressure 06/04/2024 Active acyclovir (ZOVIRAX) 400 MG Tab TAKE 1 TABLET BY MOUTH THREE TIMES DAILY NEEDED FOR HERPES Active Encounters Date Type Department Care Team Description 01/23/2025 Telephone [facility] [address] [address] [address] [place] [address] Mei Peña Routine Care Coordination ([facility]- Engagement ) 12/24/2024 Telephone [facility] [address] [place] [address] Mei Peña Routine Care Coordination ([facility]-H Engagement ) from Last 3 Months Social History Tobacco Use Types Packs/Day Years Used Date Smoking Tobacco: Every Day Cigarettes Smokeless Tobacco: Former Tobacco Cessation:Ready to Q uit: Not Asked; Counseling Given: Not Answered Alcohol Use Standard Drinks/Week Comments Not Currently 0 (1 standard drink = 0.6 oz pur e alcohol) Comments Unknown Sex and Gender Information Value Date Recorded Sex Assigned at Female 03/12/2019 11:09 AM PST Legal Sex Female 11:09 AM PST Gender Identity Female 03/12/2019 11:09 AM PST Sexual Orientation Straight 03/12/2019 11 :09 AM PST Last Filed Vital Signs Vital Sign Reading Time Taken Comments Blood Pressure 188/100 07/01/2024 2:26 PM PDT Pulse 77 07/01/2024 2:26 PM PDT Temperature - - Respiratory Rate - - Oxygen Saturation - - Inhaled Oxygen Concentration - - Weight 78.9 kg (174 lb) 07/01/2024 2:26 PM PDT Height 157.5 cm (5' 2") 07/01/2024 2:26 PM PDT Body Mass Index 31.83 07/01/2024 2:26 PM PDT Plan of Treatment Health Maintenance Due Date Last Done Comments Breast Cancer Screening (Mammogram) 1962 CT Colonography 1962 Colon Cancer Screening 1962 Colonoscopy 1962 DEN: Dental Oral Exam 1962 DEN: Dental Prophylaxis 1962 FIT Yearly 1962 FIT-DNA 1962 FOBT 1962 Sigmoidoscopy 1962 Depression Screening 1962 CNSL: TOBACCO/VAPING USE CESSATION 07/12/1975 SCRN: FOR HIV USPSTF ROUTINE (15-65 YEARS) 1977 [facility] SCRN: HIV-UNIVERSAL SCRN 1977 SCRN: FOR HEPATITIS C ROUTIN E (18-79 Years) 1980 IMM: DTAP/TDAP/TD (1 - Tdap) 1981 IMM: Pneumococcal Vaccine (1 of 2 - PCV) 1981 Pap Smear 07/12/1983 Cervical Cancer Screening 1992 HPV + Pap Cotesting 1992 SCRN: FOR HYPERLIPIDEMIA (ADULT) 2002 IMM: SHINGRIX (1 of 2) 2012 IMM: INFLUENZA (AGE > 6 JAVAD HS) (#1) 10/20/2024 IMM: RSV ( patients and Patients AGE > 60 YEARS OLD) (1 - 1-dose 75+ series) 2037 IMM: HEPATITIS A Aged Out No longer e ligible based on patient's age to complete this topic IMM: HEPATITIS B Aged Out No longer e ligible based on patient's age to complete this topic IMM: MENINGOCOCCAL ACWY Aged Out No l onger eligible based on patient's age to complete this topic IMM: RSV (AGE < 20 MONTHS) Aged Out N o longer eligible based on patient's age to complete this topic Insurance DENTAL [employer] Care Teams Photo Mask Processor Relationship Specialty Start Date End Date Lucia Yao DDS [address] [place] [address] Dentistry 07/01/24
--- OUTSIDE RECORDS SUMMARY | 2025-01-25 12:43 | EXTERNAL MEDICAL SUMMARY RPT | Encounter Summary ---
Author Organization [facility] Address [address] [place] [address] Care Team Providers Care Dye Tub Tender Name Role Phone Irene FerrellP Primary Care Provider [phone] Encounter Details Date Type Department Care Team (Late st Contact Info) Description 10/27/2024 Orders Only [facility] [address], [address] [place] [address] Mike Fields, RN Adenocarcinoma of lower lobe of right lung (CMS/HCC) (Primary Dx); Thyroiditis, iatrogenic Social History Tobacco Use Types Packs/Day Years Used Date Smoking Tobacco: Every Day Cigarettes 0.5 41.9 Started: 02/19/1983 Passive Smoke Exposure: Past Smokeless Tobacco: Never Comments:26 yr smoker 1ppd a t most Passive Exposure Comments:35 yrs Alcohol Use Standard Drinks/Week Comments Yes 6 (1 standard drink = 0.6 oz pure alcohol) 6 shots per week, none since august [facility] Utilities Answer Date Recorded In the past 12 months has [facility] [employer], gas, oil, or water [employer] threatened to shut off services in your [...] were you homeless or living in a prison (including now)? No 10/14/2024 Comments No Sex [...] Info) Description 02/13/2025 10:30 AM PST Lab [facility] [address] [place] [address], [address] [place] [phone] 02/13/2025 11:30 AM PST Office Visit [facility] [address], [facility] [address] [place] [phone] Kimmy Dangelo MD [address] [place] [phone] Radha Lawrence ARNP [address] [place] [address] [address] [place] [phone] 02/13/2025 12:00 PM PST Infusion [facility] [address], [address] [phone] Kimmy Dangelo MD [address] [place] [phone] documented as of this encounter Results * Thyroid Stimulating Hormone, Reflex to Free T4 (11/06/2024 10:28 AM PDT) TSH, Serum/Plasma 1.530 0.450 - 4.500 uIU/mL LAB CHEMISTRY METHOD 11/06/2024 3:19 PM PDT [facility] Comment: Thyroid function test results of women differ from those of non- women. Reference Ranges for : First trimester 0.100-2.500 uIU/mL Second trimester 0.200-3.000 uIU/mL Third trimester 0.300-3.000 uIU/mL Non- adult 0.450-4.500 uIU/mL Patients taking Biotin supplements may have falsely decreased HCG, Ferritin, PSA, Troponin, or TSH test values. Blood Venous blood / Unknown Venipuncture / Unknown 11/06/2024 10:28 AM PDT 11/06/2024 10:28 AM PDT us Kimmy Dangelo MD LAB BLOOD ORDERABLES Final Resul t [facility] [address] [place] [address], * Comprehensive Metabolic Panel (11/06/2024 10:28 AM PDT) Sodium, Serum/Plasma 139 135 - 145 mmol/L LAB CHEMISTRY METHOD 11/06/2024 10:[address] [facility] Potassium, Serum/Plasma 3.8 3.5 - 5.2 mmol/L LAB CHEMISTRY METHOD 11/06/2024 10:[address] [facility] Chloride, Serum/Plasma 103 98 - 107 mmol/L LAB CHEMISTRY METHOD 11/06/2024 10:[address] [facility] CO2, Serum/Plasma 27 22 - 30 mmol/L LAB CHEMISTRY METHOD 11/06/2024 10:[address] [facility] Anion Gap, Serum/Plasma 9 3 - 11 mmol/L 11/06/2024 10:[address] [facility] Urea Nitrogen, Serum/Plasma 10.7 8.0 - 27.0 mg/dL LAB CHEMISTRY METHOD 11/06/2024 10:[address] [facility] Creatinine, Serum/Plasma 0.58 0.57 - 1.00 mg/dL LAB CHEMISTRY METHOD 11/06/2024 10:[address] [facility] Glucose, Serum/Plasma 96 65 - 99 mg/dL LAB CHEMISTRY METHOD 11/06/2024 10:[address] [facility] Calcium, Serum/Plasma 9.0 8.5 - 10.1 mg/dL LAB CHEMISTRY METHOD 11/06/2024 10:[address] [facility] AST, Serum/Plasma 24 14 - 36 U/L LAB CHEMISTRY METHOD 11/06/2024 10:[address] [facility] ALT, Serum/Plasma 27 <35 U/L LAB CHEMISTRY METHOD 11/06/2024 10:[address] [facility] Alkaline Phosphatase, Serum/Plasma 82 25 - 165 U/L LAB CHEMISTRY METHOD 11/06/2024 10:[address] [facility] Total Protein, Serum/Plasma 7.3 6.3 - 8.2 g/dL LAB CHEMISTRY METHOD 11/06/2024 10:[address] [facility] eGFR, Serum/Plasma (CKD-EPI 2020) 102 >60 (CKD-EPI 2020) mL/min/1. 73 m2 11/06/2024 10:[address] [facility] Comment: eGFR calculation has been updated by recommendation of the National Kidney Foundation (NKF) without the race variable. This change was made on May 08, 2022 Interpretation for GFR in Chronic Kidney Disease can be viewed below. Albumin, Serum/Plasma 3.7 3.4 - 5.0 g/dL LAB CHEMISTRY METHOD 11/06/2024 10:[address] [facility] Bilirubin, Total, Serum/Plasma <0.90 0.2 - 1.3 mg/dL LAB CHEMISTRY METHOD 11/06/2024 10:[address] [facility] BUN/Creatinine Ratio, Serum/Plasma 18.4 6.0 - 24.0 11/06/2024 10:[address] [facility] Blood Venous blood / Unknown Venipuncture / Unknown 11/06/2024 10:28 AM PDT 11/06/2024 10:[address] [facility] - 11/06/2024 10:56 AM [facility] Interpretive Data The estimated glomerular filtration rate (eGFR) was calculated using the 2020 CKD-EPI eGFR creatinine equation, which does not include race as a factor. This equation is validated in individuals 18 years of age and older. Accurate estimation of GFR requires stable day-to-day creatinine. Creatinine-based eGFR is less accurate in patients with extremes of muscle mass, restriction of dietary protein, ingestion of creatine, extra-renal metabolism of creatinine, or treatment with medications that affect renal tubular creatinine secretion. The eGFR is normalized to a body surface area of 1.73 square meters. GFR Categories in Chronic Kidney Disease (CKD) GFR Category GFR (mL/min/1.73 square meters) Interpretation G1 90 or greater Normal to high* G2 60-89 Mild decrease* G3a 45-59 Mild to moderate decrease G3b 30-44 Moderate to severe decrease G4 15-29 Severe decrease G5 14 or less Kidney failure *In the absence of evidence of kidney damage, neither GFR category G1 nor G2 fulfill the criteria for CKD (Kidney Int Suppl 2013;3:1-150) us Kimmy Dangelo MD LAB BLOOD ORDERABLES Final Resul t [facility] [address] [place] [address], documented in this encounter Visit Diagnoses Diagnosis Adenocarcinoma of lower lobe of right lung (CMS/HCC)- Primary Thyroiditis, iatrogenic Iatrogenic thyroiditis documented in this encounter Additional Health Concerns Infection Onset Date Last Indicated Resolved Time R/O Gastroenteritis 12/25/2024 12/25/2024 12/29/19 3:03 PM PST documented as of this encounter Care Teams Dye Tub Tender Relationship Specialty Start Date End Date Irene Ferrell ARNP [address], [facility] [address] [place] [address] PCP - General Nurse Practitioner 08/26/24 documented as of this encounter
--- OUTSIDE RECORDS SUMMARY | 2025-01-25 12:43 | EXTERNAL MEDICAL SUMMARY RPT | Clinical Summary ---
Author Organization [facility] Address [address] [place] [address] Care Team Providers Care Marketing Information Analyst Name Role Phone Irene FerrellP Primary Care Provider [phone] Allergies Active Allergy Reactions Criticality Noted Date Comments Aspirin Nausea And Vomiting High 07/01/2024 Doxycycline Hives High 03/10/2019 Medications acyclovir (ZOVIRAX-for doses of 400mg or greater,) 400 mg tablet TAKE 1 TABLET BY MOUTH THREE TIMES DAILY FOR 5 DAYS NEEDED FOR OUTBREAK 024 Active montelukast (SINGULAIR) 10 mg tablet Take 1 tablet (10 mg total) by mouth daily 025 Active Vios Aerosol Delivery System device USE NEEDED FOR NEBULIZED MEDS 025 Active loperamide (IMODIUM) 2 mg capsule Take 1 capsule (2 mg total) by mouth 4 (four) times a day as needed for diarrhea 025 Active ipratropium-albut Sylvester (DUO-NEB) 0.5-2.5 mg/3 mL nebulizer solution Take 3 mL by nebulization every 6 (six) hours 025 Active albuterol HFA (ProAir/Ventolin/ Proventil) 90 mcg/actuation inhaler Inhale 2 puffs as needed for wheezing or shortness of breath 025 Active ibuprofen (ADVIL) 400 mg tablet Take 1 tablet (400 mg total) by mouth every 6 (six) hours as needed for mild pain (1-3) Active losartan (COZAAR) 50 mg tablet Take 1 tablet (50 mg total) by mouth daily Active prochlorperazine (COMPAZINE) 10 mg tablet Take 1 tablet (10 mg total) by mouth every 6 (six) hours as needed for nausea or vomiting 3 tablet 5 Active dexAMETHasone (DECADRON) 4 mg tablet Active fluticasone propionate (FLONASE) 50 mcg/actuation nasal spray Active OLANZapine (ZYPREXA) 5 mg tabletIndications :Adenocarcinoma of lower lobe of right lung (CMS/HCC),Thyroid itis, iatrogenic,Chemot herapy induced nausea and vomiting,Anxiety Take 1 tablet (5 mg total) by mouth nightly 30 tablet 2 025 2025 Active ondansetron ODT (ZOFRAN-ODT) 8 mg disintegrating tabletIndications :Adenocarcinoma of lower lobe of right lung (CMS/HCC),Thyroid itis, iatrogenic,Chemot herapy induced nausea and vomiting,Anxiety Take 1 tablet (8 mg total) by mouth every 8 (eight) hours as needed for nausea or vomiting 60 tablet 5 Active LORazepam (ATIVAN) 0.5 mg tabletIndications :Adenocarcinoma of lower lobe of right lung (CMS/HCC),Thyroid itis, iatrogenic,Chemot herapy induced nausea and vomiting,Anxiety TAKE ONE TABLET BY MOUTH EVERY EIGHT HOURS NEEDED FOR ANXIETY 30 tablet Active calcium citrate 250 mg calcium tablet Take 1 tablet (250 mg total) by mouth 3 (three) times a day with meals 90 tablet 025 2024 Active ergocalciferol (VITAMIN D) 1,250 mcg (50,000 unit) capsule Take 1 capsule (50,000 Units total) by mouth once a week for 5 doses 5 capsule 025 2024 Active LORazepam (ATIVAN) 0.5 mg tabletIndications :Chemotherapy induced nausea and vomiting Take 1 tablet (0.5 mg total) by mouth every 8 (eight) hours as needed for anxiety Or as needed for nausea due to chemotherapy. 30 tablet 1 Active budesonide (PULMICORT) 0.5 mg/2 mL nebulizer solution INHALE 2 ML (1 VIAL) VIA NEBULIZER TWICE A DAY 10/18/2 025 Active nystatin (MYCOSTATIN) 100,000 unit/mL suspension swish 5 ml in mouth and hold in place for as long as possible before swallowing 4 times daily for 10 days Active folic acid (FOLVITE) 1 mg tabletIndications :Adenocarcinoma of lower lobe of right lung (CMS/HCC),Thyroid itis, iatrogenic,Cancer associated pain,Encounter for antineoplastic chemotherapy,On antineoplastic chemotherapy Take 1 tablet (1 mg total) by mouth daily 90 tablet 3 025 2025 Active cyanocobalamin, vitamin B-12, 1,000 mcg capsuleIndication s:Adenocarcinoma of lower lobe of right lung (CMS/HCC),Thyroid itis, iatrogenic,Cancer associated pain,Encounter for antineoplastic chemotherapy,On antineoplastic chemotherapy Take 1,000 mcg by mouth daily 90 capsule 3 025 2025 Active traMADoL (ULTRAM) 50 mg tabletIndications :Adenocarcinoma of lower lobe of right lung (CMS/HCC),Cancer associated pain Take 1 tablet (50 mg total) by mouth every 8 (eight) hours as needed for moderate pain (4-6) for up to 28 days 56 tablet 025 2025 Active nitrofurantoin, macrocrystal-mono hydrate, (MACROBID) 100 mg capsule TAKE 1 CAPSULE BY MOUTH EVERY 12 HOURS WITH FOOD FOR 7 DAYS 2024 Discontinued(S top Taking at Discharge) LORazepam (ATIVAN) 0.5 mg tabletIndications :Chemotherapy induced nausea and vomiting Take 1 tablet (0.5 mg) every 6 hours as needed for nausea due to chemotherapy. 60 tablet 1 025 2024 Discontinued(R eorder) traMADoL (ULTRAM) 50 mg tablet Take 1 tablet (50 mg total) by mouth 3 (three) times a day as needed for pain 025 2024 Discontinued(R eorder) oxyCODONE (ROXICODONE) 5 mg immediate release tabletIndications :Cancer associated pain,Chronic cough,Adenocarcin deborah of lower lobe of right lung (CMS/HCC) Take 1 tablet (5 mg total) by mouth every 6 (six) hours as needed for moderate pain (4-6) 120 tablet 025 2024 Discontinued folic acid (FOLVITE) 1 mg tablet Take 1 tablet (1 mg total) by mouth daily 90 tablet 1 025 2024 Discontinued(R eorder) promethazine (PHENERGAN) 25 mg tabletIndications :Adenocarcinoma of lower lobe of right lung (CMS/HCC),Thyroid itis, iatrogenic,Chemot herapy induced nausea and vomiting,Anxiety Take 1 tablet (25 mg total) by mouth every 8 (eight) hours as needed for nausea 90 tablet 025 2024 cefpodoxime (VANTIN) 200 mg tablet Take 1 tablet (200 mg total) by mouth 2 (two) times a day for 4 days 8 tablet 025 2024 traMADoL (ULTRAM) 50 mg tabletIndications :Adenocarcinoma of lower lobe of right lung (CMS/HCC),Cancer associated pain Take 1 tablet (50 mg total) by mouth every 6 (six) hours as needed for severe pain (7-10) for up to 14 days for pain 56 tablet 025 2024 Discontinued Active Problems Problem Noted Date Diagnosed Date Chemotherapy induced nausea and vomiting Thyroiditis, iatrogenic 10/16/2024 Pleural effusion on right 10/15/2024 Cancer associated pain 09/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 Chronic cough 09/09/2024 Adenocarcinoma of lower lobe of right lung 08/29 Mediastinal adenopathy 08/26/2024 Pulmonary nodule 07/15/2021 Optic neuropathy, right 06/06/2010 Encounters Date Type Department Care Team Description 01/20/2025 [facility] Oncology [address], [address] [place] [phone] Kimmy Dangelo MD Adenocarcinoma of lower lobe of right lung (CMS/HCC); Cancer associated pain 01/14/2025 [facility] Oncology [address], [address] [place] [address] Kimmy Dangelo MD Cancer associated pain; Chronic cough; Adenocarcinoma of lower lobe of right lung (CMS/HCC) 01/12/2025 Orders Only [facility] Oncology Infusion [address], [address] [place], [place] [phone] Mike Fields, RN 01/02/2025 Telephone [facility] Oncology [address], [address] [place] [phone] Susannah Salas PA Lorazepam 01/01/2025 12:00 PM PST Infusion [facility] Oncology Infusion [address], [address] [place], [place] [phone] Kimmy Dangelo MD Adenocarcinoma of lower lobe of right lung (CMS/HCC) (Primary Dx); Thyroiditis, iatrogenic; Chemotherapy induced nausea and vomiting 01/01/2025 10:40 AM PST Office Visit [facility] Oncology [address], [address] [place] [phone] Kimmy Dangelo MD Cancer associated pain (Primary Dx); Adenocarcinoma of lower lobe of right lung (CMS/HCC); Thyroiditis, iatrogenic; Encounter for antineoplastic chemotherapy; On antineoplastic chemotherapy 01/01/2025 10:00 AM [facility] [address] [place] [address], [address] [phone] Adenocarcinoma of lower lobe of right lung (CMS/HCC); Thyroiditis, iatrogenic 12/31/2024 Refill [facility] Oncology [address], [address] [place] [address] Susannah Salas Adenocarcinoma of lower lobe of right lung (CMS/HCC); Thyroiditis, iatrogenic; Chemotherapy induced nausea and vomiting; Anxiety 12/31/2024 Telephone [facility] Oncology [address], [address] [place] [address] Susannah Salas Pt upset/crying 12/25/2024 12:43 PM PST - 12/28/2024 12:30 PM PST Hospital Encounter [facility] [address] [place], [place] [phone] Bhargav Munson MD Kilcrease, Kristen, DO Huang, Wong Guthrie MD Acute anemia (Primary Dx); Hypomagnesemia; Hypocalcemia; Nausea and vomiting, unspecified vomiting type Discharge Disposition: Home/Self Care 12/25/2024 10:30 AM PST Infusion [facility] Oncology Infusion [address], [address] [place] [address] Kimmy Dangelo MD Adenocarcinoma of lower lobe of right lung (CMS/HCC) (Primary Dx); Thyroiditis, iatrogenic; Chemotherapy induced nausea and vomiting 12/25/2024 10:00 AM PST Office Visit [facility] Oncology [address], [address] [place] [phone] Kimmy Dangelo MD Moehl, Jennifer, ARNP Adenocarcinoma of lower lobe of right lung (CMS/HCC) (Primary Dx); Thyroiditis, iatrogenic; Hypocalcemia; Chemotherapy induced nausea and vomiting; Anxiety; Hypomagnesemia; Hypokalemia due to excessive gastrointestinal loss of potassium 12/25/2024 9:25 AM [facility] Lab [facility] [address] [place] [address], [address] [place] [phone] Adenocarcinoma of lower lobe of right lung (CMS/HCC); Thyroiditis, iatrogenic; Hypocalcemia 12/25/2024 Travel 12/25/2024 Orders Only [facility] Oncology Infusion [address], [address] [place] [address] Mike Fields, RN Adenocarcinoma of lower lobe of right lung (CMS/HCC) (Primary Dx) 12/17/2024 Orders Only [facility] Oncology [address], [address] [place] [address] Barbara Villaseñor ARNP Anxiety (Primary Dx) 12/17/2024 Refill [facility] Oncology [address], [address] [place] [address] Kimmy Dangelo MD Adenocarcinoma of lower lobe of right lung (CMS/HCC); Thyroiditis, iatrogenic; Chemotherapy induced nausea and vomiting; Anxiety 12/05/2024 Refill [facility] Oncology [address], [address] [place] [address] Kimmy Dangelo MD Adenocarcinoma of lower lobe of right lung (CMS/HCC); Thyroiditis, iatrogenic; Chemotherapy induced nausea and vomiting; Anxiety 12/04/2024 10:30 AM PDT Infusion [facility] Oncology Infusion [address], [address] [place] [address] Adenocarcinoma of lower lobe of right lung (CMS/HCC) (Primary Dx); Thyroiditis, iatrogenic; Cancer associated pain; Chronic cough 12/04/2024 9:40 AM PDT Office Visit [facility] Oncology [address], [address] [phone] Kimmy Dangelo MD Adenocarcinoma of lower lobe of right lung (CMS/HCC); Thyroiditis, iatrogenic; Chemotherapy induced nausea and vomiting; Anxiety 12/04/2024 Refill [facility] Oncology [address], [address] [place] [phone] Kimmy Dangelo MD Cancer associated pain; Chronic cough; Adenocarcinoma of lower lobe of right lung (CMS/HCC) 12/04/2024 Refill [facility] Oncology [address], [address] [place] [phone] Kimmy Dangelo MD Cancer associated pain; Chronic cough; Adenocarcinoma of lower lobe of right lung (CMS/HCC) 12/04/2024 Refill [facility] Oncology Infusion [address], [address] [place] [address] Bernie Rodriguez RN Cancer associated pain; Chronic cough; Adenocarcinoma of lower lobe of right lung (CMS/HCC) 12/02/2024 Telephone [facility] Oncology [address], [address] [place] [phone] Amanda Bravo RN patient wonders if she has tx tomorrow 12/02/2024 Telephone [facility] Oncology [address], [address] [place] [address] Amanda Bravo, RN patient unsure if she has chemo tomorrow 12/02/2024 Orders Only [facility] Oncology Infusion [address], [address] [place], [place] [phone] Mike Fields, RN Adenocarcinoma of lower lobe of right lung (CMS/HCC) (Primary Dx); Thyroiditis, iatrogenic 11/27/2024 Telephone [facility] Oncology [address], [address] [place] [address] Radha Lawrence ARNP 11/26/2024 Telephone [facility] Oncology [address], [address] [place] [phone] Susannah Salas Update pt condition 11/25/2024 Telephone [facility] Oncology [address], [address] [place] [phone] Amanda Bravo, RN possible reaction to codeine and/or oxycodone 11/20/2024 Refill [facility] Oncology [address], [address] [place] [phone] Susannah Salas 11/20/2024 [facility] Oncology [address], [address] [place] [phone] Susannah Salas Ty #3 for cough 11/18/2024 Refill [facility] Oncology [address], [address] [place] [phone] Kimmy Dangelo MD Cancer associated pain; Chronic cough; Adenocarcinoma of lower lobe of right lung (CMS/HCC) 11/18/2024 Orders Only [facility] Oncology [address], [address] [place] [phone] Cammie Oglesby ARNP Chemotherapy induced nausea and vomiting (Primary Dx) 11/18/2024 Telephone [facility] Oncology [address], [address] [place] [phone] Amanda Bravo, RN lorazepam denial / meds not working 11/18/2024 Telephone [facility] Oncology [address], [address] [place] [phone] Amanda Bravo RN 11/18/2024 Refill [facility] Oncology [address], [address] [place] [phone] Blanche Haley RN Cancer associated pain; Chronic cough; Adenocarcinoma of lower lobe of right lung (CMS/HCC) 11/18/2024 Refill [facility] Oncology [address], [address] [place] [phone] Kimmy Dangelo MD Cancer associated pain; Chronic cough; Adenocarcinoma of lower lobe of right lung (CMS/HCC); Thyroiditis, iatrogenic; Chemotherapy induced nausea and vomiting; Anxiety 11/17/2024 Refill [facility] Oncology [address], [address] [place] [phone] Kimmy Dangelo MD Adenocarcinoma of lower lobe of right lung (CMS/HCC); Thyroiditis, iatrogenic; Chemotherapy induced nausea and vomiting; Anxiety 11/06/2024 11:30 AM PDT Infusion [facility] Oncology Infusion [address], [address] [place] [phone] Kimmy Dangelo MD Adenocarcinoma of lower lobe of right lung (CMS/HCC) (Primary Dx); Thyroiditis, iatrogenic 11/06/2024 11:00 AM PDT Office Visit [facility] Oncology [address], [address] [phone] Kimmy Dangelo MD Chemotherapy induced nausea and vomiting (Primary Dx); Adenocarcinoma of lower lobe of right lung (CMS/HCC); Thyroiditis, iatrogenic; Anxiety; Cancer associated pain; Chronic cough 11/04/2024 Telephone [facility] Oncology [address], [address] [place] [phone] Amanda Bravo, RN nausea, anxiety, chest pain 11/03/2024 Telephone [facility] Oncology [address], [address] [place] [address] Susannah Salas Oxy and codeine refills 11/03/2024 Refill [facility] Oncology [address], [address] [place] [address] Kimmy Dangelo MD Cancer associated pain; Chronic cough; Adenocarcinoma of lower lobe of right lung (CMS/HCC) 10/27/2024 Orders Only [facility] Oncology Infusion [address], [address] [place] [address] Mike Fields, RN Adenocarcinoma of lower lobe of right lung (CMS/HCC) (Primary Dx); Thyroiditis, iatrogenic from Last 3 Months Family History Medical History Relation Comments No Known Problems Brother 1 No Known Problems Brother 2 No Known Problems Father Arthritis Mother Diabetes Mother No Known Problems Sister 1 No Known Problems Sister 2 Relation Status Comments Brother 1 Alive Brother 2 Alive Father Mother Sister 1 Alive Sister 2 Alive Social History Tobacco Use Types Packs/Day Years Used Date Smoking Tobacco: Former Cigarettes 0.5 41.5 0 02/19/1983 - 08/2024 Passive Smoke Exposure: Past Smokeless Tobacco: Never Comments:26 yr smoker 1ppd a t most Passive Exposure Comments:35 yrs Alcohol Use Standard Drinks/Week Comments Not Currently 6 (1 standard drink = 0.6 oz pure alcohol) 6 shots per week, none since august 2024 [facility] Utilities Answer Date Recorded In the past 12 months has [facility] [employer], gas, oil, or water [employer] threatened to shut off services in your [...] any time in the past 12 m [facility], were you homeless or living in a assisted (including now)? No 12/25/2024 Comments No Sex and Gender Information Value Date Recorded Sex Assigned at Female 08/28/2024 1:24 AM PDT Legal Sex Female 7:31 PM PDT Gender Identity Female 08/28/2024 1:24 AM PDT Sexual Orientation Straight 08/28/2024 1: 24 AM PDT Last Filed Vital Signs Vital Sign Reading Time Taken Comments Blood Pressure 137/83 01/01/2025 10:32 AM PST Pulse 88 01/01/2025 10:00 AM PST Temperature 36.5 C (97.7 F) 01/01/2025 10:00 AM PST Respiratory Rate 16 01/01/2025 10:00 AM PST Oxygen Saturation 98% 01/01/2025 10:00 AM PST Inhaled Oxygen Concentration - - Weight 71.9 kg (158 lb 9.6 oz) 01/01/2025 10:00 AM PST Height 157.5 cm (5' 2.01") 01/01/2025 10:00 AM Lily ALBERTO Body Mass Index 29 01/01/2025 10:00 AM PST Plan of Treatment Upcoming Encounters Date Type Department Care Team (Late st Contact Info) Description 02/13/2025 10:30 AM PST Lab [facility] [address] [place] [phone] 02/13/2025 11:30 AM PST Office Visit [facility] Oncology [address], [address] [phone] Kimmy Dangelo MD [address] [place] [phone] Radha Lawrence ARNP [address] [place] [phone] 02/13/2025 12:00 PM PST Infusion [facility] Oncology Infusion [address], [address] [address] Kimmy Dangelo MD [address] [place] [phone] Health Maintenance Due Date Last Done Comments Breast Cancer Screening 1960 Medicare Annual Wellness (AWV) 1962 Depression Screening (PHQ-2) 1974 DTaP,Tdap,and Td Vaccines (1 - Tdap) 1981 Zoster Vaccines (1 of 2) 1981 Colorectal Cancer Screening (Colonoscopy) 07/12/2007 Colorectal Cancer Screening (FOBT) 07/12/2007 Colorectal Cancer Screening (Fecal DNA) 07/12/2007 Colorectal Cancer Screening Combined 07/12/2007 RSV Patients Over 60 years OR qualifying ( Patients) (1 - Risk 50-74 years 1-dose series) 2012 HM Pneumococcal Adult 50+ (2 of 2 - PCV) 11/04/2013 11/04/2012 COVID-19 Vaccine (3 - season) 2024 02/27/2021, 07/14/2020 Influenza Vaccine (#1) 2024 11/04/2012 HM Pneumococcal Combined Age 0-49 Discontinued 11/04/2012 MMR Vaccines Completed 01/10/2014 HPV Vaccines Aged Out No longer eligi ble based on patient's age to complete this topic Hepatitis A Vaccines Aged Out No long er eligible based on patient's age to complete this topic Hepatitis B Vaccines Aged Out No long er eligible based on patient's age to complete this topic IPV Vaccines Aged Out No longer eligi ble based on patient's age to complete this topic Medical Devices Implanted Type 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 Device Identifier Shelf Expiration Date Model / Serial / Lot Port Catheter Clearvue Implant - [id number] Implanted:Qty: 1 on 09/04/2024 by Amor Akins MD PhD at [facility] 05/19/2025 [id number] / / [id number] Procedures Procedure Name Priority Date/Time Associated Diagnosis Comments COMPLETE BLOOD COUNT WITH DIFF RESULT STAT 01/01/2025 9:58 AM PST Adenocarcinoma of lower lobe of right lung (CMS/HCC) Thyroiditis, iatrogenic THYROID STIMULATING HORMONE, REFLEX TO FREE T4 Routine 01/01/2025 9:58 AM PST Adenocarcinoma of lower lobe of right lung (CMS/HCC) Thyroiditis, iatrogenic COMPLETE BLOOD COUNT WITH DIFF STAT 01/01/2025 9:58 AM PST Adenocarcinoma of lower lobe of right lung (CMS/HCC) Thyroiditis, iatrogenic COMPREHENSIVE METABOLIC PANEL STAT 01/01/2025 9:58 AM PST Adenocarcinoma of lower lobe of right lung (CMS/HCC) Thyroiditis, iatrogenic DISCHARGE PATIENT Routine 12/28/2024 10: 40 AM PST COMPLETE BLOOD COUNT WITH DIFF RESULT Routine 12/28/2024 3:41 AM PST PHOSPHORUS Routine 12/28/2024 3:41 AM PST MAGNESIUM Routine 12/28/2024 3:41 AM PST COMPREHENSIVE METABOLIC PANEL Routine 12/28/2024 3:41 AM PST COMPLETE BLOOD COUNT WITH DIFF Routine 12/28/2024 3:41 AM PST COMPLETE BLOOD COUNT WITH DIFF RESULT Routine 12/27/2024 8:56 AM PST PHOSPHORUS Routine 12/27/2024 8:56 AM PST MAGNESIUM Routine 12/27/2024 8:56 AM PST COMPREHENSIVE METABOLIC PANEL Routine 12/27/2024 8:56 AM PST COMPLETE BLOOD COUNT WITH DIFF Routine 12/27/2024 8:56 AM PST COMPLETE BLOOD COUNT WITH DIFF RESULT Routine 12/26/2024 2:12 PM PST PHOSPHORUS Routine 12/26/2024 2:12 PM PST COMPLETE BLOOD COUNT WITH DIFF Routine 12/26/2024 2:12 PM PST COMPREHENSIVE METABOLIC PANEL Routine 12/26/2024 2:12 PM PST MAGNESIUM Routine 12/26/2024 2:12 PM PST COMPLETE BLOOD COUNT WITH DIFF RESULT Routine 12/26/2024 5:49 AM PST CALCIUM, IONIZED ESTIMATED Add-On 12/26/2024 5:49 AM PST COMPREHENSIVE METABOLIC PANEL Routine 12/26/2024 5:49 AM PST COMPLETE BLOOD COUNT WITH DIFF Routine 12/26/2024 5:49 AM PST MAGNESIUM Routine 12/26/2024 5:49 AM PST PTH, INTACT Routine 12/26/2024 5:49 AM PST MRSA SCREEN Routine 12/25/2024 9:44 PM PST URINE HOLD JIM TOP STAT 12/25/2024 9 :43 PM PST URINE MICROSCOPIC STAT 12/25/2024 9:4 3 PM PST CALCIUM/CREATININE RATIO, URINE Routine 12/25/2024 9:43 PM PST URINALYSIS, REFLEX MICROSCOPIC AND CULTURE IF INDICATED STAT 12/25/2024 9:43 PM PST S PNEUMONIAE AND L PNEUMONPHILIA Routine 12/25/2024 9:43 PM PST TRANSFUSE RED BLOOD CELLS STAT 12/25/2024 6:16 PM PST PHOSPHORUS Add-On 12/25/2024 5:53 PM PST MAGNESIUM Routine 12/25/2024 5:53 PM PST BASIC METABOLIC PANEL Routine 12/25/2024 5:53 PM PST C-REACTIVE PROTEIN STAT Add-on 12/25/2024 5: 10 PM PST CULTURE, BLOOD Routine 12/25/2024 5:10 PM PST CULTURE, BLOOD Routine 12/25/2024 5:00 PM PST VITAMIN D, 25-HYDROXY Add-On 12/25/2024 3:44 PM PST VITAMIN B12 AND FOLATE Routine 12/25/2024 3:44 PM PST IRON PROFILE (IRON AND TIBC) WITH FERRITIN Routine 12/25/2024 3:44 PM PST TRANSFUSE RED BLOOD CELLS STAT 12/25/2024 2:06 PM PST RESPIRATORY PCR PANEL (INCLUDES SARS-COV-2 (COVID-19)) STAT 12/25/2024 1:[address] CHEST ABDOMEN PELVIS WITH CONTRAST STAT 12/25/2024 1:33 PM PST COMPLETE BLOOD COUNT WITH DIFF RESULT STAT 12/25/2024 1:11 PM PST SEDIMENTATION RATE STAT Add-on 12/25/2024 1: 11 PM PST SLIDE REVIEW Routine 12/25/2024 1:11 PM PST TROPONIN WITH REFLEX TO CK AND CK-MB STAT 12/25/2024 1:11 PM PST LACTIC ACID SEPSIS PROTOCOL STAT 12/25/2024 1:11 PM PST COMPREHENSIVE METABOLIC PANEL STAT 12/25/2024 1:11 PM PST COMPLETE BLOOD COUNT WITH DIFF STAT 12/25/2024 1:11 PM PST CULTURE, BLOOD STAT 12/25/2024 1:11 PM PST CULTURE, BLOOD STAT 12/25/2024 1:11 PM PST ECG 12-LEAD STAT 12/25/2024 12:39 PM PST ED CRITICAL CARE Routine 12/25/2024 12:0 5 PM PST ABO/RH TYPE CHECK (LAB ONLY) Routine 12/25/2024 11:27 AM PST Adenocarcinoma of lower lobe of right lung (CMS/HCC) HOLD BLOOD BANK TUBE STAT 12/25/2024 10:40 AM PST Adenocarcinoma of lower lobe of right lung (CMS/HCC) PREPARE/CROSSMATCH RBC Routine 12/25/2024 10:28 AM PST Adenocarcinoma of lower lobe of right lung (CMS/HCC) COMPREHENSIVE METABOLIC PANEL STAT 12/25/2024 10:28 AM PST Hypocalcemia TYPE AND SCREEN Routine 12/25/2024 10:28 AM PST Adenocarcinoma of lower lobe of right lung (CMS/HCC) MANUAL DIFFERENTIAL Routine 12/25/2024 9 :08 AM PST Adenocarcinoma of lower lobe of right lung (CMS/HCC) Thyroiditis, iatrogenic COMPLETE BLOOD COUNT WITH DIFF RESULT STAT 12/25/2024 9:08 AM PST Adenocarcinoma of lower lobe of right lung (CMS/HCC) Thyroiditis, iatrogenic MAGNESIUM Add-On 12/25/2024 9:08 AM PST Adenocarcinoma of lower lobe of right lung (CMS/HCC) THYROID STIMULATING HORMONE, REFLEX TO FREE T4 Routine 12/25/2024 9:08 AM PST Adenocarcinoma of lower lobe of right lung (CMS/HCC) Thyroiditis, iatrogenic COMPLETE BLOOD COUNT WITH DIFF STAT 12/25/2024 9:08 AM PST Adenocarcinoma of lower lobe of right lung (CMS/HCC) Thyroiditis, iatrogenic COMPREHENSIVE METABOLIC PANEL STAT 12/25/2024 9:08 AM PST Adenocarcinoma of lower lobe of right lung (CMS/HCC) Thyroiditis, iatrogenic COMPLETE BLOOD COUNT WITH DIFF RESULT STAT 12/04/2024 9:22 AM PDT Adenocarcinoma of lower lobe of right lung (CMS/HCC) Thyroiditis, iatrogenic THYROID STIMULATING HORMONE, REFLEX TO FREE T4 Routine 12/04/2024 9:22 AM PDT Adenocarcinoma of lower lobe of right lung (CMS/HCC) Thyroiditis, iatrogenic COMPLETE BLOOD COUNT WITH DIFF STAT 12/04/2024 9:22 AM PDT Adenocarcinoma of lower lobe of right lung (CMS/HCC) Thyroiditis, iatrogenic COMPREHENSIVE METABOLIC PANEL STAT 12/04/2024 9:22 AM PDT Adenocarcinoma of lower lobe of right lung (CMS/HCC) Thyroiditis, iatrogenic COMPLETE BLOOD COUNT WITH DIFF RESULT STAT 11/06/2024 10:28 AM PDT Adenocarcinoma of lower lobe of right lung (CMS/HCC) Thyroiditis, iatrogenic THYROID STIMULATING HORMONE, REFLEX TO FREE T4 Routine 11/06/2024 10:28 AM PDT Adenocarcinoma of lower lobe of right lung (CMS/HCC) Thyroiditis, iatrogenic COMPLETE BLOOD COUNT WITH DIFF STAT 11/06/2024 10:28 AM PDT Adenocarcinoma of lower lobe of right lung (CMS/HCC) Thyroiditis, iatrogenic COMPREHENSIVE METABOLIC PANEL STAT 11/06/2024 10:28 AM PDT Adenocarcinoma of lower lobe of right lung (CMS/HCC) Thyroiditis, iatrogenic from Last 3 Months Results * Thyroid Stimulating Hormone, Reflex to Free T4 (01/01/2025 9:58 AM PST) Only the most recent of4 resultswithin the time period is included. TSH, Serum/Plasma 0.671 0.450 - 4.500 uIU/mL LAB CHEMISTRY METHOD 01/01/2025 2:34 PM [facility] Comment: Thyroid function test results of women differ from those of non- women. Reference Ranges for : First trimester 0.100-2.500 uIU/mL Second trimester 0.200-3.000 uIU/mL Third trimester 0.300-3.000 uIU/mL Non- adult 0.450-4.500 uIU/mL Patients taking Biotin supplements may have falsely decreased HCG, Ferritin, PSA, Troponin, or TSH test values. Blood Venous blood / Unknown Venipuncture / Unknown 01/01/2025 9:58 AM PST 01/01/2025 9:58 AM [facility] us Kimmy Dangelo MD LAB BLOOD ORDERABLES Final Resul t [facility] [address] [place] [address], * (ABNORMAL) Complete blood count with diff (01/01/2025 9:58 AM [facility]) Only the most recent of9 resultswithin the time period is included. WBC Auto 11.2(H) 3.8 - 10.1 x10e3/uL 01/01/2025 10:29 AM [facility] RBC 3.62(L) 3.90 - 5.20 x10e6/uL 01/01/2025 10:29 AM [facility] Hemoglobin 11.5(L) 12.0 - 15.6 g/dL 01/01/2025 10:29 AM [facility] Hematocrit 34.9(L) 35.0 - 46.0 % 01/01/2025 10:29 AM [facility] MCV 96 81 - 100 fL 01/01/2025 10:29 AM [facility] MCH 31.8 27.0 - 35.0 pg 01/01/2025 10:29 AM [facility] MCHC 33.0 32.0 - 37.0 g/dL 01/01/2025 10:29 AM [facility] RDW 15.2 12.3 - 15.4 % 01/01/2025 10:29 AM [facility] Platelets 368 150 - 400 x10e3/uL 01/01/2025 10:29 AM [facility] MPV 9.5 7.4 - 10.4 fL 01/01/2025 10:29 AM [facility] % Neutrophils 87 % 01/01/2025 10:29 AM [facility] % Lymphocytes 10 % 01/01/2025 10:29 AM [facility] % Monocytes 2 % 01/01/2025 10:29 AM [facility] % Eosinophils 0 % 01/01/2025 10:29 AM [facility] % Basophils 0 % 01/01/2025 10:29 AM [facility] Abs. Neutrophils 9.7(H) 1.6 - 6.9 x10e3/uL 01/01/2025 10:29 AM [facility] Abs. Lymphocytes 1.1 1.1 - 4.8 x10e3/uL 01/01/2025 10:29 AM [facility] Abs. Monocytes 0.2 0.0 - 1.0 x10e3/uL 01/01/2025 10:29 AM [facility] Abs. Eosinophils 0.0 0.0 - 0.5 x10e3/uL 01/01/2025 10:29 AM [facility] Abs. Basophils 0.0 0.0 - 0.4 x10e3/uL 01/01/2025 10:29 AM [facility] Abs. Neutrophils (Auto) 9,700.0(H) 1,600.0 - 6,900.0 /uL 01/01/2025 10:29 AM [facility] Blood Venous blood / Unknown Venipuncture / Unknown 01/01/2025 9:58 AM [facility] 01/01/2025 9:58 AM [facility] Kimmy Dangelo MD LAB BLOOD ORDERABLES Final Resul t [facility] [address] [place] [address], * (ABNORMAL) Comprehensive Metabolic Panel (01/01/2025 9:58 AM [facility]) Only the most recent of10 resultswithin the time period is included. Sodium, Serum/Plasma 141 135 - 145 mmol/L LAB CHEMISTRY METHOD 01/01/2025 10:35 AM [facility] Potassium, Serum/Plasma 4.0 3.5 - 5.2 mmol/L LAB CHEMISTRY METHOD 01/01/2025 10:35 AM [facility] Chloride, Serum/Plasma 103 98 - 107 mmol/L LAB CHEMISTRY METHOD 01/01/2025 10:35 AM [facility] CO2, Serum/Plasma 19(L) 22 - 30 mmol/L LAB CHEMISTRY METHOD 01/01/2025 10:35 AM [facility] Anion Gap, Serum/Plasma 19(H) 3 - 11 mmol/L 01/01/2025 10:35 AM [facility] Urea Nitrogen, Serum/Plasma 6.7(L) 8.0 - 27.0 mg/dL LAB CHEMISTRY METHOD 01/01/2025 10:35 AM [facility] Creatinine, Serum/Plasma 0.67 0.57 - 1.00 mg/dL LAB CHEMISTRY METHOD 01/01/2025 10:35 AM [facility] Glucose, Serum/Plasma 234(H) 65 - 99 mg/dL LAB CHEMISTRY METHOD 01/01/2025 10:35 AM [facility] Calcium, Serum/Plasma 8.7 8.5 - 10.1 mg/dL LAB CHEMISTRY METHOD 01/01/2025 10:35 AM [facility] AST, Serum/Plasma 64(H) 14 - 36 U/L LAB CHEMISTRY METHOD 01/01/2025 10:35 AM [facility] ALT, Serum/Plasma 60(H) <35 U/L LAB CHEMISTRY METHOD 01/01/2025 10:35 AM [facility] Alkaline Phosphatase, Serum/Plasma 118 25 - 165 U/L LAB CHEMISTRY METHOD 01/01/2025 10:35 AM [facility] Total Protein, Serum/Plasma 8.7(H) 6.3 - 8.2 g/dL LAB CHEMISTRY METHOD 01/01/2025 10:35 AM [facility] eGFR, Serum/Plasma (CKD-EPI 2020) 99 >60 (CKD-EPI 2020) mL/min/1. 73 m2 01/01/2025 10:35 AM [facility] Comment: eGFR calculation has been updated by recommendation of the National Kidney Foundation (NKF) without the race variable. This change was made on May 08, 2022 Interpretation for GFR in Chronic Kidney Disease can be viewed below. Albumin, Serum/Plasma 3.8 3.4 - 5.0 g/dL LAB CHEMISTRY METHOD 01/01/2025 10:35 AM [facility] Bilirubin, Total, Serum/Plasma <0.90 0.2 - 1.3 mg/dL LAB CHEMISTRY METHOD 01/01/2025 10:35 AM [facility] BUN/Creatinine Ratio, Serum/Plasma 10.0 6.0 - 24.0 01/01/2025 10:35 AM [facility] Blood Venous blood / Unknown Venipuncture / Unknown 01/01/2025 9:58 AM [facility] 01/01/2025 9:[address] [facility] - 01/01/2025 10:35 AM [facility] Interpretive Data The estimated glomerular filtration rate [...] criteria for CKD (Kidney Int Suppl 2013;3:1-150) Kimmy Dangelo MD LAB BLOOD ORDERABLES Final Resul t [facility] [address] [place] [address], * Phosphorus (12/28/2024 3:41 AM [facility]) Only the most recent of4 resultswithin the time period is included. Phosphorus, Serum/Plasma 3.7 2.5 - 4.5 mg/dL LAB CHEMISTRY METHOD 12/28/2024 4:06 AM [facility] Blood Blood / Unknown Venipuncture / Unknown 12/28/2024 3:41 AM PST 12/28/2024 3:45 AM PST us Wong Bullard MD LAB BLOOD ORDERABLES Final Res ult Performing Organization Address City/[facility]/ZIP Co de Phone Number [facility] [address] [place] [address], * Magnesium (12/28/2024 3:41 AM PST) Only the most recent of6 resultswithin the time period is included. Magnesium, Serum/Plasma 2.0 1.6 - 2.4 mg/dL LAB CHEMISTRY METHOD 12/28/2024 4:06 AM [facility] Blood Blood / Unknown Venipuncture / Unknown 12/28/2024 3:41 AM PST 12/28/2024 3:45 AM PST us Wong Bullard MD LAB BLOOD ORDERABLES Final Res ult Performing Organization Address [facility] Co de Phone Number [facility] [address] [place] [address], * (ABNORMAL) PTH, intact (12/26/2024 5:49 AM PST) PTH, INTACT, Serum/Plasma 126.3(H) 14.2 - 75.2 pg/mL LAB CHEMISTRY METHOD 12/26/2024 6:44 AM [facility] Comment:Note: Reference Ra miguel revised 04/23/23. Blood Venous blood / Unknown Venipuncture / Unknown 12/26/2024 5:49 AM PST 12/26/2024 6:02 AM PST us Maria De Jesus Bennett DO LAB BLOOD ORDERABLES Final Result Performing Organization Address City/[facility]/ZIP Co de Phone Number [facility] [address] [place] [address], * (ABNORMAL) Calcium, ionized estimated (12/26/2024 5:49 AM PST) Pathologist [facility] Calcium, Ionized 3.2(L) 3.5 - 5.2 mg/dL 12/26/2024 8:07 AM [facility] Calcium, Serum/Plasma 6.5(LC) 8.5 - 10.1 mg/dL LAB CHEMISTRY METHOD 12/26/2024 8:07 AM [facility] Total Protein, Serum/Plasma 5.7(L) 6.3 - 8.2 g/dL LAB CHEMISTRY METHOD 12/26/2024 8:07 AM [facility] Blood Venous blood / Unknown Venipuncture / Unknown 12/26/2024 5:49 AM PST 12/26/2024 6:02 AM PST us Wong Bullard MD LAB BLOOD ORDERABLES Final Res ult Performing Organization Address City/[facility]/ZIP Co de Phone Number [facility] [address] [place] [address], [place] [phone] * Transfuse RBC (12/25/2024 9:50 PM PST) Only the most recent of2 resultswithin the time period is included. us Maria De Jesus Bennett DO BLOOD TRANSFUSION ORDERABLE S Final Result * MRSA Screen (12/25/2024 9:44 PM PST) [facility] MRSA, DAWIT MRSA Not Detected MRSA Not Detected LAB MOLECULAR DIAGNOSTICS METHOD 12/26/2024 7:42 AM [facility] Sinus Both anterior nares / Unknown Non-blood Collection / Unknown 12/25/2024 9:44 PM PST 12/25/2024 10:02 PM PST us Maria De Jesus Bennett DO LAB MICROBIOLOGY - GENERAL ORDERABLES Final Result Performing Organization Address City/[facility]/ZIP Co de Phone Number [facility] [address] [place] [id number], * S pneumoniae and L pneumonphilia (12/25/2024 9:43 PM PST) Strep pneumo Ag Negative Negative 7:04 AM [facility] L. pneumophila Ag Negative Negative 12/26/2024 7:04 AM [facility] Urine Urine specimen / Unknown Non-blood Collection / Unknown 12/25/2024 9:43 PM PST 12/25/2024 10:02 PM [facility] MICROBIOLOGY - GENERAL ORDERABLES Final Result Performing Organization Address City/[facility]/ZIP Co de Phone Number [facility] [address] [place] [address], * Urine Hold Jim Top (12/25/2024 9:43 PM [facility]) [facility] Extra Tube Hold for add-ons. 12/26/2024 3:01 AM [facility] Comment:Auto resulted. Urine Urine specimen obtained by clean catch procedure / Unknown Non-blood Collection / Unknown 12/25/2024 9:43 PM PST 12/25/2024 10:09 PM [facility] URINE ORDERABLES Final Result Performing Organization Address City/[facility] Co de Phone Number [facility] [address] [place] [address], * Calcium/Creatinine Ratio, Urine (12/25/2024 9:43 PM [facility]) Pathologist [facility] Calcium, Urine <0.8 Not Estab. mg/dL 12/27/2024 8:08 AM [facility] Comment: Specimen received without preservative. Value may be decreased. Consider recollection with preservative if clinical correlation indicated. Verified by repeat analysis Creatinine, Urine 25.4 Not Estab. mg/dL 12/27/2024 8:08 AM [facility] Calcium/Creatinin e Ratio <31 29 - 442 mg/g creat 12/27/2024 8:08 AM [facility] Urine Urine specimen obtained by clean catch procedure / Unknown Non-blood Collection / Unknown 12/25/2024 9:43 PM PST 12/25/2024 10:02 PM PST Narrative [facility] - 12/27/2024 8:08 AM PST Performed at: - [facility] [address], [place], [place] [id number] Assistant Analyst: Babatunde Vargas MD, Phone: [phone] us [employer] LAB URINE ORDERABLES Final Result [facility] [address] [place] [address], * (ABNORMAL) Urine microscopic (12/25/2024 9:43 PM [facility]) WBC, UA 0-5 0 - 5 /HPF 12/25/2024 10:44 PM [facility] RBC, UA 0-2 0 - 2 /HPF 12/25/2024 10:44 PM [facility] Bacteria, UA Few(A) None Seen /HPF 12/25/2024 10:44 PM [facility] Squamous Epithelial Cells, Urine Few None seen - Few /HPF 12/25/2024 10:44 PM [facility] Reflex to Urine Culture No 12/25/2024 10:44 PM [facility] Mucus, Urine Present(A) None Seen /LPF 12/25/2024 10:44 PM [facility] Cellular Casts, UA 1-3 (Rare)(A) None Seen /LPF 12/25/2024 10:44 PM [facility] Urine Urine specimen obtained by clean catch procedure / Unknown Non-blood Collection / Unknown 12/25/2024 9:43 PM PST 12/25/2024 10:02 PM PST us [employer] DO LAB URINE ORDERABLES Final Result [facility] [address] [place] [address], [place] [phone] * (ABNORMAL) Urinalysis, reflex Microscopic and Culture if indicated (12/25/2024 9:43 PM [facility]) Color, UA Yellow Yellow 12/25/2024 10:11 PM [facility] Clarity, UA Clear Clear 12/25/2024 10:11 PM [facility] Specific [place], UA 1.010 1.010 - 1.030 12/25/2024 10:11 PM [facility] pH, UA 6.0 5.0 - 8.0 pH 12/25/2024 10:11 PM [facility] Leukocytes, UA Trace(A) Negative 12/25/2024 10:11 PM [facility] Nitrite, UA Negative Negative 12/25/2024 10:11 PM [facility] Protein, UA Negative Negative mg/dL 12/25/2024 10:11 PM [facility] Glucose, UA Negative Negative mg/dL 12/25/2024 10:11 PM [facility] Ketones, UA Negative Negative mg/dL 12/25/2024 10:11 PM [facility] Urobilinogen, UA 0.2 (Normal) 0.2 1.0 EU/dL 12/25/2024 10:11 PM [facility] Bilirubin, UA Negative Negative 12/25/2024 10:11 PM [facility] Blood/Hemoglobi n, UA Trace-Intact (A) Negative 12/25/2024 10:11 PM [facility] Reflex to Urine Microscopic Yes 12/25/2024 10:11 PM [facility] Urine Urine specimen obtained by clean catch procedure / Unknown Non-blood Collection / Unknown 12/25/2024 9:43 PM PST 12/25/2024 10:02 PM [facility] Maria De Jesus Bennett DO LAB URINE ORDERABLES Final Result [facility] [address] [place] [address], * (ABNORMAL) Basic metabolic panel (12/25/2024 5:53 PM [facility]) Sodium, Serum/Plasma 135 135 - 145 mmol/L LAB CHEMISTRY METHOD 12/25/2024 7:28 PM [facility] Potassium, Serum/Plasma 2.7(L) 3.5 - 5.2 mmol/L LAB CHEMISTRY METHOD 12/25/2024 7:28 PM [facility] Chloride, Serum/Plasma 98 98 - 107 mmol/L LAB CHEMISTRY METHOD 12/25/2024 7:28 PM [facility] CO2, Serum/Plasma 26 22 - 30 mmol/L LAB CHEMISTRY METHOD 12/25/2024 7:28 PM [facility] Anion Gap, Serum/Plasma 11 3 - 11 mmol/L 12/25/2024 7:28 PM [facility] Urea Nitrogen, Serum/Plasma 4.3(L) 8.0 - 27.0 mg/dL LAB CHEMISTRY METHOD 12/25/2024 7:28 PM [facility] Creatinine, Serum/Plasma 0.76 0.57 - 1.00 mg/dL LAB CHEMISTRY METHOD 12/25/2024 7:28 PM [facility] Glucose, Serum/Plasma 112(H) 65 - 99 mg/dL LAB CHEMISTRY METHOD 12/25/2024 7:28 PM [facility] Calcium, Serum/Plasma 6.9(LC) 8.5 - 10.1 mg/dL LAB CHEMISTRY METHOD 12/25/2024 7:28 PM [facility] eGFR, Serum/Plasma (CKD-EPI 2020) 89 >60 (CKD-EPI 2020) mL/min/1. 73 m2 12/25/2024 7:28 PM [facility] Comment: eGFR calculation has been updated by recommendation of the National Kidney Foundation (NKF) without the race variable. This change was made on May 08, 2022 Interpretation for GFR in Chronic Kidney Disease can be viewed below. BUN/Creatinine Ratio, Serum/Plasma 5.7(L) 6.0 - 24.0 12/25/2024 7:28 PM [facility] Blood Venous blood / Unknown Venipuncture / Unknown 12/25/2024 5:53 PM PST 12/25/2024 6:06 PM PST Narrative [facility] - 12/25/2024 7:28 PM [facility] Interpretive Data The estimated glomerular filtration rate [...] criteria for CKD (Kidney Int Suppl 2013;3:1-150) [employer] LAB BLOOD ORDERABLES Final Result [facility] [address] [place] [address], * Culture, Blood, Blood, Peripheral draw (12/25/2024 5:10 PM [facility]) Only the most recent of4 resultswithin the time period is included. Blood Culture No growth after 5 days 12/30/2024 7:01 PM [facility] Blood Peripheral blood / Unknown Venipuncture / Unknown 12/25/2024 5:10 PM PST 12/25/2024 5:16 PM [facility] [employer] DO LAB MICROBIOLOGY - GENERAL ORDERABLES Final Result [facility] [address] [place] [address], [place] [phone] * (ABNORMAL) C-reactive protein (12/25/2024 5:10 PM PST) [facility] CRP, Serum/Plasma (mg/dL) 14.6(H) <1.0 mg/dL LAB CHEMISTRY METHOD 12/25/2024 5:55 PM [facility] Blood Venous blood / Unknown Venipuncture / Unknown 12/25/2024 5:10 PM PST 12/25/2024 5:17 PM PST [employer] LAB BLOOD ORDERABLES Final Result Performing Organization Address [facility] de Phone Number [facility] [address] [place] [address], [place] [phone] * (ABNORMAL) Iron Profile (Iron and TIBC) with Ferritin (12/25/2024 3:44 PM PST) [facility] % Iron Saturation, Serum/Plasma 33 15 - 50 % 12/25/2024 5:43 PM [facility] Iron, Serum/Plasma 52 40 - 140 ug/dL LAB CHEMISTRY METHOD 12/25/2024 5:43 PM [facility] Total Iron Binding Capacity, Serum/Plasma 158(L) 250 - 400 ug/dL LAB CHEMISTRY METHOD 12/25/2024 5:43 PM [facility] Ferritin, Serum/Plasma 1,420(H) 18 - 340 ng/mL LAB CHEMISTRY METHOD 12/25/2024 5:43 PM [facility] Comment: Heparin plasma samples show approximately 15% negative bias when compared to matched serum samples Patients taking Biotin supplements may have falsely decreased HCG, Ferritin, PSA, Troponin, or TSH test values. Blood Venous blood / Unknown Venipuncture / Unknown 12/25/2024 3:44 PM PST 12/25/2024 3:49 PM PST us Maria De Jesus Kilcrease DO LAB BLOOD ORDERABLES Final Result [facility] [address] [place] [address], [place] [phone] * (ABNORMAL) Vitamin B12 and Folate (12/25/2024 3:44 PM PST) Vitamin B12, Serum/Plasma 996(H) 239 - 931 pg/mL LAB CHEMISTRY METHOD 12/26/2024 11:23 AM [facility] Comment:Biotin concentration s of 30-100 ng/mL may affect the Vitamin B12 assay causing a positive bias of 216 to 694 pg/mL. A biotin concentration of 100 ng/mL is manufacturer's service representative of a dose of 10 mg/day biotin. Multivitamins containing doses up to 300 mcg per day biotin are not expected to cause interference with this assay. Biotin concentrations in specimens from patients ingesting supplements or therapy with higher levels of biotin are likely to interfere. Folate, Serum/Plasma (ng/mL) 11.4 5.0 - 20.0 ng/mL LAB CHEMISTRY METHOD 12/26/2024 11:23 AM [facility] Comment:Biotin concentration s of 10-100 ng/mL may affect the folate assay causing a positive bias of 0.8 to 13.4 ng/mL. A biotin concentration of 100 ng/mL is manufacturer's service representative of a dose of 10 mg/day biotin. Multivitamins containing doses up to 300 mcg per day biotin are not expected to cause interference with this assay. Biotin concentrations in specimens from patients ingesting supplements or therapy with higher levels of biotin are likely to interfere. Blood Venous blood / Unknown Venipuncture / Unknown 12/25/2024 3:44 PM PST 12/25/2024 3:49 PM PST Maria De Jesus Becerraholden DO LAB BLOOD ORDERABLES Final Result [facility] [address] [place] [address], [place] [phone] * (ABNORMAL) Vitamin D, 25-Hydroxy (12/25/2024 3:44 PM PST) Vitamin D, 25-Hydroxy, Serum <12.8(L) 30.0 - 100.0 ng/mL LAB CHEMISTRY METHOD 12/25/2024 10:05 PM [facility] Blood Venous blood / Unknown Venipuncture / Unknown 12/25/2024 3:44 PM PST 12/25/2024 3:49 PM [facility] Narrative [facility] - 12/25/2024 10:05 PM [facility] Vitamin D deficiency has been defined by the Gregory of Medicine and an Endocrine Society practice guideline as a level of serum 25-OH vitamin D less than 20 ng/mL (1,2). The Endocrine Society went on to further define vitamin D insufficiency as a level between 21 and 29 ng/mL (2). 1. IOM (Gregory of Medicine). 2010. Dietary reference intakes for calcium and D. [place]: The National Academies Press. 2. Shiloh MF, Abram RUGGIERO, Maria R ORTEGA, et al. Evaluation, treatment, and prevention of vitamin D deficiency: an Endocrine Society clinical practice guideline. JCEM. 2010; 96(7):1911-30. us Maria De Jesus Bennett DO LAB BLOOD ORDERABLES Final Result [facility] [address] [place] [address], * Respiratory PCR panel (includes SARS-COV-2 (COVID-19)) (12/25/2024 1:57 PM [facility]) Adenovirus Detection by PCR Not Detected Not Detected LAB MOLECULAR DIAGNOSTICS METHOD 12/25/2024 3:02 PM [facility] Coronavirus 229E Detection by PCR Not Detected Not Detected LAB MOLECULAR DIAGNOSTICS METHOD 12/25/2024 3:02 PM [facility] Coronavirus HKU1 Detection by PCR Not Detected Not Detected LAB MOLECULAR DIAGNOSTICS METHOD 12/25/2024 3:02 PM [facility] Coronavirus NL63 Detection by PCR Not Detected Not Detected LAB MOLECULAR DIAGNOSTICS METHOD 12/25/2024 3:02 PM [facility] Coronavirus OC43 Detection by PCR Not Detected Not Detected LAB MOLECULAR DIAGNOSTICS METHOD 12/25/2024 3:02 PM [facility] SARS-CoV-2 (COVID-19) Qual PCR Not Detected Not Detected LAB MOLECULAR DIAGNOSTICS METHOD 12/25/2024 3:02 PM [facility] Metapneumovirus PCR Not Detected Not Detected LAB MOLECULAR DIAGNOSTICS METHOD 12/25/2024 3:02 PM [facility] Rhinovirus/Enterov irus PCR Not Detected Not Detected LAB MOLECULAR DIAGNOSTICS METHOD 12/25/2024 3:02 PM [facility] Influenza A PCR Not Detected Not Detected LAB MOLECULAR DIAGNOSTICS METHOD 12/25/2024 3:02 PM [facility] Influenza B PCR Not Detected Not Detected LAB MOLECULAR DIAGNOSTICS METHOD 12/25/2024 3:02 PM [facility] Parainfluenza 1 PCR Not Detected Not Detected LAB MOLECULAR DIAGNOSTICS METHOD 12/25/2024 3:02 PM [facility] Parainfluenza 2 PCR Not Detected Not Detected LAB MOLECULAR DIAGNOSTICS METHOD 12/25/2024 3:02 PM [facility] Parainfluenza 3 PCR Not Detected Not Detected LAB MOLECULAR DIAGNOSTICS METHOD 12/25/2024 3:02 PM [facility] Parainfluenza 4 PCR Not Detected Not Detected LAB MOLECULAR DIAGNOSTICS METHOD 12/25/2024 3:02 PM [facility] Respiratory Syncytial Virus PCR Not Detected Not Detected LAB MOLECULAR DIAGNOSTICS METHOD 12/25/2024 3:02 PM [facility] Bordetella parapertussis ([id number]) PCR Not Detected Not Detected LAB MOLECULAR DIAGNOSTICS METHOD 12/25/2024 3:02 PM [facility] Bordetella pertussis PCR Not Detected Not Detected LAB MOLECULAR DIAGNOSTICS METHOD 12/25/2024 3:02 PM [facility] Comment: [employer] RVP2.1 should not be used if B. pertussis infection is specifically suspected; a B. pertussis molecular test that is FDA-cleared for use on patients suspected of having a respiratory tract infection attributable to B. pertussis should be used instead. This PCR result is considered a presumptive test. Please order [id number] B.PERTUSSIS/B.PARAPERTUSSIS PCR (SENDOUT)([employer] test code 284317) if clinical manifestations warrant further confirmatory testing for Bordetella pertussis (whooping cough). The BioFire RP2.1 detects a single-copy Pertussis toxin promoter target. Other PCR tests for B. pertussis target the multi-copy IS481 insertion sequence and are therefore capable of detecting lower levels. There is a risk of false positive results for Bordetella species and Human Rhinovirus/Enterovirus due to non-specific amplification and cross-reactivity with organisms that can be found in the respiratory tract. Chlamydia pneumoniae PCR Not Detected Not Detected LAB MOLECULAR DIAGNOSTICS METHOD 12/25/2024 3:02 PM [facility] Mycoplasma pneumoniae PCR Not Detected Not Detected LAB MOLECULAR DIAGNOSTICS METHOD 12/25/2024 3:02 PM [facility] Sinus Nasopharyngeal structure / Unknown Non-blood Collection / Unknown 12/25/2024 1:57 PM PST 12/25/2024 2:[address] [facility] - 12/25/2024 3:02 PM PST PHYSICAL SCIENTIST swab is the only specimen type cleared by the FDA. Nasal wash, tracheal aspirate, and bronchial lavage specimen types have not been cleared by the FDA. Therefore results on any specimen type other than nasopharyngeal are considered investigational testing only. Bhargav Munson MD LAB MICROBIOLOGY - GENERAL ORDERABLES Final Result Performing Organization Address City/State/[facility] Co de Phone Number [facility] [address] [place] [address], * CT CHEST ABDOMEN PELVIS WITH CONTRAST (12/25/2024 1:33 PM PST) Anatomical Region Laterality Modality N/A Computed Tomogra phy 12/25/2024 2:32 PM PST Narrative 12/25/2024 2:32 [place]. [address] PATIENT NAME: ORLANDO CHUNG : 1960 GENDER: F EXAM DATE: 12/25/2024 13:27 ORDERED FROM: [facility] ORDERING PHYSICIAN: BHARGAV H. HASELMAN CC: -- - - - CONTRAST: 100ml isovue 300 READING STATION ID: [id number] mGy: PROCEDURE: CT CHEST ABDOMEN PELVIS WITH CONTRAST INDICATIONS: cough, vomiting, general abdominal pain TECHNIQUE: After the administration of intravenous contrast, 5 mm thick sections acquired from the lung apices to the symphysis. 5 mm coronal and sagittal reformats were performed, with additional 7 mm MIP axial reformats through the lungs. For radiation dose reduction, the following was used: automated exposure control, adjustment of mA and/or kV according to patient size. COMPARISON: [facility], [place], PET NECK TO MID THIGH, 09/26/2024, 13:30. [facility], CT, CT ANGIO CHEST PE, 10/14/2024, 23:27. FINDINGS: Image quality: Diagnostic. CHEST: Lower Neck: No enlarged lymph nodes. Thyroid: No thyroid nodules which require sonographic evaluation. Axillae: No enlarged lymph nodes. Chest Wall: Stable left chest Port-A-Cath. Lungs and Pleura: Small loculated right pleural effusion with pleural enhancement but no significant nodularity. Right lower lobe and middle lobe consolidations or atelectasis. In one view a septal thickening in the right upper lobe. Clustered nodular opacities are seen in the left upper lobe and superior segment of the left lower lobe. More anterior left upper and lower lobe ground-glass opacities on CT from 10/14/2024 have resolved. Heart: Heart size is normal. No pericardial effusion. Thoracic Vessels: The aorta and pulmonary arteries demonstrate normal size. Mediastinum and Mildred: Large mediastinal lymph nodes, largest is a right paratracheal lymph node measuring 1.6 cm in short axis (). Esophagus: No wall thickening. No hiatal hernia. ABDOMEN: Liver: No solid mass. Gallbladder: Status post cholecystectomy. Biliary ducts: No biliary dilation. Pancreas: No ductal dilation. Spleen: Size is within normal limits. Adrenal Glands: No adrenal nodules. Kidneys and Ureters: No hydronephrosis. No solid mass. No complex renal cystic lesion which requires follow up. Stomach and Bowel: Normal colonic caliber, without significant wall thickening. Normal appendix. Small bowel loops are unremarkable. Peritoneum: No abnormal intraperitoneal fluid. No free air. Ventral Wall: No significant ventral hernia. Abdominal Nodes: No retroperitoneal or mesenteric adenopathy by size criteria. Vessels: Aorta and inferior vena cava are normal in size. PELVIS: Pelvic Organs: Status post hysterectomy. Bladder: No bladder wall thickening, accounting for underdistention. Pelvic Nodes: No enlarged lymph nodes. Miscellaneous: No inguinal hernias are seen. Bones: No aggressive osseous abnormality. Cervical spinal fusion or is present. IMPRESSION: 1. Right lower lobe masslike consolidation again seen compatible with known malignancy. Malignant mediastinal lymphadenopathy redemonstrated. 2. Small loculated right pleural effusion with smooth pleural enhancement. Findings may be related to chronic malignant effusion although developing empyema could be considered in the appropriate clinical context. 3. New clustered nodular opacities in the left lung are suspicious for an infectious or inflammatory process or drug reaction. 4. No acute abnormality in the abdomen or pelvis. Approved by: Estevan Vega M.D. on 12/25/2024 at 14:32 Procedure Note Estevan Vega P - 12/25/2024 [place]. [address] PATIENT NAME: ORLANDO CHUNG : 1960 GENDER: F EXAM DATE: 12/25/2024 13:27 ORDERED FROM: [facility] ORDERING PHYSICIAN: BHARGAV MUNSON CC: -- - - - CONTRAST: 100ml isovue 300 READING STATION ID: [id number] mGy: PROCEDURE: CT CHEST ABDOMEN PELVIS WITH CONTRAST INDICATIONS: cough, vomiting, general abdominal pain TECHNIQUE: After the administration of intravenous contrast, 5 mm thick sectionsacquired from the lung apices to the symphysis. 5 mm coronal and sagittalreformats were performed, with additional 7 mm MIP axial reformats throughthe lungs. For radiation dose reduction, the following was used:automated exposure control, adjustment of mA and/or kV according topatient size. COMPARISON: [facility], [place], PET NECK TO MID THIGH, 09/26/2024,13:30. [facility], CT, CT ANGIO CHEST PE, 10/14/2024, 23:27. FINDINGS: Image quality: Diagnostic. CHEST: Lower Neck: No enlarged lymph nodes. Thyroid: No thyroid nodules which require sonographic evaluation. Axillae: No enlarged lymph nodes. Chest Wall: Stable left chest Port-A-Cath. Lungs and Pleura: Small loculated right pleural effusion with pleuralenhancement but no significant nodularity. Right lower lobe and middlelobe consolidations or atelectasis. In one view a septal thickening inthe right upper lobe. Clustered nodular opacities are seen in the leftupper lobe and superior segment of the left lower lobe. More anteriorleft upper and lower lobe ground-glass opacities on CT from 10/14/2024 haveresolved. Heart: Heart size is normal. No pericardial effusion. Thoracic Vessels: The aorta and pulmonary arteries demonstrate normalsize. Mediastinum and Mildred: Large mediastinal lymph nodes, largest is a rightparatracheal lymph node measuring 1.6 cm in short axis (). Esophagus: No wall thickening. No hiatal hernia. ABDOMEN: Liver: No solid mass. Gallbladder: Status post cholecystectomy. Biliary ducts: No biliary dilation. Pancreas: No ductal dilation. Spleen: Size is within normal limits. Adrenal Glands: No adrenal nodules. Kidneys and Ureters: No hydronephrosis. No solid mass. No complex renalcystic lesion which requires follow up. Stomach and Bowel: Normal colonic caliber, without significant wallthickening. Normal appendix. Small bowel loops are unremarkable. Peritoneum: No abnormal intraperitoneal fluid. No free air. Ventral Wall: No significant ventral hernia. Abdominal Nodes: No retroperitoneal or mesenteric adenopathy by sizecriteria. Vessels: Aorta and inferior vena cava are normal in size. PELVIS: Pelvic Organs: Status post hysterectomy. Bladder: No bladder wall thickening, accounting for underdistention. Pelvic Nodes: No enlarged lymph nodes. Miscellaneous: No inguinal hernias are seen. Bones: No aggressive osseous abnormality. Cervical spinal fusion or ispresent. IMPRESSION: 1. Right lower lobe masslike consolidation again seen compatible withknown malignancy. Malignant mediastinal lymphadenopathy redemonstrated. 2. Small loculated right pleural effusion with smooth pleural enhancement.Findings may be related to chronic malignant effusion although developingempyema could be considered in the appropriate clinical context. 3. New clustered nodular opacities in the left lung are suspicious for aninfectious or inflammatory process or drug reaction. 4. No acute abnormality in the abdomen or pelvis. Approved by: Estevan Vega M.D. on 12/25/2024 at 14:32 us Bhargav Munson MD RIS [facility] CT PROCEDURES Final Result * Lactic Acid Sepsis Protocol (12/25/2024 1:11 PM PST) Pathologist [facility] Lactic Acid, Serum/Plasma 1.5 <0.5 - 2.0 mmol/L mmol/L LAB CHEMISTRY METHOD 12/25/2024 1:58 PM [facility] Comment:Note: Reference Ra miguel revised May 05, 2024 Blood Venous blood / Unknown Venipuncture / Unknown 12/25/2024 1:11 PM PST 12/25/2024 1:27 PM [facility] us Bhargav Munson MD LAB BLOOD ORDERABLES Final Result Performing Organization Address [facility] Co de Phone Number [facility] [address] [place] [address], * Slide review (12/25/2024 1:11 PM PST) Pathologist [facility] WBC Morphology Normal 12/25/2024 4:10 PM [facility] Macrocytes 1+ 12/25/2024 4:10 PM [facility] Polychromasia 1+ 12/25/2024 4:10 PM [facility] Platelet Estimate Adequate Adequate 025 4:10 PM [facility] Blood Venous blood / Unknown Venipuncture / Unknown 12/25/2024 1:11 PM PST 12/25/2024 1:27 PM [facility] us Bhargav Munson MD LAB BLOOD ORDERABLES Final Result Performing Organization Address City/[facility] Co de Phone Number [facility] [address] [place] [address], * (ABNORMAL) Sedimentation rate (12/25/2024 1:11 PM PST) Pathologist [facility] Sed Rate 61(H) 2 - 39 mm/hr 12/25/2024 4:37 PM [facility] Blood Venous blood / Unknown Venipuncture / Unknown 12/25/2024 1:11 PM PST 12/25/2024 1:27 PM PST us Maria De Jesus Bennett DO LAB BLOOD ORDERABLES Final Result Performing Organization Address [facility] Co de Phone Number [facility] [address] [place] [address], * Troponin (12/25/2024 1:11 PM PST) Troponin I, Serum/Plasma <0.012 <0.034 ng/mL LAB CHEMISTRY METHOD 12/25/2024 2:02 PM [facility] Comment:Patients taking Biot in supplements may have falsely decreased HCG, Ferritin, PSA, Troponin, or TSH test values. Blood Venous blood / Unknown Venipuncture / Unknown 12/25/2024 1:11 PM PST 12/25/2024 1:27 PM [facility] Bhargav Munson MD LAB BLOOD ORDERABLES Final Result Performing Organization Address [facility] de Phone Number [facility] [address] [place] [address], * ECG 12 lead (12/25/2024 12:39 PM PST) HR 91 bpm [facility] IECG RR 664 ms [facility] IECG ID 139 ms [facility] I[facility]G QRSD 81 ms [facility] I[facility]G QT 375 ms [facility] I[facility]G QTc 460 ms [facility] I[facility]G QRS -7 deg [facility] IECG T 3 deg [facility] IECG Impression - ABNORMAL ECG - [facility] IECG Impression Sinus rhythm [facility] IECG Impression Inferior infarct, old [facility] IECG Impression When compared with ECG of 17-Oct-2024 16:31:04, [facility] IECG Impression No significant change [facility] IECG 12/25/2024 12:3 9 PM PST us Bhargav Munson MD ECG ORDERABLES Final Resul t [facility] IECG * Critical Care (12/25/2024 12:05 PM [facility]) Narrative Bhargav Munson MD - 12/25/2024 12:05 PM [facility] Bhargav Munson MD 01/02/2025 5:00 PM Critical Care Performed by: Bhargav Munson MD Authorized by: Bhargav Munson MD Critical care provider statement: Critical care time (minutes): 30 Critical care was necessary to treat or prevent imminent or life-threatening deterioration of the following conditions: Metabolic crisis Critical care was time spent personally by me on the following activities: Discussions with consultants, evaluation of patient's response to treatment, examination of patient, obtaining history from patient or surrogate, ordering and review of laboratory studies, ordering and performing treatments and interventions, ordering and review of radiographic studies, pulse oximetry, re-evaluation of patient's condition and review of old charts I assumed direction of critical care for this patient from another provider in my specialty: no Bhargav Munson MD IN CLINIC/BEDSIDE ORDERABLE S Edited Result - Final * ABO/Rh Type Confirmation (12/25/2024 11:27 AM [facility]) Pathologist [facility] ABORh O POS 12/25/2024 12:00 PM [facility] Blood Venous blood / Unknown Venipuncture / Unknown 12/25/2024 11:27 AM PST 12/25/2024 11:28 AM [facility] Kimmy Dangelo MD LAB BLOOD BANK TEST ORDERABLES F inal Result [facility] [address] [place] [address], * Blood Bank Hold Tube (12/25/2024 10:40 AM [facility]) Pathologist [facility] Extra Tube Hold for add-ons. 12/25/2024 11:01 PM [facility] Comment:Auto resulted. Blood Venous blood / Unknown Venipuncture / Unknown 12/25/2024 10:40 AM PST 12/25/2024 10:47 AM PST us Kimmy Dangelo MD LAB BLOOD BANK TEST ORDERABLES F inal Result Performing Organization Address City/[facility] Co de Phone Number [facility] [address] [place] [address], * Prepare/Crossmatch RBC: 2 Units (12/25/2024 10:28 AM PST) Unit Number [id number] [facility] Product Identification E0336 [facility] Product Blood Type (Readable) O POS [facility] Dispense Status Transfused [facility] Blood Product Unit Expiration Date [facility] Product Code [id number] [facility] Product Blood Type 5100 [facility] Unit Number [id number] [facility] Product Identification E0336 [facility] Product Blood Type (Readable) O POS [facility] Dispense Status Transfused [facility] Blood Product Unit Expiration Date [facility] Product Code [id number] [facility] Product Blood Type 5100 [facility] Blood Venous blood / Unknown 12/25/2024 10:28 AM PST us Kimmy Dangelo MD BLOOD BANK PRODUCT ORDERABLES Fi nal Result Performing Organization Address City/[facility] Co de Phone Number [facility] [address] [place] [address], * Type and screen (12/25/2024 10:28 AM PST) ABORh O POS 12/25/2024 12:10 PM PST [facility] Antibody Screen NEG 11/06/202 5 12:10 PM [facility] Reflex to ABO/Rh Type Confirmation YES 12/25/2024 12:10 PM [facility] Type and Screen Expiration Date 5 23:59 12/25/2024 12:10 PM [facility] Blood Venous blood / Unknown Venipuncture / Unknown 12/25/2024 10:28 AM [facility] 12/25/2024 10:28 AM [facility] Kimmy Dangelo MD LAB BLOOD BANK TEST ORDERABLES F inal Result [facility] [address] [place] [address], * (ABNORMAL) Manual differential (12/25/2024 9:08 AM [facility]) % Neutrophils Segmented, Manual 39 % 12/25/2024 9:52 AM [facility] % Lymphocytes, Manual 49 % 12/25/2024 9:52 AM [facility] % Monocytes, Manual 11 % 12/25/2024 9:52 AM [facility] % Bands, Manual 1 % 9:52 AM [facility] Abs. Segs, Manual 3.8 1.6 - 6.9 x10e3/uL 12/25/2024 9:52 AM [facility] Abs. Lymphocytes, Manual 4.8 1.1 - 4.8 x10e3/uL 12/25/2024 9:52 AM [facility] Abs. Monocytes, Manual 1.1(H) 0.0 - 1.0 x10e3/uL 12/25/2024 9:52 AM [facility] Abs. Bands, Manual 0.1 0.0 - 0.5 x10e3/uL 12/25/2024 9:52 AM [facility] Total Counted 100 12/25/2024 9:52 AM [facility] Abs. Neutrophils (Manual) 3,920.0 1,600.0 - 6,900.0 /uL 12/25/2024 9:52 AM [facility] WBC Morphology Normal 12/25/2024 9:52 AM [facility] RBC Morphology Normal 12/25/2024 9:52 AM [facility] Platelet Morphology Normal 12/25/2024 9:52 AM [facility] Blood Venous blood / Unknown Venipuncture / Unknown 12/25/2024 9:08 AM [facility] 12/25/2024 9:08 AM [facility] us Kimmy Dangelo MD LAB BLOOD ORDERABLES Final Resul t [facility] [address] [place] [address], from Last 3 Months Insurance [place] Member Subscriber Plan / Payer (Ef fective 2006-Present) Name:Orlando Chung Member ID:[id number] Relation to Subscriber:Self Name:Orlando Chung Subscriber ID:[id number] Payer ID:Not on file Group ID:[id number] Type:Not on file Address: [address] [place] [address] [facility] DUAL COMPLETE MEDADVANTAGE COORDIN[employer] OPTIONS Advance Directives * Full Code (Latest Code Status on File) Date Activated Date Inactivated Comments 12/25/2024 4:26 PM 12/28/2024 3:03 PM Question Answer Comments Discussed the code status with patient and/or fa gayatri: Yes * Full Code Date Activated Date Inactivated Comments 10/14/2024 1:11 AM 10/22/2024 5:53 PM Question Answer Comments Discussed the code status with patient and/or fa gayatri: Yes * Full Code Date Activated Date Inactivated Comments 09/01/2024 1:34 PM 09/01/2024 7:54 PM Question Answer Comments Discussed the code status with patient and/or fa gayatri: No * Full Code Date Activated Date Inactivated Comments 08/27/2024 4:50 PM 08/28/2024 5:49 PM Question Answer Comments Discussed the code status with patient and/or fa gayatri: Yes * Full Code Date Activated Date Inactivated Comments 08/27/2024 1:24 PM 08/27/2024 4:50 PM Question Answer Comments Discussed the code status with patient and/or fa gayatri: No Care Teams Marketing Information Analyst Relationship Specialty Start Date End Date Irene Ferrell ARNP [facility] [address], [address] [address] PCP - General Nurse Practitioner 08/26/24
--- OUTSIDE RECORDS SUMMARY | 2025-01-25 12:43 | EXTERNAL MEDICAL SUMMARY RPT | Encounter Summary ---
Author Organization [facility] Address [address] [place] [address] Care Team Providers Care Public Health Director Name Role Phone Irene Ferrell Primary Care Provider +1- [phone] Encounter Details Date Type Department Care Team (Late st Contact Info) Description 07/22/2024 Abstract [facility] Orthopedics and Sports Medicine [address] [phone] Santhosh Diaz MD [address] [phone] Social History Tobacco Use Types Packs/Day Years Used Date Smoking Tobacco: Every Day Cigarettes 0.5 41.9 Started: 02/19/1983 Smokeless Tobacco: Never Tobacco Cessation:Ready to Q uit: Not Asked; Counseling Given: Not Answered Alcohol Use Standard Drinks/Week Comments Yes 2 [...] Info) Description 02/13/2025 10:30 AM PST Lab [facility] [address] [place] [address], [address] [place] [address] 02/13/2025 11:30 AM PST Office Visit [facility] On[facility] [place] [address], [address] [place] [address] Kimmy Dangelo MD [address] [place] [address] [address] [place] [phone] Radha Lawrence ARNP [address] [place] [address] [address] [place] [address] 02/13/2025 12:00 PM PST Infusion [facility] Infusion [address], [address] [place] [address] Kimmy Dangelo MD [address] [place] [address] [place] [phone] documented as of this encounter Visit Diagnoses Not on filedocumented in this encounter Additional Health Concerns Infection Onset Date Last Indicated Resolved Time R/O Gastroenteritis 10/21/2024 10/21/2024 10/22/19 5:14 PM PDT R/O Gastroenteritis 12/25/2024 12/25/2024 12/29/19 3:03 PM PST documented as of this encounter Care Teams Public Health Director Relationship Specialty Start Date End Date Irene Ferrell ARNP [address], [facility] [address] [place] [address] PCP - General Nurse Practitioner 08/26/24 documented as of this encounter
--- OUTSIDE RECORDS SUMMARY | 2025-01-25 12:43 | EXTERNAL MEDICAL SUMMARY RPT | Encounter Summary ---
Author Organization [facility] Address [address] [place] [address] Care Team Providers Care Dam Operator Name Role Phone Irene FerrellP Primary Care Provider +1- [phone] Reason for Visit * Reason Comments Med Refill Encounter Details Date Type Department Care Team (Late st Contact Info) Description 01/20/2025 Refill [facility] Oncology [address], [address] [place] [address] Kimmy Dangelo MD [address] [place] [phone] Adenocarcinoma of lower lobe of right lung (CMS/HCC); Cancer associated pain Social History Tobacco Use Types Packs/Day Years Used Date Smoking Tobacco: Former Cigarettes 0.5 41.5 0 02/19/1983 - 08/2024 Passive Smoke Exposure: Past Smokeless Tobacco: Never Comments:26 yr smoker 1ppd a t most Passive Exposure Comments:35 yrs Alcohol Use Standard Drinks/Week Comments Not Currently 6 (1 standard drink = 0.6 oz pure alcohol) 6 shots per week, none since august 2024 [facility] Utilities Answer Date Recorded In the past 12 months has e [employer], gas, oil, or water [place] threatened to shut off services in your [...] in the past 12 m [facility], were you homeless or living in a custodial (including now)? No 12/25/2024 Comments No Sex [...] AM PST Lab [facility] [address] [place] [phone] 02/13/2025 11:30 AM PST Office Visit [facility] Oncology [address] [phone] Kimmy Dangelo MD [address] [place] [phone] Radah Lawrence ARNP [address] [place] [phone] 02/13/2025 12:00 PM PST Infusion [facility] Oncology Infusion [address] [phone] Kimmy Dangelo MD [address] [place] [phone] documented as of this encounter Visit Diagnoses Diagnosis Adenocarcinoma of lower lobe of right lung (CMS/HCC) Cancer associated pain Neoplasm related pain (acute) (chronic) documented in this encounter Care Teams Dam Operator Relationship Specialty Start Date End Date Irene Ferrell ARNP [address], [facility] [address] [place] [address] PCP - General Nurse Practitioner 08/26/24 documented as of this encounter
--- OUTSIDE RECORDS SUMMARY | 2025-01-25 12:43 | EXTERNAL MEDICAL SUMMARY RPT ---
Author Organization [facility] Address [address] [place] [address] Care Team Providers Care Pig Handler Name Role Phone Irene FerrellP Primary Care Provider [phone] Active Problems Problem Noted Date Diagnosed Date Chemotherapy induced nausea and vomiting 025 Thyroiditis, iatrogenic 10/16/2024 Pleural effusion on right 10/15/2024 Cancer associated pain 09/09/2024 Chronic cough 09/09/2024 Adenocarcinoma of lower lobe of right lung 08/29 Mediastinal adenopathy 08/26/2024 Pulmonary nodule 07/15/2021 Optic neuropathy, right 06/06/2010 Current Treatment and Therapy Plans PAC Access* Plan Start Date:11/06/2024 Plan Provider:Bernie Rodriguez, RN Linked Problems Adenocarcinoma of lower lobe of right lung (CMS/HCC) Treatment Medications No medications scheduled. Pembrolizumab/Pemetrexed/CARBOplatin, 21 Day Cycles, NSCLC* Plan Start Date: 10/07/2024 Plan Provider:Kimmy Dangelo MD Linked Problems Adenocarcinoma of lower lobe of right lung (CMS/HCC)Thyroiditis, iatrogenic Treatment Medications Current Day (Day 1 , Cycle 5 - Planned for 01/23/2025) Next Day (Day 1, Cycle 6 - Planned for 02/13/2025) CARBOplatin (PARAPLATIN) chemo IVPB (by AUC)pembrolizumab IVPBpemetrexed chemo IVPB pembrolizumab 200 mg in sodium chloride (NS) 0.9 % 108 mL IVPBPEMEtrexed disodium 900 mg in sodium chloride (NS) 0.9 % 136 mL chemo IVPB pembrolizumab 200 mg in sodium chloride (NS) 0.9 % 108 mL IVPBPEMEtrexed disodium 900 mg in sodium chloride (NS) 0.9 % 136 mL chemo IVPB [facility] Blood Therapy Plan* Plan Start Date:12/25/2024 Plan Provider:Kimmy Dangelo MD Linked Problems Adenocarcinoma of lower lobe of right lung (CMS/HCC) Treatment Medications No medications scheduled. Other Current Plans Hydration + Antiemetics* Plan Start Date:12/25/2024 Plan Provider:MARTHA Mendoza Linked Problems Chemotherapy induced nausea and vomiting Treatment Medications No medications scheduled. Past Treatment and Therapy Plans ONCOLOGY TREATMENT Plan Name Start Date Discontinue Date Treatment Medications Discontinue Reason Plan Provider Cycles CARBOplat in/Pemetr exed + XRT, 21 Day Cycles, NSCLC 09/08/2024 10/15/2024 CARBOplatin (PARAPLATIN) chemo IVPB (by AUC)pemetrexed chemo IVPB Entered in error Kimmy Dangelo MD Treatment not started Lifetime Dose Tracking * Chemical Lifetime Dose Automatic Entry Manual Entr y Radiation 133.33 mGy 133.33 mGy 0 mGy
== END 2025-01-24 19:40 | disposition home or self-care (01) ==
LOC: ED 13:09 → MS2 13:09
PROVIDERS: ADMIT Nurse Practitioner Acute Care; ATTEND Nurse Practitioner Acute Care

== ENCOUNTER 2025-02-09 12:03 | Observation (INO) ==
--- OUTSIDE RECORDS SUMMARY | 2025-02-09 12:25 | EXTERNAL MEDICAL SUMMARY RPT | Continuity of Care Document ---
Author Organization [facility] Address [address] [place] [id number] Phone Allergies and Intolerances date description facility reaction severity 2024-11-26 10:00 [id number]^hydrocodo ne^^From [place]^^allergy.id [facility] Hives (no severity) 2024-12-01 10:00 [id number]^hydrocodo ne^^From [place]^^[facility]ergy[facility]id [facility] (no severity) 2024-12-05 10:00 [id number]^hydrocodo ne^^From [place]^^allergy.id [facility] Hives (no severity) 2024-12-08 10:00 [id number]^hydrocodo ne^^From [place]^^[facility]ergy.id [facility] ([facility] severity) 2025-01-12 10:00 [id number]^hydrocodo ne^^From [place]^^allergy.id [facility] Hives (no severity) 2024-05-14 10:00 [id number]^hydrocodo ne^^From [place]^^allergy.id [facility] Unknown (no severity) 2024-06-26 10:00 [id number]^hydrocodo ne^^From [place]^^allergy.id [facility] Unknown (no severity) 2024-06-27 10:00 [id number]^hydrocodo ne^^From [place]^^allergy.id [facility] Unknown (no severity) 2024-07-19 10:00 [id number]^hydrocodo ne^^From [place]^^allergy.id [facility] Unknown (no severity) 2024-07-26 10:00 [id number]^hydrocodo ne^^From [place]^^allergy.id [facility] Unknown (no severity) 2024-11-26 10:00 [id number]^oxycodone ^^oxycodon e^^allergy.id [facility] Hives (no severity) 2024-12-01 10:00 [id number]^oxycodone ^^oxycodon e^^allergy.id [facility] Hives (no severity) 2024-12-05 10:00 [id number]^oxycodone ^^oxycodon e^^allergy.id [facility] Hives (no severity) 2024-12-08 10:00 [id number]^oxycodone ^^oxycodon e^^allergy.id [facility] Hives (no severity) 2025-01-12 10:00 [id number]^oxycodone ^^oxycodon e^^allergy.id [facility] Hives (no severity) 2024-06-03 10:00 [id number]^aspirin^^ aspirin^^a llergy.id [facility] Nausea (no severity) 2024-06-26 10:00 [id number]^aspirin^^ aspirin^^a llergy.id [facility] Nausea (no severity) 2024-06-27 10:00 [id number]^aspirin^^ aspirin^^a llergy.id [facility] Nausea (no severity) 2024-07-19 10:00 [id number]^aspirin^^ aspirin^^a llergy.id [facility] Nausea (no severity) 2024-07-26 10:00 [id number]^aspirin^^ aspirin^^a llergy.id [facility] Nausea (no severity) 2024-08-06 10:00 [id number]^aspirin^^ aspirin^^a llergy.id [facility] Nausea (no severity) 2024-08-16 10:00 [id number]^aspirin^^ aspirin^^a llergy.id [facility] Nausea (no severity) 2024-10-13 10:00 [id number]^aspirin^^ aspirin^^a llergy.id [facility] Nausea (no severity) 2024-10-24 10:00 [id number]^aspirin^^ aspirin^^a llergy.id [facility] Nausea (no severity) 2024-10-28 10:00 [id number]^aspirin^^ aspirin^^a llergy.id [facility] Nausea (no severity) 2024-11-26 10:00 [id number]^aspirin^^ aspirin^^a llergy.id [facility] Nausea (no severity) 2024-12-01 10:00 [id number]^aspirin^^ aspirin^^a llergy.id [facility] Nausea (no severity) 2024-12-05 10:00 [id number]^aspirin^^ aspirin^^a llergy.id [facility] [employer] Nausea (no severity) 2024-12-08 10:00 [id number]^aspirin^^ aspirin^^a llergy.id [employer] Nausea (no severity) 2025-01-12 10:00 [id number]^aspirin^^ aspirin^^a llergy.id [facility] [employer] Nausea (no severity) 2025-01-23 10:00 [id number]^aspirin^^ aspirin^^a llergy.id [facility] [employer] Nausea (no severity) 2025-02-09 10:00 [id number]^aspirin^^ aspirin^^a llergy.id [facility] [employer] Nausea (no severity) 2024-11-26 10:00 [id number]^acetamino phen^^From [place]^^allergy.id [facility] [employer] Hives (no severity) 2024-12-01 10:00 [id number]^acetamino phen^^From [place]^^allergy.id [employer] Hives (no severity) 2024-12-05 10:00 [id number]^acetamino phen^^From [place]^^allergy.id [employer] Hives (no severity) 2024-12-08 10:00 [id number]^acetamino phen^^From [place]^^allergy.id [employer] Hives (no severity) 2025-01-12 10:00 [id number]^acetamino phen^^From [place]^^allergy.id [facility] Hives (no severity) 2024-05-14 10:00 [id number]^acetamino phen^^From [place]^^allergy.id [facility] Unknown (no severity) 2024-06-26 10:00 [id number]^acetamino phen^^From [place]^^allergy.id [facility] Unknown (no severity) 2024-06-27 10:00 [id number]^acetamino phen^^From [place]^^allergy.id [facility] Unknown (no severity) 2024-07-19 10:00 [id number]^acetamino phen^^From [place]^^allergy.id [facility] Unknown (no severity) 2024-07-26 10:00 [id number]^acetamino phen^^From [place]^^allergy.id [facility] Unknown (no severity) 2024-06-03 10:00 [id number]^doxycycli ne^^doxycy albrecht^^allergy.id [facility] Hives (no severity) 2024-06-26 10:00 [id number]^doxycycli ne^^doxycy albrecht^^allergy.id [facility] Hives (no severity) 2024-06-27 10:00 [id number]^doxycycli ne^^doxycy albrecht^^allergy.id [facility] Hives (no severity) 2024-07-19 10:00 [id number]^doxycycli ne^^doxycy albrecht^^allergy.id [facility] Hives (no severity) 2024-07-26 10:00 [id number]^doxycycli ne^^doxycy albrecht^^allergy.id [facility] Hives (no severity) 2024-08-06 10:00 [id number]^doxycycli ne^^doxycy albrecht^^allergy.id [facility] Hives (no severity) 2024-08-16 10:00 [id number]^doxycycli ne^^doxycy albrecht^^allergy.id [facility] Hives (no severity) 2024-10-13 10:00 [id number]^doxycycli ne^^doxycy albrecht^^allergy.id [facility] Hives (no severity) 2024-10-24 10:00 [id number]^doxycycli ne^^doxycy albrecht^^allergy.id [facility] Hives (no severity) 2024-10-28 10:00 [id number]^doxycycli ne^^doxycy ablrecht^^allergy.id [facility] Hives (no severity) 2024-11-26 10:00 [id number]^doxycycli ne^^doxycy albrecht^^allergy.id [facility] Hives (no severity) 2024-12-01 10:00 [id number]^doxycycli ne^^doxycy albrecht^^allergy.id [facility] Hives (no severity) 2024-12-05 10:00 [id number]^doxycycli ne^^doxycy albrecht^^allergy.id [facility] Hives (no severity) 2024-12-08 10:00 [id number]^doxycycli ne^^doxycy albrecht^^allergy.id [facility] Hives (no severity) 2025-01-12 10:00 [id number]^doxycycli ne^^doxycy albrecht^^allergy.id [facility] Hives (no severity) 2025-01-23 10:00 [id number]^doxycycli ne^^doxycy albrecht^^allergy.id [facility] Hives (no severity) 2025-02-09 10:00 [id number]^doxycycli ne^^doxycy albrecht^^allergy.id [facility] Hives (no severity) Problems date description facility 2024-11-25 13:37 [facility] 2024-11-25 13:37 Pneumonia, unspecified organism [facility] 2024-11-25 13:37 Periapical abscess without sinu s [facility] 2024-11-25 13:37 Other specified diso rders of teeth and supporting structures [facility] 2024-11-25 13:37 Cough, unspecified [facility] 2024-11-25 13:37 Dyspnea, unspecified [facility] 2024-11-25 13:37 Shortness of breath [facility] 2024-11-25 13:37 Chest pain, unspecified [facility] 2024-11-25 13:37 Dysuria [facility] 2024-11-26 17:28 Malignant neoplasm o f unspecified part of unspecified bronchus or lung [facility] 2024-11-28 09:12 Malignant neoplasm o f unspecified part of unspecified bronchus or lung [facility] 2024-11-28 09:12 Dorsalgia, unspecified [facility] 2024-11-28 09:12 Nausea with vomiting, unspecifi ed [facility] 2024-12-01 18:14 Nausea with vomiting, unspecifi ed [facility] 2024-12-01 18:18 Hypomagnesemia [facility] 2024-12-01 18:18 Nausea with vomiting, unspecifi ed [facility] 2024-12-03 10:11 Hypomagnesemia [facility] 2024-12-03 10:11 Shortness of breath [facility] 2024-12-03 10:11 Nausea with vomiting, unspecifi ed [facility] 2024-12-03 10:11 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, implants and grafts, initial encounter [facility] 2024-12-05 17:37 [facility]ough, [facility] 2024-12-05 17:37 Shortness of breath [facility] 2024-12-08 13:38 Acute pharyngitis, unspecified [facility] 2025-01-12 12:28 Herpesviral infectio n of urogenital system, unspecified [facility] 2025-01-12 12:28 Candidiasis of skin and nail [facility] 2025-01-12 12:28 Malignant neoplasm o f unspecified part of unspecified bronchus or lung [facility] 2025-01-12 12:28 Malignant neoplasm o f unspecified part of right bronchus or lung [facility] 2025-01-12 12:28 Hypomagnesemia [facility] 2025-01-12 12:28 Anxiety disorder, unspecified [facility] 2025-01-12 12:28 Essential (primary) hypertensio n [facility] 2025-01-12 12:28 Pneumonia, unspecified organism [facility] 2025-01-12 12:28 Acute bronchitis, unspecified [facility] 2025-01-12 12:28 Chronic obstructive pulmonary d isease, unspecified [facility] 2025-01-12 12:28 Cough, unspecified [facility] 2025-01-12 12:28 Shortness of breath [facility] 2025-01-12 12:28 Nausea [facility] 2025-01-12 12:28 Emotional lability [facility] 2025-01-23 16:38 Anemia, unspecified [facility] 2025-01-23 16:38 Hypomagnesemia [facility] 2025-01-23 16:38 Dehydration [facility] 2025-01-23 16:38 Hypokalemia [facility] 2025-01-23 16:38 Nausea with vomiting, unspecifi ed [facility] 2025-01-23 18:52 Malignant neoplasm o f unspecified part of unspecified bronchus or lung [facility] 2025-01-23 18:52 Antineoplastic chemotherapy ind uced pancytopenia [facility] 2025-01-23 18:52 Anemia, unspecified [facility] 2025-01-23 18:52 Hypomagnesemia [facility] 2025-01-23 18:52 Dehydration [facility] 2025-01-23 18:52 Hypokalemia [facility] 2025-01-23 18:52 Nausea with vomiting, unspecifi ed [facility] 2025-01-23 18:52 Diarrhea, unspecified [facility] 2025-01-23 18:52 Adverse effect of an tineoplastic and immunosuppressive drugs, initial encounter [facility] 2025-01-24 16:08 Malignant neoplasm o f unspecified part of unspecified bronchus or lung [facility] 2025-01-24 16:08 Antineoplastic chemotherapy ind uced pancytopenia [facility] 2025-01-24 16:08 Anemia, unspecified [facility] 2025-01-24 16:08 Hypomagnesemia [facility] 2025-01-24 16:08 Dehydration [facility] 2025-01-24 16:08 Hypokalemia [facility] 2025-01-24 16:08 Nausea with vomiting, unspecifi ed [facility] 2025-01-24 16:08 Diarrhea, unspecified [facility] 2025-01-24 16:08 Adverse effect of an tineoplastic and immunosuppressive drugs, initial encounter [facility] 2025-01-24 16:38 Malignant neoplasm o f unspecified part of unspecified bronchus or lung [facility] 2025-01-24 16:38 Antineoplastic chemotherapy ind uced pancytopenia [facility] 2025-01-24 16:38 Anemia, unspecified [facility] 2025-01-24 16:38 Hypomagnesemia [facility] 2025-01-24 16:38 Dehydration [facility] 2025-01-24 16:38 Hypokalemia [facility] 2025-01-24 16:38 Nausea with vomiting, unspecifi ed [facility] 2025-01-24 16:38 Diarrhea, unspecified [facility] 2025-01-24 16:38 Adverse effect of an tineoplastic and immunosuppressive drugs, initial encounter [facility] 2025-01-24 19:18 Malignant neoplasm o f unspecified part of unspecified bronchus or lung [facility] 2025-01-24 19:18 Antineoplastic chemotherapy ind uced pancytopenia [facility] 2025-01-24 19:18 Anemia, unspecified [facility] 2025-01-24 19:18 Hypomagnesemia [facility] 2025-01-24 19:18 Dehydration [facility] 2025-01-24 19:18 Hypokalemia [facility] 2025-01-24 19:18 Nausea with vomiting, unspecifi ed [facility] 2025-01-24 19:18 Diarrhea, unspecified [facility] 2025-01-24 19:18 Adverse effect of an tineoplastic and immunosuppressive drugs, initial encounter [facility] 2025-01-24 21:55 Malignant neoplasm o f unspecified part of unspecified bronchus or lung [facility] 2025-01-24 21:55 Antineoplastic chemotherapy ind uced pancytopenia [facility] 2025-01-24 21:55 Anemia, unspecified [facility] 2025-01-24 21:55 Hypomagnesemia [facility] 2025-01-24 21:55 Dehydration [facility] 2025-01-24 21:55 Hypokalemia [facility] 2025-01-24 21:55 Nausea with vomiting, unspecifi ed [facility] 2025-01-24 21:55 Diarrhea, unspecified [facility] 2025-01-24 21:55 Adverse effect of an tineoplastic and immunosuppressive drugs, initial encounter [facility] 2025-01-26 06:05 Malignant neoplasm o f unspecified part of unspecified bronchus or lung [facility] 2025-01-26 06:05 Antineoplastic chemotherapy ind uced pancytopenia [facility] 2025-01-26 06:05 Anemia, unspecified [facility] 2025-01-26 06:05 Hypomagnesemia [facility] 2025-01-26 06:05 Dehydration [facility] 2025-01-26 06:05 Hypokalemia [facility] 2025-01-26 06:05 Otalgia, right ear [facility] 2025-01-26 06:05 Pneumonia, unspecified organism [facility] 2025-01-26 06:05 Periapical abscess without sinu s [facility] 2025-01-26 06:05 Other specified diso rders of teeth and supporting structures [facility] 2025-01-26 06:05 Dorsalgia, unspecified [facility] 2025-01-26 06:05 Cough, unspecified [facility] 2025-01-26 06:05 Dyspnea, unspecified [facility] 2025-01-26 06:05 Shortness of breath [facility] 2025-01-26 06:05 Chest pain, unspecified [facility] 2025-01-26 06:05 Nausea with vomiting, unspecifi ed [facility] 2025-01-26 06:05 Diarrhea, unspecified [facility] 2025-01-26 06:05 Adverse effect of an tineoplastic and immunosuppressive drugs, initial encounter [facility] 2025-01-26 06:05 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, implants and grafts, initial encounter [facility] 2025-01-26 14:47 Malignant neoplasm o f lower lobe, right bronchus or lung [facility] 2025-01-26 14:47 Anxiety disorder, unspecified [facility] 2025-01-26 14:47 Chronic obstructive pulmonary d isease, unspecified [facility] 2025-01-26 14:47 Other diseases of the pleura ([id number]) [facility] 2025-01-27 12:14 Malignant neoplasm o f unspecified part of unspecified bronchus or lung [facility] 2025-01-27 12:14 Antineoplastic chemotherapy ind uced pancytopenia [facility] 2025-01-27 12:14 Anemia, unspecified [facility] 2025-01-27 12:14 Hypomagnesemia [facility] 2025-01-27 12:14 Dehydration [facility] 2025-01-27 12:14 Hypokalemia [facility] 2025-01-27 12:14 Anxiety disorder, unspecified [facility] 2025-01-27 12:14 Nausea with vomiting, unspecifi ed [facility] 2025-01-27 12:14 Diarrhea, unspecified [facility] 2025-01-27 12:14 Weakness [facility] 2025-01-27 12:14 Adverse effect of an tineoplastic and immunosuppressive drugs, initial encounter [facility] 2025-02-04 11:59 Anxiety disorder, unspecified [facility] 2025-02-09 12:13 Malignant neoplasm o f unspecified part of unspecified bronchus or lung [facility] 2025-02-09 12:13 Hypomagnesemia [facility] 2025-02-09 12:13 Otalgia, right ear [facility] 2025-02-09 12:13 Pneumonia, unspecified organism [facility] 2025-02-09 12:13 Periapical abscess without sinu s [facility] 2025-02-09 12:13 Other specified diso rders of teeth and supporting structures [facility] 2025-02-09 12:13 Dorsalgia, unspecified [facility] 2025-02-09 12:13 Cough, unspecified [facility] 2025-02-09 12:13 Dyspnea, unspecified [facility] 2025-02-09 12:13 Shortness of breath [facility] 2025-02-09 12:13 Chest pain, unspecified [facility] 2025-02-09 12:13 Nausea with vomiting, unspecifi ed [facility] 2025-02-09 12:13 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, implants and grafts, initial encounter [employer] Results/Labs test date facility value unit notes Result panel 1 LIPASE 2024-11-26 14:23 [facility] < 10 u/l As of August 2022 testing method has changed, this may include reference ranges. NUCLEATED RED BLOOD CELLS AUTO 2024-11-26:23 [facility] 0.0 /100wbc (missing) BASOPHILS # (AUTO) 2024-11-26 14:23 [facility] 0.0 10 3/ul (missing) NRBC ABSOLUTE COUNT (AUTO) 2024-11-26 14:23 [facility] 0.00 x10 3/ul (missing) BILIRUBIN,TOTAL 2024-11-26: [facility] 0.2 mg /dl As of August 2022 testing method has changed, this may include reference ranges. EOSINOPHILS # (AUTO) 2024-11-26 14:23 [facility] 0.3 10 3/ul (missing) ALBUMIN/GLOBULIN RATIO 2024-11-26 14:23 [facility] 0.7 (missing) (missing) CREATININE 2024-11-26 14:23 [facility] 0.9 mg/dl As of August 2022 testing method has changed, this may include reference ranges. MONOCYTES # (AUTO) 2024-11-26 14:23 [facility] 1.2 10 3/ul (missing) MAGNESIUM 2024-11-26 14:23 [facility] 1.3 mg/dl As of August 2022 testing method has changed, this may include reference ranges. BUN - BLOOD UREA NITROGEN 2024-11-26 14: [facility] 10 mg/dl As of Aug testing method has changed, this may include reference ranges. CHLORIDE 2024-11-26: [facility] 101 mmol/l As of August 2022 testing method has changed, this may include reference ranges. RED CELL DISTRIBUTION WIDTH 2024-11-26 14:23 [facility] 13.7 % (missing) SODIUM 2024-11-26: [facility] 137 mmol/l (missing) AST ASPARTATE AMINOTRANSFERASE 2024-11-26: [facility] 16 iu/l As of August 2022 testing method has changed, this may include reference ranges. ALT ALANINE AMINOTRANSFERASE 2024-11-26 14: [facility] 18 iu/l As of August 2022 testing method has changed, this may include reference ranges. RED BLOOD COUNT 2024-11-26:23 [facility] 2.79 10 6/ul (missing) LYMPHOCYTES # (AUTO) 2024-11-26: [facility] 2.9 10 3/ul (missing) HCT - HEMATOCRIT 2024-11-26 14:23 [facility] 27.8 % (missing) CARBON DIOXIDE - CO2 2024-11-26: [facility] 29 mmol/l As of August 2022 testing method has changed, this may include reference ranges. ALBUMIN 2024-11-26: [facility] 3.2 g/dl As of August 2022 testing method has changed, this may include reference ranges. POTASSIUM 2024-11-26: [facility] 3.6 mmol/l As of August 2022 testing method has changed, this may include reference ranges. MEAN CORPUSCULAR HEMOGLOBIN 2024-11-26 14:23 [facility] 31.9 pg (missing) MEAN CORPUSCULAR HGB CONC 2024-11-26 14:23 [facility] 32.0 g/dl (missing) NEUTROPHILS # (AUTO) 2024-11-26 14:23 [facility] 4.3 10 3/ul (missing) GLOBULIN 2024-11-26 14:23 [facility] 4.6 g/dl (missing) PLT - PLATELET COUNT 2024-11-26 14:23 [facility] 585 10 3/ul (missing) GFR - MDRD 2024-11-26: [employer] 63 (in g) The IDMS-traceable MDRD Study [...] ardization, last updated April 2011. ANION GAP 2024-11-26:23 [facility] 7.0 (missing ) (missing) TOTAL PROTEIN 2024-11-26:23 [facility] 7.8 g/dl As of August 2022 testing method has changed, this may include reference ranges. ALKALINE PHOSPHATASE 2024-11-26: [employer] 78 iu/l As of August 2022 testing method has changed, this may include reference ranges. CALCIUM 2024-11-26: [employer] 8.1 mg/dl As of August 2022 testing method has changed, this may include reference ranges. MEAN PLATELET VOLUME 2024-11-26:23 [employer] [facility] 8.7 fl (missing) WHITE BLOOD COUNT 2024-11-26:23 [facility] 8.8 x10 3/ul (missing) HGB - HEMOGLOBIN 2024-11-26: [employer] 8.9 g /dl (missing) GLUCOSE 2024-11-26 14:23 [facility] 87 mg/dl As of August 2022 testing method has changed, this may include reference ranges. MEAN CORPUSCULAR VOLUME 2024-11-26 14:23 [facility] 99.6 fl (missing) Result panel 2 LIPASE 2024-12-01 11:55 [facility] < 10 u/l As of August 2022 testing method has changed, this may include reference ranges. NUCLEATED RED BLOOD CELLS AUTO 2024-12-01 11:55 [facility] 0.0 /100wbc (missing) EOSINOPHILS # (AUTO) 2024-12-01 11:55 [facility] 0.0 10 3/ul (missing) NRBC ABSOLUTE COUNT (AUTO) 2024-12-01 11:55 [facility] 0.00 x10 3/ul (missing) BASOPHILS # (AUTO) 2024-12-01 11:55 [facility] 0.1 10 3/ul (missing) BILIRUBIN,TOTAL 2024-12-01 11:55 [facility] 0.4 mg /dl As of August 2022 testing method has changed, this may include reference ranges. ALBUMIN/GLOBULIN RATIO 2024-12-01 11:55 [facility] 0.7 (missing) (missing) CREATININE 2024-12-01 11:55 [facility] 0.9 mg/dl As of August 2022 testing method has changed, this may include reference ranges. MONOCYTES # (AUTO) 2024-12-01 11:55 [facility] 1.1 10 3/ul (missing) MAGNESIUM 2024-12-01 11:55 [facility] 1.2 mg/dl As of August 2022 testing method has changed, this may include reference ranges. HGB - HEMOGLOBIN 2024-12-01 11:55 [facility] 10.2 g /dl (missing) CHLORIDE 2024-12-01 11:55 [facility] 103 mmol/l As of August 2022 testing method has changed, this may include reference ranges. ANION GAP 2024-12-01 11:55 [facility] 11.0 (missing ) (missing) GLUCOSE 2024-12-01 11:55 [facility] 112 mg/dl As of August 2022 testing method has changed, this may include reference ranges. BUN - BLOOD UREA NITROGEN 2024-12-01 11:55 [facility] 12 mg/dl As of Aug testing method has changed, this may include reference ranges. WHITE BLOOD COUNT 2024-12-01 11:55 [facility] 12.5 x10 3/ul (missing) RED CELL DISTRIBUTION WIDTH 2024-12-01 11:55 [employer] [facility] 14.4 % (missing) SODIUM 2024-12-01 11:55 [facility] 141 mmol/l (missing) LYMPHOCYTES # (AUTO) 2024-12-01 11:55 [facility] 2.5 10 3/ul (missing) AST ASPARTATE AMINOTRANSFERASE 2024-12-01 11:55 [facility] 26 iu/l As of August 2022 testing method has changed, this may include reference ranges. ALT ALANINE AMINOTRANSFERASE 2024-12-01 11:55 [facility] 26 iu/l As of August 2022 testing method has changed, this may include reference ranges. CARBON DIOXIDE - CO2 2024-12-01 11:55 [facility] 27 mmol/l As of August 2022 testing method has changed, this may include reference ranges. RED BLOOD COUNT 2024-12-01 11:55 [facility] 3.22 10 6/ul (missing) POTASSIUM 2024-12-01 11:55 [facility] 3.3 mmol/l As of August 2022 testing method has changed, this may include reference ranges. ALBUMIN 2024-12-01 11:55 [facility] 3.4 g/dl As of August 2022 testing method has changed, this may include reference ranges. MEAN CORPUSCULAR HEMOGLOBIN 2024-12-01 11:55 [facility] 31.7 pg (missing) HCT - HEMATOCRIT 2024-12-01 11:55 [facility] 31.8 % (missing) MEAN CORPUSCULAR HGB CONC 2024-12-01 11:55 [facility] 32.1 g/dl (missing) GLOBULIN 2024-12-01 11:55 [facility] 4.8 g/dl (missing) PLT - PLATELET COUNT 2024-12-01 11:55 [facility] 623 10 3/ul (missing) GFR - MDRD 2024-12-01 11:55 [facility] 63 (nabil amin) The IDMS-traceable MDRD Study Equation has been [...] updated April 2011. TOTAL PROTEIN 2024-12-01 11:55 [facility] 8.2 g/dl As of August 2022 testing method has changed, this may include reference ranges. NEUTROPHILS # (AUTO) 2024-12-01 11:55 [facility] 8.7 10 3/ul (missing) MEAN PLATELET VOLUME 2024-12-01 11:55 [facility] 8.8 fl (missing) CALCIUM 2024-12-01 11:55 [facility] 8.8 mg/dl As of August 2022 testing method has changed, this may include reference ranges. ALKALINE PHOSPHATASE 2024-12-01 11:55 [facility] 88 iu/l As of August 2022 testing method has changed, this may include reference ranges. MEAN CORPUSCULAR VOLUME 2024-12-01 11:55 [facility] 98.8 fl (missing) Result panel 3 WBC,URINE 2024-12-01 12:10 [facility] 0-3 /hpf (missing) RBC,URINE 2024-12-01 12:10 [facility] [facility] 0-5 /hpf (missing) UROBILINOGEN,URI NE 2024-12-01 12:10 [facility] 0.2 (NORMAL) e.u./dl (missing) SPECIFIC GRAVITY,URINE 2024-12-01 12:10 [facility] 1.005 (missing ) (missing) PH,URINE 2024-12-01 12:10 [facility] 6.5 ph (missing) CLARITY,URINE 2024-12-01 12:10 [facility] CLEAR (missing ) (missing) SQUAMOUS EPITHELIAL CELL,UR 2024-12-01 12:10 [facility] FEW Squamous (missing ) (missing) BACTERIA,URINE 2024-12-01 12:10 [facility] Few /hpf (missing) UR CULTURE IF IND 2024-12-01 12:10 [facility] INDICATED (missing ) (missing) URINE MICROSCOPIC INDICATED? 2024-12-01 12:10 [facility] INDICATED (missing ) (missing) CUL, URINE 2024-12-01 12:10 [facility] LPOLYLESS THAN 10,000 COLONIES/ML polymicrobial growth including (missing ) (missing) CUL, URINE 2024-12-01 12:10 [facility] LPOLYcontamination . (missing ) (missing) CUL, URINE 2024-12-01 12:10 [facility] LPOLYpotential pathogens. This is suggestive of skin or other (missing ) (missing) COLOR,URINE 2024-12-01 12:10 [facility] LT. YELLOW (missing ) URINE CLEAN CATCH OCCULT BLOOD,URINE 2024-12-01 12:10 [facility] MODERATE (missing ) (missing) NITRITE,URINE 2024-12-01 12:10 [facility] NEGATIVE (missing ) (missing) BILIRUBIN,URINE 2024-12-01 12:10 [facility] NEGATIVE (missing ) Bilirubin can be influenced by color interference. Please correlate positive results with clinical presentation GLUCOSE, URINE (UA) 2024-12-01 12:10 [facility] NEGATIVE mg/dl (missing) KETONES,URINE (UA) 2024-12-01 12:10 [facility] NEGATIVE mg/dl (missing) LEUKOCYTE ESTERASE, URINE 2024-12-01 12:10 [facility] TRACE (missing ) (missing) PROTEIN,URINE 2024-12-01 12:10 [facility] TRACE mg/dl (missing) Result panel 4 LACTIC ACID, VENOUS 2024-12-01 13:39 [facility] 0.8 mmol/l N As of August 2022 testing method has changed, this may include reference ranges. Result panel 5 TROPONIN I HIGH SENSITIVITY 2024-12-01 17:06 [facility] 5.2 ng/l A HIGH SE NSITIVITY TROPONIN result of >= 14.9 ng/L for females is considered POSITIVE. A HIGH SENSITIVITY TROPONIN result of >= 19.8 ng/L for males is considered POSITIVE. A HIGH SENSITIVITY TROPONIN result of >= 17.9 ng/L for unspecified is considered POSITIVE. Result panel 6 LIPASE 2025-01-23 13:42 [facility] < 10 u/l As of August 2022 testing method has changed, this may include reference ranges. NUCLEATED RED BLOOD CELLS AUTO 2025-01-23 13:42 [facility] 0.0 /100wbc (missing) BASOPHILS # (AUTO) 2025-01-23 13:42 [facility] 0.0 10 3/ul (missing) EOSINOPHILS # (AUTO) 2025-01-23 13:42 [facility] 0.0 10 3/ul (missing) NRBC ABSOLUTE COUNT (AUTO) 2025-01-23 13:42 [facility] 0.00 x10 3/ul (missing) BILIRUBIN,TOTAL 2025-01-23 13:42 [facility] 0.4 mg /dl As of August 2022 testing method has changed, this may include reference ranges. MAGNESIUM 2025-01-23 13:42 [facility] 0.6 mg/dl Critical result MG 0.6 mg/dL called to and read back by MAILE Antonio/RN/ED at 23-Jan-2025 14:02 by mady. As of August 2022 testing method has changed, this may include reference ranges. CREATININE 2025-01-23 13:42 [facility] 0.7 mg/dl As of August 2022 testing method has changed, this may include reference ranges. ALBUMIN/GLOBULIN RATIO 2025-01-23 13:42 [facility] 0.9 (missing) (missing) MONOCYTES # (AUTO) 2025-01-23 13:42 [facility] 1.4 10 3/ul (missing) LYMPHOCYTES # (AUTO) 2025-01-23 13:42 [facility] 1.9 10 3/ul (missing) RED BLOOD COUNT 2025-01-23 13:42 [facility] 1.98 10 6/ul (missing) CHLORIDE 2025-01-23 13:42 [facility] 100 mmol/l As of August 2022 testing method has changed, this may include reference ranges. ALT ALANINE AMINOTRANSFERASE 2025-01-23 13:42 [facility] 11 iu/l As of August 2022 testing method has changed, this may include reference ranges. GLUCOSE 2025-01-23 13:42 [facility] 116 mg/dl As of August 2022 testing method has changed, this may include reference ranges. ANION GAP 2025-01-23 13:42 [facility] 13.0 (missing ) (missing) SODIUM 2025-01-23 13:42 [facility] 139 mmol/l (missing) AST ASPARTATE AMINOTRANSFERASE 2025-01-23 13:42 [facility] 15 i[facility]/l As of August 2022 testing method has changed, this may include reference ranges. RED CELL DISTRIBUTION WIDTH 2025-01-23 13:42 [facility] 18.1 % (missing) HCT - HEMATOCRIT 2025-01-23 13:42 [facility] 19.7 % Called to YOLANDA Delatorre RN/ED by Radha Ratliff M.T.([facility]) at 1350 01/23/25. Read back(Y/N)? YES HCT - HEMATOCRIT 2025-01-23 13:42 [facility] 19.7 % Called to by Radha Ratliff M.T.([facility]) at 1350 01/23/25. Read back(Y/N)? POTASSIUM 2025-01-23 13:42 [facility] 2.9 mmol/l As of August 2022 testing method has changed, this may include reference ranges. CARBON DIOXIDE - CO2 2025-01-23 13:42 [facility] 26 mmol/l As of August 2022 testing method has changed, this may include reference ranges. ALBUMIN 2025-01-23 13:42 [facility] 3.3 g/dl As of August 2022 testing method has changed, this may include reference ranges. GLOBULIN 2025-01-23 13:42 [facility] 3.7 g/dl (missing) MEAN CORPUSCULAR HEMOGLOBIN 2025-01-23 13:42 [facility] 32.8 pg (missing) MEAN CORPUSCULAR HGB CONC 2025-01-23 13:42 [facility] 33.0 g/dl (missing) PLT - PLATELET COUNT 2025-01-23 13:42 [facility] 429 10 3/ul (missing) BUN - BLOOD UREA NITROGEN 2025-01-23 13:42 [facility] 5 mg/dl As of Aug testing method has changed, this may include reference ranges. NEUTROPHILS # (AUTO) 2025-01-23 13:42 [facility] 5.5 10 3/ul (missing) HGB - HEMOGLOBIN 2025-01-23 13:42 [facility] 6.5 g /dl Called to YOLANDA Delatorre RN/ED by Radha Ratliff M.T.([facility]) at 1350 01/23/25. Read back(Y/N)? YES TOTAL PROTEIN 2025-01-23 13:42 [facility] 7.0 g/dl As of August 2022 testing method has changed, this may include reference ranges. CALCIUM 2025-01-23 13:42 [facility] 7.0 mg/dl As of August 2022 testing method has changed, this may include reference ranges. GFR - MDRD 2025-01-23 13:42 [facility] 85 (nabil g) The IDMS-traceable MDRD Study Equation has [...] ation/gfr/creatin ine-stand ardization, last updated April 2011. ALKALINE PHOSPHATASE 2025-01-23 13:42 [employer] 85 iu/l As of August 2022 testing method has changed, this may include reference ranges. MEAN PLATELET VOLUME 2025-01-23 13:42 [facility] 9.0 fl (missing) WHITE BLOOD COUNT 2025-01-23 13:42 [facility] 9.0 x10 3/ul (missing) MEAN CORPUSCULAR VOLUME 2025-01-23 13:42 [facility] 99.5 fl (missing) Result panel 7 OCCULT BLOOD IN PAT. SINGLE 2025-01-23 14:23 [facility] 1ONE (missing) (missin g) C DIFF PCR 2025-01-23 14:23 [facility] NEGATIVE (missin g) (missing) OCCULT BLOOD IN PAT. SINGLE 2025-01-23 14:23 [facility] NEGREFERENCE RANGE: NEGATIVE (missing) (missing) OCCULT BLOOD IN PAT. SINGLE 2025-01-23 14:23 [facility] NNEGATIVE (missing) (missin g) OCCULT BLOOD IN PAT. SINGLE 2025-01-23 14:23 [facility] NO.CARDSNUMBER OF CARDS (missing) (missing) OCCULT BLOOD IN PAT. SINGLE 2025-01-23 14:23 [facility] OCCULTOCCULT BLOOD (missing) (missing) OCCULT BLOOD IN PAT. SINGLE 2025-01-23 14:23 [facility] RR.NEGRR.NEG (missing) (missin g) Result panel 8 HCT - HEMATOCRIT 2025-01-23 22:03 [facility] 24.6 % (missing) HGB - HEMOGLOBIN 2025-01-23 22:03 [facility] 8.1 g /dl (missing) Result panel 9 NUCLEATED RED BLOOD CELLS AUTO 2025-01-24 05:46 [facility] 0.0 /100wbc (missing) BASOPHILS # (AUTO) 2025-01-24 05:46 [facility] 0.0 10 3/ul (missing) EOSINOPHILS # (AUTO) 2025-01-24 05:46 [facility] 0.0 10 3/ul (missing) NRBC ABSOLUTE COUNT (AUTO) 2025-01-24 05:46 [facility] 0.00 x10 3/ul (missing) CREATININE 2025-01-24 05:46 [facility] 0.6 mg/dl As of August 2022 testing method has changed, this may include reference ranges. MONOCYTES # (AUTO) 2025-01-24 05:46 [facility] 1.2 10 3/ul (missing) MAGNESIUM 2025-01-24 05:46 [facility] 1.3 mg/dl As of August 2022 testing method has changed, this may include reference ranges. LYMPHOCYTES # (AUTO) 2025-01-24 05:46 [facility] 1.7 10 3/ul (missing) GFR - MDRD 2025-01-24 05:46 [facility] [employer] 101 (nabil amin) The IDMS-traceable MDRD Study Equation has been [...] caring for patients older than 70. References: http://www.nkdep.[place].gov/lab-evaluat ion/gfr/creatinine -stand ardization, last updated April 2011. CHLORIDE 2025-01-24 05:46 [facility] 110 mmol/l As of August 2022 testing method has changed, this may include reference ranges. SODIUM 2025-01-24 05:46 [facility] [employer] 141 mmol/l (missing) GLUCOSE 2025-01-24 05:46 [facility] 155 mg/dl As of August 2022 testing method has changed, this may include reference ranges. RED CELL DISTRIBUTION WIDTH 2025-01-24 05:46 [facility] [employer] 18.4 % (mi ssing) RED BLOOD COUNT 2025-01-24 05:46 [facility] 2.20 10 6/ul (missing) HCT - HEMATOCRIT 2025-01-24 05:46 [facility] 21.8 % (missing) CARBON DIOXIDE - CO2 2025-01-24 05:46 [facility] [employer] 24 mmol/l As of August 2022 testing method has changed, this may include reference ranges. BUN - BLOOD UREA NITROGEN 2025-01-24 05:46 [facility] 3 mg/dl As of Aug testing method has changed, this may include reference ranges. POTASSIUM 2025-01-24 05:46 [facility] 3.4 mmol/l As of August 2022 testing method has changed, this may include reference ranges. MEAN CORPUSCULAR HEMOGLOBIN 2025-01-24 05:46 [facility] 32.3 pg (missing) MEAN CORPUSCULAR HGB CONC 2025-01-24 05:46 [facility] 32.6 g/dl (missing) PLT - PLATELET COUNT 2025-01-24 05:46 [facility] 371 10 3/ul (missing) NEUTROPHILS # (AUTO) 2025-01-24 05:46 [facility] 4.9 10 3/ul (missing) CALCIUM 2025-01-24 05:46 [facility] 6.3 mg/dl Critical result CA 6.3 mg/dL called to and read back by REVA Weaver MS RN at 24-Jan-2025 06:26 by loyda. As of August 2022 testing method has changed, this may include reference ranges. ANION GAP 2025-01-24 05:46 [facility] 7.0 (missing ) (missing) HGB - HEMOGLOBIN 2025-01-24 05:46 [facility] 7.1 g /dl (missing) WHITE BLOOD COUNT 2025-01-24 05:46 [facility] 7.8 x10 3/ul (missing) MEAN PLATELET VOLUME 2025-01-24 05:46 [facility] [employer] 9.4 fl (missing) MEAN CORPUSCULAR VOLUME 2025-01-24 05:46 [facility] [employer] 99.1 fl (missing) Result panel 10 CREATININE 2025-01-24 11:25 [facility] 0.6 mg/dl As of August 2022 testing method has changed, this may include reference ranges. CALCIUM, IONIZED 2025-01-24 11:25 [facility] [employer] 1.00 m mol/l (missing) MAGNESIUM 2025-01-24 11:25 [facility] 1.2 mg/dl As of August 2022 testing method has changed, this may include reference ranges. GFR - MDRD 2025-01-24 11:25 [facility] 101 (missin g) The IDMS-traceable MDRD Study Equation [...] caring for patients older than 70. References: http://www.nkdep.[place].gov/lab-evaluatio n/gfr/creatinine-st and ardization, last updated April 2011. CHLORIDE 2025-01-24 11:25 [facility] 109 mmol/l As of August 2022 testing method has changed, this may include reference ranges. GLUCOSE 2025-01-24 11:25 [facility] 122 mg/dl As of August 2022 testing method has changed, this may include reference ranges. SODIUM 2025-01-24 11:25 [facility] 142 mmol/l (missing) BUN - BLOOD UREA NITROGEN 2025-01-24 11:25 [facility] 2 mg/dl As of Aug testing method has changed, this may include reference ranges. PHOSPHORUS 2025-01-24 11:25 [facility] 2.8 mg/dl As of August 2022 testing method has changed, this may include reference ranges. CARBON DIOXIDE - CO2 2025-01-24 11:25 [facility] [employer] 24 mmol/l As of Aug testing method has changed, this may include reference ranges. POTASSIUM 2025-01-24 11:25 [facility] 3.3 mmol/l As of August 2022 testing method has changed, this may include reference ranges. CALCIUM 2025-01-24 11:25 [facility] 6.7 mg/dl As of August 2022 testing method has changed, this may include reference ranges. VBG PH 2025-01-24 11:25 [facility] 7.439 (missing ) (missing) ANION GAP 2025-01-24 11:25 [facility] 9.0 (missing ) (missing) IONIZED CALCIUM IF INDICATED 2025-01-24 11:25 [facility] YES (missing) (missing) Result panel 11 CREATININE 2025-01-24 17:53 [facility] [employer] 0.7 mg/dl As of August 2022 testing method has changed, this may include reference ranges. CALCIUM, IONIZED 2025-01-24 17:53 [facility] 1.03 m mol/l (missing) MAGNESIUM 2025-01-24 17:53 [facility] [employer] 1.8 mg/dl As of August 2022 testing method has changed, this may include reference ranges. ANION GAP 2025-01-24 17:53 [facility] [employer] 10.0 (missing ) (missing) CHLORIDE 2025-01-24 17:53 [facility] [employer] 106 mmol/l As of August 2022 testing method has changed, this may include reference ranges. SODIUM 2025-01-24 17:53 [facility] [employer] 138 mmol/l (missing) GLUCOSE 2025-01-24 17:53 [facility] [employer] 214 mg/dl As of August 2022 testing method has changed, this may include reference ranges. CARBON DIOXIDE - CO2 2025-01-24 17:53 [facility] [employer] 22 mmol/l As of Aug testing method has changed, this may include reference ranges. BUN - BLOOD UREA NITROGEN 2025-01-24 17:53 [facility] 3 mg/dl As of Aug testing method has changed, this may include reference ranges. POTASSIUM 2025-01-24 17:53 [facility] 4.0 mmol/l As of August 2022 testing method has changed, this may include reference ranges. VBG PH 2025-01-24 17:53 [facility] 7.517 (missing ) (missing) CALCIUM 2025-01-24 17:53 [facility] 7.6 mg/dl As of August 2022 testing method has changed, this may include reference ranges. GFR - MDRD 2025-01-24 17:53 [facility] 85 (missin g) The IDWI-traceable MDRD Study Equation has been validated extensively [...] caring for patients older than 70. References: http://www.nkdep.[place].gov/lab-evaluatio n/gfr/creatinine-st and ardization, last updated April 2011. IONIZED CALCIUM IF INDICATED 2025-01-24 17:53 [facility] YES (missing) (missing) Social History date description facility
[2025-02-09 13:04] LABS: HCT - HEMATOCRIT 22.8 % (37.0-47.0); HGB - HEMOGLOBIN 7.6 g/dL (12.0-16.0); MEAN PLATELET VOLUME 10.0 fL (7.9-10.8); NRBC ABSOLUTE COUNT (AUTO) 0.00 x10^3/uL; NUCLEATED RED BLOOD CELLS AUTO 0.0 /100WBC; PLT - PLATELET COUNT 163 10^3/uL (130-450); RED CELL DISTRIBUTION WIDTH 17.9 % (12.0-15.0)
[2025-02-09] MEDS: HYDROmorphone 0.5 MG/0.5 ML SYRINGE IVP STA ×2 (13:04→14:11)
[2025-02-09] MEDS: SODIUM CHLORIDE 0.9% 1,000 ML IV STA (13:04)
[2025-02-09] MEDS: ONDANSETRON 4 MG/2 ML VIAL IVP STA (13:04)
--- NOTE | 2025-02-09 13:10 | ED Physician Documentation ---
PD HPI NVD Stated complaint Stated Complaint: N/V/D Chief complaint Chief Complaint: Abd Pain Additonal information Additional information: 64-year-old female with known lung cancerHas been receiving chemotherapy presents to the emergency department for worsening abdominal pain mostly to the right upper quadrant region. She just got chemotherapy about a week ago and says it is normal for her to start getting this abdominal pain afterwards but it is very severe today. She does not take any medications at home because she just wanted to come in and have it further evaluated. No nausea or vomiting she has been having ongoing diarrhea. Meds/Allgy Home Medications Ambulatory Orders Medication Instructions Recorded Confirmed nebulizers (Aeroneb Go Nebulizer) #1 ea 08/16/2401/26 albuterol sulfate 90 mcg/actuation 2 puff inhalation Q 6H PRN 12/05/24 01/26/25 aerosol inhaler (Ventolin HFA) shortness of breath or wheezing #8.5 grams calcium citrate 250 mg PO TID 01/09/2501/26 ergocalciferol (vitamin D2) 1,250 1,250 mcg PO MO 12/2101/26/25 mcg (50,000 unit) capsule acyclovir 400 mg tablet 400 mg PO TID PRN herpes #30 tabs 01/12/25 01/26/25 arformoterol 15 mcg/2 mL solution 2 ml inhalation BID COPD #60 mL 01/12/25 01/26/25 for nebulization budesonide 0.5 mg/2 mL suspension 0.5 mg (2 mL) inhala tion BID #60 mL 01/12/25 01/26/25 for nebulization inhalational spacing device (Migel #1 ea 01/12/25 Aerosol [place] Enhancer spacer) ipratropium 0.5 mg-albuterol 3 mg 3 ml inhalation QID PRN shortness 01/12/25 01/26/25 (2.5 mg base)/3 mL nebulization of breath or wheezing, excessive soln cough #90 mL losartan 25 mg tablet 25 mg PO BID HIGH BLOOD PRES SURE 01/12/25 01/26/25 #180 tabs magnesium 200 mg tablet 200 mg PO DAILY #30 tabs 01/26/25 montelukast 10 mg tablet 10 mg PO QDAY Allergy #90 ta bs 01/12/25 01/26/25 olanzapine 5 mg tablet 5 mg PO QPM PSY #30 tabs 01/26/25 promethazine 25 mg tablet 25 mg PO BID PRN nausea and 01/12/25 01/26/25 vomiting #60 tabs ketoconazole 2 % topical cream 1 applic topical BID [place] N Skin 01/23/25 01/26/25 infection-fungal dexamethasone 6 mg tablet 6 mg PO DAILY 3 days #3 tabs 01/24/25 01/26/25 olanzapine 5 mg disintegrating 5 mg translingual DAILY 3 days #3 01/24/25 01/26/25 tablet tabs prochlorperazine maleate 5 mg 5 mg PO QID PRN nausea a nd 01/24/25 01/26/25 tablet (Compazine) vomiting #30 tabs tramadol 50 mg tablet 50 mg PO TID PRN pain #9 tab s 01/24/25 01/26/25 buspirone 5 mg tablet 5 mg PO QDAY Anxiety #60 tab s 01/26/25 01/26/25 lorazepam 0.5 mg tablet 0.5 mg PO BID-TID PRN anxiet y #60 01/26/25 01/26/25 tabs nebulizer accessories #1 ea 02/03/25 Allergies Allergies Allergy/AdvReac Type Severity Reaction Status Date / Time doxycycline Allergy Severe Hives Verified 02/09/25 12:12 aspirin AdvReac Severe Nausea Verified 02/09/25 12:12 PFSH Active Problems All Active Problems (Updated 02/09/25 @ 16:08 by Branden Valderrama DNP) Pain crisis (Acute) Acute hypokalemia (Acute) Hypomagnesemia (Acute) Intractable pain (Acute) Anxiety (Chronic) Lung cancer (Acute) Anemia (Chronic) Nausea vomiting and diarrhea (Acute) Chronic pain after cancer treatment (Acute) Shortness of breath at rest (Acute) Oral candidiasis (Acute) Mood changes (Acute) COPD (chronic obstructive pulmonary disease) (Chronic) Anxiety about treatment (Acute) Hypomagnesemia (Acute) Fatigue (Acute) Weakness (Acute) Nausea & vomiting (Acute) Lung cancer (Acute) Dyspnea (Acute) Pleural effusion (Acute) Pleural effusion on right (Acute) Adenocarcinoma of lower lobe of right lung (Acute) Cough (Chronic) Nasal congestion (Acute) Fever (Acute) Pleural effusion (Acute) Elevated heart rate with elevated blood pressure without diagnosis of hypertension (Acute) SOB (shortness of breath) on exertion (Acute) Metastatic adenocarcinoma involving right lung with unknown primary site (Acute) Lung mass (Acute) Acute cough (Acute) Acute bronchitis (Acute) Right lower lobe pulmonary nodule (Acute) Tear of meniscus of left knee (Acute) Dental infection (Acute) Impaired weight bearing (Acute) Instability of left knee joint (Acute) Left knee pain (Acute) Alcohol dependence (Acute) Tobacco dependence (Acute) Genital herpes (Acute) Colon cancer screening (Acute) Tabby infection of flexural skin (Acute) Carpal tunnel syndrome, bilateral (Acute) Carpal tunnel syndrome, left upper limb (Acute) Chronic abdominal pain (Acute) Nausea (Acute) Acute UTI (Chronic) High blood pressure (Acute) Elevated blood pressure reading (Acute) Upper back pain (Acute) Medication refill (Acute) Coccygeal pain, acute (Acute) Knee pain (Acute) Elbow pain (Acute) Fall (Acute) Pulmonary nodule (Acute) Dehydration (Acute) Small bowel obstruction (Acute) Hematuria (Acute) Regional enteritis (Acute) Enteritis (Acute) Leukocytosis (Acute) Abdominal pain (Acute) Diarrhea (Acute) Nausea and vomiting (Acute) Low back pain (Acute) Left elbow contusion (Acute) Neck sprain (Acute) Fall from ground level (Acute) Fatigue (Acute) Sinus infection (Acute) URI (upper respiratory infection) (Acute) Back pain (Acute) Sciatica (Acute) Depression (Acute) Anxiety (Acute) Chest wall contusion (Acute) Sebaceous cyst (Acute) Blurred vision, right eye (Acute) Rib pain on right side (Acute) Medical History Medical History Hx of pleural effusion Anal fistula, complex, persistent Social History Social History (Updated 02/09/25 @ 14:42 by Suzi Sosa RN) Smoking Status: Former smoker If you are a former smoker, when did you quit? (Date/Year): 09/2024 Number of Years Smoked: 30 How many cigarettes a day do you smoke? (20 cigarettes=1 Pk): 10 Second hand tobacco smoke exposure: No Do you dip or chew tobacco?: No Do you vape?: No Patient requests smoking cessation consult: No Initiate information on smoking cessation: No Living arrangement: At home Marital Status: Single Living Condition: With spouse/s.o. Support Person: Yes Physical Activity: Walking Level: Independent Do you feel safe in your home environment?: Yes History of physical, verbal, emotional, or financial abuse?: No ETOH Use: None Frequency: Weekly Substance Use: denies use Are you sexually active?: No Are you following a diet prescribed by a doctor: No POLST Patient has POLST: No POLST on file?: Yes POLST CPR Status: Do Not Attempt Resuscitation (DNAR) / Allow Natural Exam Exam Vital Signs: Vital Signs x48h Temp Pulse Resp BP Pulse Ox 02/09/25 12:04 36.9 C 111 H 18 158/84 H 98 Constitutional normal general appearance, no apparent distress, average body habitus, no limitations and alert HENMT normocephalic and head/scalp atraumatic Eyes PERRL Chest inspection of chest normal and palpation of chest normal Respiratory breath sounds equal bilaterally and normal respiratory effort Cardiovascular normal heart rate noted and regular rhythm noted Gastrointestinal abdomen normal to inspection, abdomen soft to palpation and tender to palpation (moderate) and (RUQ) Genitourinary no CVA tenderness Extremities normal to inspection, normal to palpation and no tenderness Psychiatry tearful and very anxous Skin skin color normal Results Vitals Vitals: Vital Signs - 24 hr 02/09/25 12:04 02/09/25 13:04 02/09/25 14:11 Temperature 36.9 C Temperature Source Temporal Artery Scan Pulse Rate 111 H Respiratory Rate 18 Blood Pressure 158/84 H O2 Saturation 98 O2 Source Room air Pain Intensity 10 10 10 02/09/25 14:28 Temperature Temperature Source Pulse Rate Respiratory Rate Blood Pressure O2 Saturation O2 Source Pain Intensity 10 Oxygen O2 Source Room air EKG (time done) 1419: EKG releavant findings:: EKG personally interpreted by author of this note. Relevant findings are: Rate: Rate (enter#) (90) Rhythm: NSR [place]: Normal Intervals: Normal MN Ischemia: Normal ST segments Other comments: Other comments (Atrial premature complexes) Computer interpretation: Agree with computer Labs Labs: Laboratory Tests 02/09/25 12:58 WBC 6.2 RBC 2.28 L Hgb 7.6 L Hct 22.8 L MCV 100.0 H MCH 33.3 H MCHC 33.3 RDW 17.9 H Plt Count 163 MPV 10.0 Neut # (Auto) 3.7 Lymph # (Auto) 1.5 [place] # (Auto) 0.9 Eos # (Auto) 0.0 Baso # (Auto) 0.0 Absolute Nucleated RBC 0.00 Nucleated RBC % 0.0 Sodium 138 Potassium 3.1 L Chloride 102 Carbon Dioxide 27 Anion Gap 9.0 BUN 6 Creatinine 0.7 Estimated GFR (MDRD) 85 L Glucose 107 H Calcium 8.5 Magnesium 0.9 L* Total Bilirubin 0.6 AST 89 H ALT 85 H Alkaline Phosphatase 64 Troponin I High Sens 4.9 Total Protein 6.4 Albumin 3.3 Globulin 3.1 Albumin/Globulin Ratio 1.1 Lipase < 10 L Rads (name of study) CT abd pelvis with: Relevant Findings:: Final report received and EMP independent interpretation of test Interpretation: IMPRESSION: No acute abnormality. Growing hypoattenuating liver lesions, concerning for metastatic disease. Recommend further characterization with nonemergent MRI (hepatic mass protocol with Eovist). Stable loculated right-sided pleural effusion with pleural thickening. PD Medical Decision Making ED course ED course: 64-year-old female with known metastatic lung adenocarcinoma currently receiving chemotherapy who presents with severe right upper quadrant abdominal pain and ongoing diarrhea one week following her most recent chemotherapy infusion. The patient reports that she typically experiences abdominal pain after chemotherapy; however, todays pain is significantly more severe, persistent, and uncontrolled, rated 10/10 despite no home analgesic use prior to arrival. She is tearful and visibly anxious on exam, with moderate right upper quadrant tenderness. Laboratory evaluation is notable for severe hypomagnesemia (Mg 0.9) and hypokalemia (K 3.1), both of which increase risk for cardiac arrhythmias, particularly in the setting of chemotherapy, diarrhea, and baseline anemia. Hemoglobin is significantly decreased at 7.6 g/dL, consistent with chronic anemia related to malignancy and recent chemotherapy, contributing to weakness and fatigue. Liver enzymes are mildly elevated, and CT imaging demonstrates progressive hypoattenuating liver lesions concerning for metastatic disease, which likely explains the worsening right upper quadrant pain. While CT imaging shows no acute surgical pathology, the patients pain remains severe and refractory, requiring IV analgesia, and she is not appropriate for outpatient management at this time. Additionally, her severe hypomagnesemia requires IV magnesium repletion with cardiac monitoring, serial electrolyte reassessment, and evaluation for ongoing losses related to diarrhea and chemotherapy effects. Given her tachycardia, electrolyte abnormalities, anemia, metastatic disease burden, and poor pain control, pt will be admitted for further work up and evaluation. Discharge Plan Discharge Patient Disposition: 68 [facility] DC/Xfer Clinical Impression: Hypomagnesemia, Acute hypokalemia, Pain crisis
[2025-02-09 13:25] LABS: ALT ALANINE AMINOTRANSFERASE 85 IU/L (10-60); AST ASPARTATE AMINOTRANSFERASE 89 IU/L (10-42); BUN - BLOOD UREA NITROGEN 6 mg/dL (6-20); CARBON DIOXIDE - CO2 27 mmol/L (21-32); CREATININE 0.7 mg/dL (0.6-1.3); GFR - MDRD 85 (>89)
[2025-02-09] MEDS: MAGNESIUM SULFATE 2 GRAM 2 GM/50 ML BAG IV ONE (14:25)
--- NOTE | 2025-02-09 14:30 | CT Report ---
PROCEDURE: CT Abdomen/Pelvis W INDICATIONS: Abdominal pain, acute, mid-epigastric CONTRAST: Omni 300 100ml TECHNIQUE: After the administration of intravenous contrast, a CT scan of the abdomen and pelvis was performed. Images were recorded and evaluated at appropriate window settings. Reformats: coronal and sagittal. For radiation dose reduction, the following was used: automated exposure control, adjustment of mA and/or kV according to patient size. COMPARISON: 01/23/2025, 12/01/2024 FINDINGS: Image quality: Diagnostic. Lower chest: Stable loculated right-sided pleural effusion with pleural thickening. Near complete atelectasis of the right lower lobe. Liver: Growing hypoattenuating liver lesion in segment 6 of the liver measuring 1.9 cm, previously 0.7 cm (series 2, image 42). Additional hypoattenuating liver lesion along the inferior right margin measuring 1 cm (series 4, image 53). Gallbladder: Surgically absent. Biliary tree: No intrahepatic or extrahepatic dilation, accounting for age. Spleen: No splenomegaly. Pancreas: No pancreatic ductal dilation. Adrenals: No adrenal nodule. Kidneys and ureters: No hydronephrosis. No renal cystic lesion which requires follow up. No solid mass. Stomach, bowel and peritoneum: No gastric or small bowel dilation. No abnormal wall thickening. No pathologic free fluid. Lymph nodes: No central or retroperitoneal adenopathy. Vessels: No infrarenal aortic aneurysm. Patent portal vein. PELVIS Reproductive organs: Unremarkable. Bladder: No abnormal wall thickening. Pelvic lymph nodes: No pelvic adenopathy by size criteria. Bones: No aggressive osseous abnormality. Other: No significant ventral or inguinal hernia. IMPRESSION: No acute abnormality. Growing hypoattenuating liver lesions, concerning for metastatic disease. Recommend further characterization with nonemergent MRI (hepatic mass protocol with Eovist). Stable loculated right-sided pleural effusion with pleural thickening. Reviewed by: Joesph Eden MD on 02/09/2025 2:27 PM PST Approved by: Joesph Eden MD on 02/09/2025 2:27 PM PST Station ID: [id number]
[2025-02-09] MEDS: HYDROmorphone 1 MG/ML CARPUJECT IM STA (15:05)
[2025-02-09] MEDS ORDERED: SODIUM CHLORIDE FLUSH 0.9% 10 ML SYRINGE IVP PRN (15:34)
[2025-02-09] MEDS ORDERED: HYDROmorphone 0.5 MG/0.5 ML SYRINGE IVP PRN (15:34)
[2025-02-09] MEDS ORDERED: ONDANSETRON ODT 4 MG TABLET TL PRN (15:34)
[2025-02-09] MEDS ORDERED: ACETAMINOPHEN 325 MG TABLET PO PRN (15:34)
[2025-02-09] MEDS: POTASSIUM CHLOR 10 MEQ/100 ML 10 MEQ/100 ML BAG IV SCH (15:45)
[2025-02-09] MEDS: HEPARIN FLUSH 500 UNITS/5 ML SYRINGE IVP STA (16:00)
[2025-02-09] MEDS: HYDROmorphone 2 MG/ML VIAL IVP STA (16:21)
[2025-02-09] MEDS: LACTATED RINGERS 1,000 ML IV SCH (16:26)
[2025-02-09] MEDS: SODIUM CHLORIDE FLUSH 0.9% 10 ML SYRINGE IVP SCH (16:27)
--- NOTE | 2025-02-09 16:33 | HISTORY & PHYSICAL EXAMINATION ---
Chief Complaint Chief Complaint Chief Complaint: Abdominal pain History of Present Illness Admitted From Admitted From:: Home with son History Obtained From History obtained from: Patient interview History of Present Illness HPI Comment/Other: 64-year-old female with history of COPD, hypertension, adenocarcinoma of the lung that was known to be metastatic to lymph but is now metastatic to liver presents with fevers, chills, abdominal pain. She also reports chest pain with breathing. She does not report nausea, vomiting, diarrhea at this time, but does report that she has severely reduced appetite and has not had solid food since Sunday. In the ED, her chemistry was notable for potassium of 3.1 and magnesium 0.9. Her LFTs are bumped a little bit with AST 89, ALT 85. CT abdomen/pelvis was performed which showed growing hypoattenuating liver lesions as well as stable loculated right-sided pleural effusion. She was having severe abdominal pain secondary to her liver mets requiring multiple doses of IV pain medicine, so hospitalist was contacted for observation for intractable pain associated with cancer as well as hypomagnesemia Meds/Allgy Home Medications Ambulatory Orders Medication Instructions Recorded Confirmed nebulizers (Aeroneb Go Nebulizer) #1 ea 08/16/2401/26 albuterol sulfate 90 mcg/actuation 2 puff inhalation Q 6H PRN 12/05/24 01/26/25 aerosol inhaler (Ventolin HFA) shortness of breath or wheezing #8.5 grams calcium citrate 250 mg PO TID 01/09/2501/26 ergocalciferol (vitamin D2) 1,250 1,250 mcg PO MO 12/2101/26/25 mcg (50,000 unit) capsule acyclovir 400 mg tablet 400 mg PO TID PRN herpes #30 tabs 01/12/25 01/26/25 arformoterol 15 mcg/2 mL solution 2 ml inhalation BID COPD #60 mL 01/12/25 01/26/25 for nebulization budesonide 0.5 mg/2 mL suspension 0.5 mg (2 mL) inhala tion BID #60 mL 01/12/25 01/26/25 for nebulization inhalational spacing device (Migel #1 ea 01/12/25 Aerosol [place] Enhancer spacer) ipratropium 0.5 mg-albuterol 3 mg 3 ml inhalation QID PRN shortness 01/12/25 01/26/25 (2.5 mg base)/3 mL nebulization of breath or wheezing, excessive soln cough #90 mL losartan 25 mg tablet 25 mg PO BID HIGH BLOOD PRES SURE 01/12/25 01/26/25 #180 tabs magnesium 200 mg tablet 200 mg PO DAILY #30 tabs 01/26/25 montelukast 10 mg tablet 10 mg PO QDAY Allergy #90 ta bs 01/12/25 01/26/25 olanzapine 5 mg tablet 5 mg PO QPM PSY #30 tabs 01/26/25 promethazine 25 mg tablet 25 mg PO BID PRN nausea and 01/12/25 01/26/25 vomiting #60 tabs ketoconazole 2 % topical cream 1 applic topical BID [place] N Skin 01/23/25 01/26/25 infection-fungal dexamethasone 6 mg tablet 6 mg PO DAILY 3 days #3 tabs 01/24/25 01/26/25 olanzapine 5 mg disintegrating 5 mg translingual DAILY 3 days #3 01/24/25 01/26/25 tablet tabs prochlorperazine maleate 5 mg 5 mg PO QID PRN nausea a nd 01/24/25 01/26/25 tablet (Compazine) vomiting #30 tabs tramadol 50 mg tablet 50 mg PO TID PRN pain #9 tab s 01/24/25 01/26/25 buspirone 5 mg tablet 5 mg PO QDAY Anxiety #60 tab s 01/26/25 01/26/25 lorazepam 0.5 mg tablet 0.5 mg PO BID-TID PRN anxiet y #60 01/26/25 01/26/25 tabs nebulizer accessories #1 ea 02/03/25 Allergies Allergies Allergy/AdvReac Type Severity Reaction Status Date / Time doxycycline Allergy Severe Hives Verified 02/09/25 12:12 aspirin AdvReac Severe Nausea Verified 02/09/25 12:12 PFSH Active Problems All Active Problems (Updated 02/09/25 @ 16:08 by Branden Valderrama DNP) Pain crisis (Acute) Acute hypokalemia (Acute) Hypomagnesemia (Acute) Intractable pain (Acute) Anxiety (Chronic) Lung cancer (Acute) Anemia (Chronic) Nausea vomiting and diarrhea (Acute) Chronic pain after cancer treatment (Acute) Shortness of breath at rest (Acute) Oral candidiasis (Acute) Mood changes (Acute) COPD (chronic obstructive pulmonary disease) (Chronic) Anxiety about treatment (Acute) Hypomagnesemia (Acute) Fatigue (Acute) Weakness (Acute) Nausea & vomiting (Acute) Lung cancer (Acute) Dyspnea (Acute) Pleural effusion (Acute) Pleural effusion on right (Acute) Adenocarcinoma of lower lobe of right lung (Acute) Cough (Chronic) Nasal congestion (Acute) Fever (Acute) Pleural effusion (Acute) Elevated heart rate with elevated blood pressure without diagnosis of hypertension (Acute) SOB (shortness of breath) on exertion (Acute) Metastatic adenocarcinoma involving right lung with unknown primary site (Acute) Lung mass (Acute) Acute cough (Acute) Acute bronchitis (Acute) Right lower lobe pulmonary nodule (Acute) Tear of meniscus of left knee (Acute) Dental infection (Acute) Impaired weight bearing (Acute) Instability of left knee joint (Acute) Left knee pain (Acute) Alcohol dependence (Acute) Tobacco dependence (Acute) Genital herpes (Acute) Colon cancer screening (Acute) Tabby infection of flexural skin (Acute) Carpal tunnel syndrome, bilateral (Acute) Carpal tunnel syndrome, left upper limb (Acute) Chronic abdominal pain (Acute) Nausea (Acute) Acute UTI (Chronic) High blood pressure (Acute) Elevated blood pressure reading (Acute) Upper back pain (Acute) Medication refill (Acute) Coccygeal pain, acute (Acute) Knee pain (Acute) Elbow pain (Acute) Fall (Acute) Pulmonary nodule (Acute) Dehydration (Acute) Small bowel obstruction (Acute) Hematuria (Acute) Regional enteritis (Acute) Enteritis (Acute) Leukocytosis (Acute) Abdominal pain (Acute) Diarrhea (Acute) Nausea and vomiting (Acute) Low back pain (Acute) Left elbow contusion (Acute) Neck sprain (Acute) Fall from ground level (Acute) Fatigue (Acute) Sinus infection (Acute) URI (upper respiratory infection) (Acute) Back pain (Acute) Sciatica (Acute) Depression (Acute) Anxiety (Acute) Chest wall contusion (Acute) Sebaceous cyst (Acute) Blurred vision, right eye (Acute) Rib pain on right side (Acute) Medical History Medical History (Reviewed 01/27/25 @ 08:38 by Irene Ferrell, [employer], MSN, PROFESSIONAL PROGRAMMER ANALYST) Hx of pleural effusion Anal fistula, complex, persistent Social History Social History (Updated 02/09/25 @ 14:42 by Suzi Sosa RN) Smoking Status: Former smoker If you are a former smoker, when did you quit? (Date/Year): 09/2024 Number of Years Smoked: 30 How many cigarettes a day do you smoke? (20 cigarettes=1 Pk): 10 Second hand tobacco smoke exposure: No Do you dip or chew tobacco?: No Do you vape?: No Patient requests smoking cessation consult: No Initiate information on smoking cessation: No Living arrangement: At home Marital Status: Single Living Condition: With spouse/s.o. Support Person: Yes Physical Activity: Walking Level: Independent Do you feel safe in your home environment?: Yes History of physical, verbal, emotional, or financial abuse?: No ETOH Use: None Frequency: Weekly Substance Use: denies use Are you sexually active?: No Are you following a diet prescribed by a doctor: No POLST Patient has POLST: No POLST on file?: Yes POLST CPR Status: Do Not Attempt Resuscitation (DNAR) / Allow Natural Review of Systems Status of ROS: 10 or more systems reviewed and unremarkable except as noted in history and below Exam Exam Vital Signs: Vital Signs x48h Temp Pulse Resp BP Pulse Ox 02/09/25 14:55 99 20 149/86 H 94 02/09/25 12:04 98.4 F 111 H 18 158/84 H 98 Constitutional normal general appearance and no apparent distress Tearful, in pain HENMT normocephalic and head/scalp atraumatic Eyes PERRL Neck/C-Spine visual inspection normal Lymph no lymphadenopathy noted Chest inspection of chest normal Respiratory breath sounds equal bilaterally and normal respiratory effort Cardiovascular normal heart rate noted and regular rhythm noted Gastrointestinal abdomen normal to inspection and abdomen soft to palpation Tender right upper quadrant Extremities normal to inspection Neurology GCS 15 Psychiatry oriented x3 Understandably tearful due to situation Skin skin color normal Conclusion/Plan Problem List (1) Intractable pain: (2) Adenocarcinoma of lower lobe of right lung: Plan: Plan is for both of the above Patient has adenocarcinoma of the right lung. This is metastatic to lymph and to the liver. She was started on carboplatin and pemetrexed on 10/16/2024. She has had hospital presentations since then for intractable pain as well as for electrolyte derangements from nausea, vomiting, diarrhea She has received multiple doses of IV Dilaudid in the ED IV Dilaudid 2 mg once, 1 mg every hour thereafter Would likely benefit from hospice referral (3) Acute hypokalemia: Plan: K3.1 Secondary to poor p.o. intake IV repletion ordered by ER provider BMP in a.m. (4) Hypomagnesemia: Plan: Mg 0.9 Secondary to poor p.o. intake IV repletion ordered by ER provider Check mag in a.m. Plan Place in observation DNR/DNI Her son is her surrogate decision maker Lab Results Lab results reviewed: Yes 02/09/25 12:58 02/09/25 12:58 Core Measures Anticipated LOS I expect patient to be DC'd or transferred within 96 hours.: Yes DVT/VTE - Prophylaxis VTE/DVT Prophylaxis med ordered at admit?: Yes
[2025-02-09 16:35] LABS: KETONES,URINE (UA) NEGATIVE (NEGATIVE); OCCULT BLOOD,URINE NEGATIVE (NEGATIVE)
[2025-02-09 16:36] LABS: GLUCOSE, URINE (UA) NEGATIVE (NEGATIVE)
[2025-02-09] MEDS: oxyCODONE 5 MG TABLET PO PRN (17:36)
[2025-02-09] MEDS: HYDROmorphone 1 MG/ML CARPUJECT IVP PRN (18:30)
[2025-02-09] MEDS ORDERED: oxyCODONE 5 MG TABLET PO PRN (19:51)
[2025-02-09] MEDS: MORPHINE SOL 10 MG/0.5 ML ORAL SYRINGE PO PRN (20:58)
[2025-02-09] MEDS ORDERED: IPRATROPIUM/ALBUTEROL 3 ML NEB INH PRN (21:59)
[2025-02-10] MEDS: ONDANSETRON 4 MG/2 ML VIAL IVP PRN (05:22)
[2025-02-10 07:07] LABS: MEAN PLATELET VOLUME 10.8 fL (7.9-10.8); NRBC ABSOLUTE COUNT (AUTO) 0.00 x10^3/uL; NUCLEATED RED BLOOD CELLS AUTO 0.0 /100WBC; PLT - PLATELET COUNT 153 10^3/uL (130-450); RED CELL DISTRIBUTION WIDTH 18.0 % (12.0-15.0)
[2025-02-10 07:16] LABS: HCT - HEMATOCRIT 19.6 % (37.0-47.0); HGB - HEMOGLOBIN 6.5 g/dL (12.0-16.0)
[2025-02-10 07:22] LABS: BUN - BLOOD UREA NITROGEN 6.0 mg/dL (6-20); CARBON DIOXIDE - CO2 27.0 mmol/L (21-32); CREATININE 0.6 mg/dL (0.6-1.3); GFR - MDRD 101.0 (>89)
[2025-02-10] MEDS: ENOXAPARIN 40 MG/0.4 ML SYRINGE SUBQ SCH (10:07)
--- NOTE | 2025-02-10 11:39 | PHARMACY PROGRESS NOTE ---
Best Possible Medication History Admit Date and Time: 02/09/25 1459 Home Medications Medication Instructions Recorded Confirmed Type nebulizers (Aeroneb Go Nebulizer) #1 ea 08/16/2401/26 Rx albuterol sulfate 90 mcg/actuation 2 puff inhalation Q 6H PRN 12/05/24 02/10/25 Rx aerosol inhaler (Ventolin HFA) shortness of breath or wheezing #8.5 grams calcium citrate 250 mg PO TID 01/09/2502/10 History acyclovir 400 mg tablet 400 mg PO TID PRN herpes #30 tabs 01/12/25 02/10/25 Rx arformoterol 15 mcg/2 mL solution 2 ml inhalation BID COPD #60 mL 01/12/25 02/10/25 Rx for nebulization inhalational spacing device (Migel #1 ea 01/12/25 Rx Aerosol [place] Enhancer spacer) ipratropium 0.5 mg-albuterol 3 mg 3 ml inhalation QID PRN shortness 01/12/25 02/10/25 Rx (2.5 mg base)/3 mL nebulization of breath or wheezing, excessive soln cough #90 mL losartan 25 mg tablet 25 mg PO BID HIGH BLOOD PRES SURE 01/12/25 02/10/25 Rx #180 tabs olanzapine 5 mg tablet 5 mg PO QPM PSY #30 tabs 02/10/25 Rx promethazine 25 mg tablet 25 mg PO BID PRN nausea and 01/12/25 02/10/25 Rx vomiting #60 tabs ketoconazole 2 % topical cream 1 applic topical BID FL N Skin 01/23/25 02/10/25 History infection-fungal olanzapine 5 mg disintegrating 5 mg translingual DAILY 3 days #3 01/24/25 02/10/25 Rx tablet tabs prochlorperazine maleate 5 mg 5 mg PO QID PRN nausea a nd 01/24/25 02/10/25 Rx tablet (Compazine) vomiting #30 tabs lorazepam 0.5 mg tablet 0.5 mg PO BID-TID PRN anxiet y #60 01/26/25 02/10/25 Rx tabs nebulizer accessories #1 ea 02/03/25 Rx buspirone 5 mg tablet 5 mg PO DAILY Anxiety 02/10/25 History fluticasone propionate 50 1 spray intranasal BID PRN n favian 02/10/25 02/10/25 History mcg/actuation nasal congestion spray,suspension folic acid 1 mg tablet 1 mg PO DAILY 02/10/2502/10 History hydromorphone 4 mg tablet 4 mg PO Q6H PRN pain 5 02/10/25 History montelukast 10 mg tablet 10 mg PO DAILY Allergy 02/1002/10/25 History Processed by: Pharmacy (Medication reconciliation completed by Rouge MillerNina) Medications reviewed in ED?: No Medication History completed: Yes Patient Interview: Completed Secondary Source(s): Insurance records [facility] Statement: As the person ultimately responsible for medication therapy, providers are able to order a medication from an existing home medication list in [facility] via the "Reconcile Routine" prior to Confirmation of that medication by pharmacy retail support specialist. Such practice is discouraged except when the physician, in their clinical judgment, deems that a medical need exists for a medication without regard to pr evious use.
--- NOTE | 2025-02-10 12:34 | Discharge Summary ---
Discharge Summary Admit Date: 02/09/25 Discharge Date: 02/10/25 Discharging Provider: Nate Steinberg Primary Care Provider: Irene Ferrell Code Status: Do Not Attempt Resuscitation DIAGNOSES Discharge Diagnoses with Status of Each Condition: Patient elected to go on hospice, patient is being sent home with comfort meds. That applies to all of the following: Intractable pain Adenocarcinoma of lower lobe of right lung Acute hypokalemia Hypomagnesemia HPI History of Present Illness: 64-year-old female with history of COPD, hypertension, adenocarcinoma of the lung that was known to be metastatic to lymph but is now metastatic to liver presents with fevers, chills, abdominal pain. She also reports chest pain with breathing. She does not report nausea, vomiting, diarrhea at this time, but does report that she has severely reduced appetite and has not had solid food since Sunday. In the ED, her chemistry was notable for potassium of 3.1 and magnesium 0.9. Her LFTs are bumped a little bit with AST 89, ALT 85. CT abdomen/pelvis was performed which showed growing hypoattenuating liver lesions as well as stable loculated right-sided pleural effusion. She was having severe abdominal pain secondary to her liver mets requiring multiple doses of IV pain medicine, so hospitalist was contacted for observation for intractable pain associated with cancer as well as hypomagnesemia HOSPITAL COURSE Hospital Course: Patient was started on IV fluids and IV electrolyte repletion, with minimal improvement. She required multiple doses of IV pain medication to control her pain. This morning, she elected to pursue hospice. She is being discharged home to follow-up with hospice in the outpatient setting. I have sent her hospice comfort pack to her preferred pharmacy. She is reaching out to oncology and PCP to inform them of this decision. Anticipate hospice enrollment next week ALLERGIES Allergies Allergy/AdvReac Type Severity Reaction Status Date / Time doxycycline Allergy Severe Hives Verified 02/09/25 12:12 aspirin AdvReac Severe Nausea Verified 02/09/25 12:12 MEDICATIONS Ambulatory Orders Medication Instructions Recorded Confirmed nebulizers (Aeroneb Go Nebulizer) #1 ea 08/16/2401/26 albuterol sulfate 90 mcg/actuation 2 puff inhalation Q 6H PRN 12/05/24 02/10/25 aerosol inhaler (Ventolin HFA) shortness of breath or wheezing #8.5 grams calcium citrate 250 mg PO TID 01/09/2502/10 acyclovir 400 mg tablet 400 mg PO TID PRN herpes #30 tabs 01/12/25 02/10/25 arformoterol 15 mcg/2 mL solution 2 ml inhalation BID COPD #60 mL 01/12/25 02/10/25 for nebulization inhalational spacing device (Migel #1 ea 01/12/25 Aerosol [place] Enhancer spacer) ipratropium 0.5 mg-albuterol 3 mg 3 ml inhalation QID PRN shortness 01/12/25 02/10/25 (2.5 mg base)/3 mL nebulization of breath or wheezing, excessive soln cough #90 mL losartan 25 mg tablet 25 mg PO BID HIGH BLOOD PRES SURE 01/12/25 02/10/25 #180 tabs olanzapine 5 mg tablet 5 mg PO QPM PSY #30 tabs 02/10/25 promethazine 25 mg tablet 25 mg PO BID PRN nausea and 01/12/25 02/10/25 vomiting #60 tabs ketoconazole 2 % topical cream 1 applic topical BID MT N Skin 01/23/25 02/10/25 infection-fungal olanzapine 5 mg disintegrating 5 mg translingual DAILY 3 days #3 01/24/25 02/10/25 tablet tabs prochlorperazine maleate 5 mg 5 mg PO QID PRN nausea a nd 01/24/25 02/10/25 tablet (Compazine) vomiting #30 tabs lorazepam 0.5 mg tablet 0.5 mg PO BID-TID PRN anxiet y #60 01/26/25 02/10/25 tabs nebulizer accessories #1 ea 02/03/25 bisacodyl 10 mg rectal suppository 10 mg MT DAILY PRN Constipation #3 02/10/25 (Dulcolax (bisacodyl)) ea buspirone 5 mg tablet 5 mg PO DAILY Anxiety 02/10/25 fluticasone propionate 50 1 spray intranasal BID PRN n favian 02/10/25 02/10/25 mcg/actuation nasal congestion spray,suspension folic acid 1 mg tablet 1 mg PO DAILY 02/10/2502/10 hydromorphone 4 mg tablet 4 mg PO Q6H PRN pain 5 02/10/25 lorazepam 0.5 mg tablet (Ativan) 0.5 mg PO Q6H PRN Anx iety #10 tabs 02/10/25 montelukast 10 mg tablet 10 mg PO DAILY Allergy 02/1002/10/25 morphine concentrate 100 mg/5 mL 5 mg (0.25 mL) PO Q4H PRN pain or 02/10/25 (20 mg/mL) oral solution breathlessness #30 mL olanzapine 5 mg disintegrating 5 mg PO DAILY PRN Agit ation, 02/10/25 tablet (Zyprexa Zydis) nausea and vomiting #10 tabs sennosides 8.6 mg tablet (senna) 8.6 mg PO BID PRN Con stipation #10 02/10/25 tabs PHYSICAL EXAM AT DISCHARGE Vital Signs: Vital Signs x48h Temp Pulse Resp BP Pulse Ox 02/10/25 12:58 98.1 F 91 16 131/80 H 95 02/10/25 12:23 97.9 F 94 16 141/83 H 02/10/25 10:08 97.7 F 95 18 130/77 94 02/10/25 09:49 97.9 F 92 16 117/74 94 02/10/25 07:46 97.9 F 96 16 123/69 92 Physical Exam Other/Comments: Constitutional normal general appearance and no apparent distress Tearful, in pain HENMT normocephalic and head/scalp atraumatic Eyes PERRL Neck/C-Spine visual inspection normal Lymph no lymphadenopathy noted Chest inspection of chest normal Respiratory breath sounds equal bilaterally and normal respiratory effort Cardiovascular normal heart rate noted and regular rhythm noted Gastrointestinal abdomen normal to inspection and abdomen soft to palpation Tender right upper quadrant Extremities normal to inspection Neurology GCS 15 Psychiatry oriented x3 Understandably tearful due to situation Skin skin color normal LABS 02/10/25 06:32 02/10/25 06:32 FOLLOW UP Follow Up: With hospice TIME SPENT Time Spent in Discharge (Minutes): 38 Discharge Plan Discharge Patient Disposition: 01 Home, Self Care Prescriptions: New sennosides [senna] 8.6 mg Tablet 8.6 mg PO BID PRN (Reason: Constipation) Qty: 10 0RF Rx Instructions: Take one tablet, by mouth, twice a day as needed for constipation. morphine concentrate 100 mg/5 mL (20 mg/mL) Solution 5 mg PO Q4H PRN (Reason: pain or breathlessness) Qty: 30 0RF Rx Instructions: Take 0.25 ml (equal to 5 mg) by mouth, or under the tongue, every 4 hours as needed for moderate to severe pain. lorazepam [Ativan] 0.5 mg Tablet 0.5 mg PO Q6H PRN (Reason: Anxiety) Qty: 10 0RF Rx Instructions: Take one tablet, by mouth, every 6 hours as needed for anxiety. bisacodyl [Dulcolax (bisacodyl)] 10 mg Suppository 10 mg MT DAILY PRN (Reason: Constipation) Qty: 3 0RF Rx Instructions: Unwrap and insert one suppository rectally daily, as needed for constipation. olanzapine [Zyprexa Zydis] 5 mg Tablet,Disintegrating 5 mg PO DAILY PRN (Reason: Agitation, nausea and vomiting) Qty: 10 0RF Rx Instructions: Dissolve one tablet, in mouth, twice daily as needed for agitation or nausea and/or vomiting. Continued (DME) nebulizer accessories Kit See Rx Instructions .Route Qty: 1 12RF Rx Instructions: ADULT MASK AND NEBULIZER FOR TREATMENTS ketoconazole 2 % cream 1 applic topical BID PRN (Reason: Skin infection-fungal) olanzapine 5 mg Tablet,Disintegrating 5 mg translingual DAILY 3 Days Qty: 3 0RF prochlorperazine maleate [Compazine] 5 mg tablet 5 mg PO QID PRN (Reason: nausea and vomiting) Qty: 30 0RF folic acid 1 mg tablet 1 mg PO DAILY Patient Comments: TAKE ONE TABLET BY MOUTH ONE TIME DAILY hydromorphone 4 mg tablet 4 mg PO Q6H PRN (Reason: pain) Patient Comments: TAKE ONE TABLET BY MOUTH EVERY FOUR HOURS NEEDED FOR severe PAIN (pain scale 7-10) for up to 28 days fluticasone propionate 50 mcg/actuation spray,suspension 1 spray INTRANASAL BID PRN (Reason: nasal congestion) buspirone 5 mg tablet 5 mg PO DAILY montelukast 10 mg tablet 10 mg PO DAILY (DME) nebulizers [Aeroneb Go Nebulizer] Misc See Rx Instructions .Route Qty: 1 0RF Rx Instructions: As directed lorazepam 0.5 mg tablet 0.5 mg PO BID-TID MDD 1.5mg PRN (Reason: anxiety) Qty: 60 0RF Rx Instructions: For extreme anxiety albuterol sulfate [Ventolin HFA] 90 mcg/actuation HFA aerosol inhaler 2 puff inhalation Q6H PRN (Reason: shortness of breath or wheezing) Qty: 8.5 3RF calcium citrate 250 mg calcium tablet 250 mg PO TID acyclovir 400 mg tablet 400 mg PO TID PRN (Reason: herpes) Qty: 30 3RF arformoterol 15 mcg/2 mL solution for nebulization 2 ml inhalation BID Qty: 60 3RF (DME) Migel Aerosol [place] Enhancer Spacer See Rx Instructions .Route Qty: 1 3RF Rx Instructions: As directed ipratropium-albuterol 0.5 mg-3 mg(2.5 mg base)/3 mL solution for nebulization 3 ml inhalation QID PRN (Reason: shortness of breath or wheezing, excessive cough) Qty: 90 3RF losartan 25 mg tablet 25 mg PO BID Qty: 180 0RF olanzapine 5 mg tablet 5 mg PO QPM Qty: 30 0RF promethazine 25 mg tablet 25 mg PO BID PRN (Reason: nausea and vomiting) Qty: 60 0RF Diet: Regular Interventions: Belongings Inventory Last Done: 02/09/25 17:07 Health Concerns: You came in to the hospital with complications of your cancer, which appears to have spread to your liver. I placed you in observation and started you on IV fluid replacement, as well as electrolyte rule placement. You also received a unit of blood while you were here. You expressed to me that you would like to stop pursuing active medical treatment for your cancer, and are electing to go on hospice. You have talked with social work about hospice options after discharge. I have sent some medications to [facility] to help keep you comfortable while you are awaiting hospice consultation. I am limited by state law and how much I can give you, but if you need more pain medicine please reach out to your primary care provider or your cancer provider for this. I have sent your prescriptions to the [facility] pharmacy, which is open until 9 PM tonight and until 4 PM tomorrow Print Language: Belarusian Patient Instructions: Starting Hospice Stand Alone Forms: PCP List, SBIRT Follow-up Care: Irene Ferrell, [employer], MS[employer], FAMILY SUPPORT WORKER [Primary Care Provider, Family Practice]
--- NOTE | 2025-02-10 12:38 | ADVANCE CARE PLANNING NOTE ---
Advance Care Planning Planning Encounter Date: 02/10/25 Purpose: Determine goals of care Parties in Attendance: Patient Decisional Capacity of the Patient: Full Diagnosis for Encounter (1) Adenocarcinoma of lower lobe of right lung: Summary: Adenocarcinoma of lower lobe of right lung, has required observation for 4 side effects of chemo regimen. 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 She is no longer able to keep up with her hobbies due to the pain and nausea from her cancer and the associated treatment. She lives alone in [place], has 1 son that also lives on the [place], 1 son in [place] Objective/Medical Story: Lung cancer that presented as a nodule, but she switched to a new PCP and surveillance fell off. By the time she got the new PCP, it had already spread to her lymph nodes. She has been receiving oncology care at [facility]. She presented to the hospital with abdominal pain, nausea, vomiting and was found to now have mets to the liver Goals of Care: Patient is tired of the pain and the impact that her cancers had on her life. She is ready to pursue hospice at this time Plan: I have placed hospice consult, social work is choice in her for hospice agencies. She will discharge home with follow-up with hospice Code Status: Do Not Attempt Resuscitation Time spent on advance care plannin
[2025-02-10 13:01] VITALS: TEMP 98.1
[2025-02-10] MEDS: POTASSIUM CHLORIDE 20 MEQ TABLET PO ONE (13:03)
[2025-02-10] MEDS: HEPARIN FLUSH 500 UNITS/5 ML SYRINGE IVP PRN (14:22)
[2025-02-10 14:45] VITALS: BP 137/84; O2SAT 97
== END 2025-02-10 15:00 | disposition home or self-care (01) ==
LOC: ED 12:03 → MS2 12:03
PROVIDERS: ADMIT Nurse Practitioner Acute Care; ATTEND Nurse Practitioner Acute Care